=== PATIENT | male | born 1960 | race Caucasian/White ===

== ENCOUNTER → 2017-10-30 11:34 | Outpatient (CLI) | payer BC, SELFPAY ==
[2017-10-30 13:34] LABS: BUN 18 mg/dL (7-18); CREATININE 1.06 mg/dL (0.70-1.30)
== END ==
PROVIDERS: PCP Family Medicine; Visit Provider Otolaryngology Otolaryngology/Facial Plastic Surgery
DX: I10 Essential (primary) hypertension (principal); J38.00 Paralysis of vocal cords and larynx, unspecified; I49.9 Cardiac arrhythmia, unspecified; E66.01 Morbid (severe) obesity due to excess calories
CPT/HCPCS: 36415; 84520; 82565

== ENCOUNTER → 2017-11-10 14:20 | Outpatient (CLI) | payer BC, SELFPAY ==
[2017-11-10 15:00] LABS: Prothrombin Time 43.1 sec (9.3-10.8)
[2017-11-10 15:16] LABS: INR 4.7 (1.0-3.5)
[2017-11-10 16:05] LABS: FREE T4 0.98 ng/dL (0.76-1.46)
== END ==
PROVIDERS: PCP Family Medicine; Visit Provider Otolaryngology Otolaryngology/Facial Plastic Surgery
DX: R79.89 Other specified abnormal findings of blood chemistry (principal); Z79.01 Long term (current) use of anticoagulants
CPT/HCPCS: 36415; 84439; 84443; 85610

== ENCOUNTER 2017-11-12 18:11 | Emergency (ER) | payer BC, SELFPAY ==
[2017-11-12] VITALS (22 sets, daily range): BP systolic 104–173; BP diastolic 41–124; PULSE 64–130; RESP 18–40; TEMP 36.4–36.8; O2SAT 88–95
--- NOTE | 2017-11-12 18:35 | DI.REPORT_ITS ---
SYMPTOM/DIAGNOSIS: FATIGUE, MALAISE R/O PNEUMONIA PA AND LATERAL CHEST: 11/12 The heart is enlarged. There is a poor inspiration. No focal consolidation seen. Pulmonary markings are mildly increased probably due to body habitus. No gross pleural effusion seen. CONCLUSION: Cardiomegaly.
--- NOTE | 2017-11-12 19:31 | DI.REPORT_ITS ---
SYMPTOM/DIAGNOSIS: EPIGASTRIC ABDOMINAL PAIN R/O CHOLECYSTITIS ABDOMINAL ULTRASOUND: 11/12 The examination was extremely technically limited due to the patient's body habitus. Liver is poorly visualized and probably enlarged. Gallbladder is contracted and poorly visualized. No gross biliary dilatation. Pancreas not seen. Spleen grossly unremarkable. Kidneys grossly unremarkable with no significant hydronephrosis. Abdominal aorta and IVC poorly seen. CONCLUSION: Technically very limited exam due to patient body habitus. Please see above discussion for findings individual organs.
--- NOTE | 2017-11-12 19:32 | ED.GENADUL_ITS ---
Disposition <Yovanny Monteiro Lisa - Last Filed: 11/13/17 01:32> <Nisha Copeland Evy - Last Filed: 11/14/17 02:51> Clinical Impression: Atrial fibrillation with RVR, Epigastric pain, Hematuria Disposition: STILL A PATIENT Condition: Stable Medical Decision Making - Lab Data Laboratory Tests 11/12/17 11/12/17 11/12/17 19:20 20:00 20:00 WBC 6.87 RBC 6.01 H Hgb 16.7 Hct 52.6 H MCV 87.5 MCH 27.8 MCHC 31.7 L RDW 15.2 H Plt Count 196 MPV 9.4 Immature Gran % 0.1 Neutrophils % 67.9 Lymphocytes % 17.9 Monocytes % 11.8 Eosinophils % 1.9 Basophils % 0.4 Absolute Neutrophils 4.66 Absolute Lymphocytes 1.23 Absolute Monocytes 0.81 H Absolute Eosinophils 0.13 Absolute Basophils 0.03 PT INR Sodium 135 L Potassium 4.2 Chloride 100 Carbon Dioxide 29.4 Anion Gap 5.6 BUN 23 H Creatinine 1.18 Estimated GFR/1.73 m2 >= 60.00 Glucose 173 H Calcium 8.9 Magnesium 2.0 Total Bilirubin 0.4 AST 18 ALT 21 Alkaline Phosphatase 77 Troponin I < 0.02 Total Protein 7.6 Albumin 3.4 Lipase 160 Urine Color Brown Urine Clarity Turbid Urine pH 5.5 Ur Specific Burdick 1.020 Urine Protein 100 H Urine Ketones Negative Urine Blood Large H Urine Nitrite Negative Urine Bilirubin Negative Urine Urobilinogen 0.2 Ur Leukocyte Esterase Negative Urine RBC Urine WBC Not Applicable Ur Epithelial Cells Not Applicable Urine Crystals Not Applicable Urine Bacteria Not Applicable Urine Mucus Not Applicable Ur Culture Indicated? Yes Urine Glucose Negative 11/12/17 20:00 WBC RBC Hgb Hct MCV MCH MCHC RDW Plt Count MPV Immature Gran % Neutrophils % Lymphocytes % Monocytes % Eosinophils % Basophils % Absolute Neutrophils Absolute Lymphocytes Absolute Monocytes Absolute Eosinophils Absolute Basophils PT 23.4 H D INR 2.5 D Sodium Potassium Chloride Carbon Dioxide Anion Gap BUN Creatinine Estimated GFR/1.73 m2 Glucose Calcium Magnesium Total Bilirubin AST ALT Alkaline Phosphatase Troponin I Total Protein Albumin Lipase Urine Color Urine Clarity Urine pH Ur Specific Burdick Urine Protein Urine Ketones Urine Blood Urine Nitrite Urine Bilirubin Urine Urobilinogen Ur Leukocyte Esterase Urine RBC Urine WBC Ur Epithelial Cells Urine Crystals Urine Bacteria Urine Mucus Ur Culture Indicated? Urine Glucose - Medical Decision Making The patient was signed out to be by my colleague Dr. Copeland. This is a pleasant 57-year-old male who presented to the ED for concern of hematuria. His INR 2 days ago was 4.7, and notably elevated. He has been holding off on his Coumadin since then. He has had mild redness in his blood and was concerned with this. In addition to this he has had a complaint of mild epigastric pain for the last 2-3 days which she describes is worse only with the eating. Improved by nothing. It appears to be associated closely with food intake. Patient denies any recent overly spicy foods that he is eaten. He denies any chest pain arm pain neck pain exertional discomfort or shortness of breath or fatigue. Physical exam demonstrates mild reproducible epigastric tenderness. No chest pain. Unfortunately because of the patient's size we were unable to perform a CT scan. Ultrasound was performed and demonstrated no acute abdominal abnormalities on the abdominal ultrasound complete, per virtual radiology. Per virtual radiology the gallbladder wall was thought to be minimally thickened at 3.9 mm which can be within normal limits, it was contracted and they feel that this is the cause. Common bile duct was normal size and caliber. Pancreas demonstrate no abnormalities. No other abnormalities noted on exam. Patient's laboratory workup has returned relatively benign with a normal cardiac workup of a normal troponin and EKG. Additionally urinalysis does show some hemoglobin but no severe RBCs at this time. I feel that this is most likely secondary to his supratherapeutic INR that he previously had which now appears to be improving. He has no flank pain , no tenderness, no increased urinary frequency or dysuria, and so I doubt urolithiasis as a cause of his symptomatology. Especially with no pain. Patient's lipase is normal, laboratory workup is benign from a GI standpoint, and I feel that with his symptoms being directly related to food, this very well may be a component of gastric ulcer, or gastritis as to the cause of his epigastric pain. Patient will be started on Protonix for home use. In addition to this the patient did have mild tachycardia while here although on arrival he was normal in the 90s. EKG shows no evidence of ST elevations or depressions or any other significant abnormalities, but the rate was slightly increased. With his history of A. fib, I do feel that oral rate control for metoprolol is reasonable. Patient did respond well to metoprolol, and demonstrates a normal well-controlled rate at this time. He does have scheduled cardioversion within the next 14 days, as well as PCP follow-up in the next 48 hours. With a negative cardiac workup, a well-controlled heart rate , negative ultrasound, normal chest x-ray showing no signs of significant pneumonia, mediastinal widening, apical Of the aorta, large gastric bundles, or other abnormalities, and a physical exam and clinical presentation consistent with a gastric ulcer or gastric issue and inconsistent with a cardiac etiology, or urolithiasis, I feel that he is safe for discharge home with immediate follow -up in the next 48 hours. We discussed red flags which the patient should return he understands. I have extensively reviewed the treatment plan and discharge instructions with the patient. I have addressed all patient concerns at this time. The patient was made aware of what symptoms to monitor for that would warrant a return to the emergency department. Discussed the plan with the patient, they demonstrate verbal understanding and agreement with our assessment and plan at this time. <Yovanny Monteiro - Last Filed: 11/13/17 01:32> - EKG Data -: EKG Interpreted by Me 11/12/17 19:15: 119 bpm. Atrial fibrillation. No acute ST elevation or depression. - Medical Decision Making The above medical decision making addendum was entered by Dr. Monteiro into my note in error. 57-year-old male with history of morbid obesity, atrial fibrillation on Coumadin , diabetes who presents with hematuria since 5 PM tonight and upper epigastric abdominal pain for 2 days worse with eating and cough. Afebrile. Blood pressure 125/84. Patient appears nontoxic and in no acute distress. He has moderate epigastric tenderness to palpation. He denies fever , dysuria, frequency. Differential diagnosis of hematuria can include infection or possibly due to anticoagulation. Kidney stones less likely as he denies any flank pain or vomiting. Differential diagnosis of epigastric plan includes gastritis, pancreatitis, cholecystitis. Was planning to attempt a CAT scan of the abdomen and pelvis but weight limit is 190 kg. Call was placed to ultrasound and Denilson will come in around 8 PM for abdominal ultrasound. Will place an IV, Pepcid, bolus IV fluids, labs, PT/INR, abdominal ultrasound and reassess. Also do cardiac workup considering patient's comorbidities age and weight. EKG noted a rate of 119 and atrial fibrillation but no acute ST findings. He is not on any rate controlling medication such as beta blockers or calcium channel blockers. Will give a dose of 15 mg Cardizem IV. 2019 -- Nurse unable to obtain IV at bedside. Will hold on Cardizem IV and give metoprolol p.o. Will have another staff member reattempt IV placement. 2029 -- Case endorsed to Dr. Monteiro to follow-up on labs and imaging. 2044 --discussed with Denilson from ultrasound -states he noted the gallbladder to be small and contracted but no stones or pericholecystic fluid. Thinks the contraction may be due to recently eating. Would recommend a repeat ultrasound with fasting for 12 hours. <Nisha Copeland - Last Filed: 11/14/17 02:51> History of Present Illness <Yovanny Monteiro - Last Filed: 11/13/17 01:32> - General Source: patient Mode of arrival: ambulatory Limitations: no limitations - History of Present Illness Initial comments: Patient is a 57-year-old male with history of morbid obesity, atrial fibrillation on Coumadin, diabetes and obstructive sleep apnea who presents with constant upper aching epigastric abdominal pain for 2 days, worse with eating and cough currently 6/10 and better with nothing. Patient is also complaining of hematuria since 5 PM tonight. Patient states he mainly came to the ED due to the hematuria. States he has been on Coumadin for the past 5 weeks. Patient states his INR was checked on Friday and it was for so he was told to hold his Coumadin for the past 2 days. Patient denies fever, nausea, vomiting, diarrhea, chest pain, shortness of breath. He denies flank pain, dysuria, frequency, urgency or history of kidney stones. <Nisha Copeland - Last Filed: 11/14/17 02:51> - General Chief complaint: Abd Prob Stated complaint: ABDOMINAL PAIN/URINARY Time Seen by Provider: 11/12/17 18:31 - Related Data Blood Sugar Diagnostic [Onetouch Verio] 1 each MC BID #60 strip 12/01/15 Lancets [Lancets Thin] 1 each BID #60 each 12/01/15 Metformin HCl 500 mg PO BID@0800,1700 #180 tab 12/07/15 Amlodipine Besylate 10 mg PO DAILY #90 tab-cap 01/14/17 Losartan [Cozaar] 100 mg PO DAILY #90 tab-cap 04/16/17 Benzonatate 100 - 200 mg PO TID PRN #30 tab-cap 10/09/17 Nystatin Powder 60 GM [Mycostatin Powder] 0 gm TP TID #60 jar 10/09/17 Warfarin Sodium 5 mg PO DAILY #90 tab-cap 10/10/17 Allergies Allergy/AdvReac Type Severity Reaction Status Date / Time lisinopril AdvReac Intermediate COUGH Unverified 11/12/17 18:23 Review of Systems Constitutional: denies: chills, fever Eyes: denies: eye pain ENT: denies: ear pain, dental pain Respiratory: denies: cough, shortness of breath Cardiovascular: denies: chest pain, dyspnea on exertion Gastrointestinal: abdominal pain. denies: nausea, vomiting, diarrhea Genitourinary: hematuria. denies: urgency, dysuria, frequency Musculoskeletal: denies: back pain Skin: denies: rash, lesions Neurological: denies: headache, weakness, numbness <Nisha Copeland - Last Filed: 11/14/17 02:51> Past Medical History - Past Medical History Medical history: diabetes, hyperlipidemia, hypertension Peripheral vascular disease Surgical history: non-contributory - Social History Smoking status: never smoker Alcohol use: occasionally Drug use: none <Nisha Copeland - Last Filed: 11/14/17 02:51> General Exam - General Limitations: no limitations General appearance: alert, in no apparent distress - Eye Eye exam: Present: EOMI - Respiratory Respiratory exam: Present: normal lung sounds bilaterally. Absent: respiratory distress, wheezes, rales, rhonchi, stridor - Cardiovascular Cardiovascular Exam: Present: regular rate, normal rhythm. Absent: bradycardia , tachycardia - GI/Abdominal GI/Abdominal exam: Present: soft, distended, tenderness (Moderate and epigastric region, minimal in right upper quadrant and left upper quadrant), normal bowel sounds. Absent: guarding, rebound, rigid - Neurological Exam Neurological exam: Present: alert, oriented X3 - Psychiatric Psychiatric exam: Present: normal affect - Skin Skin exam: Present: warm, dry, intact <Nisha Copeland - Last Filed: 11/14/17 02:51> Course Vital Signs - 24 hr 11/12/17 11/12/17 11/12/17 18:18 19:31 19:40 Temperature 36.8 C Pulse 85 Respiratory 22 25 H 22 Rate Blood Pressure 143/100 Pulse Oximetry 95 11/12/17 11/12/17 11/12/17 20:30 20:31 20:40 Temperature Pulse 82 Respiratory 24 26 H 26 H Rate Blood Pressure 173/124 Pulse Oximetry 94 L 93 L 11/12/17 11/12/17 11/12/17 20:46 20:50 21:00 Temperature Pulse 75 Respiratory 25 H 30 H 21 Rate Blood Pressure 154/83 Pulse Oximetry 93 L 92 L 91 L 11/12/17 11/12/17 11/12/17 21:05 21:10 21:30 Temperature Pulse 86 Respiratory 32 H 20 37 H Rate Blood Pressure 104/41 Pulse Oximetry 91 L 11/12/17 11/12/17 11/12/17 21:40 21:41 21:46 Temperature Pulse 70 69 Respiratory 40 H 21 22 Rate Blood Pressure 142/94 123/78 Pulse Oximetry 90 L 89 L 90 L 11/12/17 11/12/17 11/12/17 21:50 22:00 22:01 Temperature Pulse 74 Respiratory 18 23 22 Rate Blood Pressure 125/82 Pulse Oximetry 90 L 88 L 11/12/17 11/12/17 22:10 22:20 Temperature Pulse Respiratory 25 H 30 H Rate Blood Pressure Pulse Oximetry 91 L <Yovanny Monteiro R - Last Filed: 11/13/17 01:32> Vital Signs - 24 hr 11/12/17 18:18 Temperature 98.2 F Pulse 85 Respiratory 22 Rate Blood Pressure 143/100 Pulse Oximetry 95 <Nisha Copeland - Last Filed: 11/14/17 02:51>
[2017-11-12 19:33] LABS: Bilirubin Negative (Negative); Blood Large (Negative); Clarity Turbid; Glucose Negative (Negative); Ketones Negative (Negative); Leukocyte Esterase Negative (Negative); Nitrite Negative (Negative); Urobilinogen 0.2 EU/dL (Up TO 0.2); pH 5.5 (5-8)
[2017-11-12 19:59] LABS: C & S Indicated? Yes
[2017-11-12 20:28] LABS: Abs Immature Grans 0.01 k/cumm (0.0-0.09); Absolute Basophil Count 0.03 k/cumm (0.0-0.2); Absolute Eosinophil Count 0.13 k/cumm (0.0-0.7); Absolute Lymphocyte Count 1.23 k/cumm (1.2-3.4); Absolute Monocyte Count 0.81 k/cumm (0.11-0.7); Absolute Neutrophil Count 4.66 k/cumm (1.2-6.7); Basophils % 0.4; Eosinophils % 1.9; HCT 52.6 % (40.0-50.0); HGB 16.7 g/dL (13.5-17.5); Immature Grans % 0.1; Lymphocytes % 17.9; Mean Corp. HGB Concentration 31.7 g/dL (32.0-36.0); Mean Corpuscular Hemoglobin 27.8 pg (27.0-33.0); Mean Corpuscular Volume 87.5 fL (80-95); Mean Platelet Volume 9.4 fL (8.0-11.0); Monocytes % 11.8; Neutrophils % 67.9; Platelet Count 196 x1000/uL (130-400); RBC 6.01 m/cumm (4.50-6.00); RBC Distribution Width 15.2 % (11.8-14.1); White Blood Cell Count 6.87 k/cumm (4.4-10.8)
[2017-11-12 20:32] LABS: INR 2.5 (1.0-3.5); Prothrombin Time 23.4 sec (9.3-10.8)
[2017-11-12 20:37] LABS: ALT 21 U/L (12-78); AST 18 U/L (15-37); Albumin 3.4 g/dL (3.4-5.0); Alkaline Phosphatase 77 U/L (46-116); Anion Gap 5.6 mmol/L (3-11); BUN 23 mg/dL (7-18); Bilirubin, Total 0.4 mg/dL (0.2-1.0); CO2 29.4 mmol/L (21.0-32.0); CREATININE 1.18 mg/dL (0.70-1.30); Calcium 8.9 mg/dL (8.5-10.1); Chloride 100 mmol/L (98-107); Glucose 173 mg/dL (70-100); Lipase 160 U/L (73-393); Potassium 4.2 mmol/L (3.5-5.1); Sodium 135 mmol/L (136-145); Total Protein 7.6 g/dL (6.4-8.2)
[2017-11-12 20:40] LABS: Troponin I < 0.02 ng/mL (0.00-0.06)
[2017-11-12] MEDS: Metoprolol 50 MG TAB PO (20:43)
--- NOTE | 2017-11-12 20:59 | DI.VRAD_ITS ---
EXAM: XR Chest, 2 Views EXAM DATE/TIME: 11/12/2017 8:30 PM CLINICAL HISTORY: 57 years old, male; Pain and signs and symptoms; Cough; Chest pain; Type not specified TECHNIQUE: XR of the chest, 2 views. COMPARISON: CR - CHEST 2 VIEWS PA,LAT 09/11/2017 1:54 PM FINDINGS: Lungs: No pneumonic consolidations are seen. Pleural space: No pleural effusions are detected. Heart/Mediastinum: There is marked cardiomegaly present. There is possible associated mild central vascular congestion. Some component of CHF may be present. Bones/joints: The osseous structures appear to be intact. Marginal osteophytic spurring is present throughout the thoracic vertebrae. IMPRESSION: 1. Questionable component of mild CHF as described above. 2. No acute pulmonary disease. Dictated and Authenticated by: Mauricio Mccall MD. Ordering:MEG LAZCANO MD
--- NOTE | 2017-11-12 21:07 | DI.VRAD_ITS ---
EXAM: US Abdomen Complete EXAM DATE/TIME: 11/12/2017 8:29 PM CLINICAL HISTORY: 57 years old, male; Pain; Abdominal pain; Acute TECHNIQUE: Real-time ultrasound of the abdomen with image documentation. COMPARISON: ABD WALL SOFT TISSUE MASS US 09/29/2012 8:54 AM FINDINGS: Limitations: The study was technically limited due to patient body habitus. Additionally, the technologist's work sheet states that the examination was performed during non-fasting conditions. Consideration could be given to repeat evaluation with the patient having fasted. Liver: There is some hepatomegaly present. The liver measured approximately 17.8 cm in the midclavicular line. The liver appeared diffusely increased in echo density suggestive of associated diffuse hepatic steatosis. Gallbladder: The gallbladder is poorly identified due to to partial contraction. Consequently, there is borderline gallbladder wall thickening noted which measured 3.9 mm. This is thought to likely be predominantly artifactual created by the partial contraction. Common bile duct: The common bile duct is normal in caliber and measures 8.8 mm transversely. Pancreas: The pancreas is very suboptimally visualized. The visualized portions of the head and body appeared to be within normal limits. The tail was obscured by bowel gas. Kidneys: Normal. No mass. No hydronephrosis. Spleen: Normal. No splenomegaly. Aorta: Normal where visualized. No aneurysm detected. Inferior vena cava: Normal as visualized. IMPRESSION: No acute findings are detected. Dictated and Authenticated by: Mauricio Mccall MD. Ordering:MEG LAZCANO MD
[2017-11-12] MEDS: Lidocaine 2% Viscous 15 ML CUP (21:16)
[2017-11-12] MEDS: Mylanta Suspension 30 ML CUP (21:16)
== END 2017-11-12 23:22 | disposition still patient (30) ==
PROVIDERS: Emergency Provider Physician Assistant; PCP Family Medicine
DX: I48.91 Unspecified atrial fibrillation (principal); I47.2 Ventricular tachycardia; R10.13 Epigastric pain; R31.9 Hematuria, unspecified; T45.515A Adverse effect of anticoagulants, initial encounter; Z79.01 Long term (current) use of anticoagulants; I10 Essential (primary) hypertension; E11.9 Type 2 diabetes mellitus without complications; Z79.84 Long term (current) use of oral hypoglycemic drugs
CPT/HCPCS: 36415; 80053; 83690; 93005; 99285; 71046; 76700; 81003; 81015; 83735; 84484; 85025; 85610; 87086; 93010

== ENCOUNTER → 2017-11-17 08:47 | Outpatient (CLI) | payer BC, SELFPAY ==
[2017-11-17 11:12] LABS: INR 2.9 (1.0-3.5); Prothrombin Time 27.6 sec (9.3-10.8)
== END ==
PROVIDERS: Otolaryngology Otolaryngology/Facial Plastic Surgery; PCP Family Medicine; Visit Provider Family Medicine
DX: R49.0 Dysphonia (principal); J38.00 Paralysis of vocal cords and larynx, unspecified; R79.89 Other specified abnormal findings of blood chemistry; I48.91 Unspecified atrial fibrillation; Z79.01 Long term (current) use of anticoagulants
CPT/HCPCS: 36415; 83519; 85610

== ENCOUNTER → 2017-11-20 02:48 | Outpatient (CLI) | payer BC, SELFPAY | PROVIDERS: PCP Family Medicine | DX: R49.0 Dysphonia (principal); F44.4 Conversion disorder with motor symptom or deficit | CPT/HCPCS: 92524 ==

== ENCOUNTER 2017-11-28 12:06 | Outpatient (CLI) | payer BC, SELFPAY | END 2017-11-28 12:26 | PROVIDERS: PCP Family Medicine | DX: F44.4 Conversion disorder with motor symptom or deficit (principal); R49.0 Dysphonia | CPT/HCPCS: 92507 ==

== ENCOUNTER 2017-12-01 14:50 | Outpatient (REF) | payer BC, SELFPAY ==
[2017-12-01 15:26] LABS: Epithelial Cells Few HPF (Negative); RBC 0-2 (0-2)
[2017-12-01 15:27] LABS: Bacteria Rare HPF (Negative); C & S Indicated? No; Casts Negative LPF (Negative); Crystals Negative HPF (Negative); Mucus Moderate (Negative); Other Cells Few Transitional (Negative)
== END 2017-12-01 15:10 ==
LOC: LBN 14:50
PROVIDERS: PCP Family Medicine; Visit Provider Nurse Practitioner Gerontology
DX: R31.9 Hematuria, unspecified (principal)
CPT/HCPCS: 81015

== ENCOUNTER 2017-12-02 02:13 | Outpatient (RCR) | payer BC, SELFPAY | END 2017-12-21 23:59 | disposition home or self-care (01) | LOC: SP 02:13 | PROVIDERS: PCP Family Medicine | DX: R49.0 Dysphonia (principal); F44.4 Conversion disorder with motor symptom or deficit | CPT/HCPCS: 92507 ==

== ENCOUNTER 2017-12-10 12:54 | Outpatient (CLI) | payer BC, SELFPAY ==
[2017-12-10 19:02] LABS: FREE T4 1.02 ng/dL (0.76-1.46)
== END 2017-12-10 13:14 ==
PROVIDERS: Nurse Practitioner Family; PCP Family Medicine; Visit Provider Family Medicine
DX: R53.83 Other fatigue (principal)
CPT/HCPCS: 36415; 84439; 84443

== ENCOUNTER 2017-12-10 15:34 | Outpatient (REF) | payer BC, SELFPAY ==
--- NOTE | 2017-12-10 13:35 | PAPNONF_PTH ---
PATIENT: Corey Hall LOC: [facility] U#:[id number] AGE/SX: 57/M ROOM: RE12/10/[address]: Codie Ayala DNP : 1960 BED: DIS: 12/10/2017 SPEC #: [id number] RECD: 12/10/17 16:15 STATUS: EMI RERio #: [id number] MISSY: 12/10/17 13:[address]: Codie Ayala DEPT: [facility] Cytology RECD BY: Horacio Elias ENTERED: 12/10/17 16:17 SP TYPE: JASMIN RAMIREZ DR: Corey Vaca MD Tissues: 1 - BODY FLUID CYTO(SPUTUM/URINE)[facility] Procedures: BODY FLUID CYTO(URINE/SPUTUM) Comments: [id number] (@UK=758 mls - 30mls ur/30mls cytolyte x 3 and 20mls ur/20mls @cytolyte sent)
== END 2017-12-10 15:54 ==
LOC: LBN 15:34
PROVIDERS: PCP Family Medicine; Visit Provider Nurse Practitioner Gerontology
DX: R31.0 Gross hematuria (principal)
CPT/HCPCS: 88104

== ENCOUNTER 2018-01-09 02:54 | Outpatient (CLI) | payer BC, SELFPAY ==
[2018-01-09 11:32] LABS: Prothrombin Time 50.7 sec (9.3-10.8)
[2018-01-09 11:51] LABS: INR 5.5 (1.0-3.5)
== END 2018-01-09 03:14 ==
PROVIDERS: PCP Family Medicine; Visit Provider Family Medicine
DX: Z79.01 Long term (current) use of anticoagulants (principal)
CPT/HCPCS: 36415; 85610

== ENCOUNTER 2018-01-13 01:20 | Outpatient (CLI) | payer BC, SELFPAY ==
[2018-01-13 11:08] LABS: INR 1.6 (1.0-3.5); Prothrombin Time 15.8 sec (9.3-10.8)
[2018-01-13 18:07] LABS: T3,Free 3.1 pg/ml (2.8-5.3)
== END 2018-01-13 01:40 ==
PROVIDERS: PCP Family Medicine; Visit Provider Family Medicine
DX: I48.91 Unspecified atrial fibrillation (principal); Z79.01 Long term (current) use of anticoagulants; I10 Essential (primary) hypertension
CPT/HCPCS: 36415; 84481; 85610

== ENCOUNTER 2018-01-19 11:03 | Outpatient (CLI) | payer BC, SELFPAY ==
[2018-01-19 12:33] LABS: INR 2.9 (1.0-3.5); Prothrombin Time 27.3 sec (9.3-10.8)
== END 2018-01-19 11:23 ==
PROVIDERS: PCP Family Medicine; Visit Provider Family Medicine
DX: Z79.01 Long term (current) use of anticoagulants (principal)
CPT/HCPCS: 36415; 85610

== ENCOUNTER 2018-01-19 12:06 | Outpatient (CLI) | payer BC, SELFPAY ==
--- NOTE | 2018-01-19 11:30 | SATEXT_ITS ---
Assessment: Mr. Hall presents for nutritional counseling for weight management nutritional counseling in preparation for bariatric surgery at [facility] [place]. In the past two weeks, Mr. Hall has changed over to a keto style of eating , although he does have some carbohydrates. He reports that his hunger is in control and he feels better. His physical activity at this point in time consists of his activities of daily life and he also does physical therapy twice per week. Mr. Hall reports a history of eating excessively as well as eating too many sugar sweetened beverages. He is 72 and [address] scale today. Nutritional Diagnosis: Class 3 obesity related to a history of excess energy intake and physical inactivity as evidenced by BMI of 56.0 kg/m2. Intervention: Encouraged Mr. Hall to continue with his keto style eating plan for the next month until he sees me again as it is working well for him at this time. Encouraged him to be as physically active as possible. Monitoring and Evaluation: 1. Mr. Hall will follow up with me next month. Will monitor his weight and PO intake. 2. Will evaluate his nutrition care plan on going and adjust as needed. Thank you for the consult.
== END 2018-01-19 12:26 ==
PROVIDERS: PCP Family Medicine; Visit Provider Dietitian, Registered
DX: E66.8 Other obesity (principal); Z68.43 Body mass index [BMI] 50.0-59.9, adult; Z71.3 Dietary counseling and surveillance
CPT/HCPCS: 97802

== ENCOUNTER 2018-01-28 08:11 | Outpatient (CLI) | payer BC, SELFPAY ==
[2018-01-28 09:23] LABS: INR 3.9 (1.0-3.5); Prothrombin Time 35.9 sec (9.3-10.8)
== END 2018-01-28 08:31 ==
PROVIDERS: PCP Family Medicine; Visit Provider Family Medicine
DX: I87.2 Venous insufficiency (chronic) (peripheral) (principal); Z79.01 Long term (current) use of anticoagulants
CPT/HCPCS: 36415; 85610

== ENCOUNTER 2018-02-10 02:05 | Outpatient (CLI) | payer BC, SELFPAY ==
--- NOTE | 2018-02-10 09:00 | NS.NUTBLAN_ITS ---
February 10, 2018 0900h Mr. Hall returns for follow up nutritional counseling for weight management in preparation for bariatric surgery at [facility] [place]. He reports that he continues to limit his carbohydrate intake to 20-40 grams per day on most days. His breakfast is 2-3 eggs,, 1 slice toast, and brito. Lunch is one piece of fruit and dinner is meat and cottage cheese or an omelette. He drinks water mostly, some diet coke, and some coffee. His physical activity continues to be his ADL' s only. Mr. Hall reports that he will keep up with his current eating habits over the next month as his action plan. Encouraged him also to be as physically active as possible even if only for 5 minutes at one time. He is 72 and his weight today is 413.2 lbs. His BMI is 56.1 kg/m2. Will monitor his PO intake, weight, and physical activity monthly. Will evaluate his nutrition care plan and adjust as needed. Total time spent with patient face to face was 17 minutes.
== END 2018-02-10 02:25 ==
PROVIDERS: PCP Family Medicine; Visit Provider Dietitian, Registered
DX: E66.8 Other obesity (principal); Z68.43 Body mass index [BMI] 50.0-59.9, adult; Z71.3 Dietary counseling and surveillance
CPT/HCPCS: 97803

== ENCOUNTER 2018-02-17 10:23 | Outpatient (CLI) | payer BC, SELFPAY ==
[2018-02-17 13:15] LABS: INR 3.8 (1.0-3.5); Prothrombin Time 35.5 sec (9.3-10.8)
[2018-02-17 13:20] LABS: Hemoglobin A1C 6.4 % (4.5-6.2)
== END 2018-02-17 10:43 ==
PROVIDERS: PCP Family Medicine; Visit Provider Family Medicine
DX: Z79.01 Long term (current) use of anticoagulants (principal); E11.9 Type 2 diabetes mellitus without complications; I49.9 Cardiac arrhythmia, unspecified
CPT/HCPCS: 36415; 83036; 85610

== ENCOUNTER 2018-05-19 10:39 | Outpatient (CLI) | payer SELFPAY ==
[2018-05-19 12:48] LABS: INR 1.7 (0.9-1.1); Prothrombin Time 17.2 sec (9.3-11.0)
== END 2018-05-19 10:59 ==
PROVIDERS: PCP Family Medicine; Visit Provider Family Medicine
DX: Z79.01 Long term (current) use of anticoagulants (principal)
CPT/HCPCS: 36415; 85610

== ENCOUNTER 2018-06-15 16:10 | Outpatient (CLI) | payer BC, SELFPAY ==
[2018-06-15 16:51] LABS: INR 3.6 (0.9-1.1); Prothrombin Time 36.5 sec (9.3-11.0)
== END 2018-06-15 16:30 ==
PROVIDERS: PCP Family Medicine; Visit Provider Family Medicine
DX: Z79.01 Long term (current) use of anticoagulants (principal); I48.2 Chronic atrial fibrillation
CPT/HCPCS: 36415; 85610

== ENCOUNTER 2018-07-03 13:26 | Outpatient (CLI) | payer BC, SELFPAY ==
[2018-07-03 14:00] LABS: INR 2.3 (0.9-1.1); Prothrombin Time 22.9 sec (9.3-11.0)
== END 2018-07-03 13:46 ==
PROVIDERS: PCP Family Medicine; Visit Provider Family Medicine
DX: Z79.01 Long term (current) use of anticoagulants (principal)
CPT/HCPCS: 36415; 85610

== ENCOUNTER 2018-08-13 08:44 | Outpatient (CLI) | payer BC, SELFPAY ==
[2018-08-13 09:18] LABS: INR 1.7 (0.9-1.1); Prothrombin Time 17.5 sec (9.3-11.0)
== END 2018-08-13 09:04 ==
PROVIDERS: PCP Family Medicine; Visit Provider Family Medicine
DX: Z79.01 Long term (current) use of anticoagulants (principal)
CPT/HCPCS: 36415; 85610

== ENCOUNTER 2018-10-11 18:00 | Emergency (ER) | payer BC, SELFPAY ==
[2018-10-11 18:09] VITALS: BP 152/117; PULSE 99; RESP 18; TEMP 38.1; O2SAT 95
[2018-10-11 18:28] LABS: Bilirubin Negative (Negative); Blood Trace-intact (Negative); Clarity Sl Cloudy (Clear); Glucose Negative (Negative); Ketones Negative (Negative); Leukocyte Esterase Moderate (Negative); Nitrite Negative (Negative); Specific Gravity 1.015 (1.005-1.025); Urobilinogen 0.2 EU/dL (Up TO 0.2); pH 5.5 (5-8)
[2018-10-11 18:39] LABS: Epithelial Cells Rare HPF (Negative); RBC 0-2 (0-2)
[2018-10-11 18:40] LABS: Bacteria Few HPF (Negative); C & S Indicated? Yes; Casts Negative LPF (Negative); Crystals Negative HPF (Negative); Mucus Negative (Negative); Other Cells Rare Renal (Negative)
--- NOTE | 2018-10-11 19:08 | ED.GENADUL_ITS ---
Discharge Plan Discharge Details Chief Complaint: Abd Prob Primary Care Provider: Corey Vaca ED Provider: Bear Green Home Meds and New Rx's Prescriptions: No Action amlodipine 10 mg tablet 10 mg PO DAILY Qty: 90 RF: 4 metoprolol tartrate [Lopressor] 50 mg tablet 25 mg PO BID Qty: 180 RF: 4 warfarin 5 mg tablet 5 mg PO DIRECTED Qty: 90 RF: 4 metformin 500 mg tablet 500 mg PO BID@0800,1700 RF: 0 nystatin 60 GM powder 0 gm Topical TID Qty: 60 RF: 0 pantoprazole 40 MG tablet,delayed release (DR/EC) 40 mg PO DAILY Qty: 30 RF: 2 losartan 100 mg tablet 100 mg PO DAILY Qty: 90 RF: 4 (DME) OneTouch Verio 1 EACH strip 1 ea Miscellaneous BID Qty: 60 RF: 0 (DME) Lancets,Thin 1 EACH misc 1 ea Miscellaneous BID Qty: 60 RF: 0 Medical Decision Making 58-year-old male with dysuria lower abdominal pain and low-grade fever concerning for complex UTI vs. pyelonephritis versus less likely intra- abdominal infection vs unlikley renal colic - no CVAT or flank pain, pain severity and pattern inconsistent with renall colic. . Plan for labs IV antibiotics lactate in ED observation likely admission. UA + of infection, lactate 2.3 + leukocytosis with left shift tx with abx, ceftriaxone, negligible post void residual dw IM for admission. HPI 58-year-old male past medical history of atrial fibrillation on Coumadin hypertension hyperlipidemia diabetes on metformin morbid obesity greater than 400 pounds presents with 3 days of dysuria urinary frequency foul-smelling urine and lower abdominal pain diffusely bilateral no chest pain no shortness of breath positive fever and chills. No history of renal calculi or other renal issues. No difficulty urinating. General Date/Time Provider Initiated Documentation: 10/11/18 18:18 . Related Data Home Medications Medication Instructions Recorded Confirmed Lancets,Thin #60 ea 12/01/15 10/11/18 OneTouch Verio #60 strip 12/01/15 10/11/18 nystatin 0 gm TOPICAL TID #60 jar 10/09/17 10/11/18 pantoprazole 40 mg PO DAILY #30 tab-cap 11/14/17 10/11/18 amlodipine 10 mg tablet 10 mg PO DAILY #90 tab-cap 02/17/18 10/11/18 metoprolol tartrate 50 mg tablet 25 mg PO BID #180 tab 02/17/18 10/11/18 warfarin 5 mg tablet 5 mg PO DIRECTED #90 tab 05/19/18 10/11/18 losartan 100 mg tablet 100 mg PO DAILY #90 tab-cap 08/18/18 10/11/18 metformin 500 mg tablet 500 mg PO BID@0800,1700 tab 08/25/18 10/11/18 Previous Rx's Medication Instructions Recorded Lancets,Thin #60 ea 12/01/15 OneTouch Verio #60 strip 12/01/15 nystatin 0 gm TOPICAL TID #60 jar 10/09/17 pantoprazole 40 mg PO DAILY #30 tab-cap 11/14/17 amlodipine 10 mg tablet 10 mg PO DAILY #90 tab-cap 02/17/18 metoprolol tartrate 50 mg tablet 25 mg PO BID #180 tab 02/17/18 warfarin 5 mg tablet 5 mg PO DIRECTED #90 tab 05/19/18 losartan 100 mg tablet 100 mg PO DAILY #90 tab-cap 08/18/18 Allergies Allergy/AdvReac Type Severity Reaction Status Date / Time lisinopril AdvReac Intermediate COUGH Verified 10/11/18 18:12 General Stated Complaint: Abd Prob ENOCH: 3 Review of Systems Review of Systems All systems reviewed & are unremarkable except as noted in HPI and below PFSH Medical History (Updated 10/11/18 @ 18:13 by Meagan Rayo) A-fib (Chronic) Ankle fracture Borderline diabetes Hyperlipidemia Hypertension Morbid obesity with BMI of 50.0-59.9, adult Venous insufficiency (chronic) (peripheral) Surgical History (Updated 09/03/18 @ 11:07 by Corey Vaca MD) Colonoscopy - MAC (01/13/15) Excision, Tumor History of excision of lesion (Resolved) Social History (Updated 02/18/18 @ 08:37 by Marva Sawyer) Smoking/Tobacco Use Status: Never Alcohol Intake: current Alcohol Intake frequency: holidays/special occasions only Alcohol type: beer Drug use: Never Substance use type: does not use 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 well appearing. oriented to person, place, and time. Eyes: conjunctivae are normal. Pupils are equal, round, and reactive to light. No scleral icterus. extraocular muscles are intact Ears/Nose/Mouth/Throat: muscousal membranes are moist. Musculoskeletal: neck is supple. normal range of motion in all extremities. Cardiovascular: Normal rate and rhythm. No lower extremity edema regular rate and rhythm Respiratory: effort is normal. no stridor or respiratory distress. Lungs clear to auscultation GastrointestinaI: abdomen soft, +BS, nontender, -rebound, -guarding. During exam patient indicates that lower left and lower right quadrants and suprapubic area where pain is localized though no tenderness to palpation no CVAT no skin or fungal infections noted to large panis Neurological: alert and oriented to person, place, and time. normal strength, no tremor. Skin: Skin is warm and dry. not diaphoretic. Distal perfusion intact, warm extremities, cap refill < 2 seconds. Hem/Lymph/Imm: No cervical LAD, no goiter, no conjunctival pallor Psych: normal mood and affect. behavior is normal Triage and nurse notes reviewed. Course Vital Signs Temperature 38.1 C H 10/11/18 18:09 Pulse 99 H 10/11/18 18:09 Respiratory Rate 18 10/11/18 18:09 Blood Pressure 152/117 H 10/11/18 18:09 Pulse Oximetry 95 10/11/18 18:09 Temperature 38.1 C H 10/11/18 18:09 Temperature Source Skin 10/11/18 18:09 Pulse 99 H 10/11/18 18:09 Respiratory Rate 18 10/11/18 18:09 Respiratory Effort 10/11/18 18:11 Blood Pressure 152/117 H 10/11/18 18:09 Pulse Oximetry 95 10/11/18 18:09 Pain Level 5 10/11/18 18:09 Lab/Test Results Lab/Test Results: 10/11/18 18:15 Urine - Reflex from Ua Urine Culture - Pending Laboratory Tests Range/Units 10/11/18 18:15 Urine Color (Yellow) Yellow Urine Clarity (Clear) Sl cloudy Urine pH (5-8) 5.5 Ur Specific [place] (1.005-1.025) 1.015 Urine Protein (Negative) mg/dL Negative Urine Ketones (Negative) mg/dL Negative Urine Blood (Negative) Trace-intact H Urine Nitrite (Negative) Negative Urine Bilirubin (Negative) Negative Urine Urobilinogen (Up TO 0.2) EU/dL 0.2 Ur Leukocyte Esterase (Negative) Moderate H Urine RBC (0-2) 0-2 Urine WBC (0-5) HPF 10-20 Ur Epithelial Cells (Negative) HPF Rare Urine Crystals (Negative) HPF Negative Urine Bacteria (Negative) HPF Few Urine Casts (Negative) LPF Negative Urine Mucus (Negative) Negative Urine Other (Negative) Rare renal Ur Culture Indicated? Yes Urine Glucose (Negative) mg/dL Negative
[2018-10-11 19:31] LABS: Abs Immature Grans 0.03 k/cumm (0.0-0.09); Absolute Eosinophil Count 0.07 k/cumm (0.0-0.7); Absolute Lymphocyte Count 0.91 k/cumm (1.2-3.4); Absolute Monocyte Count 1.42 k/cumm (0.11-0.7); Basophils % 0.1; Eosinophils % 0.5; HCT 50.5 % (40.0-50.0); HGB 16.8 g/dL (13.5-17.5); Immature Grans % 0.2; Lymphocytes % 6.8; Mean Corp. HGB Concentration 33.3 g/dL (32.0-36.0); Mean Corpuscular Hemoglobin 29.8 pg (27.0-33.0); Mean Corpuscular Volume 89.7 fL (80-95); Mean Platelet Volume 9.6 fL (8.0-11.0); Monocytes % 10.6; Neutrophils % 81.8; Platelet Count 208 x1000/uL (130-400); RBC 5.63 m/cumm (4.50-6.00); RBC Distribution Width 13.9 % (11.8-14.1); White Blood Cell Count 13.42 k/cumm (4.4-10.8)
[2018-10-11] MEDS: cefTRIAXone 2 GM/50 ML BAG IVPB (19:32)
[2018-10-11 19:33] LABS: Absolute Basophil Count 0.01 k/cumm (0.0-0.2); Absolute Neutrophil Count 10.98 k/cumm (1.2-6.7)
[2018-10-11] MEDS: Normal Saline 1,000 ML 1000 ML IV (19:33)
[2018-10-11 19:37] LABS: Lactate 2.3 mmol/L (0.6-1.4)
[2018-10-11 19:45] LABS: Prothrombin Time 41.6 sec (9.3-11.0)
[2018-10-11 19:50] LABS: ALT 23 U/L (12-78); AST 14 U/L (15-37); Albumin 3.9 g/dL (3.4-5.0); Alkaline Phosphatase 86 U/L (46-116); Anion Gap 11.5 mmol/L (3-11); BUN 19 mg/dL (7-18); Bilirubin, Total 0.4 mg/dL (0.2-1.0); CO2 27.5 mmol/L (21.0-32.0); CREATININE 0.98 mg/dL (0.70-1.30); Calcium 9.4 mg/dL (8.5-10.1); Chloride 100 mmol/L (98-107); Glucose 104 mg/dL (70-100); Lipase 136 U/L (73-393); Magnesium 1.9 mg/dL (1.8-2.4); Sodium 139 mmol/L (136-145); Total Protein 8.6 g/dL (6.4-8.2)
[2018-10-11 19:56] LABS: INR 4.1 (0.9-1.1)
[2018-10-11 21:15] VITALS: BP 156/100; PULSE 82; RESP 24; TEMP 37; O2SAT 95
== END 2018-10-11 22:29 | disposition home or self-care (01) ==
PROVIDERS: Emergency Provider Emergency Medicine; PCP Family Medicine
DX: R10.30 Lower abdominal pain, unspecified (principal); R50.9 Fever, unspecified; N39.0 Urinary tract infection, site not specified; E87.2 Acidosis; Z53.29 Procedure and treatment not carried out because of patient's decision for other reasons; E11.9 Type 2 diabetes mellitus without complications; Z79.84 Long term (current) use of oral hypoglycemic drugs; I10 Essential (primary) hypertension
CPT/HCPCS: 36415; 80053; 83690; 87077; 96361; 96365; 99284; 81003; 81015; 83605; 83735; 85025; 85610; 87086; 87186

== ENCOUNTER 2018-10-12 07:06 | Emergency (ER) | payer BC, SELFPAY ==
[2018-10-12 07:10] VITALS: BP 106/63; PULSE 83; RESP 18; TEMP 36.7; O2SAT 94
--- NOTE | 2018-10-12 07:31 | W.ED.GENAD ---
Discharge Plan Disposition Patient Disposition: HOME Condition: Stable Discharge Details Chief Complaint: Recheck Clinical Impression: Diverticulitis, Bladder wall thickening, Incidental pulmonary nodule Primary Care Provider: Corey Vaca ED Provider: Priscilla Staples Home Meds and New Rx's Prescriptions: New amoxicillin-pot clavulanate [Augmentin] 875-125 mg tablet 1 tab PO TID Qty: 30 RF: 0 Continued amlodipine 10 mg tablet 10 mg PO DAILY Qty: 90 RF: 4 metoprolol tartrate [Lopressor] 50 mg tablet 25 mg PO BID Qty: 180 RF: 4 warfarin 5 mg tablet 5 mg PO DIRECTED Qty: 90 RF: 4 metformin 500 mg tablet 500 mg PO BID@0800,1700 RF: 0 nystatin 60 GM powder 0 gm Topical TID Qty: 60 RF: 0 pantoprazole 40 MG tablet,delayed release (DR/EC) 40 mg PO DAILY Qty: 30 RF: 2 losartan 100 mg tablet 100 mg PO DAILY Qty: 90 RF: 4 (DME) OneTouch Verio 1 EACH strip 1 ea Miscellaneous BID Qty: 60 RF: 0 (DME) Lancets,Thin 1 EACH misc 1 ea Miscellaneous BID Qty: 60 RF: 0 Discharge Instructions Instructions: Diverticulitis (ED), Diverticulitis Diet (ED), Pulmonary Nodules (ED) Additional Instructions: Please return immediately to the emergency department if you develop any new or worsening symptoms or if you become otherwise concerned. It is extremely important that you call as soon as possible to make an appointment to be seen by your primary care doctor, for both follow-up of your condition and also incidental findings on imaging that was done today. Referrals: Corey Vaca MD [Primary Care Provider] - Discharge Data Discharge Date/Time-TO BE ENTERED AT DEPARTURE: 10/12/18 12:01 Medical Decision Making Corey Hall is a 58-year-old man with history of A. fib on Coumadin, hyperlipidemia, hypertension, diabetes, morbid obesity greater than 400 pounds who presented to the emergency department for recheck after being diagnosed with likely pyelonephritis and discharged home last night. On exam patient is well and nontoxic appearing. Mild lower abdominal tenderness without peritoneal signs. At this time, given significant improvement from last night per patient report, plan for screening labs, repeat dose of ceftriaxone, IV fluid hydration, UA. Will obtain post void residual. Awaiting lab results, reassessment for possible ED to ED transfer for CT scan for further differentiation of lower abdominal pain. Exam/history is not consistent with ACS, PE, aortic/vascular etiology. Labs show lactate 1.4, now within normal limits and improved from yesterday's encounter, white blood cell count now 15.47 increased from 13.4 yesterday. Discussed with radiology CT availability here, who states patient should be accommodated by our CT. Plan for CT abdomen pelvis. CT shows diverticulitis, thickened bladder wall, pulmonary nodule per radiology over the phone. I did discuss rising white count and potential admission with the patient for diverticulitis, however patient states that he feels very well and would prefer trial of outpatient therapy. Plan for Augmentin. I had a lengthy discussion with the patient regarding return to emergency department precautions, importance of outpatient follow-up, and home care. Patient verbalized understanding the plan was amenable. Patient was discharged home with clear plan for outpatient follow-up. All questions were answered. Medical Records Medical records reviewed: Yes I reviewed the patient's medical records. Imaging Data Radiologic Study: Attestation: I personally reviewed and interpreted this imaging study as follows: Radiologist's impression: CT ABDOMEN AND PELVIS: CT scan of the abdomen and pelvis was performed following the uneventful administration of intravenous contrast material. There are no priors for comparison. There is a small noncalcified pulmonary nodule in the periphery of the right lobe of the lung measuring 0.7 cm. The liver is normal in size. There does appear to be decreased attenuation of the liver suggesting fatty infiltration. No suspicious hepatic masses seen. The portal superior mesenteric and splenic veins appear patent. The gallbladder is negative. There is no biliary ductal dilatation. The pancreas, adrenal glands and spleen are unremarkable. Incidental note is made of an accessory spleen medially. The kidneys appear symmetric. No evidence of a solid renal mass or obstruction. The urinary bladder is intact. There is a question of mild diffuse thickening of the wall of the urinary bladder. This may be secondary to the adjacent sigmoid diverticulitis. Cystitis cannot be excluded. This may also be related to under-distension. The reproductive organs are unremarkable as visualized. The abdominal aorta is of normal caliber. No aneurysmal dilatation is seen. No significant abdominal or pelvic adenopathy or ascites is present. No pneumoperitoneum is seen. There is a moderately large fat containing umbilical hernia present. There is diverticulosis seen in the colon. There is bowel wall thickening and pericolonic inflammatory change seen in the proximal sigmoid colon consistent with acute diverticulitis. No abscess or free air is seen. The remainder of the bowel is unremarkable. A normal appendix is visualized in the right lower quadrant. Degenerative changes are seen in the spine. IMPRESSION: 1. Findings of acute sigmoid diverticulitis. No abscess or free air. 2. Mild diffuse thickening of the wall of the urinary bladder. This may be due to under-distension. Cystitis or an inflammatory process due to the adjacent diverticulitis cannot be excluded. 3. Small noncalcified pulmonary nodule in the right lower lobe. This is nonspecific. Follow up examination in 6-12 months is recommended for further evaluation depending on the patient's past medical history specifically history of smoking. These findings were discussed with the Emergency Department on the date of the examination. Lab Data Lab results reviewed: Yes I reviewed the patient's lab results. 10/12/18 08:50 Urine - Reflex from Ua Urine Culture - Final Gram Positive Yusra,Mixed Laboratory Tests Range/Units 10/12/18 10/12/18 10/12/18 07:45 07:45 07:45 WBC (4.4-10.8) k/cumm 15.47 H RBC (4.50-6.00) m/cumm 5.09 Hgb (13.5-17.5) g/dL 15.2 Hct (40.0-50.0) % 45.9 MCV (80-95) fL 90.2 MCH (27.0-33.0) pg 29.9 MCHC (32.0-36.0) g/dL 33.1 RDW (11.8-14.1) % 13.9 Plt Count (130-400) x1000/uL 192 MPV (8.0-11.0) fL 9.4 Immature Gran % 0.2 Neutrophils % 81.6 Lymphocytes % 7.4 Monocytes % 10.5 Eosinophils % 0.1 Basophils % 0.2 Absolute Neutrophils (1.2-6.7) k/cumm 12.62 H Absolute Lymphocytes (1.2-3.4) k/cumm 1.14 L Absolute Monocytes (0.11-0.7) k/cumm 1.62 H Absolute Eosinophils (0.0-0.7) k/cumm 0.02 Absolute Basophils (0.0-0.2) k/cumm 0.03 Differential Comment Agrees w/ instrument RBC Morphology Normal Sodium (136-145) mmol/L 137 Potassium (3.5-5.1) mmol/L 3.8 Chloride (98-107) mmol/L 102 Carbon Dioxide (21.0-32.0) mmol/L 24.4 Anion Gap (3-11) mmol/L 10.6 BUN (7-18) mg/dL 16 Creatinine (0.70-1.30) mg/dL 1.09 Estimated GFR/1.73 m2 (mL/min/1.73m2) >= 60.00 Glucose (70-100) mg/dL 152 H Lactate (0.6-1.4) mmol/l 1.4 Calcium (8.5-10.1) mg/dL 8.9 Total Bilirubin (0.2-1.0) mg/dL 0.7 AST (15-37) U/L 11 L ALT (12-78) U/L 16 Alkaline Phosphatase (46-116) U/L 71 Total Protein (6.4-8.2) g/dL 7.3 Albumin (3.4-5.0) g/dL 3.2 L Urine Color (Yellow) Urine Clarity (Clear) Urine pH (5-8) Ur Specific [place] (1.005-1.025) Urine Protein (Negative) mg/dL Urine Ketones (Negative) mg/dL Urine Blood (Negative) Urine Nitrite (Negative) Urine Bilirubin (Negative) Urine Urobilinogen (Up TO 0.2) EU/dL Ur Leukocyte Esterase (Negative) Urine RBC (0-2) Urine WBC (0-5) HPF Ur Epithelial Cells (Negative) HPF Urine Crystals (Negative) HPF Urine Bacteria (Negative) HPF Urine Casts (Negative) LPF Urine Mucus (Negative) Ur Culture Indicated? Urine Glucose (Negative) mg/dL Range/Units 10/12/18 08:50 WBC (4.4-10.8) k/cumm RBC (4.50-6.00) m/cumm Hgb (13.5-17.5) g/dL Hct (40.0-50.0) % MCV (80-95) fL MCH (27.0-33.0) pg MCHC (32.0-36.0) g/dL RDW (11.8-14.1) % Plt Count (130-400) x1000/uL MPV (8.0-11.0) fL Immature Gran % Neutrophils % Lymphocytes % Monocytes % Eosinophils % Basophils % Absolute Neutrophils (1.2-6.7) k/cumm Absolute Lymphocytes (1.2-3.4) k/cumm Absolute Monocytes (0.11-0.7) k/cumm Absolute Eosinophils (0.0-0.7) k/cumm Absolute Basophils (0.0-0.2) k/cumm Differential Comment RBC Morphology Sodium (136-145) mmol/L Potassium (3.5-5.1) mmol/L Chloride (98-107) mmol/L Carbon Dioxide (21.0-32.0) mmol/L Anion Gap (3-11) mmol/L BUN (7-18) mg/dL Creatinine (0.70-1.30) mg/dL Estimated GFR/1.73 m2 (mL/min/1.73m2) Glucose (70-100) mg/dL Lactate (0.6-1.4) mmol/l Calcium (8.5-10.1) mg/dL Total Bilirubin (0.2-1.0) mg/dL AST (15-37) U/L ALT (12-78) U/L Alkaline Phosphatase (46-116) U/L Total Protein (6.4-8.2) g/dL Albumin (3.4-5.0) g/dL Urine Color (Yellow) Yellow Urine Clarity (Clear) Clear Urine pH (5-8) 5.5 Ur Specific [place] (1.005-1.025) 1.015 Urine Protein (Negative) mg/dL 30 H Urine Ketones (Negative) mg/dL Negative Urine Blood (Negative) Negative Urine Nitrite (Negative) Negative Urine Bilirubin (Negative) Negative Urine Urobilinogen (Up TO 0.2) EU/dL 0.2 Ur Leukocyte Esterase (Negative) Small H Urine RBC (0-2) Negative Urine WBC (0-5) HPF 20-50 Ur Epithelial Cells (Negative) HPF Few Urine Crystals (Negative) HPF Negative Urine Bacteria (Negative) HPF Negative Urine Casts (Negative) LPF 0-2 fine granular Urine Mucus (Negative) Negative Ur Culture Indicated? Yes Urine Glucose (Negative) mg/dL Negative HPI General Mode of arrival: ambulatory. Date/Time Provider Initiated Documentation: 10/12/18 07:13. Limitations to Documentation: no limitations. Information obtained by: patient, family, RN notes reviewed and old records reviewed. HPI Narrative: Corey Hall is a 58-year-old man with a history of A. fib on Coumadin, hypertension, hyperlipidemia, diabetes, morbid obesity greater than 400 pounds presenting to the emergency department for recheck. Per patient report and record review, patient was seen here last night for 3 days of lower abdominal pain occurring primarily during urination, foul-smelling urine, frequent urination. He was given ceftriaxone at that visit, and there was plan for admission as patient had elevated lactate and CT scan could not be obtained secondary to patient size. No beds were available at [facility], patient declined transfer and went home with plan to return here in the morning. Patient reports that since leaving the emergency department he had several episodes last night of urinating large volumes with some urinary incontinence, which is new for him and unchanged from the past few days where he had been urinating and trickles. Patient reports that urinary frequency seems to have improved. He reports that he continues to have mild lower abdominal pain, but is significantly improved from yesterday. He denies any other pain, fevers, vomiting, diarrhea, numbness, weakness. Related Data Home Medications Medication Instructions Recorded Confirmed Lancets,Thin #60 ea 12/01/15 10/11/18 OneTouch Verio #60 strip 12/01/15 10/11/18 nystatin 0 gm TOPICAL TID #60 jar 10/09/17 10/12/18 pantoprazole 40 mg PO DAILY #30 tab-cap 11/14/17 10/12/18 amlodipine 10 mg tablet 10 mg PO DAILY #90 tab-cap 02/17/18 10/12/18 metoprolol tartrate 50 mg tablet 25 mg PO BID #180 tab 02/17/18 10/12/18 warfarin 5 mg tablet 5 mg PO DIRECTED #90 tab 05/19/18 10/12/18 losartan 100 mg tablet 100 mg PO DAILY #90 tab-cap 08/18/18 10/12/18 metformin 500 mg tablet 500 mg PO BID@0800,1700 tab 08/25/18 10/12/18 amoxicillin-pot clavulanate 1 tab PO TID #30 tab 10/12/18 [Augmentin] Previous Rx's Medication Instructions Recorded Lancets,Thin #60 ea 12/01/15 OneTouch Verio #60 strip 12/01/15 nystatin 0 gm TOPICAL TID #60 jar 10/09/17 pantoprazole 40 mg PO DAILY #30 tab-cap 11/14/17 amlodipine 10 mg tablet 10 mg PO DAILY #90 tab-cap 02/17/18 metoprolol tartrate 50 mg tablet 25 mg PO BID #180 tab 02/17/18 warfarin 5 mg tablet 5 mg PO DIRECTED #90 tab 05/19/18 losartan 100 mg tablet 100 mg PO DAILY #90 tab-cap 08/18/18 amoxicillin-pot clavulanate 1 tab PO TID #30 tab 10/12/18 [Augmentin] Allergies Allergy/AdvReac Type Severity Reaction Status Date / Time lisinopril AdvReac Intermediate COUGH Verified 10/11/18 18:12 General Stated Complaint: Recheck ENOCH: 3 Review of Systems Review of Systems Constitutional: denies fevers Eyes: denies eye pain ENT: denies facial pain, dental pain, sore throat Cardiovascular: denies chest pain, edema Respiratory: denies SOB, cough GI: denies vomiting, diarrhea, reports lower abdominal pain : denies flank pain, reports urinary frequency MSK: denies back pain, neck pain, arthralgias, myalgias Skin: denies rash Neuro: denies headaches, numbness, weakness PFSH Medical History A-fib (Chronic) Ankle fracture Borderline diabetes Hyperlipidemia Hypertension Morbid obesity with BMI of 50.0-59.9, adult Venous insufficiency (chronic) (peripheral) Surgical History (Updated 09/03/18 @ 11:07 by Corey Vaca MD) Colonoscopy - MAC (01/13/15) Excision, Tumor History of excision of lesion (Resolved) Social History Smoking/Tobacco Use Status: Never Alcohol Intake: current Alcohol Intake frequency: holidays/special occasions only Alcohol type: beer Drug use: Never Substance use type: does not use 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 Pets and animals: Yes Pets and animals: dog(s) Duration: 15-30 minutes/day Frequency: 1-2 times per week Taisha/Congregational: None Special taisha needs: No Do you feel safe at home: Yes Do you feel safe in your relationship?: Yes Exam Narrative Exam Narrative: Constitutional: well and [id number], pleasant, conversing normally HENT: head atraumatic/normocephalic/normal inspection, mucous membranes moist Eyes: conjunctiva normal, sclera normal, pupils 3mm b/l Neck: no stridor, normal ROM, trachea midline Resp: normal work of breathing, LCTAB Cardio: normal rate, normal rhythm, no murmur appreciated GI: abdomen soft, mild generalized tenderness to palpation with moderate tenderness suprapubic area bilateral lower abdominal/pelvic areas, no rebound or guarding, non-distended Skin: warm, dry, normal color, no rash Neuro: alert, not altered, grossly non-focal, normal tone Ext: No posterior calf tenderness Psych: normal mood, normal affect, normal behavior Course Vital Signs Temperature 36.7 C 10/12/18 07:10 Pulse 83 10/12/18 07:10 Respiratory Rate 18 10/12/18 07:10 Blood Pressure 106/63 10/12/18 07:10 Pulse Oximetry 94 L 10/12/18 07:10 Temperature 36.7 C 10/12/18 07:10 Temperature Source Oral 10/12/18 07:10 Pulse 83 10/12/18 07:10 Respiratory Rate 18 10/12/18 07:10 Respiratory Effort Non-Labored 10/12/18 07:14 Blood Pressure 106/63 10/12/18 07:10 Blood Pressure Position Sitting 10/12/18 07:10 Pulse Oximetry 94 L 10/12/18 07:10 Oxygen Delivery Method Room Air 10/12/18 07:10 Oxygen Flow Rate 0 10/12/18 07:10 Pain Level 2 10/12/18 07:10
[2018-10-12 07:47] LABS: Lactate-non-spesis 1.4 mmol/l (0.6-1.4)
[2018-10-12 07:52] LABS: Abs Immature Grans 0.03 k/cumm (0.0-0.09); Absolute Basophil Count 0.03 k/cumm (0.0-0.2); Absolute Eosinophil Count 0.02 k/cumm (0.0-0.7); Absolute Lymphocyte Count 1.14 k/cumm (1.2-3.4); Absolute Monocyte Count 1.62 k/cumm (0.11-0.7); Basophils % 0.2; Eosinophils % 0.1; HCT 45.9 % (40.0-50.0); HGB 15.2 g/dL (13.5-17.5); Immature Grans % 0.2; Lymphocytes % 7.4; Mean Corp. HGB Concentration 33.1 g/dL (32.0-36.0); Mean Corpuscular Hemoglobin 29.9 pg (27.0-33.0); Mean Corpuscular Volume 90.2 fL (80-95); Mean Platelet Volume 9.4 fL (8.0-11.0); Monocytes % 10.5; Neutrophils % 81.6; Platelet Count 192 x1000/uL (130-400); RBC 5.09 m/cumm (4.50-6.00); RBC Distribution Width 13.9 % (11.8-14.1); White Blood Cell Count 15.47 k/cumm (4.4-10.8)
[2018-10-12 08:10] LABS: ALT 16 U/L (12-78); AST 11 U/L (15-37); Albumin 3.2 g/dL (3.4-5.0); Alkaline Phosphatase 71 U/L (46-116); Anion Gap 10.6 mmol/L (3-11); BUN 16 mg/dL (7-18); Bilirubin, Total 0.7 mg/dL (0.2-1.0); CO2 24.4 mmol/L (21.0-32.0); CREATININE 1.09 mg/dL (0.70-1.30); Calcium 8.9 mg/dL (8.5-10.1); Chloride 102 mmol/L (98-107); Glucose 152 mg/dL (70-100); Potassium 3.8 mmol/L (3.5-5.1); Sodium 137 mmol/L (136-145); Total Protein 7.3 g/dL (6.4-8.2)
[2018-10-12 08:21] LABS: Absolute Neutrophil Count 12.62 k/cumm (1.2-6.7)
[2018-10-12 08:24] LABS: Diff Comment Agrees w/ Instrument; RBC Morphology Normal
[2018-10-12] MEDS: cefTRIAXone 2 GM/50 ML BAG IVPB (08:47)
[2018-10-12] MEDS: Normal Saline 1,000 ML 1000 ML IV (08:47)
[2018-10-12 09:02] LABS: Bilirubin Negative (Negative); Blood Negative (Negative); Clarity Clear (Clear); Glucose Negative (Negative); Ketones Negative (Negative); Leukocyte Esterase Small (Negative); Nitrite Negative (Negative); Specific Gravity 1.015 (1.005-1.025); Urobilinogen 0.2 EU/dL (Up TO 0.2); pH 5.5 (5-8)
[2018-10-12 09:14] VITALS: BP 99/56; PULSE 72; RESP 18; TEMP 37; O2SAT 94
[2018-10-12 09:15] LABS: Bacteria Negative HPF (Negative); C & S Indicated? Yes; Casts 0-2 Fine Granular LPF (Negative); Crystals Negative HPF (Negative); Epithelial Cells Few HPF (Negative); Mucus Negative (Negative); RBC Negative (0-2); WBC 20-50 HPF (0-5)
[2018-10-12 10:26] VITALS: BP 139/85; PULSE 68; RESP 16; TEMP 36.6; O2SAT 95
--- NOTE | 2018-10-12 10:27 | DI.CT_ITS ---
SYMPTOM/DIAGNOSIS: ABD PAIN CT ABDOMEN AND PELVIS: CT scan of the abdomen and pelvis was performed following the uneventful administration of intravenous contrast material. There are no priors for comparison. There is a small noncalcified pulmonary nodule in the periphery of the right lobe of the lung measuring 0.7 cm. The liver is normal in size. There does appear to be decreased attenuation of the liver suggesting fatty infiltration. No suspicious hepatic masses seen. The portal superior mesenteric and splenic veins appear patent. The gallbladder is negative. There is no biliary ductal dilatation. The pancreas, adrenal glands and spleen are unremarkable. Incidental note is made of an accessory spleen medially. The kidneys appear symmetric. No evidence of a solid renal mass or obstruction. The urinary bladder is intact. There is a question of mild diffuse thickening of the wall of the urinary bladder. This may be secondary to the adjacent sigmoid diverticulitis. Cystitis cannot be excluded. This may also be related to under-distension. The reproductive organs are unremarkable as visualized. The abdominal aorta is of normal caliber. No aneurysmal dilatation is seen. No significant abdominal or pelvic adenopathy or ascites is present. No pneumoperitoneum is seen. There is a moderately large fat containing umbilical hernia present. There is diverticulosis seen in the colon. There is bowel wall thickening and pericolonic inflammatory change seen in the proximal sigmoid colon consistent with acute diverticulitis. No abscess or free air is seen. The remainder of the bowel is unremarkable. A normal appendix is visualized in the right lower quadrant. Degenerative changes are seen in the spine. IMPRESSION: 1. Findings of acute sigmoid diverticulitis. No abscess or free air. 2. Mild diffuse thickening of the wall of the urinary bladder. This may be due to under-distension. Cystitis or an inflammatory process due to the adjacent diverticulitis cannot be excluded. 3. Small noncalcified pulmonary nodule in the right lower lobe. This is nonspecific. Follow up examination in 6-12 months is recommended for further evaluation depending on the patient's past medical history specifically history of smoking. These findings were discussed with the Emergency Department on the date of the examination.
[2018-10-12] MEDS: Omnipaque 350 MG/ML 100 ML BTL IJ (10:54)
[2018-10-12] MEDS: Amoxicillin 875/Clav. 125 TAB PO (11:49)
[2018-10-12 11:50] VITALS: BP 152/104; PULSE 62; RESP 15; TEMP 36.6; O2SAT 94
[2018-10-12 12:00] VITALS: BP 152/104; PULSE 62; RESP 15; TEMP 36.6; O2SAT 94
== END 2018-10-12 12:01 | disposition home or self-care (01) ==
PROVIDERS: Student in an Organized Health Care Education/Training Program; Emergency Provider Student in an Organized Health Care Education/Training Program; PCP Family Medicine
DX: K57.32 Diverticulitis of large intestine without perforation or abscess without bleeding (principal); R91.1 Solitary pulmonary nodule; N32.89 Other specified disorders of bladder; E66.01 Morbid (severe) obesity due to excess calories; Z68.43 Body mass index [BMI] 50.0-59.9, adult; E11.9 Type 2 diabetes mellitus without complications; Z79.84 Long term (current) use of oral hypoglycemic drugs; I10 Essential (primary) hypertension
CPT/HCPCS: 36415; 80053; 96361; 96365; 99285; 74177; 81003; 81015; 83605; 85025; 87086; J3490

== ENCOUNTER 2018-10-15 08:31 | Outpatient (CLI) | payer BC, SELFPAY ==
[2018-10-15 13:11] LABS: INR 2.7 (0.9-1.1); Prothrombin Time 26.8 sec (9.3-11.0)
== END 2018-10-15 08:51 ==
PROVIDERS: PCP Family Medicine; Visit Provider Family Medicine
DX: Z79.01 Long term (current) use of anticoagulants (principal)
CPT/HCPCS: 36415; 85610

== ENCOUNTER 2018-10-26 09:26 | Outpatient (CLI) | payer BC, SELFPAY ==
[2018-10-26 10:45] LABS: INR 2.1 (0.9-1.1); Prothrombin Time 20.7 sec (9.3-11.0)
== END 2018-10-26 09:46 ==
PROVIDERS: PCP Family Medicine; Visit Provider Family Medicine
DX: Z79.01 Long term (current) use of anticoagulants (principal); R69 Illness, unspecified
CPT/HCPCS: 36415; 85610

== ENCOUNTER 2018-12-02 14:06 | Outpatient (CLI) | payer BC, SELFPAY ==
[2018-12-02 15:07] LABS: INR 2.6 (0.9-1.1); Prothrombin Time 26.5 sec (9.3-11.0)
== END 2018-12-02 14:26 ==
PROVIDERS: PCP Family Medicine; Visit Provider Family Medicine
DX: I25.10 Atherosclerotic heart disease of native coronary artery without angina pectoris (principal); Z79.01 Long term (current) use of anticoagulants
CPT/HCPCS: 36415; 85610

== ENCOUNTER 2019-06-15 11:02 | Outpatient (CLI) | payer SELFPAY ==
[2019-06-15 12:56] LABS: Prothrombin Time 19.4 sec (9.3-11.0)
== END 2019-06-15 11:22 ==
PROVIDERS: PCP Family Medicine; Visit Provider Family Medicine
DX: Z79.01 Long term (current) use of anticoagulants (principal)
CPT/HCPCS: 36415; 85610

== ENCOUNTER 2019-10-04 06:46 | Inpatient (IN) | payer OTHER, SELFPAY ==
[2019-10-04] VITALS (30 sets, daily range): BP systolic 106–162; BP diastolic 58–87; PULSE 66–107; RESP 16–22; TEMP 36.7–38.9; O2SAT 86–96
[2019-10-04 07:38] LABS: Abs Immature Grans 0.02 k/cumm (0.0-0.09); Absolute Eosinophil Count 0.05 k/cumm (0.0-0.7); Absolute Monocyte Count 0.72 k/cumm (0.11-0.7); Basophils % 0.2; Eosinophils % 0.4; HCT 48.3 % (40.0-50.0); HGB 16.2 g/dL (13.5-17.5); Immature Grans % 0.2 %; Lymphocytes % 4.9; Mean Corp. HGB Concentration 33.5 g/dL (32.0-36.0); Mean Corpuscular Hemoglobin 30.6 pg (27.0-33.0); Mean Corpuscular Volume 91.3 fL (80-95); Mean Platelet Volume 9.4 fL (8.0-11.0); Monocytes % 5.7; Neutrophils % 88.6; Platelet Count 202 x1000/uL (130-400); RBC 5.29 m/cumm (4.50-6.00); RBC Distribution Width 13.5 % (11.8-14.1); White Blood Cell Count 12.57 k/cumm (4.4-10.8)
--- NOTE | 2019-10-04 07:38 | ED.GENADUL_ITS ---
Discharge Plan Disposition Patient Disposition: [facility] INPATIENT Condition: Stable Discharge Details Chief Complaint: GenMedical Clinical Impression: Cellulitis, Sepsis Primary Care Provider: Kaylen Ellis ED Provider: Juan Ramon Staples Home Meds and New Rx's Prescriptions: No Action metformin 500 mg tablet 500 mg PO DAILY Qty: 90 RF: 4 losartan 100 mg tablet 100 mg PO DAILY Qty: 90 RF: 4 (DME) blood sugar diagnostic [OneTouch Verio test strips] Strip 1 ea Miscellaneous BID Qty: 100 RF: 4 nystatin 60 GM powder 0 gm Topical TID Qty: 60 RF: 0 amlodipine 10 mg tablet 10 mg PO DAILY Qty: 90 RF: 4 warfarin 5 mg tablet 5 mg PO DIRECTED Qty: 90 RF: 4 (DME) Lancets,Thin 1 EACH misc 1 ea Miscellaneous BID Qty: 60 RF: 0 Medical Decision Making <Yovanny Monteiro DO - Last Filed: 10/04/19 08:09> 59-year-old male with a past medical history of atrial fibrillation, diabetes, hypertension, obesity, chronic venous insufficiency, diabetes, whose tetanus was last updated in 2002 presents today for evaluation of right calf pain, and chills. Patient states that 1 week ago he stepped on a very pat nail the bottom of his right foot. He pulled out the nail, and then over the last 24 to 48 hours he noticed mild pain and redness in his right calf, which is notably worsened over the last few hours, developing into a severe cramping-like pain which is notably tender to touch, he is unable to ambulate because of it. The pain spreads up his calf into his medial thigh. He does admit to chills but denies any fever. He denies any chest pain or shortness of breath. He has been taking his Coumadin as directed. He denies any other trauma. No other complaints at this time. Physical exam demonstrates chronic bilateral large legs, with evidence of chronic venous stasis. Unilaterally he does have more swelling on the right calf though, notable exquisite tenderness in the posterior calf with redness as well. Subjective tenderness on palpation traveling up the medial aspect of the thigh. Evaluation of the foot shows a small punctate lesion on the medial MTP joint, mild tenderness here. No associated redness though. Neurovascular exam otherwise intact. Differential at this time is unlikely for clot as the patient does take his Coumadin regularly. We will check his INR status though. His tetanus is not updated since 2002, and with his exquisite pain and cramp-like sensation that he is describing, tetanus is unlikely but certainly on the differential. Differential also includes cellulitis or bacteremia with traveling vascular irritation. With the patient's pain that appears to be out of proportion necrotizing fasciitis is also on the differential. Patient is tachycardic, lactate is elevated at 3. With these clinical findings I am concerned for the aforementioned etiologies. Will get laboratory work-up, blood cultures, and a CT scan of the patient's right lower extremity to evaluate for gas, or infectious source. We will wait on labs for INR status and renal function before this. Patient will be signed out to my colleague Dr. Juan Ramon Staples for further management. I will start ceftriaxone for potential infectious etiology as Rocephin will cover tetanus as well as general mixed infection. Additionally I do not think the patient would be a good ihsan date for metronidazole right now if he does transition to outpatient therapy with his Coumadin use. I do feel that the patient may likely benefit from admission. <Juan Ramon Staples MD - Last Filed: 10/04/19 10:10> 9:29 -- Care signed out by Dr. Monteiro with plan to follow-up on CT, labs, reassess the patient for disposition. Please see Dr. Monteiro's documentation regarding initial ED presentation and course. CT was interpreted by radiology: Positive edema, no abscess, no foreign body, no free air. Given patient's comorbidities and progressive, severe infection, I will admit for continued IV antibiotics. Labs reviewed: Leukocytosis noted. Elevated lactic acid. Patient has received 500 mL IV fluid. Tachycardia resolved. I will speak with hospitalist about admission. --Patient still now tachycardic around 100 bpm. Normotensive. I will give additional 500ml bolus of LR. 10:05 --I spoke with hospitalist, Dr. Guzman, discussed ED presentation and course. He recommends additional antibiotic coverage with Zosyn. He will accept the patient for admission. Care transition to Dr. Guzman. I did confirm that nursing administered tetanus immunization. HPI <Yovanny Monteiro DO - Last Filed: 10/04/19 08:09> General Date/Time Provider Initiated Documentation: 10/04/19 06:51 . HPI Narrative: 59-year-old male with a past medical history of atrial fibrillation, diabetes, hypertension, obesity, chronic venous insufficiency, diabetes, whose tetanus was last updated in 2002 presents today for evaluation of right calf pain, and chills. Patient states that 1 week ago he stepped on a very pat nail the bottom of his right foot. He pulled out the nail, and then over the last 24 to 48 hours he noticed mild pain and redness in his right calf, which is notably worsened over the last few hours, developing into a severe cramping-like pain which is notably tender to touch, he is unable to ambulate because of it. The pain spreads up his calf into his medial thigh. He does admit to chills but denies any fever. He denies any chest pain or shortness of breath. He has been taking his Coumadin as directed. He denies any other trauma. No other complaints at this time. Related Data Home Medications Medication Instructions Recorded Confirmed Lancets,Thin #60 ea 12/01/15 10/11/18 nystatin 0 gm TOPICAL TID #60 jar 10/09/17 10/04/19 amlodipine 10 mg tablet 10 mg PO DAILY #90 tab-cap 04/27/19 10/04/19 warfarin 5 mg tablet 5 mg PO DIRECTED #90 tab 06/14/19 10/04/19 blood sugar diagnostic #100 strip 08/19/19 08/19/19 losartan 100 mg tablet 100 mg PO DAILY #90 tab-cap 08/19/19 10/04/19 metformin 500 mg tablet 500 mg PO DAILY #90 tab 08/19/19 10/04/19 Previous Rx's Medication Instructions Recorded Lancets,Thin #60 ea 12/01/15 nystatin 0 gm TOPICAL TID #60 jar 10/09/17 amlodipine 10 mg tablet 10 mg PO DAILY #90 tab-cap 04/27/19 warfarin 5 mg tablet 5 mg PO DIRECTED #90 tab 06/14/19 blood sugar diagnostic #100 strip 08/19/19 losartan 100 mg tablet 100 mg PO DAILY #90 tab-cap 08/19/19 metformin 500 mg tablet 500 mg PO DAILY #90 tab 08/19/19 Allergies Allergy/AdvReac Type Severity Reaction Status Date / Time lisinopril AdvReac Intermediate COUGH Verified 10/04/19 07:00 General Stated Complaint: GenMedical ENOCH: 3 Review of Systems <Yovanny Monteiro DO - Last Filed: 10/04/19 08:09> All systems reviewed & are unremarkable except as noted in HPI and below PFSH <Yovanny Monteiro DO - Last Filed: 10/04/19 08:09> Medical History A-fib (Chronic) Ankle fracture Bladder wall thickening (Acute) Borderline diabetes Hyperlipidemia Hypertension Morbid obesity with BMI of 50.0-59.9, adult Venous insufficiency (chronic) (peripheral) Surgical History Colonoscopy - MAC (01/13/15) DR. OCTAVIA TAMEZ Excision, Tumor benign lymphatic mass right thigh History of excision of lesion (Resolved) Family History Mother , AGE 78 Diabetes Father , AGE 82 Essential hypertension Stroke Sister No problems noted. Brother Diabetes Essential hypertension Maternal Grandfather , AGE 86 Diabetes Essential hypertension Paternal Grandfather , AGE 62 Heart disease Stroke Essential hypertension Maternal Grandmother , AGE 99 Diabetes Essential hypertension Heart disease Sister Diabetes Essential hypertension Sister Asthma Depression Diabetes Essential hypertension Hyperlipidemia Brother Asthma Depression Essential hypertension Diabetes Heart disease Hyperlipidemia Brother Diabetes Essential hypertension Son No problems noted. Son No problems noted. 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 3.ENT: Atraumatic external nose and ears. Moist MM. Neck: Symmetric, trachea midline, No thyromegaly. 4.CVS: +S1/S2, No murmurs or gallops. Peripheral pulses 2+ and equal in all extremities. Brisk capillary refill in all extremities. 5.RESP: Unlabored respiratory effort. Clear to auscultation bilaterally. No wheezes rales or rhonchi 6.GI: Soft, Nontender/Nondistended, No hepatosplenomegaly. No guarding or rebound. 7.MSK: Normocephalic/Atraumatic, Extremities w/o deformity. No cyanosis or clubbing, patient's bilateral lower extremities are notably enlarged with evidence of chronic venous stasis, right calf however demonstrates redness in the posterior aspect, that extends anteriorly and circumferentially from the proximal aspect of the knee down to the ankle. Exquisite tenderness on palpation of the calf, reproducible tenderness traveling up the medial thigh with absence of redness though. Difficult to differentiate swelling secondary to obesity status and chronic venous stasis. Dorsalis pedis and posterior tibial pulse palpable +1 bilaterally, sensation intact, brisk capillary refill present. No crepitus. The medial aspect of the patient's foot at the right MTP joint demonstrates small area of irritation likely resembling the initial nail puncture wound. 8.Skin: Warm, Dry. Please see musculoskeletal 9.Neuro: assistive technology trainer II-XII grossly intact. Sensation grossly intact, no focal neurologic deficits. 10.Psych: (AAO) x3. Appropriate mood and affect Course <Yovanny Monteiro, - Last Filed: 10/04/19 08:09> Vital Signs Vital signs: Vital Signs Temperature 36.7 C 10/04/19 06:54 Pulse 107 H 10/04/19 06:54 Respiratory Rate 20 10/04/19 06:54 Blood Pressure 107/81 10/04/19 06:54 Pulse Oximetry 95 10/04/19 06:54 Temperature 36.7 C 10/04/19 06:54 Temperature Source Temporal Artery Scan 10/04/19 06:54 Pulse 107 H 10/04/19 06:54 Respiratory Rate 20 10/04/19 07:01 Respiratory Effort Non-Labored 10/04/19 07:01 Respiratory Depth Normal 10/04/19 07:01 Respiratory Pattern Normal 10/04/19 07:01 Blood Pressure 107/81 10/04/19 06:54 Blood Pressure Position Supine 10/04/19 06:54 Pulse Oximetry 95 10/04/19 06:54 Oxygen Delivery Method Room Air 10/04/19 06:54 Oxygen Flow Rate 0 10/04/19 06:54 Pain Level 8 10/04/19 06:54 Lab/Test Results Lab/Test Results: 10/04/19 07:00 Blood Blood Culture - Pending 10/04/19 07:00 Blood Blood Culture - Pending Laboratory Tests Range/Units 10/04/19 07:25 Lactate (0.6-1.4) mmol/L 3.0 H* Sign Out <Yovanny Monteiro DO - Last Filed: 10/04/19 08:09> Sign Out Data: Sign Out Comment: Stepped on nail, extreme calf pain, pending CT scan of the right lower extremity. Pending imaging and lab work-up Last updated by Yovanny Monteiro DO at 10/04/19 07:56
[2019-10-04 07:39] LABS: Absolute Basophil Count 0.03 k/cumm (0.0-0.2); Absolute Lymphocyte Count 0.62 k/cumm (1.2-3.4); Absolute Neutrophil Count 11.14 k/cumm (1.2-6.7)
[2019-10-04] MEDS: Normal Saline 500 ML IV (07:41)
--- NOTE | 2019-10-04 07:45 | DI.CT_ITS ---
EXAM: CT LOWER EXTREMITY RT W CLINICAL HISTORY: stepped on nail, tetanus not UTD, calf pain to thi. TECHNIQUE: Imaging Protocol: Axial computed tomography images with coronal and sagittal reformatted images were created and reviewed. CONTRAST MATERIAL: Intravenous: Omnipaque 350 Contrast volume:100 mL contrast route:IV - Oral: No COMPARISON: No exams were available for comparison FINDINGS: Bones: The osseous structures and articular surfaces are intact. There is no evidence of fracture or dislocation. Bony alignment is satisfactory. The mid-foot is well maintained. No evidence of osteomy elitis. There is no evidence of joint space narrowing or cystic degeneration seen. No lytic or scler otic lesions are identified. Severe tricompartment degenerative changes are seen in the knee. There is an enthesophyte at the Achilles insertion site and a small spur at the plantar surface of the calc aneus. Mild degenerative changes are seen in the foot. There is a small suprapatellar joint effusio n. Soft Tissues: There is marked edema seen in the soft tissues extending from the knee into the foot. No focal fluid collection is seen to suggest an abscess. No radiopaque foreign bodies are seen in t he soft tissues. There is marked fatty atrophy of the soleus muscle. No intramuscular fluid collect ion or mass is identified. IMPRESSION: 1. Marked edema in the lower extremity. This is consistent with cellulitis. No focal fluid collecti on is seen to suggest abscess. 2. No findings to suggest osteomyelitis. 3. No radiopaque foreign body in the soft tissue. 4. Severe osteoarthritis of the knee. 5. Small suprapatellar joint effusion. 6. Marked fatty atrophy of the soleus muscle. 7. The findings were discussed with the emergency department on the date of the examination. RADIATION DOSE DELIVERED: Total DLP DATA REPOSITORY: All CT scans at this facility are submitted to the National Radiology Data Registry (NRDR) Dose Index Registry (DIR) with the [employer] (ACR). RADIATION OPTIMIZATION: All CT scans at this facility use at least one of these dose optimization te chniques: automated exposure control; mA and/or kV adjustment per patient size (includes targeted exa ms where dose is matched to clinical indication); or iterative reconstruction.
[2019-10-04 07:51] LABS: C-Reactive Protein 0.83 mg/dL (0.0-0.3)
[2019-10-04 07:52] LABS: ALT 22 U/L (16-63); AST 23 U/L (15-37); Albumin 3.8 g/dL (3.4-5.0); Alkaline Phosphatase 70 U/L (46-116); Anion Gap 8.7 mmol/L (3-11); BUN 23 mg/dL (7-18); Bilirubin, Total 0.7 mg/dL (0.2-1.0); CO2 29.3 mmol/L (21.0-32.0); CREATININE 1.25 mg/dL (0.70-1.30); Calcium 9.1 mg/dL (8.5-10.1); Chloride 100 mmol/L (98-107); Estimated GFR 59.12 (mL/min/1.73m2); Glucose 155 mg/dL (74-106); Potassium 3.8 mmol/L (3.5-5.1); Sodium 138 mmol/L (136-145)
[2019-10-04] MEDS: cefTRIAXone 2 GM/50 ML BAG IVPB (07:56)
[2019-10-04 08:00] LABS: INR 2.3 (0.9-1.1); PTT Activated 36.5 sec (21.0-31.4); Prothrombin Time 22.2 sec (9.3-11.0)
[2019-10-04 08:21] LABS: ESR 18 mm/hr (1-20)
[2019-10-04] MEDS: Normal Saline Flush 10 ML SYR IVP ×2 (08:32→14:22)
[2019-10-04] MEDS: Omnipaque 350 MG/ML 100 ML BTL IJ (08:33)
[2019-10-04] MEDS: Normal Saline - Diluent 50 ML VIAL IV (08:34)
[2019-10-04] MEDS: HYDROmorphone 2 MG/ML VIAL 1 MG IVP (08:39)
[2019-10-04] MEDS: Normal Saline 1,000 ML 125 ML IV ×3 (09:16→21:55)
[2019-10-04] MEDS: PIPERACILLIN/TAZO 4.5 GM in Normal Saline 100 ML IVPB (10:24)
[2019-10-04] MEDS: Lactated Ringers 500 ML IV (11:05)
[2019-10-04] MEDS: Acetaminophen 325 MG TAB PO ×2 (12:50→21:40)
[2019-10-04] MEDS: HYDROmorphone 2 MG/ML VIAL IVP ×3 (14:21→23:18)
--- NOTE | 2019-10-04 14:39 | W.PM.HP.N ---
Date of service: 10/04/19 Time of Service: 14:39 Assessment and Plan Assessment and plan (1) Cellulitis of leg, right: Start date: 10/04/19 Start time: 15:08 Status: Resolved Assessment and plan: Likely from nail although the area around the nail trauma does not appear infected. Could also be from spider bite, history of cellulitis in the same leg. RLE is erythemic with edema from foot to below knee. Tetnaus in ED Sepsis syndrome with elevated WBC, lactate 3.0, , elevated pulse and fever. Receiving fluids, recheck lactate On vanco, ceftriaxone and zosyn, blood cultures pending Podiatry consult. Repeat CRP in day or 2 (2) Fever: Start date: 10/04/19 Start time: 15:14 Status: Acute Assessment and plan: From above. (3) Sepsis: Start date: 10/04/19 Start time: 15:14 Status: Acute Assessment and plan: From cellulitis as above. (4) Diabetes mellitus: Start date: 10/04/19 Start time: 15:14 Status: Chronic Assessment and plan: Last A1C 4 months ago, will check in am. not insulin dependent at this time will hold metformin and use sensitive SSI as patient is Insulin naive. Qualifiers: Diabetes mellitus type: type 2 Diabetes mellitus intermission coordinator insulin use: without intermission coordinator use Diabetes mellitus complication status: without complication Qualified Code(s): E11.9 - Type 2 diabetes mellitus without complications (5) Chronic venous insufficiency: Start date: 10/04/19 Start time: 15:17 Status: Chronic Assessment and plan: bilaterally (6) Essential hypertension: Start date: 10/04/19 Start time: 15:18 Status: Chronic Assessment and plan: Continue with losartan and amlodipine (7) Atrial fibrillation and flutter: Start date: 10/04/19 Start time: 15:19 Status: Chronic Assessment and plan: Daily PT/INR, continue warfarin (8) Hyperlipidemia: Start date: 10/04/19 Start time: 15:20 Status: Chronic Assessment and plan: Continue statin (9) Morbid obesity: Start date: 10/04/19 Start time: 15:20 Status: Chronic Assessment and plan: Nutrition consult. Heart healthy diet (10) Chronic anticoagulation: Start date: 10/04/19 Start time: 15:34 Status: Acute Assessment and plan: On coumadin for afib Above case discussed with Dr. Guzman who is in agreement. History of Present Illness History of Present Illness Chief Complaint: Cellulitis Narrative: 59 y.o male with PMH of DMNID, AFib on coumadin, Chronic venous insufficiency and morbid obesity presents to emergency department for swelling and redness to E. Mr. Hall states he awoke around 2 am with pain to his right lower extremity, at that time it was swollen and reddened prompting him to come to the ED. Approx 1 week ago he did step on a nail and he states yesterday he found a spider crawling on him. Tetnaus was administered in the ED. Lactate 3.0 wbc 12.57, he is febrile at 38.9. CRP at this time 0.83, likely there is a lag with CRP at this time and should be rechecked in a day or 2. Lower extermity CT consistent with cellulitis. no osteo or foreign body, for this he is being admitted to m/s for further management. Antibiotics initiated are vanco, ceftriaxone, and zosyn. Blood cultures pending. He denies CP, SOB, N/V/D. Podiatry consult ordered. Will hold metfromin and place on SSI while inpatient. Review of Systems All systems reviewed & are unremarkable except as noted in HPI and below PFSH Medical History A-fib (Chronic) Ankle fracture Bladder wall thickening (Acute) Borderline diabetes Hyperlipidemia Hypertension Morbid obesity with BMI of 50.0-59.9, adult Venous insufficiency (chronic) (peripheral) Surgical History Colonoscopy - MAC (01/13/15) DR. OCTAVIA TAMEZ Excision, Tumor benign lymphatic mass right thigh History of excision of lesion (Resolved) Family History Mother , AGE 78 Diabetes Father , AGE 82 Essential hypertension Stroke Sister No problems noted. Brother Diabetes Essential hypertension Maternal Grandfather , AGE 86 Diabetes Essential hypertension Paternal Grandfather , AGE 62 Heart disease Stroke Essential hypertension Maternal Grandmother , AGE 99 Diabetes Essential hypertension Heart disease Sister Diabetes Essential hypertension Sister Asthma Depression Diabetes Essential hypertension Hyperlipidemia Brother Asthma Depression Essential hypertension Diabetes Heart disease Hyperlipidemia Brother Diabetes Essential hypertension Son No problems noted. Son No problems noted. 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 Pets and animals: Yes Pets and animals: dog(s) Current gender identity: male Duration: 15-30 minutes/day Frequency: 1-2 times per week Taisha/Pentecostal: None Special taisha needs: No Do you feel safe at home: Yes Do you feel safe in your relationship?: Yes Meds Home Medications and Allergies Home Medications Medication Instructions Recorded Confirmed Type Lancets,Thin #60 ea 12/01/15 10/11/18 Rx nystatin 0 gm TOPICAL TID #60 jar 10/09/17 10/04/19 Rx amlodipine 10 mg tablet 10 mg PO DAILY #90 tab-cap 04/27/19 10/04/19 Rx warfarin 5 mg tablet 5 mg PO DIRECTED #90 tab 06/14/19 10/04/19 Rx blood sugar diagnostic #100 strip 08/19/19 08/19/19 Rx losartan 100 mg tablet 100 mg PO DAILY #90 tab-cap 08/19/19 10/04/19 Rx metformin 500 mg tablet 500 mg PO DAILY #90 tab 08/19/19 10/04/19 Rx Allergies Allergy/AdvReac Type Severity Reaction Status Date / Time lisinopril AdvReac Intermediate COUGH Verified 10/04/19 07:00 Exam Const General: cooperative, healthy appearing and no acute distress Nutritional Appearance: obese morbidly obese Orientation: alert, awake and oriented x3 HENMT Head: normal to inspection, normocephalic and atraumatic Ears: hearing grossly normal bilaterally Eyes General: appearance normal, both eyes and all related structures Sclera: sclerae normal Cornea: corneas normal Pupils: PERRL EOM: EOM intact bilaterally Neck Neck: normal visual inspection, full ROM and no JVD Chest Chest: normal inspection of the chest Resp Effort & Inspection: normal respiratory effort Auscultation: clear to auscultation bilaterally Cardio Jugular venous pressure: no JVD Rhythm: abnormal rhythm and abnormal rhythm irregularly irregular GI Inspection: large pannus and obesity Palpation: soft and no hepatosplenomegaly Auscultation: normal bowel sounds General: deferred Back/Spine/Pelvis Other: unable to assess due to body habitus and unable to sit up Skin General skin exam: erythema (to RLE) Other: swelling to RLE, venous stasis discoloration to LLE, with chronic insufficiency changes. Neuro General: patient alert, patient awake and patient oriented x3 Cognition: normal cognition Speech: speech normal Extrem General: full ROM, clubbing, cyanosis or edema noted and edema (non pitting + 4 edema to foot up to right below the knee with erythema) Laterality: right Psych Appearance: grossly normal Speech and Movement: speech and movement normal Results Labs Result diagrams: 10/04/19 07:10/04/19 07:25 Labs: Laboratory Results - last 24 hr 10/04/19 10/04/19 10/04/19 07:25 07:25 07:25 WBC 12.57 H RBC 5.29 Hgb 16.2 Hct 48.3 MCV 91.3 MCH 30.6 MCHC 33.5 RDW 13.5 Plt Count 202 MPV 9.4 Immature Gran % 0.2 Neutrophils % 88.6 Lymphocytes % 4.9 Monocytes % 5.7 Eosinophils % 0.4 Basophils % 0.2 Absolute Neutrophils 11.14 H Absolute Lymphocytes 0.62 L Absolute Monocytes 0.72 H Absolute Eosinophils 0.05 Absolute Basophils 0.03 ESR 18 PT INR APTT Sodium 138 Potassium 3.8 Chloride 100 Carbon Dioxide 29.3 Anion Gap 8.7 BUN 23 H Creatinine 1.25 Estimated GFR/1.73 m2 59.12 Glucose 155 H Lactate Calcium 9.1 Total Bilirubin 0.7 AST 23 ALT 22 Alkaline Phosphatase 70 C-Reactive Protein 0.83 H Total Protein 8.0 Albumin 3.8 10/04/19 10/04/19 07:25 07:25 WBC RBC Hgb Hct MCV MCH MCHC RDW Plt Count MPV Immature Gran % Neutrophils % Lymphocytes % Monocytes % Eosinophils % Basophils % Absolute Neutrophils Absolute Lymphocytes Absolute Monocytes Absolute Eosinophils Absolute Basophils ESR PT 22.2 H INR 2.3 H APTT 36.5 H Sodium Potassium Chloride Carbon Dioxide Anion Gap BUN Creatinine Estimated GFR/1.73 m2 Glucose Lactate 3.0 H* Calcium Total Bilirubin AST ALT Alkaline Phosphatase C-Reactive Protein Total Protein Albumin Last Vital Signs Temp 38.9 C H 07/13/20 12:50 Pulse 100 H 10/04/19 11:30 Resp 22 10/04/19 11:30 BP 108/65 10/04/19 11:30 Pulse Ox 95 10/04/19 11:30 COVID-19 Screening Have you,or household,traveled outside [place] in last 14 days?: No Had IN PERSON contact w/suspected or confirmed C-19 person: No
[2019-10-04 15:18] LABS: Lactate 1.9 mmol/L (0.6-1.4)
[2019-10-04] MEDS: Warfarin 5 MG TAB PO (19:54)
[2019-10-05] VITALS (10 sets, daily range): BP systolic 96–124; BP diastolic 58–80; PULSE 62–98; RESP 16–20; TEMP 37–38.2; O2SAT 91–95
[2019-10-05 00:20] LABS: COVID-19 RT-PCR UVMMC Result Negative (Negative)
[2019-10-05] MEDS: HYDROmorphone 2 MG/ML VIAL IVP ×3 (03:43→18:47)
[2019-10-05] MEDS: Normal Saline Flush 10 ML SYR IVP ×4 (03:44→22:24)
--- NOTE | 2019-10-05 07:00 | HOME_ITS ---
Home Ventilator Equipment Home care company [facility] Reason: Obstructive Sleep Apnea Make: ResMed Model: AirSense 10 Mask type: Face mask Mask size: Large Mode: CPAP Settings: Auto-set min 8/max 20 Oxygen bleed in (lpm): Condition: Good Date last checked: 10/04/19 Year of last sleep study: Compliance Daily Comments: machine is on RA, pt owns machine and gets supplies from [facility]
[2019-10-05 07:10] LABS: Abs Immature Grans 0.03 k/cumm (0.0-0.09); Absolute Basophil Count 0.02 k/cumm (0.0-0.2); Absolute Eosinophil Count 0.05 k/cumm (0.0-0.7); Absolute Lymphocyte Count 0.78 k/cumm (1.2-3.4); Absolute Monocyte Count 1.08 k/cumm (0.11-0.7); Absolute Neutrophil Count 7.88 k/cumm (1.2-6.7); Basophils % 0.2; Eosinophils % 0.5; HCT 42.9 % (40.0-50.0); HGB 13.9 g/dL (13.5-17.5); Immature Grans % 0.3 %; Lymphocytes % 7.9; Mean Corp. HGB Concentration 32.4 g/dL (32.0-36.0); Mean Corpuscular Hemoglobin 30.5 pg (27.0-33.0); Mean Corpuscular Volume 94.1 fL (80-95); Mean Platelet Volume 9.2 fL (8.0-11.0); Neutrophils % 80.1; Platelet Count 143 x1000/uL (130-400); RBC 4.56 m/cumm (4.50-6.00); RBC Distribution Width 14.1 % (11.8-14.1); White Blood Cell Count 9.84 k/cumm (4.4-10.8)
[2019-10-05 07:24] LABS: Anion Gap 4.3 mmol/L (3-11); BUN 21 mg/dL (7-18); CO2 29.7 mmol/L (21.0-32.0); CREATININE 1.11 mg/dL (0.70-1.30); Calcium 8.4 mg/dL (8.5-10.1); Chloride 103 mmol/L (98-107); Glucose 118 mg/dL (74-106); Potassium 4.1 mmol/L (3.5-5.1); Sodium 137 mmol/L (136-145)
[2019-10-05 07:25] LABS: INR 2.7 (0.9-1.1); Prothrombin Time 26.2 sec (9.3-11.0)
[2019-10-05 07:33] LABS: Hemoglobin A1C 6.2 % (3.8-5.6)
--- NOTE | 2019-10-05 07:53 | PDOC.CMIN ---
- If Service Date Differs Date of service: 10/05/19 Time of Service: 07:53 Care Management Initial Assess REASON FOR HOSPITALIZATION:: Cellulitis PAST MEDICAL HISTORY/PAST SURGICAL HISTORY:: Medical History . A-fib (Chronic). Ankle fracture. Bladder wall thickening (Acute). Borderline diabetes. Hyperlipidemia. Hypertension. Morbid obesity with BMI of 50.0-59.9, adult. Venous insufficiency (chronic) (peripheral). Surgical History . Colonoscopy - MAC (01/13/15). DR. OCTAVIA TAMEZ. Excision, Tumor. benign lymphatic mass right thigh. History of excision of lesion (Resolved) PREVIOUS FUNCTIONAL STATUS/SOCIAL/FAMILY SUPPORTS:: Corey lives in a single family home in [place], [place] with his Agatha. Corey has 8 children and 18 grandchildren, many of which live in [place]. 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 He does not receive any community supports nor does he require any assistive devices. CURRENT FUNCTIONAL STATUS:: Corey was sitting up in bed visiting with his when CM met with him. He was pleasant and was agreeable to conversation. Corey stated that he is having a fair amount of pain in his affected leg but is trying to hold off on taking too much pain medication. He admitted that he does not like to take medicine or go to the doctor or hospital. His described him as being very independent. ADVANCE DIRECTIVES:: None on file but was provided with 2 copies of the [place] AD forms at his request. Has patient been provided with info about the portal/API?: Yes Did the patient sign up for the portal?: Yes (previously) CODE STATUS:: Full Code INSURANCE COVERAGE / FINANCIAL ISSUES:: JACOB LEMUS CURRENT HOME/COMMUNITY SERVICES/EQUIPMENT:: none currently PRIMARY CARE PHYSICIAN:: Kaylen Ellis POTENTIAL DISCHARGE NEEDS:: Follow up with PCP and discharge plan of care PATIENT/FAMILY EDUCATION NEEDS:: Discharge plan, limitations, follow up plan, Ask Me Three. TRANSPORTATION:: via private vehicle with PLAN:: Corey will likely return home with no new services. He will follow up with his PCP and discharge plan of care. CM will continue to support Corey and his family and assess for ongoing discharge needs.
--- NOTE | 2019-10-05 07:55 | POCOE_ITS ---
Date of service: 10/05/19 Time of Service: 07:56 History of Present Illness History of Present Illness Chief Complaint: Puncture wound 9 days ago right foot with cellulitis right lower extremity Narrative: 59-year-old white male who walked outside onto his wooden deck, 9 days ago, barefooted stepped on a nail sustaining immediate pain and injury. He thinks the nail stood up about quarter inch as much as half an inch. He had immediate bleeding from the wound which was treated by his with soap and water and covered with bag balm. Unfortunately, he has developed cellulitis extending to his knee and is admitted with sepsis, cellulitis of the right leg following this puncture wound. He was admitted through the emergency room, tetanus prophylaxis was performed, CT study of the right foot and leg was performed and was negative for signs of osteomyelitis of the foot or fluid accumulations or abscess formations. No foreign bodies were identified. Diffuse soft tissue swelling consistent with cellulitis noted. Consults Consult date: 10/05/19 [facility] Medical History A-fib (Chronic) Acute pain of right knee (Inactive 09/08/17) Ankle fracture Bladder wall thickening (Acute) Borderline diabetes Dysphonia (Inactive 10/13/17) Fracture of ankle (Resolved) left Hematuria (Inactive) Hyperlipidemia Hypertension Irregular heartbeat (Inactive 10/13/17) Low back pain (Inactive) Morbid obesity with BMI of 50.0-59.9, adult Osteoarthritis of right knee (Inactive) Primary osteoarthritis of both knees (Inactive 02/03/15) Solitary pulmonary nodule (Inactive) Tubular adenoma (Resolved) 01/13/15; DR. TAMEZ Venous insufficiency (chronic) (peripheral) Vocal cord paresis (Inactive 10/13/17) Surgical History Colonoscopy - MAC (01/13/15) DR. OCTAVIA TAMEZ Excision, Tumor benign lymphatic mass right thigh History of excision of lesion (Resolved) Family History Mother , AGE 78 Diabetes Father , AGE 82 Essential hypertension Stroke Sister No problems noted. Brother Diabetes Essential hypertension Maternal Grandfather , AGE 86 Diabetes Essential hypertension Paternal Grandfather , AGE 62 Heart disease Stroke Essential hypertension Maternal Grandmother , AGE 99 Diabetes Essential hypertension Heart disease Sister Diabetes Essential hypertension Sister Asthma Depression Diabetes Essential hypertension Hyperlipidemia Brother Asthma Depression Essential hypertension Diabetes Heart disease Hyperlipidemia Brother Diabetes Essential hypertension Son No problems noted. Son No problems noted. 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 He was able to stand up and walk back to his bed although slowly and labored. He is morbidly obese and deconditioned. Both lower extremities are grossly enlarged secondary to chronic venous stasis disease. Skin shows changes consistent with venous stasis disease with generalized coarsening, scaling with hemosiderin deposition. The left lower extremity is currently asymptomatic, the calf is soft to palpation and nontender. Pulses are audible with Doppler not palpable secondary to edema. Capillary fill to all toes on the 5 seconds. Toenails are fungal but currently nontender. Right lower extremity shows a puncture wound at the plantar lateral aspect of the right foot at the level of the base of the fifth metatarsal. Superficial skin is peeling but no outward erythema is appreciated. The region is very tender to palpation. There is erythema with moderate edema from the dorsum of t he foot all the way to the tibial tuberosity with the majority of inflammation and some bruising noted laterally along the upper calf. His calf is firm secondary to edema and exquisitely tender with palpation. He grades the pain at rest as a +4/10. He is able to dorsiflex and plantarflex the foot with minimal discomfort from his baseline. A small vertical split is noted at the puncture wound site and with a #15 scalpel I sharply debrided the overlying skin. A small puncture wound is noted which appears shallow at this time without signs of sepsis. The wound is very tender to gentle palpation. A combination of dried blood and a small amount of organic debris was removed from the wound but no amparo purulence identified. There was no significant undermining and no tunneling noted. Upon debridement the wound measured 1 cm in length by 4 to 5 mm in width and 1 mm deep. Impressions: Puncture wound right foot without obvious abscess Cellulitis right lower extremity secondary to puncture wound complicated by venous stasis disease Plan: Unless an abscess formation develops there is no surgical intervention required at this time. I agree with aggressive antibiotic coverage, local wound care, elevation to reduce edema. Patient education was provided concerning the essentials of proper foot gear to prevent these types of injuries. I will be happy to follow-up as needed. Thank you for this consultation. Results Last Vital Signs Temp 37.2 C 10/05/19 03:43 Pulse 79 10/05/19 03:43 Resp 18 10/05/19 03:43 BP 115/66 10/05/19 03:43 Pulse Ox 93 L 10/05/19 03:43 Labs Result diagrams: 10/05/19 06:52 10/05/19 06:52 Labs: Laboratory Results - last 24 hr 10/04/19 10/04/19 10/04/19 07:25 07:25 11:00 WBC RBC Hgb Hct MCV MCH MCHC RDW Plt Count MPV Immature Gran % Neutrophils % Lymphocytes % Monocytes % Eosinophils % Basophils % Absolute Neutrophils Absolute Lymphocytes Absolute Monocytes Absolute Eosinophils Absolute Basophils ESR 18 PT 22.2 H INR 2.3 H APTT 36.5 H Sodium Potassium Chloride Carbon Dioxide Anion Gap BUN Creatinine Estimated GFR/1.73 m2 Glucose Hemoglobin A1c Lactate Calcium COVID-19 PCR Negative Nasopharyn COVID-19 PCR Not Applicable Ref Test Perform Site [place] [facility] lab 10/04/19 10/05/19 10/05/19 15:00 06:52 06:52 WBC RBC Hgb Hct MCV MCH MCHC RDW Plt Count MPV Immature Gran % Neutrophils % Lymphocytes % Monocytes % Eosinophils % Basophils % Absolute Neutrophils Absolute Lymphocytes Absolute Monocytes Absolute Eosinophils Absolute Basophils ESR PT 26.2 H INR 2.7 H APTT Sodium 137 Potassium 4.1 Chloride 103 Carbon Dioxide 29.7 Anion Gap 4.3 BUN 21 H Creatinine 1.11 Estimated GFR/1.73 m2 >= 60.00 Glucose 118 H Hemoglobin A1c Lactate 1.9 H Calcium 8.4 L COVID-19 PCR Nasopharyn COVID-19 PCR Ref Test Perform Site 10/05/19 10/05/19 06:52 06:52 WBC 9.84 RBC 4.56 Hgb 13.9 D Hct 42.9 MCV 94.1 MCH 30.5 MCHC 32.4 RDW 14.1 Plt Count 143 MPV 9.2 Immature Gran % 0.3 Neutrophils % 80.1 Lymphocytes % 7.9 Monocytes % 11.0 Eosinophils % 0.5 Basophils % 0.2 Absolute Neutrophils 7.88 H Absolute Lymphocytes 0.78 L Absolute Monocytes 1.08 H Absolute Eosinophils 0.05 Absolute Basophils 0.02 ESR PT INR APTT Sodium Potassium Chloride Carbon Dioxide Anion Gap BUN Creatinine Estimated GFR/1.73 m2 Glucose Hemoglobin A1c 6.2 H Lactate Calcium COVID-19 PCR Nasopharyn COVID-19 PCR Ref Test Perform Site
[2019-10-05] MEDS: Losartan 50 MG TAB 100 MG PO (08:02)
[2019-10-05] MEDS: Omeprazole 20 MG CAPCR PO (08:02)
[2019-10-05] MEDS: amLODIPine 10 MG TAB PO (08:02)
[2019-10-05] MEDS: Normal Saline 1,000 ML 125 ML IV (08:21)
[2019-10-05] MEDS: PIPERACILLIN/TAZO 4.5 GM in Normal Saline 100 ML IVPB ×3 (10:44→22:23)
[2019-10-05] MEDS: Acetaminophen 325 MG TAB PO (12:04)
--- NOTE | 2019-10-05 12:12 | PHA.REVIEW ---
Pharmacy Admission Review - Admission Clinical Review (Last Reviewed 10/05/19 @ 07:59 by Gerard Kelly DPM) Fever (Acute) Sepsis (Acute) Chronic anticoagulation (Acute) lisinopril Adverse Reaction (Intermediate, Verified 10/04/19 07:00) COUGH Height 6 ft Weight 188.4 kg - Renal Dosing Renal Dosing: BUN 21 mg/dL (7-18) H 10/05/19 06:52 Creatinine 1.11 mg/dL (0.70-1.30) 10/05/19 06:52 Medications needing adjustments: Reviewed (Crcl ~94 mL/min using lean body weight or 123.5 mL/min using adjusted body weight, current meds okay) - Anticoagulation Anticoagulation: Hgb 13.9 g/dL (13.5-17.5) D 10/05/19 06:52 Hct 42.9 % (40.0-50.0) 10/05/19 06:52 Plt Count 143 x1000/uL (130-400) 10/05/19 06:52 INR 2.7 (0.9-1.1) H 10/05/19 06:52 Creatinine 1.11 mg/dL (0.70-1.30) 10/05/19 06:52 DVT Prohphylaxis: N/A Therapeutic Anticoagulation: Reviewed Medications: Warfarin - Opiate Usage Evaluate Pain Scale/Pains Meds: Reviewed Scheduled Bowel Reg ordered if on Opiates?: No (has prn meds ordered) - Relevant Labs ESR 18 mm/hr (1-20) 10/04/19 07:25 Sodium 137 mmol/L (136-145) 10/05/19 06:52 Potassium 4.1 mmol/L (3.5-5.1) 10/05/19 06:52 Chloride 103 mmol/L (98-107) 10/05/19 06:52 C-Reactive Protein 0.83 mg/dL (0.0-0.3) H 10/04/19 07:25 Electrolytes, C-Reactive P, ESR: Reviewed - DM Control DM Control: Glucose 118 mg/dL (74-106) H 10/05/19 06:52 Hemoglobin A1c 6.2 % (3.8-5.6) H 10/05/19 06:52 Finger Stick Blood Glucose 112 Finger Stick Blood Glucose 112 Insulin Dosing: Reviewed (sliding scale aspart ordered) - Heart Failure/FL EF%, SWATI's, B-Blockers, Diuretics: N/A - BP Control BP Control: Blood Pressure 108/80 Blood Pressure 96/58 Blood Pressure 104/70 Blood Pressure 115/66 If elevated: N/A ( told nursing to hold morning BP meds and reassess due to low BP this morning) - Qtc Review If Elevated: N/A - IV to PO Switch IV Medications: N/A - Home Meds Home Med List reviewed: Reviewed (metformin (had iohexol yesterday/has sliding scale aspart ordered), nystatin) - Current meds Current Medication Order Review: Intervened (discontinued DI meds) - Comments Comments/Follow Ups: watch BP, BG, INR, for micro results, and for med changes Antibiotic Activity - Pharmacy Antibiotic Review Pharmacy Antibiotic Activity: Reviewed, no change (On vanco and zosyn, blood cultures pending. Vanco trough ordered for tomorrow, adjust dose if necessary.)
--- NOTE | 2019-10-05 14:25 | CHAPLAIN ---
Corey was visiting with this , and just started a conversation with relief captain Zulema Cherry, when I stopped in. I introduced myself, explained my role and offered support.
--- NOTE | 2019-10-05 14:53 | DM INPTCON_ITS ---
Date of service: 10/05/19 Time of Service: 14:53 Diabetes Inpatient Consult DESCRIPTION/ASSESSMENT: 59 year old male admitted with cellulitis or right leg, venous insufficiency, Afib, hyperlipidemia, Type 2 diabetes and morbid obesity with BMI of 56. Met with Corey and his . They report well balanced meals at home with focus on protein and non starchy vegetables. Recent A1C 6.2%, down from 6.4% earlier in year. 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 He is interested in restarting work up for weight loss surgery as he is unable to sustain > 50lbs weight loss due to inactivity. He reports surgeon wants him below 300 lbs for knee surgery. Estimated Needs for weight loss: [id number] kcal, 100-120 g protein with focus on complex carbs, lean protein and non starchy vegetables. Home meds include metformin 500 mg daily. INTERVENTION: Educated Corey and his on lower carb, high protein diet for optimal blood sugar control and weight loss. Recommend fu with [facility] for next weight loss surgery seminar and to start work up in order to lose the weight he needs for knee surgery. Recommended 1500 kcal meal plan, provided meal plan, menus and contact information for follow up once discharged home. PLAN: Corey will continue to follow low carb, high protein diet with 3 meals, 2 snacks daily with focus on lean protein, nonstarchy vegetables. Will continue to check BS as perscribed by MD and fu with MD as recommended. Corey will follow up with [facility] to start process for weight loss surgery to attain needed weight loss to have bilateral knee replacement Corey will follow up with commercial underwriter for presurgical diet counseling. Time Spent in Nutritional Counseling and Treatment: 30 min spent face to face
--- NOTE | 2019-10-05 15:54 | W.PM.PROGNOT ---
Date of Service Date of service: 10/05/19 Time of Service: 15:54 Assessment and Plan Assessment and plan (1) Cellulitis of leg, right: Status: Resolved Assessment and plan: day 2 vanco and zosyn added back. white count improving. elevate right lower extremity as much as possible during the day. wound on plantar aspect debrided by podiatry. no abscess or osteo evidence. (2) Diabetes mellitus: Status: Chronic Assessment and plan: continue diabetic diet, blood sugar check and sliding scale as needed. hemoglobin A1C 6.2. 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 (4) Atrial fibrillation and flutter: Status: Chronic Assessment and plan: rate controlled, anticoagulated on coumadin. watch INR daily while active infection/antibiotic use (5) DVT prophylaxis: Status: Acute Assessment and plan: anticoagulated on coumadin (6) Discharge planning issues: Status: Acute Assessment and plan: home with no services when medically stable. case discussed with Dr Guzman who is in agreement. Subjective Subjective Patient reports: feels better, still having pain, tolerating a regular diet, voiding w/o difficulty, no bowel movement and afebrile Exam Const General: cooperative, healthy appearing, comfortable and no acute distress Nutritional Appearance: obese Orientation: alert, awake and oriented x3 HENMT Head: normal to inspection, normocephalic and atraumatic Mouth: oral mucosae normal Resp Effort & Inspection: normal respiratory effort Auscultation: clear to auscultation bilaterally and diminished lung sounds Cardio Rate: regular rate Rhythm: regular rhythm GI Inspection: normal to inspection and obesity Skin General skin exam: dry skin (bilateral lower extremities ) Rashes: rashes noted (right lower extremity, erythema extends to knee, within markings) Other: bilateral purplish discoloration consistent with chronic venous status to lower extremities. edema and erythema to right. Neuro General: patient alert, patient awake, patient oriented x3 and moves all extremities Cranial Nerves: CN's II-XI intact bilaterally Cognition: normal cognition Speech: speech normal Extrem General: edema Laterality: right Objective Objective Clinical Data: Abnormal lab results 10/05/19 10/05/19 10/05/19 Range/Units 06:52 06:52 06:52 Absolute Neutrophils 7.88 H (1.2-6.7) k/cumm Absolute Lymphocytes 0.78 L (1.2-3.4) k/cumm Absolute Monocytes 1.08 H (0.11-0.7) k/cumm PT 26.2 H (9.3-11.0) sec INR 2.7 H (0.9-1.1) BUN 21 H (7-18) mg/dL Glucose 118 H (74-106) mg/dL Hemoglobin A1c (3.8-5.6) % Calcium 8.4 L (8.5-10.1) mg/dL 10/05/19 Range/Units 06:52 Absolute Neutrophils (1.2-6.7) k/cumm Absolute Lymphocytes (1.2-3.4) k/cumm Absolute Monocytes (0.11-0.7) k/cumm PT (9.3-11.0) sec INR (0.9-1.1) BUN (7-18) mg/dL Glucose (74-106) mg/dL Hemoglobin A1c 6.2 H (3.8-5.6) % Calcium (8.5-10.1) mg/dL Vital Signs Temperature 37.4 C 10/05/19 13:23 Temperature Source Tympanic 10/05/19 13:23 Pulse 72 10/05/19 12:00 Pulse Rhythm Irregular 10/05/19 08:23 Pulse Strength Normal 10/04/19 08:41 Respiratory Rate 16 10/05/19 12:00 Respiratory Effort 10/05/19 08:23 Respiratory Depth Normal 10/05/19 08:23 Respiratory Pattern Normal 10/05/19 08:23 Blood Pressure 110/70 10/05/19 12:00 Blood Pressure Mean 74 10/04/19 10:30 Blood Pressure Position Supine 10/04/19 08:41 Pulse Oximetry 94 L 10/05/19 12:00 Oxygen Delivery Method Room Air 10/05/19 12:00 Oxygen Flow Rate 0 10/05/19 12:00 Fraction of Inspired Oxygen (FIO2) 21 10/05/19 09:00 Pain Level 3 10/05/19 12:04 Comment BP manually: 110/70 10/05/19 12:00 Intake & Output 10/04/19 10/05/19 10/05/19 23:59 11:59 23:59 Intake Total 1490 / 2367.083 4677.917 / 4917.917 240 / 4917.917 Balance 1490 / 2367.083 4677.917 / 4917.917 240 / 4917.917 Weight 188.4 kg Intake: IV 1250 / 2127.083 3647.917 / 3647.917 Oral 240 / 240 1030 / 1270 240 / 1270 Other: Urine Color Yellow Yellow Urine Appearance Clear Clear Urine Odor None Comment Per pt. report, void x1 in the toilet. Voiding Methods Toilet Toilet Laboratory Results WBC 9.84 k/cumm (4.4-10.8) 10/05/19 06:52 RBC 4.56 m/cumm (4.50-6.00) 10/05/19 06:52 Hgb 13.9 g/dL (13.5-17.5) D 10/05/19 06:52 Hct 42.9 % (40.0-50.0) 10/05/19 06:52 MCV 94.1 fL (80-95) 10/05/19 06:52 MCH 30.5 pg (27.0-33.0) 10/05/19 06:52 MCHC 32.4 g/dL (32.0-36.0) 10/05/19 06:52 RDW 14.1 % (11.8-14.1) 10/05/19 06:52 Plt Count 143 x1000/uL (130-400) 10/05/19 06:52 MPV 9.2 fL (8.0-11.0) 10/05/19 06:52 Immature Gran % 0.3 % 10/05/19 06:52 Neutrophils % 80.1 10/05/19 06:52 Lymphocytes % 7.9 10/05/19 06:52 Monocytes % 11.0 10/05/19 06:52 Eosinophils % 0.5 10/05/19 06:52 Basophils % 0.2 10/05/19 06:52 Absolute Neutrophils 7.88 k/cumm (1.2-6.7) H 10/05/19 06:52 Absolute Lymphocytes 0.78 k/cumm (1.2-3.4) L 10/05/19 06:52 Absolute Monocytes 1.08 k/cumm (0.11-0.7) H 10/05/19 06:52 Absolute Eosinophils 0.05 k/cumm (0.0-0.7) 10/05/19 06:52 Absolute Basophils 0.02 k/cumm (0.0-0.2) 10/05/19 06:52 ESR 18 mm/hr (1-20) 10/04/19 07:25 PT 26.2 sec (9.3-11.0) H 10/05/19 06:52 INR 2.7 (0.9-1.1) H 10/05/19 06:52 APTT 36.5 sec (21.0-31.4) H 10/04/19 07:25 Sodium 137 mmol/L (136-145) 10/05/19 06:52 Potassium 4.1 mmol/L (3.5-5.1) 10/05/19 06:52 Chloride 103 mmol/L (98-107) 10/05/19 06:52 Carbon Dioxide 29.7 mmol/L (21.0-32.0) 10/05/19 06:52 Anion Gap 4.3 mmol/L (3-11) 10/05/19 06:52 BUN 21 mg/dL (7-18) H 10/05/19 06:52 Creatinine 1.11 mg/dL (0.70-1.30) 10/05/19 06:52 Estimated GFR/1.73 m2 >= 60.00 (mL/min/1.73m2) 10/05/19 06:52 Glucose 118 mg/dL (74-106) H 10/05/19 06:52 Hemoglobin A1c 6.2 % (3.8-5.6) H 10/05/19 06:52 Lactate 1.9 mmol/L (0.6-1.4) H 10/04/19 15:00 Calcium 8.4 mg/dL (8.5-10.1) L 10/05/19 06:52 Total Bilirubin 0.7 mg/dL (0.2-1.0) 10/04/19 07:25 AST 23 U/L (15-37) 10/04/19 07:25 ALT 22 U/L (16-63) 10/04/19 07:25 Alkaline Phosphatase 70 U/L (46-116) 10/04/19 07:25 C-Reactive Protein 0.83 mg/dL (0.0-0.3) H 10/04/19 07:25 Total Protein 8.0 g/dL (6.4-8.2) 10/04/19 07:25 Albumin 3.8 g/dL (3.4-5.0) 10/04/19 07:25 COVID-19 PCR Negative (Negative) 10/04/19 11:00 Nasopharyn COVID-19 PCR Not Applicable 10/04/19 11:00 Ref Test Perform Site [facility] lab 10/04/19 11:00
[2019-10-05] MEDS: Warfarin 5 MG TAB PO (19:31)
[2019-10-06] VITALS (7 sets, daily range): BP systolic 108–123; BP diastolic 67–81; PULSE 83–102; RESP 18–20; TEMP 36.3–38.2; O2SAT 91–93
[2019-10-06] MEDS: Normal Saline Flush 10 ML SYR IVP ×9 (00:16→21:19)
[2019-10-06] MEDS: HYDROmorphone 2 MG/ML VIAL IVP ×4 (00:16→21:19)
[2019-10-06] MEDS: PIPERACILLIN/TAZO 4.5 GM in Normal Saline 100 ML IVPB ×4 (04:43→22:46)
[2019-10-06] MEDS: Omeprazole 20 MG CAPCR PO (07:43)
[2019-10-06] MEDS: amLODIPine 10 MG TAB PO (07:43)
[2019-10-06] MEDS: Losartan 50 MG TAB 100 MG PO (07:43)
[2019-10-06 07:48] LABS: Abs Immature Grans 0.04 k/cumm (0.0-0.09); Absolute Basophil Count 0.02 k/cumm (0.0-0.2); Absolute Eosinophil Count 0.05 k/cumm (0.0-0.7); Absolute Lymphocyte Count 0.85 k/cumm (1.2-3.4); Absolute Monocyte Count 1.04 k/cumm (0.11-0.7); Absolute Neutrophil Count 7.48 k/cumm (1.2-6.7); Basophils % 0.2; Eosinophils % 0.5; HCT 42.8 % (40.0-50.0); Immature Grans % 0.4 %; Mean Corp. HGB Concentration 32.7 g/dL (32.0-36.0); Mean Corpuscular Hemoglobin 30.6 pg (27.0-33.0); Mean Corpuscular Volume 93.4 fL (80-95); Mean Platelet Volume 9.7 fL (8.0-11.0); Neutrophils % 78.9; Platelet Count 156 x1000/uL (130-400); RBC 4.58 m/cumm (4.50-6.00); RBC Distribution Width 13.9 % (11.8-14.1); White Blood Cell Count 9.48 k/cumm (4.4-10.8)
[2019-10-06 07:57] LABS: INR 2.7 (0.9-1.1); Prothrombin Time 26.8 sec (9.3-11.0)
[2019-10-06 08:02] LABS: Anion Gap 7.4 mmol/L (3-11); BUN 14 mg/dL (7-18); CO2 25.6 mmol/L (21.0-32.0); Calcium 8.2 mg/dL (8.5-10.1); Chloride 101 mmol/L (98-107); Glucose 112 mg/dL (74-106); Sodium 134 mmol/L (136-145)
--- NOTE | 2019-10-06 09:27 | W.PM.PROGNOT ---
Date of Service Date of service: 10/06/19 Time of Service: 09:27 Assessment and Plan Assessment and plan (1) Cellulitis of leg, right: Status: Resolved Assessment and plan: day 3 vanco and zosyn. erythema, swelling and white count improving. consider stopping vanco and home on augmentin if continues to improved. Continue elevate right lower extremity as much as possible during the day. wound on plantar aspect debrided by podiatry 10/03. no abscess or osteo evidence. (2) Diabetes mellitus: Status: Chronic Assessment and plan: continue diabetic diet, blood sugar check and sliding scale as needed. hemoglobin A1C 6.2. BS 112-117 metformin on hold for 48 hours d/t IV contrast Qualifiers: Diabetes mellitus complication status: without complication Diabetes mellitus buttermaker continuous churn insulin use: without intermediate use Diabetes mellitus type: type 2 Qualified Code(s): E11.9 - Type 2 diabetes mellitus without complications (3) Chronic venous insufficiency: Status: Chronic Assessment and plan: bilateral, chronic and stable. (4) Atrial fibrillation and flutter: Status: Chronic Assessment and plan: rate controlled, anticoagulated on coumadin. watch INR daily while active infection/antibiotic use (5) DVT prophylaxis: Status: Acute Assessment and plan: anticoagulated on coumadin (6) Discharge planning issues: Status: Acute Assessment and plan: home with no services when medically stable. case discussed with Dr Guzman who is in agreement. Subjective Subjective Patient reports: no new complaints, feels better, tolerating liquids well, tolerating a regular diet, no bowel movement (no bm today but denies n/v or constipation) and afebrile; denies nausea and vomiting Interval history since last seen: improved erythema and swelling of right lower extremity Exam Const General: cooperative, healthy appearing, comfortable and no acute distress Nutritional Appearance: obese Orientation: alert, awake and oriented x3 [facility] Head: normal to inspection, normocephalic and atraumatic Mouth: oral mucosae normal Resp Effort & Inspection: normal respiratory effort Auscultation: clear to auscultation bilaterally and diminished lung sounds Cardio Rate: regular rate Rhythm: regular rhythm GI Inspection: normal to inspection and obesity Skin General skin exam: dry skin (bilateral lower extremities ) Rashes: rashes noted (right lower extremity, erythema extends to knee, within markings) Neuro General: patient alert, patient awake, patient oriented x3 and moves all extremities Cranial Nerves: CN's II-XI intact bilaterally Cognition: normal cognition Speech: speech normal Extrem General: edema (improved since yesterday, redness improved and within markings) Laterality: right Objective Objective Clinical Data: Abnormal lab results 10/06/19 10/06/19 10/06/19 Range/Units 07:05 07:05 07:05 Absolute Neutrophils 7.48 H (1.2-6.7) k/cumm Absolute Lymphocytes 0.85 L (1.2-3.4) k/cumm Absolute Monocytes 1.04 H (0.11-0.7) k/cumm PT 26.8 H (9.3-11.0) sec INR 2.7 H (0.9-1.1) Sodium 134 L (136-145) mmol/L Glucose 112 H (74-106) mg/dL Calcium 8.2 L (8.5-10.1) mg/dL Vital Signs Temperature 37.5 C 10/06/19 08:25 Temperature Source Tympanic 10/06/19 08:25 Pulse 102 H 10/06/19 08:25 Pulse Rhythm Regular 10/06/19 07:30 Pulse Strength Normal 10/04/19 08:41 Respiratory Rate 18 10/06/19 08:25 Respiratory Effort Non-Labored 10/06/19 07:30 Respiratory Depth Normal 10/06/19 07:30 Respiratory Pattern Normal 10/06/19 07:30 Blood Pressure 123/81 10/06/19 08:25 Blood Pressure Mean 74 10/04/19 10:30 Blood Pressure Position Supine 10/04/19 08:41 Pulse Oximetry 93 L 10/06/19 08:25 Oxygen Delivery Method Room Air 10/06/19 08:25 Oxygen Flow Rate 0 10/06/19 08:25 Fraction of Inspired Oxygen (FIO2) 21 10/05/19 09:00 Pain Level 4 10/06/19 08:25 Comment 10/05/19 19:30 Intake & Output 10/05/19 10/05/19 10/06/19 11:59 23:59 11:59 Intake Total 4677.917 / 6590.000 191.083 / 6590.000 350 / 350 Balance 4677.917 / 6590.000 191.083 / 6590.000 350 / 350 Weight 188.4 kg 192.1 kg Intake: IV 3647.917 / 5080.000 1432.083 / 5080.000 350 / 350 Oral 1030 / 1510 480 / 1510 Other: Urine Color Yellow Yellow Urine Appearance Clear Clear Clear Comment Per pt. report, void x1 in the toilet. Patient voids independently in the toilet Voiding Methods Toilet Toilet Laboratory Results WBC 9.48 k/cumm (4.4-10.8) 10/06/19 07:05 RBC 4.58 m/cumm (4.50-6.00) 10/06/19 07:05 Hgb 14.0 g/dL (13.5-17.5) 10/06/19 07:05 Hct 42.8 % (40.0-50.0) 10/06/19 07:05 MCV 93.4 fL (80-95) 10/06/19 07:05 MCH 30.6 pg (27.0-33.0) 10/06/19 07:05 MCHC 32.7 g/dL (32.0-36.0) 10/06/19 07:05 RDW 13.9 % (11.8-14.1) 10/06/19 07:05 Plt Count 156 x1000/uL (130-400) 10/06/19 07:05 MPV 9.7 fL (8.0-11.0) 10/06/19 07:05 Immature Gran % 0.4 % 10/06/19 07:05 Neutrophils % 78.9 10/06/19 07:05 Lymphocytes % 9.0 10/06/19 07:05 Monocytes % 11.0 10/06/19 07:05 Eosinophils % 0.5 10/06/19 07:05 Basophils % 0.2 10/06/19 07:05 Absolute Neutrophils 7.48 k/cumm (1.2-6.7) H 10/06/19 07:05 Absolute Lymphocytes 0.85 k/cumm (1.2-3.4) L 10/06/19 07:05 Absolute Monocytes 1.04 k/cumm (0.11-0.7) H 10/06/19 07:05 Absolute Eosinophils 0.05 k/cumm (0.0-0.7) 10/06/19 07:05 Absolute Basophils 0.02 k/cumm (0.0-0.2) 10/06/19 07:05 ESR 18 mm/hr (1-20) 10/04/19 07:25 PT 26.8 sec (9.3-11.0) H 10/06/19 07:05 INR 2.7 (0.9-1.1) H 10/06/19 07:05 APTT 36.5 sec (21.0-31.4) H 10/04/19 07:25 Sodium 134 mmol/L (136-145) L 10/06/19 07:05 Potassium 4.0 mmol/L (3.5-5.1) 10/06/19 07:05 Chloride 101 mmol/L (98-107) 10/06/19 07:05 Carbon Dioxide 25.6 mmol/L (21.0-32.0) 10/06/19 07:05 Anion Gap 7.4 mmol/L (3-11) 10/06/19 07:05 BUN 14 mg/dL (7-18) D 10/06/19 07:05 Creatinine 1.10 mg/dL (0.70-1.30) 10/06/19 07:05 Estimated GFR/1.73 m2 >= 60.00 (mL/min/1.73m2) 10/06/19 07:05 Glucose 112 mg/dL (74-106) H 10/06/19 07:05 Hemoglobin A1c 6.2 % (3.8-5.6) H 10/05/19 06:52 Lactate 1.9 mmol/L (0.6-1.4) H 10/04/19 15:00 Calcium 8.2 mg/dL (8.5-10.1) L 10/06/19 07:05 Total Bilirubin 0.7 mg/dL (0.2-1.0) 10/04/19 07:25 AST 23 U/L (15-37) 10/04/19 07:25 ALT 22 U/L (16-63) 10/04/19 07:25 Alkaline Phosphatase 70 U/L (46-116) 10/04/19 07:25 C-Reactive Protein 0.83 mg/dL (0.0-0.3) H 10/04/19 07:25 Total Protein 8.0 g/dL (6.4-8.2) 10/04/19 07:25 Albumin 3.8 g/dL (3.4-5.0) 10/04/19 07:25 COVID-19 PCR Negative (Negative) 10/04/19 11:00 Nasopharyn COVID-19 PCR Not Applicable 10/04/19 11:00 Ref Test Perform Site [facility] lab 10/04/19 11:00
[2019-10-06] MEDS: Normal Saline 500 ML 200 ML IV (10:08)
[2019-10-06 11:37] LABS: Vancomycin, Trough 9.7 ug/mL (10.0-20.0)
--- NOTE | 2019-10-06 13:30 | CMPROGNOTE_ITS ---
Care Management Progress Note S/O: Corey continues to make gains toward discharge; per provider, anticipate IV medications will be stopped and Corey will transition to PO for further monitoring prior to discharging; as soon as tomorrow. CM continues to follow. A: 59 year old male admitted to [facility] 10/04/19 for Cellulitis P: Corey will likely return home with no new services. He will follow up with his PCP and discharge plan of care. CM will continue to support Corey and his family and assess for ongoing discharge needs.
[2019-10-06] MEDS: Acetaminophen 325 MG TAB PO (20:36)
[2019-10-06] MEDS: Warfarin 5 MG TAB PO (20:54)
[2019-10-07] VITALS (8 sets, daily range): BP systolic 113–145; BP diastolic 71–96; PULSE 74–110; RESP 19–22; TEMP 36.5–37.8; O2SAT 87–94
--- NOTE | 2019-10-07 | DI.US_ITS ---
EXAM: US LOWER EXTREMITY VENOUS RT CLINICAL HISTORY: r/o dvt, pain in calf, increase in circumfrence. TECHNIQUE: Ultrasound performed using standard protocol. COMPARISON: US ABDOMEN ULTRASOUND (P) from 11/12/2017 FINDINGS: Duplex venous ultrasound was performed according to the usual protocol. The deep veins are freely com pressible throughout and there is normal flow augmentation with manual calf compression. 2D and Doppl er evaluation are unremarkable. IMPRESSION: No evidence of deep venous thrombosis of the right lower extremity DATA REPOSITORY:
[2019-10-07] MEDS: PIPERACILLIN/TAZO 4.5 GM in Normal Saline 100 ML IVPB ×4 (03:46→22:42)
[2019-10-07] MEDS: Normal Saline Flush 10 ML SYR IVP ×10 (03:47→20:19)
[2019-10-07] MEDS: HYDROmorphone 2 MG/ML VIAL IVP ×3 (07:55→21:29)
[2019-10-07] MEDS: Losartan 50 MG TAB 100 MG PO (07:55)
[2019-10-07] MEDS: amLODIPine 10 MG TAB PO (07:55)
[2019-10-07] MEDS: Omeprazole 20 MG CAPCR PO (07:55)
[2019-10-07 08:22] LABS: Abs Immature Grans 0.04 k/cumm (0.0-0.09); HCT 40.6 % (40.0-50.0); Mean Corpuscular Volume 93.5 fL (80-95); Mean Platelet Volume 9.6 fL (8.0-11.0); Platelet Count 164 x1000/uL (130-400); RBC 4.34 m/cumm (4.50-6.00); RBC Distribution Width 13.7 % (11.8-14.1); White Blood Cell Count 7.78 k/cumm (4.4-10.8)
[2019-10-07 08:29] LABS: INR 2.3 (0.9-1.1); Prothrombin Time 22.6 sec (9.3-11.0)
[2019-10-07 08:31] LABS: Anion Gap 5.1 mmol/L (3-11); BUN 11 mg/dL (7-18); C-Reactive Protein 19.61 mg/dL (0.0-0.3); CO2 28.9 mmol/L (21.0-32.0); CREATININE 1.09 mg/dL (0.70-1.30); Calcium 8.5 mg/dL (8.5-10.1); Chloride 102 mmol/L (98-107); Glucose 126 mg/dL (74-106); Sodium 136 mmol/L (136-145)
[2019-10-07 08:48] LABS: Absolute Lymphocyte Count 0.54 k/cumm (1.2-3.4); Absolute Neutrophil Count 6.54 k/cumm (1.2-6.7); Atypical Lymphocytes % 1; Diff Comment Manual Differential; RBC Morphology Normal
--- NOTE | 2019-10-07 12:36 | PGE_ITS ---
Date of Service Date of service: 10/07/19 Time of Service: 12:41 Assessment and Plan Assessment and plan (1) Cellulitis of leg, right: Start date: 10/07/19 Start time: 12:49 Status: Resolved Assessment and plan: day 4 vanco and zosyn. erythema, swelling and white count improving. consider stopping vanco and home on augmentin if continues to improved. Continue elevate right lower extremity as much as possible during the day. wound on plantar aspect debrided by podiatry 10/03. no abscess or osteo evidence. (2) Diabetes mellitus: Start date: 10/07/19 Start time: 12:51 Status: Chronic Assessment and plan: continue diabetic diet, blood sugar check and sliding scale as needed. hemoglobin A1C 6.2. 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 (4) Atrial fibrillation and flutter: Start date: 10/07/19 Start time: 12:52 Status: Chronic Assessment and plan: rate controlled, anticoagulated on coumadin. watch INR daily while active infection/antibiotic use (5) DVT prophylaxis: Start date: 10/07/19 Start time: 12:52 Status: Acute Assessment and plan: anticoagulated on coumadin (6) Discharge planning issues: Start date: 10/07/19 Start time: 12:52 Status: Acute Assessment and plan: home with no services when medically stable. case discussed with Dr Guzman who is in agreement. Subjective Subjective Patient reports: still having pain Interval history since last seen: C/o pain to RLE thigh and behind knee. Erythema improving, u/s r/o dvt due to pain, he is therautic coumadin so this is low threshold. If no DVT and he continues to improve, transition to oral and d/c possibly by friday. Exam Const General: cooperative, healthy appearing, comfortable and no acute distress Nutritional Appearance: obese morbidly obese Orientation: alert, awake and oriented x3 [facility] Head: normal to inspection, normocephalic and atraumatic Ears: hearing grossly normal bilaterally Mouth: oral mucosae normal Eyes General: appearance normal, both eyes and all related structures Sclera: sclerae normal Cornea: corneas normal Pupils: PERRL EOM: EOM intact bilaterally Neck Neck: normal visual inspection, full ROM and no JVD Chest Chest: normal inspection of the chest Resp Effort & Inspection: normal respiratory effort Auscultation: clear to auscultation bilaterally and diminished lung sounds Cardio Jugular venous pressure: no JVD Rate: regular rate Rhythm: regular rhythm and abnormal rhythm irregularly irregular GI Inspection: normal to inspection, large pannus and obesity Palpation: soft and no hepatosplenomegaly Auscultation: normal bowel sounds General: deferred Skin General skin exam: dry skin (bilateral lower extremities ) and erythema (to RLE) Rashes: rashes noted (right lower extremity, erythema extends to knee, within markings) Neuro General: patient alert, patient awake, patient oriented x3 and moves all extremities Cranial Nerves: CN's II-XI intact bilaterally Cognition: normal cognition Speech: speech normal Extrem General: full ROM, clubbing, cyanosis or edema noted and edema (improved since yesterday, redness improved and within markings) Laterality: right Psych Appearance: grossly normal Speech and Movement: speech and movement normal Objective Objective Clinical Data: Abnormal lab results 10/07/19 10/07/19 10/07/19 Range/Units 08:00 08:00 08:00 RBC 4.34 L (4.50-6.00) m/cumm Hgb 13.0 L (13.5-17.5) g/dL Absolute Lymphocytes 0.54 L (1.2-3.4) k/cumm PT 22.6 H (9.3-11.0) sec INR 2.3 H (0.9-1.1) Glucose 126 H (74-106) mg/dL C-Reactive Protein 19.61 H (0.0-0.3) mg/dL Vital Signs Temperature 37.1 C 10/07/19 11:20 Temperature Source Temporal Artery Scan 10/07/19 11:20 Pulse 98 H 10/07/19 11:20 Pulse Rhythm Irregular 10/07/19 08:01 Pulse Strength Normal 10/04/19 08:41 Respiratory Rate 20 10/07/19 11:20 Respiratory Effort 10/07/19 08:01 Respiratory Depth Normal 10/07/19 08:01 Respiratory Pattern Normal 10/07/19 08:01 Blood Pressure 134/72 10/07/19 11:20 Blood Pressure Mean 74 10/04/19 10:30 Blood Pressure Position Supine 10/04/19 08:41 Pulse Oximetry 92 L 10/07/19 11:20 Oxygen Delivery Method Room Air 10/07/19 11:20 Oxygen Flow Rate 0 10/07/19 11:20 Fraction of Inspired Oxygen (FIO2) 21 10/05/19 09:00 Pain Level 5 10/07/19 11:20 Comment 10/07/19 07:00 Intake & Output 10/06/19 10/07/19 10/07/19 23:59 11:59 23:59 Intake Total 1603.334 / 2936.667 590 / 590 Balance 1603.334 / 2936.667 590 / 590 Weight 193 kg Intake: IV 923.334 / 1466.667 350 / 350 Oral 680 / 1470 240 / 240 Other: Comment Per pt. report, void x6 in the toilet throughout the day. LARGE VOID INDEPENDENTLY IN TOILET Voiding Methods Toilet Toilet Laboratory Results WBC 7.78 k/cumm (4.4-10.8) 10/07/19 08:00 RBC 4.34 m/cumm (4.50-6.00) L 10/07/19 08:00 Hgb 13.0 g/dL (13.5-17.5) L 10/07/19 08:00 Hct 40.6 % (40.0-50.0) 10/07/19 08:00 MCV 93.5 fL (80-95) 10/07/19 08:00 MCH 30.0 pg (27.0-33.0) 10/07/19 08:00 MCHC 32.0 g/dL (32.0-36.0) 10/07/19 08:00 RDW 13.7 % (11.8-14.1) 10/07/19 08:00 Plt Count 164 x1000/uL (130-400) 10/07/19 08:00 MPV 9.6 fL (8.0-11.0) 10/07/19 08:00 Immature Gran % 0.0 % 10/07/19 08:00 Neutrophils % 84.0 10/07/19 08:00 Lymphocytes % 6.0 10/07/19 08:00 Atypical Lymphs % 1 10/07/19 08:00 Monocytes % 9.0 10/07/19 08:00 Eosinophils % 0.0 10/07/19 08:00 Basophils % 0.0 10/07/19 08:00 Absolute Neutrophils 6.54 k/cumm (1.2-6.7) 10/07/19 08:00 Absolute Lymphocytes 0.54 k/cumm (1.2-3.4) L 10/07/19 08:00 Absolute Monocytes 0.70 k/cumm (0.11-0.7) 10/07/19 08:00 Absolute Eosinophils 0.00 k/cumm (0.0-0.7) 10/07/19 08:00 Absolute Basophils 0.00 k/cumm (0.0-0.2) 10/07/19 08:00 Differential Comment Manual differential 10/07/19 08:00 RBC Morphology Normal 10/07/19 08:00 ESR 18 mm/hr (1-20) 10/04/19 07:25 PT 22.6 sec (9.3-11.0) H 10/07/19 08:00 INR 2.3 (0.9-1.1) H 10/07/19 08:00 APTT 36.5 sec (21.0-31.4) H 10/04/19 07:25 Sodium 136 mmol/L (136-145) 10/07/19 08:00 Potassium 4.0 mmol/L (3.5-5.1) 10/07/19 08:00 Chloride 102 mmol/L (98-107) 10/07/19 08:00 Carbon Dioxide 28.9 mmol/L (21.0-32.0) 10/07/19 08:00 Anion Gap 5.1 mmol/L (3-11) 10/07/19 08:00 BUN 11 mg/dL (7-18) 10/07/19 08:00 Creatinine 1.09 mg/dL (0.70-1.30) 10/07/19 08:00 Estimated GFR/1.73 m2 >= 60.00 (mL/min/1.73m2) 10/07/19 08:00 Glucose 126 mg/dL (74-106) H 10/07/19 08:00 Hemoglobin A1c 6.2 % (3.8-5.6) H 10/05/19 06:52 Lactate 1.9 mmol/L (0.6-1.4) H 10/04/19 15:00 Calcium 8.5 mg/dL (8.5-10.1) 10/07/19 08:00 Total Bilirubin 0.7 mg/dL (0.2-1.0) 10/04/19 07:25 AST 23 U/L (15-37) 10/04/19 07:25 ALT 22 U/L (16-63) 10/04/19 07:25 Alkaline Phosphatase 70 U/L (46-116) 10/04/19 07:25 C-Reactive Protein 19.61 mg/dL (0.0-0.3) H 10/07/19 08:00 Total Protein 8.0 g/dL (6.4-8.2) 10/04/19 07:25 Albumin 3.8 g/dL (3.4-5.0) 10/04/19 07:25 Vancomycin Trough 9.7 ug/mL (10.0-20.0) L 10/06/19 11:10 COVID-19 PCR Negative (Negative) 10/04/19 11:00 Nasopharyn COVID-19 PCR Not Applicable 10/04/19 11:00 Ref Test Perform Site [facility] lab 10/04/19 11:00
[2019-10-07] MEDS: Acetaminophen 325 MG TAB PO ×2 (15:39→20:18)
--- NOTE | 2019-10-07 17:03 | PDOC.CMPRO ---
- If Service Date Differs Date of service: 10/07/19 Time of Service: 17:03 Care Management Progress Note S/O: Corey was sitting up in bed when CM met with him. He reported that he was feeling better today. Per report, he will likely be discharged on Friday, barring any unforeseen complications. Corey stated that he has been attempting to have gastric bypass surgery, but it has fallen through several times for different reasons. He asked if the material control associate would be able to speak with him about it. CM left a message for Zulema/Joaquín for them to follow up with him while he is inpatient. CM will continue to follow. A: Corey is a 59 year old male admitted on 10/04/19 for Cellulitis. P: Corey will likely return home with no new services. He will follow up with his PCP and discharge plan of care. CM will continue to support Corey and his family and assess for ongoing discharge needs.
[2019-10-08] VITALS (16 sets, daily range): BP systolic 126–158; BP diastolic 74–107; PULSE 74–113; RESP 16–22; TEMP 36.5–38.1; O2SAT 88–94
--- NOTE | 2019-10-08 | DI.RAD_ITS ---
EXAM: XR CHEST 2V PA LATERAL CLINICAL HISTORY: Fever, feeling of fullness. TECHNIQUE: COMPARISON: CR CHEST 2 VIEWS PA,LAT from 09/11/2017 CR CHEST 2 VIEWS PA,LAT from 11/12/2017 FINDINGS: Heart is enlarged. Lungs are predominantly clear with slight pulmonary interstitial prominence. No fo linda consolidation. No pleural effusion. There appears to be diffuse enlargement of this central pulmonary vessels, this may represent pulmona ry venous hypertension and is in fact somewhat more prominent for upper lobe vessels. Additionally th ere is a question of increasing right hilar enlargement in comparison with prior radiographs of August 2017, again this could reflect vascular engorgement, hilar mass not entirely excluded. Follow ups ankur ms suggested following treatment. IMPRESSION: Cardiomegaly with question pulmonary venous hypertension. No amparo pulmonary edema. Question right hilar enlargement, follow-up chest radiographs requested and the findings do not resol ve additional evaluation with chest CT may be considered to rule out mass.
[2019-10-08 03:07] LABS: Vancomycin, Trough 16.2 ug/mL (10.0-20.0)
[2019-10-08] MEDS: Normal Saline Flush 10 ML SYR IVP ×4 (03:55→17:17)
[2019-10-08] MEDS: Normal Saline 500 ML 30 ML IV ×2 (03:58→04:00)
[2019-10-08] MEDS: PIPERACILLIN/TAZO 4.5 GM in Normal Saline 100 ML IVPB (03:58)
[2019-10-08] MEDS: HYDROmorphone 2 MG/ML VIAL IVP (05:31)
[2019-10-08 07:27] LABS: HCT 40.4 % (40.0-50.0); HGB 13.1 g/dL (13.5-17.5); Mean Corp. HGB Concentration 32.4 g/dL (32.0-36.0); Mean Corpuscular Hemoglobin 30.4 pg (27.0-33.0); Mean Corpuscular Volume 93.7 fL (80-95); Mean Platelet Volume 9.5 fL (8.0-11.0); Platelet Count 165 x1000/uL (130-400); RBC 4.31 m/cumm (4.50-6.00); RBC Distribution Width 13.7 % (11.8-14.1); White Blood Cell Count 7.15 k/cumm (4.4-10.8)
[2019-10-08 07:37] LABS: INR 2.2 (0.9-1.1); Prothrombin Time 21.6 sec (9.3-11.0)
[2019-10-08] MEDS: Losartan 50 MG TAB 100 MG PO (08:33)
[2019-10-08] MEDS: Omeprazole 20 MG CAPCR PO (08:33)
[2019-10-08] MEDS: Amoxicillin 875/Clav. 125 TAB PO ×2 (08:33→19:29)
[2019-10-08] MEDS: amLODIPine 10 MG TAB PO (08:33)
--- NOTE | 2019-10-08 09:37 | PDOC.CMPRO ---
- If Service Date Differs Date of service: 10/08/19 Time of Service: 09:37 Care Management Progress Note S/O: Corey was sitting up in bed visiting with his when CM met with him. He stated that he does not feel he is doing as well as previously. He stated that he felt like he had a fever and that his right leg was more swollen and painful than yesterday. A temperature check was requested and it was found to be 38.6 degrees. The provider was notified and a chest xray was done and showed cardiomegaly with a question of pulmonary venous hypertension. A pro-B-BLOCK HACKER was also done which was found to be elevated at 2913. CM will continue to follow. A: Corey is a 59 year old male admitted on 10/04/19 for Cellulitis. P: Corey will likely return home with no new services. He will follow up with his PCP and discharge plan of care. CM will continue to support Corey and his family and assess for ongoing discharge needs.
--- NOTE | 2019-10-08 14:26 | PGE_ITS ---
Date of Service Date of service: 10/08/19 Time of Service: 14:26 Assessment and Plan Assessment and plan (1) Cellulitis of leg, right: Start date: 10/08/19 Start time: 14:29 Status: Resolved Assessment and plan: Tranisitioned to augmentin. Febrile this afternoon tachy with sensation of feeling full. CXR pending, u/a ordered. . erythema, swelling and white count improving. No white count today. Blood cultures negative. He does have a history of citrobacter positive urine culture. Trends appear to be febrile around this time daily. Continue elevate right lower extremity as much as possible during the day. wound on plantar aspect debrided by podiatry 10/03. no abscess or osteo evidence. (2) Diabetes mellitus: Start date: 10/08/19 Start time: 14:32 Status: Chronic Assessment and plan: continue diabetic diet, blood sugar check and sliding scale as needed. hemoglobin A1C 6.2. BS under 180 Qualifiers: Diabetes mellitus type: type 2 Diabetes mellitus bed bug exterminator insulin use: without bed bug exterminator use Diabetes mellitus complication status: without complication Qualified Code(s): E11.9 - Type 2 diabetes mellitus without complications (3) Chronic venous insufficiency: Start date: 10/08/19 Start time: 14:32 Status: Chronic Assessment and plan: bilateral, chronic and stable. (4) Atrial fibrillation and flutter: Start date: 10/08/19 Start time: 14:32 Status: Chronic Assessment and plan: rate controlled, anticoagulated on coumadin. watch INR daily while active infection/antibiotic use (5) DVT prophylaxis: Start date: 10/08/19 Start time: 14:33 Status: Acute Assessment and plan: anticoagulated on coumadin (6) Discharge planning issues: Start date: 10/08/19 Start time: 14:33 Status: Acute Assessment and plan: home with no services when medically stable. case discussed with Dr Guzman who is in agreement. Subjective Subjective Patient reports: fever Interval history since last seen: Ambulatory and sitting up in chair. On oxygen this morning. Weaned off oxygen, however this afternoon patient presents with fever of 38 and feeling of fullness. ICS at bedside, will order stat CXR and urine, check d-dimer. Exam Const General: cooperative, healthy appearing, comfortable and no acute distress Nutritional Appearance: obese morbidly obese Orientation: alert, awake and oriented x3 HENMT Head: normal to inspection, normocephalic and atraumatic Ears: hearing grossly normal bilaterally Mouth: oral mucosae normal Eyes General: appearance normal, both eyes and all related structures Sclera: sclerae normal Cornea: corneas normal Pupils: PERRL EOM: EOM intact bilaterally Neck Neck: normal visual inspection, full ROM and no JVD Chest Chest: normal inspection of the chest Resp Effort & Inspection: normal respiratory effort Auscultation: clear to auscultation bilaterally and diminished lung sounds Cardio Jugular venous pressure: no JVD Rate: regular rate Rhythm: regular rhythm and abnormal rhythm irregularly irregular GI Inspection: normal to inspection, large pannus and obesity Palpation: soft and no hepatosplenomegaly Auscultation: normal bowel sounds General: deferred Skin General skin exam: dry skin (bilateral lower extremities ) and erythema (to RLE) Rashes: rashes noted (right lower extremity, erythema extends to knee, within markings) Neuro General: patient alert, patient awake, patient oriented x3 and moves all extremities Cranial Nerves: CN's II-XI intact bilaterally Cognition: normal cognition Speech: speech normal Extrem General: full ROM, clubbing, cyanosis or edema noted and edema (improved since yesterday, redness improved and within markings) Laterality: right Psych Appearance: grossly normal Speech and Movement: speech and movement normal Objective Objective Clinical Data: Abnormal lab results 10/08/19 10/08/19 Range/Units 06:35 06:35 RBC 4.31 L (4.50-6.00) m/cumm Hgb 13.1 L (13.5-17.5) g/dL PT 21.6 H (9.3-11.0) sec INR 2.2 H (0.9-1.1) Vital Signs Temperature 38 C H 10/08/19 13:48 Temperature Source Tympanic 10/08/19 13:48 Pulse 113 H 10/08/19 13:48 Pulse Rhythm Irregular 10/08/19 08:45 Pulse Strength Normal 10/04/19 08:41 Respiratory Rate 18 10/08/19 13:48 Respiratory Effort 10/08/19 08:45 Respiratory Depth Normal 10/08/19 08:45 Respiratory Pattern Normal 10/08/19 08:45 Blood Pressure 145/84 H 10/08/19 13:48 Blood Pressure Mean 74 10/04/19 10:30 Blood Pressure Position Supine 10/04/19 08:41 Pulse Oximetry 91 L 10/08/19 13:48 Oxygen Delivery Method Room Air 10/08/19 13:48 Oxygen Flow Rate 0 10/08/19 13:48 Fraction of Inspired Oxygen (FIO2) 21 10/08/19 08:07 Pain Level 1 10/08/19 13:48 Comment 10/08/19 02:50 Intake & Output 10/07/19 10/08/19 10/08/19 23:59 11:59 23:59 Intake Total 940 / 1630 1205 / 1405 200 / 1405 Balance 940 / 1630 1205 / 1405 200 / 1405 Weight 193.3 kg Intake: IV 700 / 1150 755 / 755 Oral 240 / 480 450 / 650 200 / 650 Other: Comment Pt is voiding independently into the toilet. NOTED THAT PT VOIDED X 2 DURING THE NIGHT LARGE AMOUNTS Voiding Methods Toilet Toilet Laboratory Results WBC 7.15 k/cumm (4.4-10.8) 10/08/19 06:35 RBC 4.31 m/cumm (4.50-6.00) L 10/08/19 06:35 Hgb 13.1 g/dL (13.5-17.5) L 10/08/19 06:35 Hct 40.4 % (40.0-50.0) 10/08/19 06:35 MCV 93.7 fL (80-95) 10/08/19 06:35 MCH 30.4 pg (27.0-33.0) 10/08/19 06:35 MCHC 32.4 g/dL (32.0-36.0) 10/08/19 06:35 RDW 13.7 % (11.8-14.1) 10/08/19 06:35 Plt Count 165 x1000/uL (130-400) 10/08/19 06:35 MPV 9.5 fL (8.0-11.0) 10/08/19 06:35 Immature Gran % 0.0 % 10/07/19 08:00 Neutrophils % 84.0 10/07/19 08:00 Lymphocytes % 6.0 10/07/19 08:00 Atypical Lymphs % 1 10/07/19 08:00 Monocytes % 9.0 10/07/19 08:00 Eosinophils % 0.0 10/07/19 08:00 Basophils % 0.0 10/07/19 08:00 Absolute Neutrophils 6.54 k/cumm (1.2-6.7) 10/07/19 08:00 Absolute Lymphocytes 0.54 k/cumm (1.2-3.4) L 10/07/19 08:00 Absolute Monocytes 0.70 k/cumm (0.11-0.7) 10/07/19 08:00 Absolute Eosinophils 0.00 k/cumm (0.0-0.7) 10/07/19 08:00 Absolute Basophils 0.00 k/cumm (0.0-0.2) 10/07/19 08:00 Differential Comment Manual differential 10/07/19 08:00 RBC Morphology Normal 10/07/19 08:00 ESR 18 mm/hr (1-20) 10/04/19 07:25 PT 21.6 sec (9.3-11.0) H 10/08/19 06:35 INR 2.2 (0.9-1.1) H 10/08/19 06:35 APTT 36.5 sec (21.0-31.4) H 10/04/19 07:25 Sodium 136 mmol/L (136-145) 10/07/19 08:00 Potassium 4.0 mmol/L (3.5-5.1) 10/07/19 08:00 Chloride 102 mmol/L (98-107) 10/07/19 08:00 Carbon Dioxide 28.9 mmol/L (21.0-32.0) 10/07/19 08:00 Anion Gap 5.1 mmol/L (3-11) 10/07/19 08:00 BUN 11 mg/dL (7-18) 10/07/19 08:00 Creatinine 1.09 mg/dL (0.70-1.30) 10/07/19 08:00 Estimated GFR/1.73 m2 >= 60.00 (mL/min/1.73m2) 10/07/19 08:00 Glucose 126 mg/dL (74-106) H 10/07/19 08:00 Hemoglobin A1c 6.2 % (3.8-5.6) H 10/05/19 06:52 Lactate 1.9 mmol/L (0.6-1.4) H 10/04/19 15:00 Calcium 8.5 mg/dL (8.5-10.1) 10/07/19 08:00 Total Bilirubin 0.7 mg/dL (0.2-1.0) 10/04/19 07:25 AST 23 U/L (15-37) 10/04/19 07:25 ALT 22 U/L (16-63) 10/04/19 07:25 Alkaline Phosphatase 70 U/L (46-116) 10/04/19 07:25 C-Reactive Protein 19.61 mg/dL (0.0-0.3) H 10/07/19 08:00 Total Protein 8.0 g/dL (6.4-8.2) 10/04/19 07:25 Albumin 3.8 g/dL (3.4-5.0) 10/04/19 07:25 Vancomycin Trough 16.2 ug/mL (10.0-20.0) 10/08/19 02:50 COVID-19 PCR Negative (Negative) 10/04/19 11:00 Nasopharyn COVID-19 PCR Not Applicable 10/04/19 11:00 Ref Test Perform Site [facility] 10/04/19 11:00
[2019-10-08 15:44] LABS: NT-proBNP 2913 pg/mL (<300)
[2019-10-08] MEDS: Furosemide 40 MG/4 ML VIAL IVP (17:10)
[2019-10-08] MEDS: Insulin Aspart 300 UNITS/3 ML PEN SC (17:11)
[2019-10-08] MEDS: Warfarin 5 MG TAB PO (19:29)
[2019-10-08] MEDS: Acetaminophen 325 MG TAB PO (19:30)
[2019-10-09] VITALS (8 sets, daily range): BP systolic 134–155; BP diastolic 78–90; PULSE 75–102; RESP 16–20; TEMP 36.6–37.2; O2SAT 90–94
--- NOTE | 2019-10-09 | DI.CT_ITS ---
EXAM: CT CHEST PE CTA CLINICAL HISTORY: R/O PE. TECHNIQUE: Imaging Protocol: Axial CT angiography was performed with multi-slice acquisition and mu lti-planar and/or 3D reconstructions. CONTRAST MATERIAL: Intravenous: Omnipaque 350 Contrast volume:88 mL COMPARISON: CT CT ABDOMEN PELVIS W from 10/12/2018 FINDINGS: Pulmonary Arteries: No evidence of filling defect to suggest pulmonary emboli. Tracheobronchial tree: Patent where visualized. Mediastinum and Sonam: Mildly enlarged hilar lymph nodes. No dominant adenopathy is present. Pulmonary parenchyma: No consolidation or dominant measurable mass. No architectural distortion. Mild dependent atelectasis. Pleura: Small pleural effusions or pleural thickening. No pneumothorax. Heart: The heart is not dilated. No coronary artery calcifications are seen. Mild pericardial thicken ing. No significant pericardial effusion. Aorta: 4.1 cm ascending thoracic aorta. No evidence of dissection. Mild atherosclerosis. Upper abdomen: No acute abnormality. Bones: No acute abnormality. IMPRESSION: 1. No evidence of pulmonary embolism. 2. 4.1 cm unruptured thoracic ascending aorta aneurysm. 3. No evidence of thoracic aortic dissection. RADIATION DOSE DELIVERED: Total DLP DATA REPOSITORY: All CT scans at this facility are submitted to the National Radiology Data Registry (NRDR) Dose Index Registry (DIR) with the [employer] (ACR). RADIATION OPTIMIZATION: All CT scans at this facility use at least one of these dose optimization te chniques: automated exposure control; mA and/or kV adjustment per patient size (includes targeted exa ms where dose is matched to clinical indication); or iterative reconstruction.
[2019-10-09 07:44] LABS: Abs Immature Grans 0.06 k/cumm (0.0-0.09); Absolute Basophil Count 0.02 k/cumm (0.0-0.2); Absolute Lymphocyte Count 0.66 k/cumm (1.2-3.4); Absolute Monocyte Count 0.62 k/cumm (0.11-0.7); Absolute Neutrophil Count 4.66 k/cumm (1.2-6.7); Basophils % 0.3; Eosinophils % 1.6; HCT 40.6 % (40.0-50.0); HGB 13.4 g/dL (13.5-17.5); Lymphocytes % 10.8; Mean Corpuscular Hemoglobin 30.6 pg (27.0-33.0); Mean Corpuscular Volume 92.7 fL (80-95); Mean Platelet Volume 9.3 fL (8.0-11.0); Monocytes % 10.1; Neutrophils % 76.2; Platelet Count 203 x1000/uL (130-400); RBC 4.38 m/cumm (4.50-6.00); RBC Distribution Width 13.5 % (11.8-14.1); White Blood Cell Count 6.12 k/cumm (4.4-10.8)
[2019-10-09 07:55] LABS: Anion Gap 9.9 mmol/L (3-11); BUN 11 mg/dL (7-18); C-Reactive Protein 15.99 mg/dL (0.0-0.3); CO2 27.1 mmol/L (21.0-32.0); CREATININE 0.87 mg/dL (0.70-1.30); Calcium 8.9 mg/dL (8.5-10.1); Chloride 101 mmol/L (98-107); Glucose 107 mg/dL (74-106); Potassium 3.4 mmol/L (3.5-5.1); Sodium 138 mmol/L (136-145)
[2019-10-09 07:59] LABS: INR 1.8 (0.9-1.1)
[2019-10-09] MEDS: Omeprazole 20 MG CAPCR PO (08:18)
[2019-10-09] MEDS: amLODIPine 10 MG TAB PO (08:18)
[2019-10-09] MEDS: Amoxicillin 875/Clav. 125 TAB PO ×2 (08:18→20:05)
[2019-10-09] MEDS: Losartan 50 MG TAB 100 MG PO (08:19)
[2019-10-09] MEDS: Potassium Chloride 20 MEQ TABCR 40 MEQ PO (10:38)
[2019-10-09 10:48] LABS: Magnesium 2.1 mg/dL (1.8-2.4)
[2019-10-09] MEDS: Omnipaque 350 MG/ML 100 ML BTL IJ (10:50)
[2019-10-09] MEDS: Normal Saline Flush 10 ML SYR IVP (10:51)
[2019-10-09] MEDS: Normal Saline - Diluent 50 ML VIAL IV (10:52)
[2019-10-09 11:05] LABS: Bilirubin Negative (Negative); Blood Trace-intact (Negative); Clarity Clear (Clear); Glucose Negative (Negative); Ketones Negative (Negative); Leukocyte Esterase Negative (Negative); Nitrite Negative (Negative); Specific Gravity 1.015 (1.005-1.025); Urobilinogen 0.2 EU/dL (Up TO 0.2); pH 7.5 (5-8)
[2019-10-09 11:13] LABS: Bacteria Negative HPF (Negative); C & S Indicated? No; Casts Negative LPF (Negative); Crystals Negative HPF (Negative); Epithelial Cells Few HPF (Negative); Mucus Negative (Negative); RBC 0-2 HPF (0-2); WBC 0-2 HPF (0-5)
--- NOTE | 2019-10-09 11:31 | DI.VRAD_ITS ---
PROCEDURE INFORMATION: Exam: CT Angiography Chest With Contrast Exam date and time: 10/09/2019 9:14 AM Age: 59 years old Clinical indication: Shortness of breath TECHNIQUE: Imaging protocol: Computed tomographic angiography of the chest with intravenous contrast. 3D rendering: MIP and/or 3D reconstructed images were created by the technologist. Contrast material: OMNIPAQUE 350; Contrast volume: 88 ml; Contrast route: IV; COMPARISON: CR XR CHEST 2V PA LATERAL 10/08/2019 3:21 PM FINDINGS: Pulmonary arteries: No evidence of pulmonary embolus to the segmental level. Aorta: Unruptured aneurysm of the ascending aorta 4 cm. No dissection of the aorta. Lungs: Unremarkable. No consolidation. No masses. Pleural space: Small right pleural effusion. Heart: Unremarkable. No cardiomegaly. No pericardial effusion. Lymph nodes: Unremarkable. No enlarged lymph nodes. Bones/joints: Unremarkable. No acute fracture. Soft tissues: Unremarkable. IMPRESSION: 1. No evidence of pulmonary embolus to the segmental level. 2. Unruptured aneurysm of the ascending aorta 4 cm. 3. No dissection of the aorta. Dictated and Authenticated by: Miguel Griffiths MD. Ordering:CLEO Holt MD
--- NOTE | 2019-10-09 14:02 | W.PM.PROGNOT ---
Date of Service Date of service: 10/09/19 Time of Service: 14:02 Assessment and Plan Assessment and plan (1) Cellulitis of leg, right: Start date: 10/09/19 Start time: 14:07 Status: Resolved Assessment and plan: Improving. Continue elevate right lower extremity as much as possible during the day. wound on plantar aspect debrided by podiatry 10/03. no abscess or osteo evidence. Afebrile since 1999 last night. UA negative. (2) Ascending aortic aneurysm: Start date: 10/09/19 Start time: 14:09 Status: Acute Assessment and plan: Found to have 4 cm unruptured aneurysm of ascending aorta without dissection by CT. He will need follow with vascular as an outpatient with survallience. and tight blood pressure control. (3) Diabetes mellitus: Start date: 10/09/19 Start time: 14:11 Status: Chronic Assessment and plan: continue diabetic diet, blood sugar check and sliding scale as needed. hemoglobin A1C 6.2. BS under 180 Qualifiers: Diabetes mellitus type: type 2 Diabetes mellitus fci insulin use: without fci use Diabetes mellitus complication status: without complication Qualified Code(s): E11.9 - Type 2 diabetes mellitus without complications (4) Chronic venous insufficiency: Start date: 10/09/19 Start time: 14:11 Status: Chronic Assessment and plan: bilateral, chronic and stable. (5) Atrial fibrillation and flutter: Start date: 10/09/19 Start time: 14:11 Status: Chronic Assessment and plan: rate controlled, anticoagulated on coumadin. watch INR daily while active infection/antibiotic use He has not had an echo in the past from reviewing records, will obtain echo on Friday. CXR with pulmonary venous HTN and cardiomegaly. (6) DVT prophylaxis: Start date: 10/09/19 Start time: 14:12 Status: Acute Assessment and plan: anticoagulated on coumadin INR 1.8 will give extra dose and hold (7) Discharge planning issues: Start date: 10/09/19 Start time: 14:12 Status: Acute Assessment and plan: home with no services when medically stable. case discussed with Dr Byrd who is in agreement. Subjective Subjective Patient reports: other Interval history since last seen: Overnight oximetery on bipap revealing 66 events with average SP02 81.5. Patient requires oxygen through bipap to achieve at least 92% oxygen saturation while sleeping. PE r/o considering hypoxia. Feels better today after having dose of lasix. CXR revealing cardiomegaly with question pulmonary venous HTN, will plan for echo on Friday. Cellulitis is improving. Continue to [facility]. Exam Const General: cooperative, healthy appearing, comfortable and no acute distress Nutritional Appearance: obese morbidly obese Orientation: alert, awake and oriented x3 HENMT Head: normal to inspection, normocephalic and atraumatic Ears: hearing grossly normal bilaterally Mouth: oral mucosae normal Eyes General: appearance normal, both eyes and all related structures Sclera: sclerae normal Cornea: corneas normal Pupils: PERRL EOM: EOM intact bilaterally Neck Neck: normal visual inspection, full ROM and no JVD Chest Chest: normal inspection of the chest Resp Effort & Inspection: normal respiratory effort Auscultation: clear to auscultation bilaterally and diminished lung sounds Cardio Jugular venous pressure: no JVD Rate: regular rate Rhythm: regular rhythm and abnormal rhythm irregularly irregular GI Inspection: normal to inspection, large pannus and obesity Palpation: soft and no hepatosplenomegaly Auscultation: normal bowel sounds General: deferred Skin General skin exam: dry skin (bilateral lower extremities ) and erythema (to RLE) Rashes: rashes noted (right lower extremity, erythema extends to knee, within markings) Neuro General: patient alert, patient awake, patient oriented x3 and moves all extremities Cranial Nerves: CN's II-XI intact bilaterally Cognition: normal cognition Speech: speech normal Extrem General: full ROM, clubbing, cyanosis or edema noted and edema (improved since yesterday, redness improved and within markings edema improv) Laterality: right Psych Appearance: grossly normal Speech and Movement: speech and movement normal Objective Objective Clinical Data: Abnormal lab results 10/08/19 10/09/19 10/09/19 Range/Units 14:50 06:45 06:45 RBC (4.50-6.00) m/cumm Hgb (13.5-17.5) g/dL Absolute Lymphocytes (1.2-3.4) k/cumm PT 18.0 H (9.3-11.0) sec INR 1.8 H (0.9-1.1) Potassium 3.4 L (3.5-5.1) mmol/L Glucose 107 H (74-106) mg/dL C-Reactive Protein 15.99 H (0.0-0.3) mg/dL NT-Pro-B Natriuret Pep 2913 H (<300) pg/mL Urine Blood (Negative) 10/09/19 10/09/19 Range/Units 06:45 09:45 RBC 4.38 L (4.50-6.00) m/cumm Hgb 13.4 L (13.5-17.5) g/dL Absolute Lymphocytes 0.66 L (1.2-3.4) k/cumm PT (9.3-11.0) sec INR (0.9-1.1) Potassium (3.5-5.1) mmol/L Glucose (74-106) mg/dL C-Reactive Protein (0.0-0.3) mg/dL NT-Pro-B Natriuret Pep (<300) pg/mL Urine Blood Trace-intact H (Negative) Vital Signs Temperature 37 C 10/09/19 07:55 Temperature Source Temporal Artery Scan 10/09/19 07:55 Pulse 95 H 10/09/19 07:55 Pulse Rhythm Irregular 10/09/19 08:20 Pulse Strength Normal 10/04/19 08:41 Respiratory Rate 20 10/09/19 07:55 Respiratory Effort 10/09/19 08:20 Respiratory Depth Normal 10/09/19 08:20 Respiratory Pattern Normal 10/09/19 08:20 Blood Pressure 146/90 H 10/09/19 07:55 Blood Pressure Mean 74 10/04/19 10:30 Blood Pressure Position Supine 10/04/19 08:41 Pulse Oximetry 94 L 10/09/19 08:20 Oxygen Delivery Method Room Air 10/09/19 08:20 Oxygen Flow Rate 0 10/09/19 08:20 Fraction of Inspired Oxygen (FIO2) 21 10/09/19 09:25 Pain Level 4 10/09/19 07:55 Comment 10/08/19 20:00 Intake & Output 10/08/19 10/09/19 10/09/19 23:59 11:59 23:59 Intake Total 300 / 1505 Balance 300 / 1505 Intake: IV 100 / 855 Oral 200 / 650 Other: Urine Color Yellow Urine Appearance Clear Urine Odor Strong Comment Patient voided 2x independently throughout the night in large amounts Voiding Methods Toilet Laboratory Results WBC 6.12 k/cumm (4.4-10.8) 10/09/19 06:45 RBC 4.38 m/cumm (4.50-6.00) L 10/09/19 06:45 Hgb 13.4 g/dL (13.5-17.5) L 10/09/19 06:45 Hct 40.6 % (40.0-50.0) 10/09/19 06:45 MCV 92.7 fL (80-95) 10/09/19 06:45 MCH 30.6 pg (27.0-33.0) 10/09/19 06:45 MCHC 33.0 g/dL (32.0-36.0) 10/09/19 06:45 RDW 13.5 % (11.8-14.1) 10/09/19 06:45 Plt Count 203 x1000/uL (130-400) 10/09/19 06:45 MPV 9.3 fL (8.0-11.0) 10/09/19 06:45 Immature Gran % 1.0 % 10/09/19 06:45 Neutrophils % 76.2 10/09/19 06:45 Lymphocytes % 10.8 10/09/19 06:45 Atypical Lymphs % 1 10/07/19 08:00 Monocytes % 10.1 10/09/19 06:45 Eosinophils % 1.6 10/09/19 06:45 Basophils % 0.3 10/09/19 06:45 Absolute Neutrophils 4.66 k/cumm (1.2-6.7) 10/09/19 06:45 Absolute Lymphocytes 0.66 k/cumm (1.2-3.4) L 10/09/19 06:45 Absolute Monocytes 0.62 k/cumm (0.11-0.7) 10/09/19 06:45 Absolute Eosinophils 0.10 k/cumm (0.0-0.7) 10/09/19 06:45 Absolute Basophils 0.02 k/cumm (0.0-0.2) 10/09/19 06:45 Differential Comment Manual differential 10/07/19 08:00 RBC Morphology Normal 10/07/19 08:00 ESR 18 mm/hr (1-20) 10/04/19 07:25 PT 18.0 sec (9.3-11.0) H 10/09/19 06:45 INR 1.8 (0.9-1.1) H 10/09/19 06:45 APTT 36.5 sec (21.0-31.4) H 10/04/19 07:25 Sodium 138 mmol/L (136-145) 10/09/19 06:45 Potassium 3.4 mmol/L (3.5-5.1) L 10/09/19 06:45 Chloride 101 mmol/L (98-107) 10/09/19 06:45 Carbon Dioxide 27.1 mmol/L (21.0-32.0) 10/09/19 06:45 Anion Gap 9.9 mmol/L (3-11) 10/09/19 06:45 BUN 11 mg/dL (7-18) 10/09/19 06:45 Creatinine 0.87 mg/dL (0.70-1.30) 10/09/19 06:45 Estimated GFR/1.73 m2 >= 60.00 (mL/min/1.73m2) 10/09/19 06:45 Glucose 107 mg/dL (74-106) H 10/09/19 06:45 Hemoglobin A1c 6.2 % (3.8-5.6) H 10/05/19 06:52 Lactate 1.9 mmol/L (0.6-1.4) H 10/04/19 15:00 Calcium 8.9 mg/dL (8.5-10.1) 10/09/19 06:45 Magnesium 2.1 mg/dL (1.8-2.4) 10/09/19 06:45 Total Bilirubin 0.7 mg/dL (0.2-1.0) 10/04/19 07:25 AST 23 U/L (15-37) 10/04/19 07:25 ALT 22 U/L (16-63) 10/04/19 07:25 Alkaline Phosphatase 70 U/L (46-116) 10/04/19 07:25 C-Reactive Protein 15.99 mg/dL (0.0-0.3) H 10/09/19 06:45 NT-Pro-B Natriuret Pep 2913 pg/mL (<300) H 10/08/19 14:50 Total Protein 8.0 g/dL (6.4-8.2) 10/04/19 07:25 Albumin 3.8 g/dL (3.4-5.0) 10/04/19 07:25 Urine Color Yellow (Yellow) 10/09/19 09:45 Urine Clarity Clear (Clear) 10/09/19 09:45 Urine pH 7.5 (5-8) 10/09/19 09:45 Ur Specific [place] 1.015 (1.005-1.025) 10/09/19 09:45 Urine Protein Negative mg/dL (Negative) 10/09/19 09:45 Urine Ketones Negative mg/dL (Negative) 10/09/19 09:45 Urine Blood Trace-intact (Negative) H 10/09/19 09:45 Urine Nitrite Negative (Negative) 10/09/19 09:45 Urine Bilirubin Negative (Negative) 10/09/19 09:45 Urine Urobilinogen 0.2 EU/dL (Up TO 0.2) 10/09/19 09:45 Ur Leukocyte Esterase Negative (Negative) 10/09/19 09:45 Urine RBC 0-2 HPF (0-2) 10/09/19 09:45 Urine WBC 0-2 HPF (0-5) 10/09/19 09:45 Ur Epithelial Cells Few HPF (Negative) 10/09/19 09:45 Urine Crystals Negative HPF (Negative) 10/09/19 09:45 Urine Bacteria Negative HPF (Negative) 10/09/19 09:45 Urine Casts Negative LPF (Negative) 10/09/19 09:45 Urine Mucus Negative (Negative) 10/09/19 09:45 Ur Culture Indicated? No 10/09/19 09:45 Urine Glucose Negative mg/dL (Negative) 10/09/19 09:45 Vancomycin Trough 16.2 ug/mL (10.0-20.0) 10/08/19 02:50 COVID-19 PCR Negative (Negative) 10/04/19 11:00 Nasopharyn COVID-19 PCR Not Applicable 10/04/19 11:00 Ref Test Perform Site [place] [facility] 10/04/19 11:00
[2019-10-09] MEDS: Furosemide 20 MG/2 ML VIAL IVP (15:00)
[2019-10-09] MEDS: Warfarin 5 MG TAB PO (20:05)
--- NOTE | 2019-10-09 20:36 | PDOC.CMPRO ---
- If Service Date Differs Date of service: 10/09/19 Time of Service: 20:36 Care Management Progress Note S/O: Corey was sitting up in bed when CM met with him. He stated that he is feeling better today since he had the lasix yesterday and his leg is less swollen. Corey has increased ambulation in the halls. CM will continue to follow. A: Corey is a 59 year old male admitted on 10/04/19 for Cellulitis. P: Corey will likely return home with no new services. He will follow up with his PCP and discharge plan of care. CM will continue to support Corey and his family and assess for ongoing discharge needs.
[2019-10-10 02:12] LABS: COVID-19 RT-PCR UVMMC Result Negative (Negative)
[2019-10-10 04:19] VITALS: BP 110/67; PULSE 88; RESP 16; RESP 19; TEMP 36.5; O2SAT 93
[2019-10-10 06:55] LABS: HCT 41.5 % (40.0-50.0); HGB 13.8 g/dL (13.5-17.5); Mean Corp. HGB Concentration 33.3 g/dL (32.0-36.0); Mean Corpuscular Hemoglobin 30.7 pg (27.0-33.0); Mean Corpuscular Volume 92.4 fL (80-95); Platelet Count 205 x1000/uL (130-400); RBC 4.49 m/cumm (4.50-6.00); RBC Distribution Width 13.6 % (11.8-14.1); White Blood Cell Count 5.35 k/cumm (4.4-10.8)
[2019-10-10 07:04] LABS: INR 2.1 (0.9-1.1); Prothrombin Time 20.6 sec (9.3-11.0)
[2019-10-10 07:19] LABS: Anion Gap 6.9 mmol/L (3-11); BUN 13 mg/dL (7-18); CO2 30.1 mmol/L (21.0-32.0); CREATININE 1.02 mg/dL (0.70-1.30); Calcium 8.7 mg/dL (8.5-10.1); Chloride 101 mmol/L (98-107); Glucose 106 mg/dL (74-106); NT-proBNP 1849 pg/mL (<300); Potassium 3.9 mmol/L (3.5-5.1); Sodium 138 mmol/L (136-145)
[2019-10-10 07:25] VITALS: BP 142/89; PULSE 72; RESP 20; TEMP 36.8; O2SAT 95
[2019-10-10 07:45] VITALS: O2SAT 95
[2019-10-10] MEDS: Amoxicillin 875/Clav. 125 TAB PO (07:46)
[2019-10-10] MEDS: Losartan 50 MG TAB 100 MG PO (07:46)
[2019-10-10] MEDS: Omeprazole 20 MG CAPCR PO (07:46)
[2019-10-10] MEDS: amLODIPine 10 MG TAB PO (07:47)
[2019-10-10 08:30] VITALS: RESP 16
[2019-10-10] MEDS: Furosemide 20 MG/2 ML VIAL IVP (08:51)
[2019-10-10] MEDS: Normal Saline Flush 10 ML SYR IVP (08:51)
--- NOTE | 2019-10-10 10:07 | W.PM.DS.N ---
Date of service: 10/10/19 Time of Service: 10:08 DS: Diagnosis Discharge Diagnosis (1) Cellulitis of leg, right: Start date: 10/10/19 Start time: 10:08 Status: Resolved Asessment and Plan: Improving erythema and edema. Will continue augmentin x 2 weeks and defer to PCP for further treatment. Follow up with PCP in 1 week (2) Ascending aortic aneurysm: Start date: 10/10/19 Start time: 11:00 Status: Acute Asessment and Plan: Will need survelliance. 4 cm stable aneurysm. (3) Diabetes mellitus: Start date: 10/10/19 Start time: 11:01 Status: Chronic Asessment and Plan: Continue healthy diet and monitoring of bgl. (4) Chronic venous insufficiency: Start date: 10/10/19 Start time: 11:02 Status: Chronic Asessment and Plan: stable. (5) Atrial fibrillation and flutter: Start date: 10/10/19 Start time: 11:02 Status: Chronic Asessment and Plan: Rate controlled, continue coumadin. 2.1 today recommend taking dose tonight. Outpatient echo. CXR with cardiolmegaly and pulmonary venous HTN Started on Lasix 20 mg po daily (6) Fluid overload: Start date: 10/10/19 Start time: 11:03 Status: Acute Asessment and Plan: He did appear to be having volume overload. no known CHF Will place order for outpatient ECHO and give CHF pamphlet. Started on Lasix 20 mg PO daily. Will need to weigh daily. Discharge Plan Disposition Patient Disposition: HOME Condition: Stable Discharge Details Chief Complaint: GenMedical Clinical Impression: Cellulitis, Sepsis Reason For Visit: CELLULITIS Admit Date/Time: 10/04/19 10:16 Admit Provider: Todd Guzman Attending Provider: Todd Guzman Primary Care Provider: Kaylen Ellis ED Provider: Juan Ramon Staples [facility] Course Hospital Course: 59 y.o male with PMH of DMNID, AFib on coumadin, Chronic venous insufficiency and morbid obesity presents to emergency department for swelling and redness to E. Mr. Hall states he awoke around 2 am with pain to his right lower extremity, at that time it was swollen and reddened prompting him to come to the ED. Approx 1 week prior to admission he did step on a nail. Tetnaus was administered in the ED. Lactate 3.0 wbc 12.57, he is febrile at 38.9. CRP at this time 0.83. While in the hospital CRP was greater than 25 however yesterday it was 15. Lower extermity CT consistent with cellulitis. no osteo or foreign body, for this he was admitted to m/s for further management. Antibiotics initiated were vanco, ceftriaxone, and zosyn, blood cultures were no growth to date. Fevers deferevesced and he has been afebrile for 36 hours. Erythema is improving with improvement in edema. He did c/o pain, and fullness to abd a CTA was done to r/o PE which was negative for PE but positive for AA 4 cm stable. He should see vascular for this, will defer to PCP for further workup. Ddimer was also ordered at this time which was elevated, no known history of CHF, no signs over than increase swelling to legs. recommend outpatient echo and lasix daily. Daily wts and follow up with PCP in 1 week. Discharging home with 2 weeks augmentin for cellulitis with follow up to PCP in 1 week will defer to PCP for further treatment of cellulitis. He denies CP, SOB, N/V/D. Home Meds and New Rx's Prescriptions: New hydrocodone-acetaminophen 7.5-325 mg Tablet 1 tab PO Q4H PRN PRNQty: 10 RF: 0 furosemide 20 mg Tablet 20 mg PO DAILY Qty: 10 RF: 0 amoxicillin-pot clavulanate 875-125 mg Tablet 1 tab PO BID Qty: 28 RF: 0 Bio-K plus 50 billion cell Capsule,Delayed Release(Dr/Ec) 1 cap PO DAILY Qty: 30 RF: 0 Continued metformin 500 mg tablet 500 mg PO DAILY Qty: 90 RF: 4 losartan 100 mg tablet 100 mg PO DAILY Qty: 90 RF: 4 nystatin 60 GM powder 0 gm Topical TID Qty: 60 RF: 0 amlodipine 10 mg tablet 10 mg PO DAILY Qty: 90 RF: 4 warfarin 5 mg tablet 5 mg PO DIRECTED Qty: 90 RF: 4 No Action (DME) blood sugar diagnostic [OneTouch Verio test strips] Strip 1 ea Miscellaneous BID Qty: 100 RF: 4 (DME) Lancets,Thin 1 EACH misc 1 ea Miscellaneous BID Qty: 60 RF: 0 Discharge Instructions Instructions: Cellulitis (DC) Additional Instructions: Take a coumadin today, Weigh yourself daily Take all of the antibiotic Take lasix 20 mg daily Recommend outpatient echo. Repeat labs in 1 week Activity:: Activity as Tolerated Equipment/Supplies:: No Equipment Needed Diet:: Carb Counting Discharge Orders Discharge Orders: Discharge Order (Routine); Ordered 10/10/19 Ordered By: Yanet Allen Other Ambulatory Orders: US echocardiogram (Routine) Location: None Selected Ordered By: Yanet Allen DS: Summary Status at Discharge Functional status at discharge: independent ambulation Overall status at discharge: patient is progressing back to baseline Mental Status: mental status grossly normal Speech and Movement: speech and movement normal Mood: congruent mood Affect: normal affect Exam Const General: cooperative, healthy appearing, comfortable and no acute distress Nutritional Appearance: obese morbidly obese Orientation: alert, awake and oriented x3 HENMT Head: normal to inspection, normocephalic and atraumatic Ears: hearing grossly normal bilaterally Mouth: oral mucosae normal Eyes General: appearance normal, both eyes and all related structures Sclera: sclerae normal Cornea: corneas normal Pupils: PERRL EOM: EOM intact bilaterally Neck Neck: normal visual inspection, full ROM and no JVD Chest Chest: normal inspection of the chest Resp Effort & Inspection: normal respiratory effort Auscultation: clear to auscultation bilaterally and diminished lung sounds Cardio Jugular venous pressure: no JVD Rhythm: abnormal rhythm irregularly irregular GI Inspection: normal to inspection, large pannus and obesity Palpation: soft and no hepatosplenomegaly Auscultation: normal bowel sounds General: deferred Skin General skin exam: dry skin (bilateral lower extremities ) and erythema (to RLE) Rashes: rashes noted (right lower extremity, erythema extends to knee, within markings) Neuro General: patient alert, patient awake, patient oriented x3 and moves all extremities Cranial Nerves: CN's II-XI intact bilaterally Cognition: normal cognition Speech: speech normal Extrem General: full ROM, clubbing, cyanosis or edema noted and edema (improved since yesterday, redness improved and within markings edema improv) Laterality: right Psych Appearance: grossly normal Mental Status: mental status grossly normal Speech and Movement: speech and movement normal Mood: congruent mood Affect: normal affect DS: Data Vitals/I&O Vitals and I&O: Vital Signs Temperature 36.8 C 10/10/19 07:25 Temperature Source Tympanic 10/10/19 07:25 Pulse 72 10/10/19 07:25 Pulse Rhythm Irregular 10/10/19 07:45 Pulse Strength Normal 10/04/19 08:41 Respiratory Rate 20 10/10/19 07:25 Respiratory Effort 10/10/19 07:45 Respiratory Depth Normal 10/10/19 07:45 Respiratory Pattern Normal 10/10/19 07:45 Blood Pressure 142/89 H 10/10/19 07:25 Blood Pressure Mean 74 10/04/19 10:30 Blood Pressure Position Supine 10/04/19 08:41 Pulse Oximetry 95 10/10/19 07:45 Oxygen Delivery Method Room Air 10/10/19 07:45 Oxygen Flow Rate 0 10/10/19 07:45 Fraction of Inspired Oxygen (FIO2) 21 10/10/19 04:19 Pain Level 4 10/10/19 07:25 Comment 10/09/19 23:25 Intake & Output 10/09/19 10/09/19 10/10/19 11:59 23:59 11:59 Intake Total 480 / 480 Output Total 2825 / 2825 750 / 750 Balance -2345 / -2345 -750 / -750 Weight 186.2 kg Intake: Oral 480 / 480 Output: Urine 2825 / 2825 750 / 750 Other: Urine Color Yellow Yellow Yellow Urine Appearance Clear Clear Clear Urine Odor Strong Normal Strong Comment Patient voided 2x independently throughout the night in large amounts Voiding Methods Toilet Urinal Urinal Data Completed and Pending Completed studies during hospitalization [Text1]: FINDINGS: Bones: The osseous structures and articular surfaces are intact. There is no evidence of fracture or dislocation. Bony alignment is satisfactory. The mid-foot is well maintained. No evidence of osteomyelitis. There is no evidence of joint space narrowing or cystic degeneration seen. No lytic or sclerotic lesions are identified. Severe tricompartment degenerative changes are seen in the knee. There is an enthesophyte at the Achilles insertion site and a small spur at the plantar surface of the calcaneus. Mild degenerative changes are seen in the foot. There is a small suprapatellar joint effusion. Soft Tissues: There is marked edema seen in the soft tissues extending from the knee into the foot. No focal fluid collection is seen to suggest an abscess. No radiopaque foreign bodies are seen in the soft tissues. There is marked fatty atrophy of the soleus muscle. No intramuscular fluid collection or mass is identified. IMPRESSION: 1. Marked edema in the lower extremity. This is consistent with cellulitis. No focal fluid collection is seen to suggest abscess. 2. No findings to suggest osteomyelitis. 3. No radiopaque foreign body in the soft tissue. 4. Severe osteoarthritis of the knee. 5. Small suprapatellar joint effusion. 6. Marked fatty atrophy of the soleus muscle. 7. The findings were discussed with the emergency department on the date of the examination. FINDINGS: Duplex venous ultrasound was performed according to the usual protocol. The deep veins are freely compressible throughout and there is normal flow augmentation with manual calf compression. 2D and Doppler evaluation are unremarkable. IMPRESSION: No evidence of deep venous thrombosis of the right lower extremity FINDINGS: Heart is enlarged. Lungs are predominantly clear with slight pulmonary interstitial prominence. No focal consolidation. No pleural effusion. There appears to be diffuse enlargement of this central pulmonary vessels, this may represent pulmonary venous hypertension and is in fact somewhat more prominent for upper lobe vessels. Additionally there is a question of increasing right hilar enlargement in comparison with prior radiographs of August 2017, again this could reflect vascular engorgement, hilar mass not entirely excluded. Follow ups films suggested following treatment. IMPRESSION: Cardiomegaly with question pulmonary venous hypertension. No amparo pulmonary edema. FINDINGS: Pulmonary Arteries: No evidence of filling defect to suggest pulmonary emboli. Tracheobronchial tree: Patent where visualized. Mediastinum and Sonam: Mildly enlarged hilar lymph nodes. No dominant adenopathy is present. Pulmonary parenchyma: No consolidation or dominant measurable mass. No architectural distortion. Mild dependent atelectasis. Pleura: Small pleural effusions or pleural thickening. No pneumothorax. Heart: The heart is not dilated. No coronary artery calcifications are seen. Mild pericardial thickening. No significant pericardial effusion. Aorta: 4.1 cm ascending thoracic aorta. No evidence of dissection. Mild atherosclerosis. Upper abdomen: No acute abnormality. Bones: No acute abnormality. IMPRESSION: 1. No evidence of pulmonary embolism. 2. 4.1 cm unruptured thoracic ascending aorta aneurysm. 3. No evidence of thoracic aortic dissection. Labs on day of discharge: Labs from last 24 hours 10/10/19 10/10/19 10/10/19 06:40 06:40 06:40 WBC 5.35 RBC 4.49 L Hgb 13.8 Hct 41.5 MCV 92.4 MCH 30.7 MCHC 33.3 RDW 13.6 Plt Count 205 MPV 9.0 PT 20.6 H INR 2.1 H Sodium 138 Potassium 3.9 Chloride 101 Carbon Dioxide 30.1 Anion Gap 6.9 BUN 13 Creatinine 1.02 Estimated GFR/1.73 m2 >= 60.00 Glucose 106 Calcium 8.7 Magnesium C-Reactive Protein NT-Pro-B Natriuret Pep 1849 H Urine Color Urine Clarity Urine pH Ur Specific [place] Urine Protein Urine Ketones Urine Blood Urine Nitrite Urine Bilirubin Urine Urobilinogen Ur Leukocyte Esterase Urine RBC Urine WBC Ur Epithelial Cells Urine Crystals Urine Bacteria Urine Casts Urine Mucus Ur Culture Indicated? Urine Glucose COVID-19 PCR Nasopharyn COVID-19 PCR Ref Test Perform Site 10/09/19 10/09/19 10/09/19 11:10 09:45 06:45 WBC RBC Hgb Hct MCV MCH MCHC RDW Plt Count MPV PT INR Sodium 138 Potassium 3.4 L Chloride 101 Carbon Dioxide 27.1 Anion Gap 9.9 BUN 11 Creatinine 0.87 Estimated GFR/1.73 m2 >= 60.00 Glucose 107 H Calcium 8.9 Magnesium 2.1 C-Reactive Protein 15.99 H NT-Pro-B Natriuret Pep Urine Color Yellow Urine Clarity Clear Urine pH 7.5 Ur Specific [place] 1.015 Urine Protein Negative Urine Ketones Negative Urine Blood Trace-intact H Urine Nitrite Negative Urine Bilirubin Negative Urine Urobilinogen 0.2 Ur Leukocyte Esterase Negative Urine RBC 0-2 Urine WBC 0-2 Ur Epithelial Cells Few Urine Crystals Negative Urine Bacteria Negative Urine Casts Negative Urine Mucus Negative Ur Culture Indicated? No Urine Glucose Negative COVID-19 PCR Negative Nasopharyn COVID-19 PCR Not Applicable Ref Test Perform Site [facility] Medical History A-fib (Chronic) Acute pain of right knee (Inactive 09/08/17) Ankle fracture Bladder wall thickening (Acute) Borderline diabetes Dysphonia (Inactive 10/13/17) Fracture of ankle (Resolved) left Hematuria (Inactive) Hyperlipidemia Hypertension Irregular heartbeat (Inactive 10/13/17) Low back pain (Inactive) Morbid obesity with BMI of 50.0-59.9, adult Osteoarthritis of right knee (Inactive) Primary osteoarthritis of both knees (Inactive 02/03/15) Solitary pulmonary nodule (Inactive) Tubular adenoma (Resolved) 01/13/15; DR. TAMEZ Venous insufficiency (chronic) (peripheral) Vocal cord paresis (Inactive 10/13/17) Surgical History Colonoscopy - MAC (01/13/15) DR. OCTAVIA TAMEZ Excision, Tumor benign lymphatic mass right thigh History of excision of lesion (Resolved) Family History Mother , AGE 78 Diabetes Father , AGE 82 Essential hypertension Stroke Sister No problems noted. Brother Diabetes Essential hypertension Maternal Grandfather , AGE 86 Diabetes Essential hypertension Paternal Grandfather , AGE 62 Heart disease Stroke Essential hypertension Maternal Grandmother , AGE 99 Diabetes Essential hypertension Heart disease Sister Diabetes Essential hypertension Sister Asthma Depression Diabetes Essential hypertension Hyperlipidemia Brother Asthma Depression Essential hypertension Diabetes Heart disease Hyperlipidemia Brother Diabetes Essential hypertension Son No problems noted. Son No problems noted. 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
[2019-10-10] MEDS: Furosemide 20 MG TAB PO (10:31)
[2019-10-10 11:20] VITALS: BP 111/79; PULSE 71; RESP 20; TEMP 36.7; O2SAT 95
--- NOTE | 2019-10-10 12:01 | PDOC.CMDIS ---
- If Service Date Differs Date of service: 10/10/19 Time of Service: 12:01 LACE Index Scoring Tool - Questions: Length of Stay (in days): 4 - 6 Acuity (Admit via E.D.?): Yes Comorbidities: PVD, Diabetes w/o Complication E.D. Visits: 3 - Answers: Total Score: 12 Risk of Readmission: High Risk Care Management Discharge Reason for Hospitalization: Cellulitis Discharge Plan: Corey will return home with no new services. He will follow up with his PCP and discharge plan of care. Corey will transport home via private vehicle with his . Patient/Family Education Needs: Discharge plan, limitations, follow up plan, Ask Me Three.
--- NOTE | 2019-10-10 18:54 | PDOC.CMDIS ---
- If Service Date Differs Date of service: 10/10/19 Time of Service: 18:54 LACE Index Scoring Tool - Questions: Length of Stay (in days): 4 - 6 Acuity (Admit via E.D.?): Yes Comorbidities: PVD E.D. Visits: 3 - Answers: Total Score: 11 Risk of Readmission: High Risk Care Management Discharge Reason for Hospitalization: Cellulitis Discharge Plan: Corey will return home with no new services. He will follow up with his PCP and discharge plan of care. Corey will transport via private vehicle with his . Patient/Family Education Needs: Discharge plan, limitations, follow up plan, Ask Me Three.
== END 2019-10-10 12:38 | disposition home or self-care (01) | DRG 872 ==
LOC: ER 10:25 → MS 11:10
PROVIDERS: Nurse Practitioner Acute Care; Nurse Practitioner Family; Student in an Organized Health Care Education/Training Program; Admitting Provider Internal Medicine; Emergency Provider Student in an Organized Health Care Education/Training Program; PCP Nurse Practitioner; Visit Provider Internal Medicine
DX: A41.9 Sepsis, unspecified organism (principal); L03.115 Cellulitis of right lower limb; Z68.43 Body mass index [BMI] 50.0-59.9, adult; I48.92 Unspecified atrial flutter; I48.91 Unspecified atrial fibrillation; E11.9 Type 2 diabetes mellitus without complications; I10 Essential (primary) hypertension; E78.5 Hyperlipidemia, unspecified; E66.01 Morbid (severe) obesity due to excess calories; Z79.84 Long term (current) use of oral hypoglycemic drugs; Z79.01 Long term (current) use of anticoagulants; G47.33 Obstructive sleep apnea (adult) (pediatric)
CPT/HCPCS: 36415; 71275; 80048; 80053; 85027; 85652; 87040; 90471; 96361; 96365; 96367; 96375; 99223; 99233; 99239; 99285; U0003; 71046; 73701; 80202; 81003; 81015; 83036; 83605; 83735; 83880; 85025; 85610; 85730; 86140; 93971; 94660; 94762; J1940; J1941; J2543; J3370; J3490

== ENCOUNTER 2019-11-16 01:00 | Outpatient (CLI) | payer OTHER, SELFPAY ==
--- NOTE | 2019-11-16 07:27 | DI.US_ITS ---
APPROVED REPORT EXAM: Comprehensive 2D, Doppler, and color-flow Echocardiogram Patient Location: Out-Patient [employer] Instructor: Madina Kenney RDCS (AE) Indications: A Fib, Hypervolemia Other Information Technically limited study due to body habitus. Conclusion Left Ventricle : The left ventricle is normal size. The left ventricular systolic function is normal. The left ventricular ejection fraction is within the normal range. Moderate concentric left ventricu lar hypertrophy. There is normal LV segmental wall motion. The left ventricular diastolic function is normal. LVEF is 50-55%. Right Ventricle : The right ventricle is normal size. The right ventricular systolic function is norm al. The RVSP is 28.9 mmHg. Atria : The left atrium size is normal. The right atrium size is normal. Mitral Valve : The mitral valve is normal in structure. No evidence of mitral valve stenosis. Mild mi tral regurgitation. Great Vessels : The aortic root is normal in size. The ascending aorta is moderately dilated (4cm). I VC is normal in size and collapses >50% with inspiration. Wall motion Left Ventricle The left ventricle is normal size. The left ventricular systolic function is normal. The left ventric ular ejection fraction is within the normal range. Moderate concentric left ventricular hypertrophy. There is normal LV segmental wall motion. The left ventricular diastolic function is normal. There is no ventricular septal defect visualized. LVEF is 50-55%. Right Ventricle The right ventricle is normal size. The right ventricular systolic function is normal. The RVSP is 28 .9 mmHg. Atria The left atrium size is normal. The right atrium size is normal. The interatrial septum is intact wit h no evidence for an atrial septal defect. Aortic Valve The Aortic valve is sclerotic. Aortic valve is trileaflet. There is no aortic valvular stenosis. No a ortic regurgitation is present. Mitral Valve The mitral valve is normal in structure. No evidence of mitral valve stenosis. Mild mitral regurgitat ion. Tricuspid Valve The tricuspid valve is normal in structure. There is no tricuspid valve stenosis. Mild tricuspid regu rgitation. Pulmonic Valve The pulmonary valve is normal in structure. There is no pulmonic valvular stenosis. There is no pulmo alexandra valvular regurgitation. Great Vessels The aortic root is normal in size. The ascending aorta is moderately dilated (4cm). IVC is normal in size and collapses >50% with inspiration. Pericardium There is no pericardial effusion. 2D Dimensions IVSD d PLAX 1.31 cm M: 0.6-1.2 LV Vol A2C d MOD 149.6 mL LVPW d PLAX 1.39 cm M: 0.6 - 1.2 LV Vol A4C d MOD 180.4 mL LVID d PLAX 4.91 cm M: 4.2 - 5.8 LA vol/ BSA A2C s A-L 15.2 mL/m2 LVDs 3.60 cm M: 2.5 - 4.0 LA vol/ BSA A4C s A-L 29.5 mL/m2 Ao Root d 3.32 cm M: 3.1 - 3.7 LA Vol/ BSA Biplane s A-L 23.1 mL/m2 RA Area A4C 23.74 cm2 LA Area A4C s MOD 25.22 cm2 RA Vol/ BSA A4C s A-L 26.7 mL/m2 LA Area A2C s MOD 16.56 cm2 Ao Asc Diam d 4.03 cm M: 2.6 - 3.4 LV EF A4C MOD 50.1 % LV EF Teichholz 51.8 % LV EF A2C MOD 54.3 % LVEF (Bradley's) 51.47 % M: 52 - 72 LV EF Biplane MOD 51.5 % LV Volume 110.30 mL M: 62 - 150 SV 84.17 mL LV Volume Index 38.56 mL/m2 M: 34 - 74 SV Index 29.37 mL/m2 LV Vol Biplane MOD 163.5 mL FS 26.55 % M-Mode TAPSE 2.67 cm (M/F) >1.7 LV Diastology MV E' medial 0.148 (>0.07 m/s) MV E Vmax 1.24 (0.4-1.3 m/s) LV E/e MED 8.35 (<14) MV E' lateral 0.121 (>0.1 m/s) LV E/e LAT 10.20 (<14) MV E/E' medial 8.36 MV E/E' lateral 10.22 Aortic Valve LVOT Area 4.13 cm2 AoV Area Vmax 2.51 cm2 LVOT Vmax 0.97 m/s AoV Area/ BSA (Vmax) 0.88 cm2/m2 LVOT Mean Jose. 0.82 m/s KELBY Mean Jose. 2.95 cm2 LVOT Peak Grad 3.7 mmHg KELBY Mean Jose. Index 1.03 cm2/m2 LVOT Mean Grad 2.9 mmHg LVOT VTI 0.194 m LVOT Diam s 2.25 cm AoV Vmax 1.59 m/s Velocity Ratio 0.61 AoV Mean Jose. 1.15 m/s AoV Peak Grad 10.1 mmHg LVOT SV 80.13 mL AoV Mean Grad 5.8 mmHg AoV VTI 0.248 m AoV Area VTI 3.24 cm2 AoV Area/ BSA (VTI) 1.13 cm/m2 Mitral Valve MV DT 257 (160-240 msec) MV PHT 75 msec MV Area PHT 2.95 cm2 Pulmonary Valve PV Vmax 1.11 (0.5-1.5 m/s) RVOT Peak Gr. 2.87 mmHg PV Peak Grad 4.9 mmHg RVOT Mean Gr. 1.45 mmHg PV Mean Grad 2.7 mmHg RVOT VTI 0.130 m PV VTI 0.184 m RVOT Vmax 0.85 m/s Tricuspid Valve TR Peak Grad 25.8 mmHg TR Vmax 2.54 m/s RA Pressure 3.00 mmHg RVSP (TR) 28.9 mmHg
== END 2019-11-16 01:20 ==
PROVIDERS: PCP Nurse Practitioner; Visit Provider Family Medicine
DX: E87.70 Fluid overload, unspecified (principal); I48.91 Unspecified atrial fibrillation; I34.0 Nonrheumatic mitral (valve) insufficiency; I77.810 Thoracic aortic ectasia
CPT/HCPCS: 93306

== ENCOUNTER 2019-12-07 15:16 | Outpatient (REF) | payer OTHER, SELFPAY | END 2019-12-07 15:36 | LOC: LBN 15:16 | PROVIDERS: PCP Nurse Practitioner; Visit Provider Nurse Practitioner Family | DX: N39.0 Urinary tract infection, site not specified (principal) | CPT/HCPCS: 87086 ==

== ENCOUNTER 2020-03-13 10:05 | Outpatient (CLI) | payer OTHER, SELFPAY ==
[2020-03-13 12:52] LABS: INR 2.3 (0.9-1.1); Prothrombin Time 22.3 sec (9.3-11.0)
== END 2020-03-13 10:25 ==
PROVIDERS: PCP Nurse Practitioner; Visit Provider Nurse Practitioner Family
DX: I48.91 Unspecified atrial fibrillation (principal); Z79.01 Long term (current) use of anticoagulants
CPT/HCPCS: 36415; 85610

== ENCOUNTER → 2020-07-10 01:19 | Outpatient (CLI) | payer OTHER, SELFPAY ==
--- NOTE | 2020-07-10 06:45 | DI.RAD_ITS ---
EXAM: XR KNEE RT 3V AP,LAT,BLAZE CLINICAL HISTORY: right knee pain,M25.569. TECHNIQUE: 2D digital imaging was performed. COMPARISON: CR RIGHT KNEE 3 VIEWS from 01/20/2015 FINDINGS: There are advanced tricompartmental osteoarthritic degenerative changes, even more advanced than prev ious. This is severe in all 3 compartments. Joint space advanced narrowing [id number] as well as large osteophytes. Does appear to be a joint effusion IMPRESSION: Severe advanced tricompartmental osteoarthritic degenerative changes. DATA REPOSITORY: RADIATION DOSE DELIVERED:
== END ==
PROVIDERS: PCP Nurse Practitioner; Visit Provider Emergency Medicine
DX: M25.561 Pain in right knee (principal); M17.11 Unilateral primary osteoarthritis, right knee
CPT/HCPCS: 73562

== ENCOUNTER → 2020-09-14 02:36 | Outpatient (CLI) | payer OTHER, SELFPAY ==
[2020-09-14 13:13] LABS: Potassium 4.8 mmol/L (3.5-5.1)
[2020-09-14] MEDS: Omnipaque 350 MG/ML 100 ML BTL IJ (13:54)
[2020-09-14] MEDS: Normal Saline - Diluent 50 ML VIAL IV (13:54)
--- NOTE | 2020-09-14 13:57 | DI.CT_ITS ---
Exam(s) CT THORAX CTA EXAM: CT THORAX CTA CLINICAL HISTORY: ASCENDING AORTIC ANEURYSM,I71.2. TECHNIQUE: Imaging Protocol: CT angiography of the chest was performed using pulmonary embolus thi col. Multi planar reconstructions were performed. CONTRAST MATERIAL: Intravenous: Omnipaque 350 Contrast volume: 100 cc COMPARISON: CT CT ABDOMEN PELVIS W from 10/12/[address] CHEST PE CTA from 10/09/2019 FINDINGS: CHEST: PULMONARY ARTERIES: There are no obvious intraluminal filling defects to suggest acute pulmonary embo li. LUNGS: In the mid right lung field there is a noncalcified 8 x 5 millimeter nodule more evident than on the prior study. A small peripheral pleural based density in the lateral basal segment of the right lower lobe is unch anged from September 2018 and therefore benign. No other focal right lung findings nor pleural effusion. In the opposite-left lung there is subtle 6 x 5 millimeter subpleural density in the anterior basal s egment left lower lobe adjacent to the lateral aspect of the major fissure at this level. No other s ignificant focal left lung findings. No pleural effusion. There are no significant focal findings i n the trachea and mainstem bronchi. MEDIASTINUM: There is no hilar nor mediastinal adenopathy. Visualized thyroid unremarkable. CARDIAC: Heart size upper normal. Slight pericardial thickening is noted but less than previous impl hermila improved pericardial effusion.The diameter of the ascending thoracic aorta is enlarged, measurin g 4 cm., unchanged from previous. No dissection. PARTIALLY VISUALIZED UPPERMOST ABDOMEN: Hepatic steatosis. Spleen size upper normal. OSSEOUS: No significant osseous lesions.. IMPRESSION: 1. No evidence of acute pulmonary emboli. No evidence of pulmonary infarction.No pleural effusions. 2. There is a small noncalcified 8 x 5 millimeter nodule in the mid right lung field which is more ev ident than on prior study as well as subtle peripheral based density measuring 6 x 5 millimeters in t he anterior basal segment the opposite-left lung. Recommend repeat CT scan in 6 months. 3. Enlarged ascending thoracic aorta again noted with unchanged diameter 4 cm. No dissection. Hepatic steatosis noted. RADIATION DOSE DELIVERED: 962.69mGy.cm Total DLP DATA REPOSITORY: All CT scans at this facility are submitted to the National Radiology Data Registry (NRDR) Dose Index Registry (DIR) with the [employer] (A[employer]). RADIATION OPTIMIZATION: All CT scans at this facility use at least one of these dose optimization te chniques: automated exposure control; mA and/or kV adjustment per patient size (includes targeted exa ms where dose is matched to clinical indication); or iterative reconstruction.
== END ==
PROVIDERS: PCP Nurse Practitioner; Visit Provider Nurse Practitioner
DX: R91.1 Solitary pulmonary nodule (principal); J98.4 Other disorders of lung; I71.2 Thoracic aortic aneurysm, without rupture
CPT/HCPCS: 71275; 80162; 82565; 83036; 84132; J3490

== ENCOUNTER 2021-02-09 08:45 | Outpatient (CLI) | payer OTHER, SELFPAY ==
[2021-02-09 12:27] LABS: Abs Immature Grans 0.02 10^3/uL (0.0-0.06); Absolute Basophil Count 0.06 10^3/uL (0.0-0.2); Absolute Lymphocyte Count 1.24 10^3/uL (1.2-3.4); Absolute Monocyte Count 0.81 10^3/uL (0.1-0.8); Absolute Neutrophil Count 4.07 10^3/uL (1.2-6.7); Eosinophils % 1.6; HCT 51.2 % (40.0-50.0); HGB 16.6 g/dL (13.5-17.5); Immature Grans % 0.3; Lymphocytes % 19.7; MCH 29.7 pg (27.0-33.0); MCHC 32.4 % (32.0-36.0); MCV 91.6 fL (80-95); MPV 9.8 fL (8.0-11.0); Monocytes % 12.9; Neutrophils % 64.5; Nucleated RBC 0 %; Platelet Count 204 10^3/uL (130-400); RBC 5.59 10^6/uL (4.36-5.78); RDW 13.5 % (11.8-14.1); RDW-SD 45.8 fL
[2021-02-09 12:44] LABS: COMMENT (LAB VIEW ONLY) 114.59 mg/dL; Microalb ug/mg Crea 74.2 ug/mg Cr
[2021-02-09 12:48] LABS: ALT 30 U/L (16-63); AST 22 U/L (15-37); Albumin 3.9 g/dL (3.4-5.0); Alkaline Phosphatase 73 U/L (46-116); BUN 23 mg/dL (7-18); Bilirubin, Total 0.5 mg/dL (0.2-1.0); CREATININE 1.1 mg/dL (0.70-1.30); Calcium 9.1 mg/dL (8.5-10.1); Calculated LDL 110 mg/dL (<100); Chloride 105 mmol/L (98-107); Cholesterol 176 mg/dL (<200); Glucose 109 mg/dL (74-106); HDL Cholesterol 41 mg/dL (40-60); Potassium 4.3 mmol/L (3.5-5.1); Sodium 142 mmol/L (136-145); TSH (W/Ref FT4) 3.75 uIU/mL (0.36-3.74); Total Protein 7.6 g/dL (6.4-8.2); Triglyceride 129 mg/dL (<150)
[2021-02-09 12:49] LABS: INR 3.7 (0.9-1.1)
[2021-02-09 12:58] LABS: Hemoglobin A1C 6.4 % (<5.7)
[2021-02-09 13:06] LABS: FREE T4 1.08 ng/dL (0.76-1.46)
== END 2021-02-09 08:46 | disposition home or self-care (01) ==
LOC: LOS 08:46
PROVIDERS: PCP Nurse Practitioner; Visit Provider Family Medicine
DX: I10 Essential (primary) hypertension (principal); E11.9 Type 2 diabetes mellitus without complications; I48.91 Unspecified atrial fibrillation; Z79.01 Long term (current) use of anticoagulants; L03.115 Cellulitis of right lower limb; R60.0 Localized edema; E66.01 Morbid (severe) obesity due to excess calories
CPT/HCPCS: 36415; 80053; 80061; 82043; 82570; 83036; 84439; 84443; 85025; 85610

== ENCOUNTER 2021-02-21 09:58 | Outpatient (CLI) | payer OTHER, SELFPAY ==
--- OUTSIDE RECORDS SUMMARY | 2021-02-21 10:00 | XMS_ITS ---
:1960 Author Care Team Providers Name Role Phone STEVE BELL MD Primary Care Provider [phone] ALEX LUZ MD Bike Shop Manager [phone] MIRIAM BERMUDEZ DO Merchandise Carrier [phone] Allergies Code Code System Name Reaction Severity Status Onset 61688 RxNorm Lisinopril Cough ? Active ? Medications Name Status Start Date Stop Date ? ? amlodipine 10 mg tablet Active ? Not avai lable Take 1 tablet every day by oral route. amoxicillin 875 mg-potassium clavulanate 125 mg tablet Completed ? 10/26/2019 Take 1 tablet every 12 hours by oral route. benzonatate 100 mg capsule Completed ? 12/16 Take 1 capsule 3 times a day by oral route as needed. Bio-K plus Completed ? 10/26/2019 1 capsule , daily Glucosamine Completed ? 12/16/2017 & chondroitin 2 caps daily losartan 100 mg tablet Active ? Not avail able Take 1 tablet every day by oral route. magnesium gluconate 27 mg magnesium (500 mg) tablet Completed ? 10/26/2019 Take 1 tablet in evening. metformin 500 mg tablet Active ? Not avai lable Take 1 tablet every day by oral route. metoprolol tartrate 25 mg tablet Completed ? 10/26/2019 Take 1 tablet every day by oral route. nystatin Active ? Not available powder, as needed pantoprazole 40 mg tablet,delayed release Completed ? 10/26/2019 Take 1 tablet every day by oral route. warfarin 5 mg tablet Active ? Not availab le Take 1 tablet every day by oral route. Problems Name Status Onset Date Source ? Tubular Adenoma Active ? ? Type 2 Diabetes Mellitus Active ? ? Hyperlipidemia Active ? ? Morbid Obesity Active ? ? Hypertensive Disorder Active ? ? Atrial Fibrillation and Flutter Active ? ? Peripheral Venous Insufficiency Active ? ? Cellulitis Active ? ? Osteoarthritis of Knee Active ? ? Low Back Pain Active ? ? Fracture of Ankle Active ? ? Pain in Right Knee Active ? ? Procedures None recorded. Results Lab Results None recorded. Past Encounters 10/26/2019 Obstructive Sleep Apnea Syndrome; Cramp in Lower Limb Associated with Sleep; Hypersomnia; Atrial Fibrillation and Flutter; Morbid Obesity Ratna Paulino MD, Board Certified Sleep Ph ysician: [address] [place] [address], Ph. Social History Tobacco Smoking Status Never Smoker Vaccine List None recorded. Plan of Care Patient Instructions Your sleep study showed Severe Obst ructive Sleep Apnea (stop breathing 72 times per hour). You've done well on the cpap machine that your friend gave you. You couldnt get the bipap and supplemental oxygen in 2018 due to insurance issues. Recently you were discharged from hospital when you were found to have low oxygen even on bipap at night. You felt like the bipap worked better for you and your oxygen improved when you got supplementa l oxygen thru bipap. Your insurance is better now so we will get you the bipap machine with supplemental oxygen. I will star the oxygen at 1 LPM O2 which is what we found on the 2018 sleep study to work best. Once you get set up with this, I am also asking the [employer] company to test your oxygen levels at night and I can make further adjustments (increase or decrease) to the oxygen setting as needed. I have sent a script for new machine to the following Durable Medical Equipment Provider. Please contact them in 1 week if you do not hear from them by then. [x ] [facility] - [place] of state branch but therapist will travel to your home They will make an appointment for you an d get the equipment set up in your home. Making the effort to use your machine ev tosha time you sleep is very important, especially as you get used to therapy. Please call them if you have any questions on how to use machine or use your mask. Ca ll them if your mask is not fitting righ t and need to be fitted with a new one. This is important to do as early as possible. Please call Sleep Clinic if you have any other concerns or problems before your next appointment. 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 This allows me to provide you with the best patient care and address any of your questions/concerns on therapy. Reminders Provider Appointments None recorded. ? ? Lab None recorded. ? ? Referral None recorded. ? ? Procedures None recorded. ? ? Surgeries None recorded. ? ? Imaging None recorded. ? ? Vitals 10/26/2019 11:15AM New Patient 45 Height Weight BMI Blood Pressure 181.61 cm 182.89 kg 55.5 kg/m2 124/74 mm[Hg] 02/17/2018 09:00AM Office 30 Height Weight BMI Blood Pressure 181.61 cm 186.88 kg 56.7 kg/m2 143/91 mm[Hg] 12/16/2017 12:30PM New Patient 45 Height Weight BMI Blood Pressure 181.61 cm 190.51 kg 57.8 kg/m2 149/108 mm[Hg]
[2021-02-22 02:41] LABS: COVID-19 RT-PCR UVMMC Result Negative (Negative)
== END 2021-02-21 09:59 | disposition home or self-care (01) ==
LOC: LBO 09:59
PROVIDERS: PCP Nurse Practitioner; Visit Provider Nurse Practitioner Family
DX: Z20.822 Contact with and (suspected) exposure to COVID-19 (principal)
CPT/HCPCS: U0003

== ENCOUNTER 2021-03-11 10:23 | Emergency (ER) | payer OTHER, SELFPAY ==
[2021-03-11 10:27] VITALS: BP 143/90; PULSE 102; RESP 22; TEMP 36.7; O2SAT 96
--- NOTE | 2021-03-11 10:32 | ED.GENADUL_ITS ---
Discharge Plan Disposition Patient Disposition: HOME Condition: Stable Discharge Details Clinical Impression: Cellulitis of right lower leg Primary Care Provider: Kaylen Ellis ED Provider: Todd Padilla Home Meds and New Rx's Prescriptions: New clindamycin HCl 300 mg capsule 300 mg PO Q6H 10 Days Qty: 40 RF: 0 Continued (DME) OneTouch Verio test strips Strip 1 ea Miscellaneous BID Qty: 100 RF: 4 furosemide 20 mg tablet 20 mg PO DAILY Qty: 90 RF: 3 amlodipine 10 mg tablet 10 mg PO DAILY Qty: 90 RF: 4 losartan 100 mg tablet 100 mg PO DAILY Qty: 90 RF: 4 metformin 500 mg tablet 500 mg PO DAILY Qty: 90 RF: 4 warfarin 5 mg tablet 5 mg PO DIRECTED Qty: 90 RF: 4 (DME) Lancets,Thin 1 EACH misc 1 ea Miscellaneous BID Qty: 60 RF: 0 Discharge Instructions Instructions: Cellulitis (ED) Additional Instructions: Clindamycin as directed. Rest, elevate, warm compresses every 2 hours for 20 minutes. I recommend that you double your Lasix over the next 5 days. Please watch for new or worsening symptoms and return to the ER for any concerns. I have placed you on the care management list to help expedite outpatient primary care follow-up. Please contact your primary care provider first thing tomorrow morning and I would like you reevaluated in the next 48 hours. Stand Alone Forms: Work Release Medical Decision Making <JESSIE Vaughan - Last Filed: 03/11/21 14:14> 60-year-old gentleman who is morbidly obese, history of diabetes, chronic venous insufficiency, hypertension, A. fib, chronic anticoagulation presents for concern of right lower extremity infection. While clinically this very well may be be cellulitis, I would like to obtain an INR to be sure his levels are therapeutic as cannot rule out DVT. Given his history of diabetes and overall body habitus and edema, I would like to obtain routine screening laboratory values including an EKG, troponin, BNP. Given chills last night and his mild tachycardia, 102 now, will obtain blood cultures and lactate. Clinically does not appear septic or toxic CBC reveals leukocytosis of 14.28. No evidence of anemia. Platelet count normal at 181. INR is therapeutic at 2.2. Lactate of 2.2. Electrolytes unrem arkable, creatinine 1.3 with a GFR of 56.31, glucose 146. Troponin is less than 50, BNP is 4656. Patient denies any chest pain or shortness of breath. Lungs are clear to auscultation. He does not require any supplemental oxygen. Given his leukocytosis, elevated lactate, and therapeutic INR, I do not believe that ultrasound needs to be pursued. Patient does already take 20 mg of p.o. Lasix. Patient and I had a very candid conversation. Given his laboratory values, overall health status, and presentation today, I do believe that admission to our facility for IV antibiotics, diuresis, observation would be beneficial. Patient understands this but would prefer to be discharged. Patient is of sound mind and can make his own decisions. Patient will receive 100 mg IV doxycycline, 1 L IV fluid, and will recheck a lactate. If lactate is trending downward and patient is still requesting to be discharged home will recommend that he doubles up on his Lasix for the next 5 days, elevation, warm compresses, and I will provide a prescription for clindamycin. Initially was planning doxycycline but given the interaction with Coumadin, I believe clindamycin to be a better choice. Will place him on the care management list help expedite 24-48-hour follow-up with his primary care provider and extremely strict discharge and return precautions provided. Lactate down to 1.6. Patient continues to request discharge. Will provide prescription for clindamycin, he will increase his Lasix to double dose over the next 5 days, we discussed the importance of elevation and warm compresses. I will provide a work note for the next [address] him on the care management list to expedite outpatient follow-up in the next 48 hours. Strict discharge and return precautions were once again provided This documentation was generated using zlienation system, please disregard any oddities of phrase or misspellings. Medical Records Medical records reviewed: Yes I reviewed the patient's medical records. Lab Data Lab results reviewed: Yes I reviewed the patient's lab results. Labs: 03/11/21 11:50 Blood Blood Culture - Pending 03/11/21 10:40 Blood Blood Culture - Pending 03/11/21 10:50 Leg - Back Wound Culture - Pending 03/11/21 10:50 Leg - Back Gram Stain - Final Laboratory Tests Range/Units 03/11/21 03/11/21 03/11/21 10:40 10:40 10:40 WBC (4.4-10.8) 10^3/uL 14.28 H RBC (4.36-5.78) 10^6/uL 5.35 Hgb (13.5-17.5) g/dL 16.0 Hct (40.0-50.0) % 49.9 MCV (80-95) fL 93.3 MCH (27.0-33.0) pg 29.9 MCHC (32.0-36.0) % 32.1 RDW (11.8-14.1) % 13.7 Plt Count (130-400) 10^3/uL 181 MPV (8.0-11.0) fL 9.5 Immature Gran % 0.4 Neutrophils % 84.2 Lymphocytes % 4.2 Monocytes % 5.2 Eosinophils % 5.7 Basophils % 0.3 Nucleated RBC % % 0 Absolute Neutrophils (1.2-6.7) 10^3/uL 12.02 H Absolute Lymphocytes (1.2-3.4) 10^3/uL 0.60 L Absolute Monocytes (0.1-0.8) 10^3/uL 0.74 Absolute Eosinophils (0.0-0.7) 10^3/uL 0.81 H Absolute Basophils (0.0-0.2) 10^3/uL 0.04 RBC Morphology Normal PT (9.3-11.0) sec INR (0.9-1.1) VBG Lactate (0.6-1.4) mmol/L 2.2 H* Sodium (136-145) mmol/L 136 Potassium (3.5-5.1) mmol/L 3.6 Chloride (98-107) mmol/L 100 Carbon Dioxide (21.0-32.0) mmol/L 26.5 Anion Gap (3-11) mmol/L 9.5 BUN (7-18) mg/dL 20 H Creatinine (0.70-1.30) mg/dL 1.3 Estimated GFR/1.73 m2 (mL/min/1.73m2) 56.31 Glucose (74-106) mg/dL 146 H Calcium (8.5-10.1) mg/dL 8.5 Total Bilirubin (0.2-1.0) mg/dL 1.8 H AST (15-37) U/L 20 ALT (16-63) U/L 17 Alkaline Phosphatase (46-116) U/L 63 Troponin I (<or=60) ng/L NT-Pro-B Natriuret Pep (<300) pg/mL Total Protein (6.4-8.2) g/dL 7.7 Albumin (3.4-5.0) g/dL 3.4 Range/Units 03/11/21 03/11/21 03/11/21 10:40 10:40 13:51 WBC (4.4-10.8) 10^3/uL RBC (4.36-5.78) 10^6/uL Hgb (13.5-17.5) g/dL Hct (40.0-50.0) % MCV (80-95) fL MCH (27.0-33.0) pg MCHC (32.0-36.0) % RDW (11.8-14.1) % Plt Count (130-400) 10^3/uL MPV (8.0-11.0) fL Immature Gran % Neutrophils % Lymphocytes % Monocytes % Eosinophils % Basophils % Nucleated RBC % % Absolute Neutrophils (1.2-6.7) 10^3/uL Absolute Lymphocytes (1.2-3.4) 10^3/uL Absolute Monocytes (0.1-0.8) 10^3/uL Absolute Eosinophils (0.0-0.7) 10^3/uL Absolute Basophils (0.0-0.2) 10^3/uL RBC Morphology PT (9.3-11.0) sec 22.0 H INR (0.9-1.1) 2.2 H VBG Lactate (0.6-1.4) mmol/L 1.6 H Sodium (136-145) mmol/L Potassium (3.5-5.1) mmol/L Chloride (98-107) mmol/L Carbon Dioxide (21.0-32.0) mmol/L Anion Gap (3-11) mmol/L BUN (7-18) mg/dL Creatinine (0.70-1.30) mg/dL Estimated GFR/1.73 m2 (mL/min/1.73m2) Glucose (74-106) mg/dL Calcium (8.5-10.1) mg/dL Total Bilirubin (0.2-1.0) mg/dL AST (15-37) U/L ALT (16-63) U/L Alkaline Phosphatase (46-116) U/L Troponin I (<or=60) ng/L < 50 NT-Pro-B Natriuret Pep (<300) pg/mL 4656 H Total Protein (6.4-8.2) g/dL Albumin (3.4-5.0) g/dL ECG Data Attestation: I personally reviewed and interpreted this ECG (s) as follows: Interpretation: Please see official report by Dr. Fenton. Atrial fibrillation, ventricular of 102. <Parish Fenton MD - Last Filed: 03/11/21 13:22> Patient examined at the bedside, discussed with Randy. I agree with his assessment and plan of care. HPI <JESSIE Vaughan - Last Filed: 03/11/21 14:14> General Mode of arrival: ambulatory . Date/Time Provider Initiated Documentation: 03/11/21 10:23 . Limitations to Documentation: no limitations . Information obtained by: patient . HPI Narrative: This is a 60-year-old gentleman with past medical history that includes hypertension, diabetes, A. fib and on chronic warfarin anticoagulation, presenting to the ER today for concern of a right leg infection. He states that his right leg began with redness and pain on Friday, no obvious injury or trauma. He reports chills last night but denies any fever. He states along the posterior aspect he has had a yellow draining wound for the past 24-48 hours. He states the pain is constant and throbbing but at times is severe and feels like an electric shock. He denies any symptoms in his left leg. Denies any chest pain, shortness of breath, history of DVT or PE, numbness, tingling, weakness. He has not taken any medication for his symptoms. Related Data Home Medications Medication Instructions Recorded Confirmed Lancets,Thin #60 ea 12/01/15 02/27/21 blood sugar diagnostic #100 strip 08/19/19 02/27/21 amlodipine 10 mg tablet 10 mg PO DAILY #90 tab-cap 05/23/20 03/11/21 losartan 100 mg tablet 100 mg PO DAILY #90 tab-cap 11/16/20 03/11/21 metformin 500 mg tablet 500 mg PO DAILY #90 tab 11/16/20 03/11/21 warfarin 5 mg tablet 5 mg PO DIRECTED #90 tab 11/16/20 03/11/21 furosemide 20 mg tablet 20 mg PO DAILY #90 tab 02/09/21 03/11/21 clindamycin HCl 300 mg PO Q6H 10 Days #40 cap 03/11/21 Previous Rx's Medication Instructions Recorded Lancets,Thin #60 ea 12/01/15 blood sugar diagnostic #100 strip 08/19/19 amlodipine 10 mg tablet 10 mg PO DAILY #90 tab-cap 05/23/20 losartan 100 mg tablet 100 mg PO DAILY #90 tab-cap 11/16/20 metformin 500 mg tablet 500 mg PO DAILY #90 tab 11/16/20 warfarin 5 mg tablet 5 mg PO DIRECTED #90 tab 11/16/20 furosemide 20 mg tablet 20 mg PO DAILY #90 tab 02/09/21 clindamycin HCl 300 mg PO Q6H 10 Days #40 cap 03/11/21 Allergies Allergy/AdvReac Type Severity Reaction Status Date / Time lisinopril AdvReac Intermediate COUGH Verified 03/11/21 10:33 General Stated Complaint: Cellulitis ENOCH: 3 Review of Systems <JESSIE Vaughan - Last Filed: 03/11/21 14:14> Constitutional Constitutional: Reports chills, Denies fever(s) and Denies weakness Cardiovascular Cardiovascular: Denies chest pain and Denies dyspnea Respiratory Respiratory: Denies cough and Denies dyspnea Gastrointestinal Gastrointestinal: Denies abdominal pain, Denies nausea and Denies vomiting Musculoskeletal Musculoskeletal: Denies back pain, Denies numbness and Denies tingling Integumentary/Breasts Skin/Breast: Reports erythema Neurologic Neurologic: Denies numbness, Denies tingling and Denies weakness Hematologic/Lymphatic Hematologic/Lymphatic: Reports easy bleeding and Reports easy bruising [facility] <JESSIE Vaughan - Last Filed: 03/11/21 14:14> All Active Problems (Updated 03/11/21 @ 14:12 by JESSIE Vaughan) Cellulitis of right lower leg (Acute) 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 Diabetes mellitus (Chronic) Chronic venous insufficiency (Chronic) Essential hypertension (Chronic) Atrial fibrillation and flutter (Chronic 10/10/17) Morbid obesity (Chronic 10/13/17) Chronic anticoagulation (Acute) Medical History A-fib Dysphonia (10/13/17) Fracture of ankle left Hematuria Hyperlipidemia Hypertension Low back pain Morbid obesity with BMI of 50.0-59.9, adult Primary osteoarthritis of both knees (02/03/15) Solitary pulmonary nodule CT 2019- no nodule noted Tubular adenoma 01/13/15; DR. TAMEZ Venous insufficiency (chronic) (peripheral) Vocal cord paresis (10/13/17) Surgical History Colonoscopy - MAC (01/13/15) DR. OCTAVIA TAMEZ Excision, Tumor benign lymphatic mass right thigh History of excision of lesion Family History Mother , AGE 78 Diabetes Father , AGE 82 Essential hypertension Stroke Sister No problems noted. Brother Diabetes Essential hypertension Maternal Grandfather , AGE 86 Diabetes Essential hypertension Paternal Grandfather , AGE 62 Heart disease Stroke Essential hypertension Maternal Grandmother , AGE 99 Diabetes Essential hypertension Heart disease Sister Diabetes Essential hypertension Sister Asthma Depression Diabetes Essential hypertension Hyperlipidemia Brother Asthma Depression Essential hypertension Diabetes Heart disease Hyperlipidemia Brother Diabetes Essential hypertension Son No problems noted. Son No problems noted. 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 Pets and animals: Yes Pets and animals: dog(s) Sexually active: Yes Do you think of yourself as: straight/heterosexual Current gender identity: male What is your relationship status?: How often do you talk on the phone with friends or family?: three or more times per week How often do you get together with friends or relatives?: once per week Do you belong to any clubs or organized social groups?: no Panel score (0-1 are the most socially isolated patients): 2 What type of physical activity do you participate in: none Taisha/Zoroastrianism: None Special taisha needs: No Seatbelt use: never Helmet use: Yes Helmet use: always Drive intox or ride w/intox boom truck 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 Exam <JESSIE Vaughan - Last Filed: 03/11/21 14:14> Const General: cooperative, healthy appearing, comfortable and no acute distress Nutritional Appearance: obese morbidly obese Orientation: alert and awake HENNC Head: normal to inspection, normocephalic and atraumatic Eyes General: appearance normal, both eyes and all related structures Conjunctivae: conjunctivae normal Neck Neck: normal visual inspection, trachea midline and supple Resp Effort & Inspection: normal respiratory effort and able to speak in complete sentences Auscultation: clear to auscultation bilaterally Cardio Rate: tachycardic (102) Rhythm: abnormal rhythm irregularly irregular GI Inspection: obesity Palpation: soft and nontender Skin General skin exam: erythema Neuro General: patient alert, patient awake, moves all extremities and no focal motor deficits Cognition: normal cognition Speech: speech normal Gait: antalgic (Slightly) Motor: muscle tone normal throughout Sensory Exam: no sensory deficits noted Extrem General: full ROM and capillary refill normal Other: Body habitus makes the examination challenging. Both his lower extremities are impressive in their overall size but they do appear to be the same size. Both are 3+ nonpitting edema. The right lower extremity distal to the knee extending to the dorsum of the foot with diffuse erythema, warmth, nearly circumferential. Along the posterior aspect of the calf there is a single weeping wound with what appears to be serous fluid. Full range of motion. Neuro, vascular, tendon intact. Normal pedal pulse and capillary refill. Negative Homans' sign. Psych Appearance: grossly normal Mental Status: mental status grossly normal Course <JESSIE Vaughan - Last Filed: 03/11/21 14:14> Vital Signs Vital signs: Vital Signs Temperature 36.7 C 03/11/21 10:27 Pulse 102 H 03/11/21 10:27 Respiratory Rate 22 03/11/21 10:27 Blood Pressure 143/90 H 03/11/21 10:27 Pulse Oximetry 96 03/11/21 10:27 Temperature 36.7 C 03/11/21 10:27 Temperature Source Temporal Artery Scan 03/11/21 10:27 Pulse 102 H 03/11/21 10:27 Respiratory Rate 22 03/11/21 10:27 Blood Pressure 143/90 H 03/11/21 10:27 Blood Pressure Position Sitting 03/11/21 10:27 Pulse Oximetry 96 03/11/21 10:27 Oxygen Delivery Method Room Air 03/11/21 10:27 Oxygen Flow Rate 0 03/11/21 10:27 Pain Level 5 03/11/21 10:27
--- NOTE | 2021-03-11 10:45 | RT.EKG_ITS ---
APPROVED REPORT Exam: Resting ECG Reason for Exam: tachy Patient Location: E HR:102 bpm ECG Measurements Heart Rate 102 AXIS NV [id number] P [id number] QRSd 105 QRS 36 QT 364 T 58 QTc 475 Conclusion Atrial fibrillation...V-rate 70-139, irreg A-activity
[2021-03-11 10:56] LABS: Lactate 2.2 mmol/L (0.6-1.4)
[2021-03-11 10:57] LABS: Abs Immature Grans 0.06 10^3/uL (0.0-0.06); Absolute Basophil Count 0.04 10^3/uL (0.0-0.2); Absolute Eosinophil Count 0.81 10^3/uL (0.0-0.7); Absolute Monocyte Count 0.74 10^3/uL (0.1-0.8); Basophils % 0.3; Eosinophils % 5.7; HCT 49.9 % (40.0-50.0); Immature Grans % 0.4; Lymphocytes % 4.2; MCH 29.9 pg (27.0-33.0); MCHC 32.1 % (32.0-36.0); MCV 93.3 fL (80-95); MPV 9.5 fL (8.0-11.0); Monocytes % 5.2; Nucleated RBC 0 %; RBC 5.35 10^6/uL (4.36-5.78); RDW 13.7 % (11.8-14.1); RDW-SD 46.5 fL; WBC 14.28 10^3/uL (4.4-10.8)
[2021-03-11 11:07] LABS: ALT 17 U/L (16-63); AST 20 U/L (15-37); Albumin 3.4 g/dL (3.4-5.0); Alkaline Phosphatase 63 U/L (46-116); Anion Gap 9.5 mmol/L (3-11); BUN 20 mg/dL (7-18); Bilirubin, Total 1.8 mg/dL (0.2-1.0); CO2 26.5 mmol/L (21.0-32.0); CREATININE 1.3 mg/dL (0.70-1.30); Calcium 8.5 mg/dL (8.5-10.1); Chloride 100 mmol/L (98-107); Estimated GFR 56.31 (mL/min/1.73m2); Glucose 146 mg/dL (74-106); INR 2.2 (0.9-1.1); Potassium 3.6 mmol/L (3.5-5.1); Sodium 136 mmol/L (136-145); Total Protein 7.7 g/dL (6.4-8.2)
[2021-03-11 11:08] LABS: Absolute Neutrophil Count 12.02 10^3/uL (1.2-6.7)
[2021-03-11 11:17] LABS: Diff Comment Agrees w/ Instrument; Neutrophils % 84.2; Platelet Count 181 10^3/uL (130-400); RBC Morphology Normal
[2021-03-11 11:50] LABS: NT-proBNP 4656 pg/mL (<300); Troponin I < 50 ng/L (<or=60)
[2021-03-11] MEDS: Normal Saline 1,000 ML 1000 ML IV (12:08)
[2021-03-11] MEDS: DOXYCYCLINE 100 MG in Normal Saline 100 ML IVPB (12:08)
[2021-03-11 14:03] LABS: Lactate 1.6 mmol/L (0.6-1.4)
--- NOTE | 2021-03-11 14:19 | NUR.NOTE ---
Faxed referral to [facility] per Todd Bowling for f/u in 2 days for right lower extremity cellulitis. Put referral in Nurse Practitioner Per Diem's box.
== END 2021-03-11 14:34 | disposition home or self-care (01) ==
PROVIDERS: Emergency Provider Physician Assistant; PCP Nurse Practitioner
DX: L03.115 Cellulitis of right lower limb (principal); R68.83 Chills (without fever); D72.829 Elevated white blood cell count, unspecified; E11.21 Type 2 diabetes mellitus with diabetic nephropathy; E66.01 Morbid (severe) obesity due to excess calories; Z68.43 Body mass index [BMI] 50.0-59.9, adult; R00.0 Tachycardia, unspecified
CPT/HCPCS: 36415; 80053; 87040; 93005; 96361; 96365; 99284; 83605; 83880; 84484; 85025; 85610; 87070; 87205; 93010

== ENCOUNTER 2021-03-12 21:08 | Inpatient (IN) | payer OTHER, SELFPAY ==
[2021-03-12 21:14] VITALS: BP 161/108; PULSE 105; TEMP 36.3; O2SAT 98
--- NOTE | 2021-03-12 21:37 | ED.GENADUL_ITS ---
Discharge Plan Disposition Patient Disposition: [facility] INPATIENT Condition: Stable Discharge Details Clinical Impression: Cellulitis of right leg Admit Date/Time: 03/13/21 01:34 Admit Provider: Macario Lake Attending Provider: Macario Lake Primary Care Provider: Kaylen Ellis ED Provider: Yovanny Monteiro Discharge Data Discharge Date/Time-TO BE ENTERED AT DEPARTURE: 03/13/21 02:36 Medical Decision Making <Isaiah Velez NP - Last Filed: 03/14/21 19:33> Patient presenting to the emergency department for chief complaint of right lower leg infection. Patient was seen yesterday and it was strongly encouraged that he be admitted but he refused at that point. Patient has been taking clindamycin as prescribed but has noted only worsening pain, spreading erythema, and more purulent odorous drainage from the right posterior calf. Plan to put patient on vancomycin, reviewed blood cultures and wound culture which showed no growth on preliminary study but given purulence I am concerned for infection of diabetic ulcers. Did perform repeat CBC, CMP, and lactate given abnormal findings yesterday. Reviewed laboratory findings today and patient has no further leukocytosis and lactate is appropriate but I still am concerned given that patient has significant worsening of discomfort, drainage, and increased odor. Given his medical comorbidities I do feel that admission is still warranted and patient is agreeable. Hospitalist was consulted. Prior to admission hospitalist is requesting CT imaging of lower extremity which was ordered. Patient signed out to Dr. Monteiro pending CT imaging and admission. Medical Records Medical records reviewed: Yes I reviewed the patient's medical records. Medical records narrative: Reviewed medical records from emergency visit dated 03/11/2021. <Yovanny Monteiro DO - Last Filed: 03/13/21 01:46> The case was signed out to me by my colleague billie Velez, please refer to his HPI, physical exam, and assessment and plan. At time of signout the patient was planned to be admitted to the hospitalist service, however hospitalist service did request CT imaging. I did go and personally assess the patient, patient right lower extremity demonstrates chronic venous stasis color changes, notably obese and edematous leg in general, but there is also notable redness in the knee, extending all the way down to the foot. Notable tenderness in the calf, as well as the dorsum of the foot. No subcutaneous crepitus appreciated though. Although there is some edema the compartment appears palpably soft. No tenderness on the anterior and lateral aspects. CT scan results demonstrate extensive subcutaneous fluid which may reflect edema or cellulitis, but there is no gas present per radiology to suggest necrotizing infection. No discrete abscess. Process appears to be limited by the superficial investing fascia layer of the lower leg compartments without evidence of for fasciitis or myositis. At this time the patient's symptoms are clinically inconsistent with necrotizing fasciitis, or compartment syndrome, and are clinically consistent currently with notable cellulitis. I do feel that the patient requires inpatient IV antibiotics and continued management and evaluation to prevent progression of his current disease process. Patient will be admitted to the floor. I have extensively reviewed the treatment plan with the patient. I have addressed all patient concerns at this time. I have also discussed the plan with the admitting physician and they agree with the current assessment and plan and have agreed to assume responsibility for the patient. All parties demonstrate verbal understanding and agreement with our assessment and plan at this time. The documentation in this chart was dictated using [employer] dictation software. Please excuse any dictation errors. HPI <Isaiah Velez NP - Last Filed: 03/14/21 19:33> General Mode of arrival: ambulatory . Date/Time Provider Initiated Documentation: 03/12/21 21:08 . Limitations to Documentation: no limitations . Information obtained by: patient . History of Present Illness 60 year old M presents to the emergency department with the chief complaint of Worsening leg i nfection, described as severe, with intensity rated at 8. Quality is described as aching and constant, and is localized to the right and lower extremity. Patient reports no radiation. Patient started experiencing this day(s) (3) and it has been constant. No relieving factors improve symptom(s), No exacerbating factors reported . Patient notes no other symptoms.. Patient did receive the following treatments prior to arrival, other (Antibiotics as prescribed) Related Data Home Medications Medication Instructions Recorded Confirmed Lancets,Thin #60 ea 12/01/15 03/12/21 blood sugar diagnostic #100 strip 08/19/19 03/12/21 amlodipine 10 mg tablet 10 mg PO DAILY #90 tab-cap 05/23/20 03/12/21 losartan 100 mg tablet 100 mg PO DAILY #90 tab-cap 11/16/20 03/12/21 metformin 500 mg tablet 500 mg PO DAILY #90 tab 11/16/20 03/12/21 warfarin 5 mg tablet 5 mg PO DIRECTED #90 tab 11/16/20 03/12/21 furosemide 20 mg tablet 20 mg PO DAILY #90 tab 02/09/21 03/12/21 clindamycin HCl 300 mg PO Q6H 10 Days #40 cap 03/11/21 03/12/21 clindamycin HCl 300 mg PO Q6H 03/12/21 03/12/21 Previous Rx's Medication Instructions Recorded Lancets,Thin #60 ea 12/01/15 blood sugar diagnostic #100 strip 08/19/19 amlodipine 10 mg tablet 10 mg PO DAILY #90 tab-cap 05/23/20 losartan 100 mg tablet 100 mg PO DAILY #90 tab-cap 11/16/20 metformin 500 mg tablet 500 mg PO DAILY #90 tab 11/16/20 warfarin 5 mg tablet 5 mg PO DIRECTED #90 tab 11/16/20 furosemide 20 mg tablet 20 mg PO DAILY #90 tab 02/09/21 clindamycin HCl 300 mg PO Q6H 10 Days #40 cap 03/11/21 Allergies Allergy/AdvReac Type Severity Reaction Status Date / Time lisinopril AdvReac Intermediate COUGH Verified 03/11/21 10:33 General Stated Complaint: Cellulitis ENOCH: 3 Review of Systems <Isaiah Velez NP - Last Filed: 03/14/21 19:33> Constitutional Constitutional: Denies body ache(s), Denies chills and Denies fever(s) Cardiovascular Cardiovascular: Denies chest pain and Denies dyspnea Respiratory Respiratory: Denies dyspnea Gastrointestinal Gastrointestinal: Denies abdominal pain, Denies nausea and Denies vomiting Musculoskeletal Musculoskeletal: Reports as per HPI Integumentary/Breasts Skin/Breast: Reports as per HPI, Reports erythema, Reports skin pain and Reports sores Neurologic Neurologic: Denies confusion and Denies sensory deficit Psychiatric Psychiatric: Denies confusion [facility] <Isaiah Velez NP - Last Filed: 03/14/21 19:33> All Active Problems (Updated 03/13/21 @ 01:46 by Yovanny Monteiro DO) Cellulitis of right leg (Acute) Cellulitis of right lower leg (Acute) 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 Diabetes mellitus (Chronic) Chronic venous insufficiency (Chronic) Essential hypertension (Chronic) Atrial fibrillation and flutter (Chronic 10/10/17) Morbid obesity (Chronic 10/13/17) Chronic anticoagulation (Acute) Medical History A-fib Dysphonia (10/13/17) Fracture of ankle left Hematuria Hyperlipidemia Hypertension Low back pain Morbid obesity with BMI of 50.0-59.9, adult Primary osteoarthritis of both knees (02/03/15) Solitary pulmonary nodule CT 2019- no nodule noted Tubular adenoma 01/13/15; DR. TAMEZ Venous insufficiency (chronic) (peripheral) Vocal cord paresis (10/13/17) Surgical History Colonoscopy - MAC (01/13/15) DR. OCTAVIA TAMEZ Excision, Tumor benign lymphatic mass right thigh History of excision of lesion Family History Mother , AGE 78 Diabetes Father , AGE 82 Essential hypertension Stroke Sister No problems noted. Brother Diabetes Essential hypertension Maternal Grandfather , AGE 86 Diabetes Essential hypertension Paternal Grandfather , AGE 62 Heart disease Stroke Essential hypertension Maternal Grandmother , AGE 99 Diabetes Essential hypertension Heart disease Sister Diabetes Essential hypertension Sister Asthma Depression Diabetes Essential hypertension Hyperlipidemia Brother Asthma Depression Essential hypertension Diabetes Heart disease Hyperlipidemia Brother Diabetes Essential hypertension Son No problems noted. Son No problems noted. 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 Pets and animals: Yes Pets and animals: dog(s) Sexually active: Yes Do you think of yourself as: straight/heterosexual Current gender identity: male What is your relationship status?: How often do you talk on the phone with friends or family?: three or more times per week How often do you get together with friends or relatives?: once per week Do you belong to any clubs or organized social groups?: no Panel score (0-1 are the most socially isolated patients): 2 What type of physical activity do you participate in: none Taisha/Samaritan: None Special taisha needs: No Seatbelt use: never Helmet use: Yes Helmet use: always Drive intox or ride w/intox pick up and delivery 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 Exam <Isaiah Velez NP - Last Filed: 03/14/21 19:33> Const General: cooperative, no acute distress and not ill appearing Orientation: alert, awake and oriented x3 HENMT Mouth: moist mucous membranes Resp Effort & Inspection: normal respiratory effort, able to speak in complete sentences and no respiratory distress Cardio Rate: regular rate Rhythm: regular rhythm Heart Sounds: S1 normal and S2 normal Skin General skin exam: dry skin, erythema (Right lower extremity from the knee all the way to midfoot-circumferential ) and other (Chronic venous stasis to bilateral lower extremities) Neuro General: patient alert, patient awake, patient oriented x3 and moves all extremities Extrem Right lower extremity: edema and lower leg Details: erythema (purulent drainage), tenderness and localized swelling Left lower extremity: edema Course <Isaiah Velez NP - Last Filed: 03/14/21 19:33> Vital Signs Vital signs: Vital Signs Temperature 36.3 C L 03/12/21 21:14 Pulse 105 H 03/12/21 21:14 Blood Pressure 161/108 H 03/12/21 21:14 Pulse Oximetry 98 03/12/21 21:14 Temperature 36.3 C L 03/12/21 21:14 Temperature Source Temporal Artery Scan 03/12/21 21:14 Pulse 105 H 03/12/21 21:14 Respiratory Effort Non-Labored 03/12/21 21:18 Blood Pressure 161/108 H 03/12/21 21:14 Blood Pressure Position Sitting 03/12/21 21:14 Pulse Oximetry 98 03/12/21 21:14 Oxygen Delivery Method Room Air 03/12/21 21:14 Oxygen Flow Rate 0 03/12/21 21:14 Pain Level 8 03/12/21 21:14 Sign Out <Isaiah Velez NP - Last Filed: 03/14/21 19:33> Sign Out Data: Sign Out Comment: Patient pending CT imaging of right lower extremity and admission. Last updated by Isaiah Velez NP at 03/13/21 00:04
[2021-03-12 21:41] LABS: Abs Immature Grans 0.05 10^3/uL (0.0-0.06); Absolute Basophil Count 0.04 10^3/uL (0.0-0.2); Absolute Eosinophil Count 0.04 10^3/uL (0.0-0.7); Absolute Lymphocyte Count 1.01 10^3/uL (1.2-3.4); Absolute Monocyte Count 1.07 10^3/uL (0.1-0.8); Absolute Neutrophil Count 7.15 10^3/uL (1.2-6.7); Basophils % 0.4; Eosinophils % 0.4; HCT 45.1 % (40.0-50.0); HGB 14.8 g/dL (13.5-17.5); Immature Grans % 0.5; Lactate 1.3 mmol/L (0.6-1.4); Lymphocytes % 10.8; MCH 30.7 pg (27.0-33.0); MCHC 32.8 % (32.0-36.0); MCV 93.6 fL (80-95); MPV 9.6 fL (8.0-11.0); Monocytes % 11.4; Neutrophils % 76.5; Nucleated RBC 0 %; Platelet Count 173 10^3/uL (130-400); RBC 4.82 10^6/uL (4.36-5.78); RDW 13.6 % (11.8-14.1); RDW-SD 46.8 fL; WBC 9.36 10^3/uL (4.4-10.8)
[2021-03-12 21:46] LABS: ESR 42 mm/hr (0-20)
[2021-03-12 21:48] LABS: Source Nasal/Nares
[2021-03-12 21:54] LABS: ALT 15 U/L (16-63); AST 24 U/L (15-37); Albumin 2.9 g/dL (3.4-5.0); Alkaline Phosphatase 60 U/L (46-116); Anion Gap 5.9 mmol/L (3-11); BUN 24 mg/dL (7-18); Bilirubin, Total 0.7 mg/dL (0.2-1.0); CO2 29.1 mmol/L (21.0-32.0); CREATININE 1.4 mg/dL (0.70-1.30); Calcium 8.5 mg/dL (8.5-10.1); Chloride 101 mmol/L (98-107); Estimated GFR 51.69 (mL/min/1.73m2); Glucose 177 mg/dL (74-106); Potassium 3.6 mmol/L (3.5-5.1); Sodium 136 mmol/L (136-145); Total Protein 7.2 g/dL (6.4-8.2)
[2021-03-12] MEDS: VANCOMYCIN 2,000 MG in Normal Saline 500 ML 250 MG IVPB (21:58)
[2021-03-12 22:06] LABS: C-Reactive Protein 23.68 mg/dL (0.0-0.3)
[2021-03-12] MEDS: MORPHine 4 MG/ML SYR IVP (22:37)
[2021-03-12 22:47] VITALS: BP 126/88; PULSE 108; RESP 20; O2SAT 97
--- NOTE | 2021-03-12 23:01 | DI.CT_ITS ---
Exam(s) CT LOWER EXTREMITY RT W CT CT LOWER EXTREMITY RT W from 10/04/2019 EXAM: CT LOWER EXTREMITY RT W CLINICAL HISTORY: pain and swelling. TECHNIQUE: Imaging Protocol: Axial computed tomography images with coronal and sagittal reformatted images were created and reviewed. CONTRAST MATERIAL: Intravenous: Omnipaque 350. Contrast Volume: 100 mL ML COMPARISON: CT CT LOWER EXTREMITY RT W from 10/04/2019 CR XR KNEE RT 3V AP,LAT,BLAZE from 07/10/2020 FINDINGS: Bones: The osseous structures and articular surfaces are intact. Marked tricompartment osteoarthrit is of the right knee is identified. Bony alignment is satisfactory. No findings to suggest osteomye litis. No lytic or sclerotic lesions are identified. Soft Tissues: There is extensive subcutaneous fluid extending from the knee down into the foot. No f ocal fluid collection is seen to suggest an abscess. No gas is seen in the soft tissues. It does no t appear to involve the musculature or the fascia of the lower extremity. Enhancement: No abnormal enhancement is identified. IMPRESSION: 1. Extensive subcutaneous edema in the lower extremity. No focal fluid collection is seen to suggest an abscess. No gas is seen in the soft tissues to suggest necrotizing disease. 2. There is no involvement of the underlying musculature or bone to suggest myositis/fasciitis/osteom yelitis. RADIATION DOSE DELIVERED: 586.21mGy.cm Total DLP 586.21mGy.cm Total DLP DATA REPOSITORY: All CT scans at this facility are submitted to the National Radiology Data Registry (NRDR) Dose Index Registry (DIR) with the [employer] (ACR). RADIATION OPTIMIZATION: All CT scans at this facility use at least one of these dose optimization te chniques: automated exposure control; mA and/or kV adjustment per patient size (includes targeted exa ms where dose is matched to clinical indication); or iterative reconstruction.
[2021-03-12 23:30] LABS: Creatine Kinase 480 U/L (39-308)
--- NOTE | 2021-03-12 23:31 | HPE_ITS ---
Date of service: 03/12/21 Time of Service: 23:31 Assessment and Plan Assessment and plan (1) Cellulitis of right lower leg: Status: Acute Assessment and plan: A cellulitis at a minimum but I am concerned about the possibility of deeper involvement. I have requested a CPK add on to labs and CT of leg. Will update treatment plan when results are in. History of Present Illness History of Present Illness Chief Complaint: leg pain Narrative: 60 male diabetic. Here with 4 days of right calf pain and swelling. 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 Admission advised. patient declined and sent home on Clindamycin. Returns tonight with persistent and worsening pain, redness and swelling right lower leg. Initial findings of note for absence of fever, massive swelling right lower leg with purulent oozing posteriorly, white count 9 and CRP 23. Patient given dose of Vanco and I was asked to evaluate for admission. 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 Diabetes mellitus (Chronic) Chronic venous insufficiency (Chronic) Essential hypertension (Chronic) Atrial fibrillation and flutter (Chronic 10/10/17) Morbid obesity (Chronic 10/13/17) Chronic anticoagulation (Acute) Medical History A-fib Dysphonia (10/13/17) Fracture of ankle left Hematuria Hyperlipidemia Hypertension Low back pain Morbid obesity with BMI of 50.0-59.9, adult Primary osteoarthritis of both knees (02/03/15) Solitary pulmonary nodule CT 2019- no nodule noted Tubular adenoma 01/13/15; DR. TAMEZ Venous insufficiency (chronic) (peripheral) Vocal cord paresis (10/13/17) Surgical History Colonoscopy - MAC (01/13/15) DR. OCTAVIA TAMEZ Excision, Tumor benign lymphatic mass right thigh History of excision of lesion Family History Mother , AGE 78 Diabetes Father , AGE 82 Essential hypertension Stroke Sister No problems noted. Brother Diabetes Essential hypertension Maternal Grandfather , AGE 86 Diabetes Essential hypertension Paternal Grandfather , AGE 62 Heart disease Stroke Essential hypertension Maternal Grandmother , AGE 99 Diabetes Essential hypertension Heart disease Sister Diabetes Essential hypertension Sister Asthma Depression Diabetes Essential hypertension Hyperlipidemia Brother Asthma Depression Essential hypertension Diabetes Heart disease Hyperlipidemia Brother Diabetes Essential hypertension Son No problems noted. Son No problems noted. 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 Pets and animals: Yes Pets and animals: dog(s) Sexually active: Yes Do you think of yourself as: straight/heterosexual Current gender identity: male What is your relationship status?: How often do you talk on the phone with friends or family?: three or more times per week How often do you get together with friends or relatives?: once per week Do you belong to any clubs or organized social groups?: no Panel score (0-1 are the most socially isolated patients): 2 What type of physical activity do you participate in: none Taisha/Restorationist: None Special taisha needs: No Seatbelt use: never Helmet use: Yes Helmet use: always Drive intox or ride w/intox team cdl 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 Meds Allergies and Home Medications Allergies Allergy/AdvReac Type Severity Reaction Status Date / Time lisinopril AdvReac Intermediate COUGH Verified 03/11/21 10:33 Home Medications Medication Instructions Recorded Confirmed Type Lancets,Thin #60 ea 12/01/15 03/12/21 Rx blood sugar diagnostic #100 strip 08/19/19 03/12/21 Rx amlodipine 10 mg tablet 10 mg PO DAILY #90 tab-cap 05/23/20 03/12/21 Rx losartan 100 mg tablet 100 mg PO DAILY #90 tab-cap 11/16/20 03/12/21 Rx metformin 500 mg tablet 500 mg PO DAILY #90 tab 11/16/20 03/12/21 Rx warfarin 5 mg tablet 5 mg PO DIRECTED #90 tab 11/16/20 03/12/21 Rx furosemide 20 mg tablet 20 mg PO DAILY #90 tab 02/09/21 03/12/21 Rx clindamycin HCl 300 mg PO Q6H 10 Days #40 cap 03/11/21 03/12/21 Rx clindamycin HCl 300 mg PO Q6H 03/12/21 03/12/21 History Exam Narrative Exam Narrative: 126/68, 108, 36.6, 20, 97% RA. HEENT atraumatic; neck supple; lungs dimished but clear; heart RRR; abdomen soft and NT; extremities LLE with chronic lympedema and stasis changes, RLE shows massive swelling leg with diffuse erythema (masked somewhat by stasis changes) and exquisite tenderness especially posteriorly; some oozing noted by ER staff with yellow staining on chucks, no cord appreciated, pedal pulkses difficult to assess due to edema but DP and PT present on Doppler Results Labs Result diagrams: 03/12/21 21:30 03/12/21 21:30 Labs: Laboratory Results - last 24 hr 03/12/21 03/12/21 03/12/21 21:30 21:30 21:30 WBC RBC Hgb Hct MCV MCH MCHC RDW Plt Count MPV Immature Gran % Neutrophils % Lymphocytes % Monocytes % Eosinophils % Basophils % Nucleated RBC % Absolute Neutrophils Absolute Lymphocytes Absolute Monocytes Absolute Eosinophils Absolute Basophils ESR 42 H VBG Lactate 1.3 Sodium 136 Potassium 3.6 Chloride 101 Carbon Dioxide 29.1 Anion Gap 5.9 BUN 24 H Creatinine 1.4 H Estimated GFR/1.73 m2 51.69 Glucose 177 H Calcium 8.5 Total Bilirubin 0.7 AST 24 ALT 15 L Alkaline Phosphatase 60 C-Reactive Protein 23.68 H Total Protein 7.2 Albumin 2.9 L COVID-19 Source 03/12/21 03/12/21 21:30 21:45 WBC 9.36 RBC 4.82 Hgb 14.8 Hct 45.1 MCV 93.6 MCH 30.7 MCHC 32.8 RDW 13.6 Plt Count 173 MPV 9.6 Immature Gran % 0.5 Neutrophils % 76.5 Lymphocytes % 10.8 Monocytes % 11.4 Eosinophils % 0.4 Basophils % 0.4 Nucleated RBC % 0 Absolute Neutrophils 7.15 H Absolute Lymphocytes 1.01 L Absolute Monocytes 1.07 H Absolute Eosinophils 0.04 Absolute Basophils 0.04 ESR VBG Lactate Sodium Potassium Chloride Carbon Dioxide Anion Gap BUN Creatinine Estimated GFR/1.73 m2 Glucose Calcium Total Bilirubin AST ALT Alkaline Phosphatase C-Reactive Protein Total Protein Albumin COVID-19 Source Nasal/Nares Last Vital Signs Temp 36.3 C L 03/12/21 21:14 Pulse 108 H 03/12/21 22:47 Resp 20 03/12/21 22:47 BP 126/88 03/12/21 22:47 Pulse Ox 97 03/12/21 22:47
[2021-03-12 23:55] VITALS: BP 114/62; PULSE 106; RESP 20; TEMP 36.6; O2SAT 97
[2021-03-13 01:27] LABS: COVID-19 PCR Negative (Negative)
--- NOTE | 2021-03-13 01:41 | DI.VRAD_ITS ---
PROCEDURE INFORMATION: Exam: CT Right Lower Extremity With Contrast; Lower Leg Exam date and time: 03/12/2021 12:33 AM Age: 60 years old Clinical indication: Cellulitis and swelling, leg or foot; Calf; Right; Lower leg; Patient HX: Pain and swelling TECHNIQUE: Imaging protocol: CT of the Right lower extremity with intravenous contrast was performed. Exam focused on the lower leg. Radiation optimization: All CT scans at this facility use at least one of these dose optimization techniques: automated exposure control; mA and/or kV adjustment per patient size (includes targeted exams where dose is matched to clinical indication); or iterative reconstruction. Contrast material: OMNIPAQUE 350; Contrast volume: 100 ml; Contrast route: INTRAVENOUS (IV); COMPARISON: CT LOWER EXTREMITY RT W 10/04/2019 8:22 AM FINDINGS: Bones/joints: Severe tricompartmental osteoarthritis of the right knee Soft tissues: Extensive subcutaneous fluid may reflect edema and or cellulitis extending from the level of the knee to the foot crossing the ankle. If cellulitis, no gas is present to suggest necrotizing infection. No discrete abscess is evident . The process appears to be limited by the superficial investing fascial layer of the lower leg compartments without evidence for fasciitis or myositis. IMPRESSION: Extensive subcutaneous fluid may reflect edema and or cellulitis extending from the level of the knee to the foot crossing the ankle. If cellulitis, no gas is present to suggest necrotizing infection. No discrete abscess is evident . The process appears to be limited by the superficial investing fascial layer of the lower leg compartments without evidence for fasciitis or myositis. Dictated and Authenticated by: Keith Butterfield MD. Ordering:TEN Colon MD
[2021-03-13 02:49] VITALS: BP 146/88; PULSE 66; RESP 19; TEMP 38.2; O2SAT 95
[2021-03-13 02:58] VITALS: BP 146/88; PULSE 66; RESP 66; TEMP 38.2; O2SAT 95
[2021-03-13] MEDS: PIPERACILLIN/TAZO 3.375 GM in Normal Saline 50 ML IVPB ×4 (04:12→22:22)
[2021-03-13] MEDS: CLINDAMYCIN 600 MG/50 ML BAG 100 MG (04:59)
[2021-03-13 06:45] VITALS: BP 102/57; PULSE 87; RESP 20; TEMP 37.2; O2SAT 96
[2021-03-13 07:33] LABS: INR 2.1 (0.9-1.1); Prothrombin Time 20.7 sec (9.3-11.0)
[2021-03-13] MEDS: MORPHine 4 MG/ML SYR IVP ×3 (08:36→23:26)
[2021-03-13] MEDS: Furosemide 40 MG/4 ML VIAL IVP ×2 (08:38→17:12)
[2021-03-13] MEDS: Losartan 50 MG TAB 100 MG PO (08:42)
[2021-03-13] MEDS: amLODIPine 10 MG TAB PO (08:48)
--- NOTE | 2021-03-13 10:16 | PDOC.CMIN ---
- If Service Date Differs Date of service: 03/13/21 Time of Service: 10:16 Care Management Initial Assess REASON FOR HOSPITALIZATION:: Cellulitis PAST MEDICAL HISTORY/PAST SURGICAL HISTORY:: A-fib. Dysphonia (10/13/17). Fracture of ankle. left. Hematuria. Hyperlipidemia. Hypertension. Low back pain. Morbid obesity with BMI of 50.0-59.9, adult. Primary osteoarthritis of both knees (02/03/15). Solitary pulmonary nodule. CT 2019- no nodule noted. Tubular adenoma. 01/13/15; DR. TMAEZ. Venous insufficiency (chronic) (peripheral). Vocal cord paresis (10/13/17). Surgical History . Colonoscopy - MAC (01/13/15). DR. OCTAVIA TAMEZ. Excision, Tumor. benign lymphatic mass right thigh. History of excision of lesion PREVIOUS FUNCTIONAL STATUS/SOCIAL/FAMILY SUPPORTS:: Corey lives in a single family home in [place], [place] with his Agatha. Corey has 8 children and 18 grandchildren, many of which live in [place]. 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 He does not receive any community supports nor does he require any assistive devices. CURRENT FUNCTIONAL STATUS:: Corey was sitting up in bed visiting with his when CM met with him. He was pleasant and was agreeable to conversation. He admitted that he does not like to take medicine or go to the doctor or hospital. His described him as being very independent. ADVANCE DIRECTIVES:: None on file at [facility]. Has patient been provided with info about the portal/API?: Yes Did the patient sign up for the portal?: Yes (Previously) CODE STATUS:: Full Code INSURANCE COVERAGE / FINANCIAL ISSUES:: CBA CURRENT HOME/COMMUNITY SERVICES/EQUIPMENT:: None, currently. PRIMARY CARE PHYSICIAN:: Kaylen Ellis POTENTIAL DISCHARGE NEEDS:: Determination on extended IV ABX course, evaluation for discharge needs. PATIENT/FAMILY EDUCATION NEEDS:: Review discharge instructions, discuss Ask Me Three. ANTICIPATED BARRIERS TO DISCHARGE:: None identified at this time. TRANSPORTATION:: Via private vehicle with family. PLAN:: Corey continues to be closely monitored and treated, CM continues to follow. Anticipate he will follow up with his PCP and plan of care as prescribed. Undetermined if he will require L/T IV ABX at this time, CM continues to follow.
[2021-03-13] MEDS: CLINDAMYCIN 600 MG/50 ML BAG 100 MG IVPB ×2 (11:45→18:27)
[2021-03-13] MEDS: VANCOMYCIN/WATER (PEG) 1.5 GM/300 ML BAG IV (12:54)
[2021-03-13] MEDS: Insulin Aspart 300 UNITS/3 ML PEN SC ×2 (13:08→18:26)
[2021-03-13] MEDS: Lactobacillus Acidophilus CAP 1 CAP PO ×2 (15:05→20:49)
[2021-03-13] MEDS: Normal Saline Flush 10 ML SYR IVP (17:10)
--- NOTE | 2021-03-13 17:19 | W.PM.PROGNOT ---
Date of Service Date of service: 03/13/21 Time of Service: 17:19 Assessment and Plan Assessment and plan (1) Cellulitis of right leg: Status: Acute Assessment and plan: Continue vancomycin and clindamycin and Zosyn. Check nasal swab for MRSA. Continue elevation of the right leg. Recommend use of an Deangelo wrap. Obtain wound care consultation. Continue IV Lasix. I talked with the patient and his about him being evaluated as an outpatient for treatment of lymphedema using lymphedema pumps. However at the present time with an acute infection the best we can do is use Deangelo wraps and elevation. (2) Type 2 diabetes mellitus with diabetic nephropathy: Status: Acute Assessment and plan: Use basal insulin and NovoLog bolus insulin with carb coverage and corrective sliding scale. (3) SHELLY on CPAP: Status: Chronic Assessment and plan: is to provide his CPAP machine to be used at night. (4) Chronic venous insufficiency: Status: Chronic Assessment and plan: Once his lymphedema is improved and his cellulitis has resolved he should be evaluated for Jobst stockings and/or lymphedema pumps. (5) Essential hypertension: Status: Chronic Assessment and plan: Continue home antihypertensive therapy with losartan and amlodipine. Subjective Subjective Interval history since last seen: Patient was admitted last night for worsening cellulitis of his right leg. He had failed outpatient oral clindamycin therapy. He was started on Zosyn, vancomycin, parenteral clindamycin. He was also put on IV Lasix. He has had significant improvement in the redness in his right leg. Right leg remains swollen however patient has not been keeping the leg propped up. Nursing staff marked the right leg and he had erythema extending above the right knee and now the furthest extent of the redness is just distal to the right patella Exam Narrative Exam Narrative: Morbidly obese white male sitting up in his chair with his legs hanging down. He appears to be in no respiratory distress. He is alert and oriented x3. Lungs are clear to auscultation Heart is irregular rhythm but controlled rate Abdomen is obese soft and nontender Legs with 3+ pitting edema in the right calf and pretibial surface all the way up to the right patella and 2+ edema in his left lower leg. He has chronic venous stasis skin changes with bronze discoloration and some purplish discoloration of both legs. He has palpable pedal pulses. Skin of both legs have a grainy pebbly appearance from chronic venous stasis lichenification. Objective Last Vital Signs Temp 37.2 C 03/13/21 06:45 Pulse 87 03/13/21 06:45 Resp 20 03/13/21 06:45 BP 102/57 L 03/13/21 06:45 Pulse Ox 96 03/13/21 06:45 Laboratory Results - last 24 hr 03/12/21 03/12/21 03/12/21 21:30 21:30 21:30 WBC RBC Hgb Hct MCV MCH MCHC RDW Plt Count MPV Immature Gran % Neutrophils % Lymphocytes % Monocytes % Eosinophils % Basophils % Nucleated RBC % Absolute Neutrophils Absolute Lymphocytes Absolute Monocytes Absolute Eosinophils Absolute Basophils ESR 42 H PT INR VBG Lactate 1.3 Sodium 136 Potassium 3.6 Chloride 101 Carbon Dioxide 29.1 Anion Gap 5.9 BUN 24 H Creatinine 1.4 H Estimated GFR/1.73 m2 51.69 Glucose 177 H Calcium 8.5 Total Bilirubin 0.7 AST 24 ALT 15 L Alkaline Phosphatase 60 Creatine Kinase C-Reactive Protein 23.68 H Total Protein 7.2 Albumin 2.9 L COVID-19 Source SARS-CoV-2 (PCR) 03/12/21 03/12/21 03/12/21 21:30 21:30 21:45 WBC 9.36 RBC 4.82 Hgb 14.8 Hct 45.1 MCV 93.6 MCH 30.7 MCHC 32.8 RDW 13.6 Plt Count 173 MPV 9.6 Immature Gran % 0.5 Neutrophils % 76.5 Lymphocytes % 10.8 Monocytes % 11.4 Eosinophils % 0.4 Basophils % 0.4 Nucleated RBC % 0 Absolute Neutrophils 7.15 H Absolute Lymphocytes 1.01 L Absolute Monocytes 1.07 H Absolute Eosinophils 0.04 Absolute Basophils 0.04 ESR PT INR VBG Lactate Sodium Potassium Chloride Carbon Dioxide Anion Gap BUN Creatinine Estimated GFR/1.73 m2 Glucose Calcium Total Bilirubin AST ALT Alkaline Phosphatase Creatine Kinase 480 H C-Reactive Protein Total Protein Albumin COVID-19 Source Nasal/Nares SARS-CoV-2 (PCR) Negative 03/13/21 06:23 WBC RBC Hgb Hct MCV MCH MCHC RDW Plt Count MPV Immature Gran % Neutrophils % Lymphocytes % Monocytes % Eosinophils % Basophils % Nucleated RBC % Absolute Neutrophils Absolute Lymphocytes Absolute Monocytes Absolute Eosinophils Absolute Basophils ESR PT 20.7 H INR 2.1 H VBG Lactate Sodium Potassium Chloride Carbon Dioxide Anion Gap BUN Creatinine Estimated GFR/1.73 m2 Glucose Calcium Total Bilirubin AST ALT Alkaline Phosphatase Creatine Kinase C-Reactive Protein Total Protein Albumin COVID-19 Source SARS-CoV-2 (PCR)
--- NOTE | 2021-03-13 17:32 | CHAPLAIN ---
Corey was up in the chair watching tv when I visited. He told me that his , Danyelle works at [employer]. She's the gis manager of the [employer]. Corey was pleasant, but did not seem interested in further conversation.
[2021-03-13 19:11] VITALS: BP 128/75; PULSE 65; RESP 18; TEMP 37.4; O2SAT 95
[2021-03-13] MEDS: Warfarin 5 MG TAB PO (20:49)
[2021-03-13] MEDS: CLINDAMYCIN 600 MG/50 ML BAG 50 MG IVPB (20:49)
[2021-03-13] MEDS: Insulin Glargine 300 UNITS/3 ML PEN 10 UNITS SC (23:04)
[2021-03-13 23:45] VITALS: BP 126/72; PULSE 91; RESP 19; TEMP 37.6; O2SAT 92
[2021-03-14] MEDS: VANCOMYCIN/WATER (PEG) 1.5 GM/300 ML BAG IV ×2 (02:15→18:38)
[2021-03-14] MEDS: MORPHine 4 MG/ML SYR IVP ×3 (02:19→22:22)
[2021-03-14 02:24] VITALS: BP 126/72; PULSE 91; RESP 19; TEMP 37.6; O2SAT 92
[2021-03-14] MEDS: CLINDAMYCIN 600 MG/50 ML BAG 50 MG IVPB ×4 (03:53→22:23)
[2021-03-14] MEDS: PIPERACILLIN/TAZO 3.375 GM in Normal Saline 50 ML IVPB ×4 (04:31→22:49)
[2021-03-14 07:14] LABS: Abs Immature Grans 0.04 10^3/uL (0.0-0.06); Absolute Basophil Count 0.06 10^3/uL (0.0-0.2); Absolute Eosinophil Count 0.11 10^3/uL (0.0-0.7); Absolute Lymphocyte Count 0.91 10^3/uL (1.2-3.4); Absolute Monocyte Count 0.91 10^3/uL (0.1-0.8); Absolute Neutrophil Count 4.75 10^3/uL (1.2-6.7); Basophils % 0.9; Eosinophils % 1.6; HCT 41.6 % (40.0-50.0); HGB 13.1 g/dL (13.5-17.5); Immature Grans % 0.6; Lymphocytes % 13.4; MCH 29.7 pg (27.0-33.0); MCHC 31.5 % (32.0-36.0); MCV 94.3 fL (80-95); MPV 9.5 fL (8.0-11.0); Monocytes % 13.4; Neutrophils % 70.1; Nucleated RBC 0 %; Platelet Count 186 10^3/uL (130-400); RBC 4.41 10^6/uL (4.36-5.78); RDW 13.5 % (11.8-14.1); RDW-SD 47.6 fL; WBC 6.78 10^3/uL (4.4-10.8)
[2021-03-14 07:26] LABS: INR 2.2 (0.9-1.1); Prothrombin Time 22.1 sec (9.3-11.0)
[2021-03-14 07:39] LABS: Anion Gap 3.7 mmol/L (3-11); BUN 25 mg/dL (7-18); C-Reactive Protein 21.03 mg/dL (0.0-0.3); CO2 30.3 mmol/L (21.0-32.0); CREATININE 1.2 mg/dL (0.70-1.30); Calcium 8.2 mg/dL (8.5-10.1); Chloride 102 mmol/L (98-107); Creatine Kinase 185 U/L (39-308); Glucose 104 mg/dL (74-106); Potassium 3.5 mmol/L (3.5-5.1); Sodium 136 mmol/L (136-145)
[2021-03-14 08:08] VITALS: BP 132/91; PULSE 93; RESP 14; TEMP 36.8; O2SAT 95
[2021-03-14] MEDS: amLODIPine 10 MG TAB PO (09:10)
[2021-03-14] MEDS: Losartan 50 MG TAB 100 MG PO (09:10)
[2021-03-14] MEDS: Lactobacillus Acidophilus CAP 1 CAP PO ×3 (09:10→19:48)
[2021-03-14] MEDS: Normal Saline Flush 10 ML SYR IVP ×6 (09:11→22:23)
[2021-03-14] MEDS: Insulin Aspart 300 UNITS/3 ML PEN SC ×3 (09:12→17:46)
[2021-03-14] MEDS: Furosemide 40 MG/4 ML VIAL IVP ×2 (10:23→16:53)
[2021-03-14 10:55] VITALS: RESP 20
--- NOTE | 2021-03-14 12:37 | PGE_ITS ---
Date of Service Date of service: 03/14/21 Time of Service: 12:38 Assessment and Plan Assessment and plan (1) Cellulitis of right leg: Status: Acute Assessment and plan: Continue hisCheck results of his MRSA screen. If it is negative vancomycin. Continue clindamycin and Zosyn for now. Consider switch to Augmentin and Bactrim combination upon discharge. (2) Type 2 diabetes mellitus with diabetic nephropathy: Status: Acute Assessment and plan: Use basal insulin and NovoLog bolus insulin with carb coverage and corrective sliding scale. Blood sugars well controlled on her current regimen. Fasting glucose 101. Blood sugar at lunchtime 107. Bedtime glucose 131 last night. (3) SHELLY on CPAP: Status: Chronic Assessment and plan: is to provide his CPAP machine to be used at night. (4) Chronic venous insufficiency: Status: Chronic Assessment and plan: Once his lymphedema is improved and his cellulitis has resolved he should be evaluated for Jobst stockings and/or lymphedema pumps. Continue furosemide 40 mg IV every 12 hours. Continue to monitor daily BMP. Replace potassium. (5) Essential hypertension: Status: Chronic Assessment and plan: Continue home antihypertensive therapy with losartan and amlodipine. Subjective Subjective Interval history since last seen: Patient is doing markedly better. He is afebrile. 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 He has been elevating the leg higher than his chest as much as possible although late last night he had have the Deangelo wraps taken off and had to take the pillow out from underneath his legs because he could not sleep. When I saw him in his room he was lying on his back with his legs elevated on a pillow higher than his chest and he was watching TV. I reviewed his cultures his blood culture showed no growth so far. Initial wound culture from 03/11/2021 just showed normal skin angella. Repeat wound culture from 03/13/2021 shows rare gram-positive cocci but no white blood cells. His wound is no longer weeping. MRSA screen is pending at this time. Patient remains on triple antibiotic therapy with vancomycin, Zosyn, clindamycin. If his MRSA screen is negative I will try to consolidate his antibiotic treatment and hopefully get him on a good outpatient regimen. I suspect he is going need a combination of Bactrim DS along with Augmentin. For now we will continue diuretic therapy while we monitor his renal function electrolytes. Once he is recovered from his cellulitis him to recommend that he get fitted for Jobst stockings and/or see if he qualifies for lymphedema pumps Exam Narrative Exam Narrative: Morbidly obese gentleman lying on his back watching TV in no distress. Chest is barrel chested. Lungs are clear. Heart is regular rate and rhythm. Abdomen is obese soft nontender. Lower extremities with 2+ pitting edema. He has brown discoloration of both tibial surfaces secondary to stasis dermatitis changes. I unwrapped his right leg and found that there was no weeping of fluid from his calf. In addition to the brown discoloration of skin is purplish coloration along with a grainy, pebbly surface to his skin. Pedal pulses are intact. Objective Last Vital Signs Temp 36.8 C 03/14/21 08:08 Pulse 93 H 03/14/21 08:08 Resp 14 03/14/21 08:08 BP 132/91 H 03/14/21 08:08 Pulse Ox 95 03/14/21 08:08 Laboratory Results - last 24 hr 03/14/21 03/14/21 03/14/21 06:30 06:30 06:30 WBC 6.78 RBC 4.41 Hgb 13.1 L Hct 41.6 MCV 94.3 MCH 29.7 MCHC 31.5 L RDW 13.5 Plt Count 186 MPV 9.5 Immature Gran % 0.6 Neutrophils % 70.1 Lymphocytes % 13.4 Monocytes % 13.4 Eosinophils % 1.6 Basophils % 0.9 Nucleated RBC % 0 Absolute Neutrophils 4.75 Absolute Lymphocytes 0.91 L Absolute Monocytes 0.91 H Absolute Eosinophils 0.11 Absolute Basophils 0.06 PT 22.1 H INR 2.2 H Sodium 136 Potassium 3.5 Chloride 102 Carbon Dioxide 30.3 Anion Gap 3.7 BUN 25 H Creatinine 1.2 Estimated GFR/1.73 m2 >= 60.00 Glucose 104 D Calcium 8.2 L Creatine Kinase 185 C-Reactive Protein 21.03 H
[2021-03-14] MEDS: Potassium Chloride 10 MEQ CAPCR 20 MEQ PO ×2 (13:15→19:48)
[2021-03-14 15:54] VITALS: BP 113/63; PULSE 92; TEMP 37.6; O2SAT 92
[2021-03-14] MEDS: Bisacodyl 10 MG SUPP PR (17:08)
--- NOTE | 2021-03-14 18:01 | CMPROGNOTE_ITS ---
Care Management Progress Note S/O: Corey continues to be monitored and diuresed at this time. Per MD, Corey is doing much better today, laying in bed with legs elevated. His is bringing in his CPAP for use at night, per MD. CM continues to follow. A: 60 year old male admitted to [facility] 03/13/21 for Cellulitis P: Per MD note, Corey may be able to follow outpatient regimen of antibiotics and outpatient management of lymphedema, plan remains undetermined at this time. CM continues to follow.
[2021-03-14] MEDS: Sennosides/Docusate Sodium TAB 1 TAB PO (19:48)
[2021-03-14] MEDS: Warfarin 5 MG TAB PO (19:48)
[2021-03-14] MEDS: Normal Saline 500 ML 30 ML IV (22:20)
[2021-03-14] MEDS: Acetaminophen 325 MG TAB 650 MG PO (22:22)
[2021-03-14] MEDS: Insulin Glargine 300 UNITS/3 ML PEN 8 UNITS SC (22:27)
[2021-03-14 22:52] VITALS: BP 105/70; PULSE 84; RESP 18; TEMP 37.5; O2SAT 95
[2021-03-15] MEDS: CLINDAMYCIN 600 MG/50 ML BAG 50 MG IVPB ×2 (03:15→11:23)
[2021-03-15] MEDS: Normal Saline Flush 10 ML SYR IVP ×4 (03:15→18:45)
[2021-03-15] MEDS: PIPERACILLIN/TAZO 3.375 GM in Normal Saline 50 ML IVPB ×2 (03:57→10:31)
[2021-03-15 05:52] LABS: Abs Immature Grans 0.06 10^3/uL (0.0-0.06); Absolute Basophil Count 0.07 10^3/uL (0.0-0.2); Absolute Eosinophil Count 0.11 10^3/uL (0.0-0.7); Absolute Lymphocyte Count 0.62 10^3/uL (1.2-3.4); Absolute Monocyte Count 0.71 10^3/uL (0.1-0.8); Absolute Neutrophil Count 4.19 10^3/uL (1.2-6.7); Basophils % 1.2; Eosinophils % 1.9; HCT 43.3 % (40.0-50.0); HGB 13.3 g/dL (13.5-17.5); Lymphocytes % 10.8; MCH 29.5 pg (27.0-33.0); MCHC 30.7 % (32.0-36.0); MPV 9.5 fL (8.0-11.0); Monocytes % 12.3; Neutrophils % 72.8; Nucleated RBC 0 %; Platelet Count 188 10^3/uL (130-400); RBC 4.51 10^6/uL (4.36-5.78); RDW 13.6 % (11.8-14.1); RDW-SD 48.4 fL; WBC 5.76 10^3/uL (4.4-10.8)
[2021-03-15 06:09] LABS: Anion Gap 8.1 mmol/L (3-11); BUN 22 mg/dL (7-18); CO2 30.9 mmol/L (21.0-32.0); CREATININE 1.1 mg/dL (0.70-1.30); Calcium 8.2 mg/dL (8.5-10.1); Chloride 101 mmol/L (98-107); Glucose 110 mg/dL (74-106); INR 3.1 (0.9-1.1); Potassium 3.9 mmol/L (3.5-5.1); Prothrombin Time 30.1 sec (9.3-11.0); Sodium 140 mmol/L (136-145); Vancomycin, Trough 12.4 ug/mL (10.0-20.0)
[2021-03-15] MEDS: VANCOMYCIN/WATER (PEG) 1.5 GM/300 ML BAG IV (06:23)
[2021-03-15 06:55] LABS: Procalcitonin 0.4 ng/mL
[2021-03-15] MEDS: Potassium Chloride 10 MEQ CAPCR 20 MEQ PO ×2 (08:10→19:49)
[2021-03-15] MEDS: Sennosides/Docusate Sodium TAB 1 TAB PO ×2 (08:10→19:50)
[2021-03-15] MEDS: Lactobacillus Acidophilus CAP 1 CAP PO ×3 (08:10→20:08)
[2021-03-15] MEDS: Losartan 50 MG TAB 100 MG PO (08:10)
[2021-03-15] MEDS: amLODIPine 10 MG TAB PO (08:10)
[2021-03-15] MEDS: Insulin Aspart 300 UNITS/3 ML PEN SC ×3 (08:40→17:36)
[2021-03-15 08:49] VITALS: BP 159/87; PULSE 89; RESP 18; TEMP 36.4; O2SAT 94
[2021-03-15] MEDS: Furosemide 40 MG/4 ML VIAL IVP (09:01)
[2021-03-15] MEDS: MORPHine 4 MG/ML SYR IVP ×2 (13:05→17:34)
--- NOTE | 2021-03-15 13:51 | WOUNDCONS_ITS ---
- If Service Date Differs Date of service: 03/15/21 Time of Service: 13:30 Wound Initial Evaluation Narrative: Patient is a 60 yom, seen here for Cellulitis. He has a hx of recurrent cellulitis, HTN, A-Fib, and DM. Latest A1C was 6.1. Patient agrees to have wound consult and signs consent. Patient's H&P, labs and other pertinent information were reviewed prior to the consult. - Wound Right Tib/Fib(lower leg) Wound Type: Other (cellulitis) Wound General Appearance: Reddened, Healing Well Wound Bed Greatest Portion: Red (Granulation) Wound Surrounding Tissue Appearance: Dark Red Percent of Wound Bed Granulated/Red: 100 Wound Length: 43 cm Wound Width: 57 cm Wound Depth: 0.1 cm (less than) Wound Drainage Amount: None Wound Drainage Odor: None/Absent Wound Drainage Description: No drainage Wound Topical Solution/Irrigant: Antibiotic Irrigant Wound Debridement Method: Mechanical Wound Debridement Result: Healthy Tissue Revealed Wound Debridement Amount of Tissue Removed: Minimal - Circulation, Sensation, Motion Edema Degree: 3+ Peripheral Pulse Strength: Weak (pulses verified with doppler) Capillary Refill: Less than 3 seconds Sensation Description: Numbness, Tingling, Pain Skin Temperature: Warm - Pain Pain Level: 8 (with debridement) Pain Description: Burning, Pulsing Pain Duration/Frequency: With Palpation Patient was advised to wear good durable footwear and to seek a podiatry consult related to cracked dry skin on the heels and thick micotic nails. Discussed with patient goals of starting by wearing compression 3 hours on 1 hour off, and expanding the time he allows compression on as the wounds heal. - Treatment/Dressing Change Topicals/Ointments: None Cleanse With: Anasept Dressing Types: Haider Dressing, Tegaderm Absorbent, Other (pili wrap) - Recomendation Recomendation:: Both lower legs. [place] with Anasept spray, allow to dwell for 2 minutes. Debride leg with Debrisoft sponge. Wrap legs with pili wraps for compression 3 hours on and one hour off, expanding the time with compression on as patient can tolerate. Keep legs elevated as tolerated Perform daily. Physcian/Nurse Practioner Notified: Yes (Dr. Guzman) Referrals: Podiatry Treatment Time - Time Total Time Spent with Patient: 45 minutes - Patient Will be Seen Weekly Treatment: daily - For: For:: 1 week
[2021-03-15 15:40] VITALS: BP 121/76; PULSE 83; RESP 17; TEMP 37.4; O2SAT 95
--- NOTE | 2021-03-15 16:03 | W.PM.PROGNOT ---
Date of Service Date of service: 03/15/21 Time of Service: 16:03 Assessment and Plan Assessment and plan (1) Cellulitis of right leg: Status: Acute Assessment and plan: dc Vancomycin in favor of Daptomycin (vanco trough was only 12.4 this morning. Change Zosyn to 4.5 gm slow iv infusion q8hr (better coverage of anaerobes and Pseudomonas at this dose). dc clindamycin (already failed outpatient oral treatment w/ this). (2) Type 2 diabetes mellitus with diabetic nephropathy: Status: Acute Assessment and plan: Use basal insulin and NovoLog bolus insulin with carb coverage and corrective sliding scale. Blood sugars well controlled on her current regimen. Glucose running 99 to 108. (3) SHELLY on CPAP: Status: Chronic Assessment and plan: is to provide his CPAP machine to be used at night. (4) Chronic venous insufficiency: Status: Chronic Assessment and plan: Once his lymphedema is improved and his cellulitis has resolved he should be evaluated for Jobst stockings and/or lymphedema pumps. Continue furosemide 40 mg IV every 12 hours. Continue to monitor daily BMP. Replace potassium. (5) Essential hypertension: Status: Chronic Assessment and plan: Continue home antihypertensive therapy with losartan and amlodipine. Subjective Subjective Interval history since last seen: Corey overall is improving although not in leaps and bounds. Still has tightness in his right leg and pain in the right leg although he says that it is better from when he presented. He has had no fevers and his inflammatory markers are improving (WBC down to 5700, CRP down to 13.9 from high of 23.6). He is currently on Vancomycin, Zosyn (3.375 gm iv q6h), and clindamycin (which he had been on oral clinda at home). His MRS screen was negative. Exam Narrative Exam Narrative: Corey is lying in bed watching TV w/his legs elevated on a wedge cushion w/ his legs higher than his chest Right leg edema has decreased although the calf is still quite tense and tender. The area of erythema has definitely declined from it worst point which was above the knee. he has residual stasis brown/purplish discoloration to his tibia w/ a pebbly feel to the skin. Skin is not using any edema. He has 2+ pitting edema of his leg and foot. Pedal pulses are intact. Objective Last Vital Signs Temp 37.4 C 03/15/21 15:40 Pulse 83 03/15/21 15:40 Resp 17 03/15/21 15:40 BP 121/76 03/15/21 15:40 Pulse Ox 95 03/15/21 15:40 Laboratory Results - last 24 hr 03/15/21 03/15/21 03/15/21 05:19 05:19 05:19 WBC RBC Hgb Hct MCV MCH MCHC RDW Plt Count MPV Immature Gran % Neutrophils % Lymphocytes % Monocytes % Eosinophils % Basophils % Nucleated RBC % Absolute Neutrophils Absolute Lymphocytes Absolute Monocytes Absolute Eosinophils Absolute Basophils PT 30.1 H D INR 3.1 H D Sodium 140 Potassium 3.9 Chloride 101 Carbon Dioxide 30.9 Anion Gap 8.1 BUN 22 H Creatinine 1.1 Estimated GFR/1.73 m2 >= 60.00 Glucose 110 H Calcium 8.2 L C-Reactive Protein 13.90 H Procalcitonin Vancomycin Trough 12.4 03/15/21 03/15/21 05:19 05:19 WBC 5.76 RBC 4.51 Hgb 13.3 L Hct 43.3 MCV 96.0 H MCH 29.5 MCHC 30.7 L RDW 13.6 Plt Count 188 MPV 9.5 Immature Gran % 1.0 Neutrophils % 72.8 Lymphocytes % 10.8 Monocytes % 12.3 Eosinophils % 1.9 Basophils % 1.2 Nucleated RBC % 0 Absolute Neutrophils 4.19 Absolute Lymphocytes 0.62 L Absolute Monocytes 0.71 Absolute Eosinophils 0.11 Absolute Basophils 0.07 PT INR Sodium Potassium Chloride Carbon Dioxide Anion Gap BUN Creatinine Estimated GFR/1.73 m2 Glucose Calcium C-Reactive Protein Procalcitonin 0.4 Vancomycin Trough
--- NOTE | 2021-03-15 16:46 | CMPROGNOTE_ITS ---
Care Management Progress Note S/O: Corey continues to be monitored and diuresed at this time. Per MD, awaiting MRSA cultures to determine course of treatment. CM continues to follow. A: 60 year old male admitted to [facility] 03/13/21 for Cellulitis P: Per MD, Corey may be able to follow outpatient regimen of antibiotics and outpatient management of lymphedema, plan remains undetermined at this time; awaiting MRSA cultures. CM continues to follow.
[2021-03-15] MEDS: Torsemide 20 MG TAB PO (19:49)
[2021-03-15] MEDS: PIPERACILLIN/TAZO 4.5 GM in Normal Saline 100 ML IVPB (19:50)
[2021-03-15] MEDS: Insulin Glargine 300 UNITS/3 ML PEN 8 UNITS SC (22:20)
[2021-03-15] MEDS: Acetaminophen 325 MG TAB 650 MG PO (23:18)
[2021-03-15 23:26] VITALS: BP 117/70; PULSE 71; RESP 17; TEMP 36.6; O2SAT 96
[2021-03-16] MEDS: PIPERACILLIN/TAZO 4.5 GM in Normal Saline 100 ML IVPB ×3 (04:01→20:09)
[2021-03-16] MEDS: Normal Saline Flush 10 ML SYR IVP ×2 (04:02→20:09)
[2021-03-16 07:00] VITALS: PULSE 97
[2021-03-16 07:10] LABS: Abs Immature Grans 0.06 10^3/uL (0.0-0.06); Absolute Basophil Count 0.04 10^3/uL (0.0-0.2); Absolute Eosinophil Count 0.11 10^3/uL (0.0-0.7); Absolute Lymphocyte Count 0.54 10^3/uL (1.2-3.4); Absolute Monocyte Count 0.58 10^3/uL (0.1-0.8); Absolute Neutrophil Count 4.03 10^3/uL (1.2-6.7); Basophils % 0.7; Eosinophils % 2.1; HCT 44.3 % (40.0-50.0); Immature Grans % 1.1; Lymphocytes % 10.1; MCH 29.3 pg (27.0-33.0); MCHC 31.6 % (32.0-36.0); MCV 92.7 fL (80-95); MPV 9.5 fL (8.0-11.0); Monocytes % 10.8; Neutrophils % 75.2; Nucleated RBC 0 %; Platelet Count 188 10^3/uL (130-400); RBC 4.78 10^6/uL (4.36-5.78); RDW 13.5 % (11.8-14.1); RDW-SD 46.3 fL; WBC 5.36 10^3/uL (4.4-10.8)
[2021-03-16 07:21] LABS: INR 2.8 (0.9-1.1); Prothrombin Time 27.1 sec (9.3-11.0)
[2021-03-16 07:34] LABS: Anion Gap 7.8 mmol/L (3-11); BUN 20 mg/dL (7-18); C-Reactive Protein 10.01 mg/dL (0.0-0.3); CO2 28.2 mmol/L (21.0-32.0); Calcium 8.8 mg/dL (8.5-10.1); Chloride 102 mmol/L (98-107); Creatine Kinase 204 U/L (39-308); Glucose 104 mg/dL (74-106); Potassium 3.9 mmol/L (3.5-5.1); Sodium 138 mmol/L (136-145)
[2021-03-16] MEDS: Lactobacillus Acidophilus CAP 1 CAP PO ×3 (08:40→20:11)
[2021-03-16] MEDS: Potassium Chloride 10 MEQ CAPCR 20 MEQ PO ×2 (08:40→20:10)
[2021-03-16] MEDS: amLODIPine 10 MG TAB PO (08:41)
[2021-03-16] MEDS: Losartan 50 MG TAB 100 MG PO (08:42)
[2021-03-16] MEDS: Torsemide 20 MG TAB PO (08:42)
[2021-03-16] MEDS: Insulin Aspart 300 UNITS/3 ML PEN SC ×3 (08:44→17:30)
[2021-03-16 08:50] VITALS: BP 118/73; PULSE 69; RESP 18; TEMP 37.9; O2SAT 93
[2021-03-16] MEDS: Acetaminophen 325 MG TAB 650 MG PO ×3 (13:47→20:10)
--- NOTE | 2021-03-16 14:25 | CHAPLAIN ---
Corey was up in his chair when I visited. He told me he is hopeful that he'll be discharged today.
--- NOTE | 2021-03-16 16:19 | W.PM.PROGNOT ---
Date of Service Date of service: 03/16/21 Time of Service: 16:19 Assessment and Plan Assessment and plan (1) Cellulitis of right leg: Status: Acute Assessment and plan: Improving. Continue daptomycin/zosyn. Elevate leg. R foot may require imaging if erythema worsens/induration forms. (2) Type 2 diabetes mellitus with diabetic nephropathy: Status: Acute Assessment and plan: Continue basal bolus insulin. (3) SHELLY on CPAP: Status: Chronic Assessment and plan: Continue CPAP (4) Chronic venous insufficiency: Status: Chronic Assessment and plan: Continue home torsemide. (5) Essential hypertension: Status: Chronic Assessment and plan: Continue losartan and amlodipine. (6) DVT prophylaxis: Status: Acute Assessment and plan: On therapeutic coumadin for Afib/flutter. (7) Discharge planning issues: Status: Acute Assessment and plan: Full code Continues to require hospitalization Subjective Subjective Interval history since last seen: Feels overall better. Denies dizziness, chest pain, shortness of breath, nausea. The redness in RLE is improving, but the patient noted that there is an area on his right foot that is getting a little red. He states his skin is hypersensitive in his RLE. He has spent the majority of his time in bed elevating the leg. WE discussed how it would be a good idea for him to spend a good portion of the day sitting up and that I am prescribing an IS. Exam Narrative Exam Narrative: General: very pleasant obese male who is resting in bed, elevating RLE, A&Ox3 HEENT: EOMI, MMM Heart: mostly regularly regular rhythm, no m/r/g Lungs: CTAB Abdomen: soft, obese, nontender Extremities: trace edema RLE with erythema significantly below the demarkated line. Area of erythema about 3 cm in diameter on the dorsum of R foot. Not indurated. Objective Last Vital Signs Temp 37.9 C H 03/16/21 08:50 Pulse 69 03/16/21 08:50 Resp 18 03/16/21 08:50 BP 118/73 03/16/21 08:50 Pulse Ox 93 03/16/21 08:50 Laboratory Results - last 24 hr 03/16/21 03/16/21 03/16/21 06:20 06:20 06:20 WBC 5.36 RBC 4.78 Hgb 14.0 Hct 44.3 MCV 92.7 MCH 29.3 MCHC 31.6 L RDW 13.5 Plt Count 188 MPV 9.5 Immature Gran % 1.1 Neutrophils % 75.2 Lymphocytes % 10.1 Monocytes % 10.8 Eosinophils % 2.1 Basophils % 0.7 Nucleated RBC % 0 Absolute Neutrophils 4.03 Absolute Lymphocytes 0.54 L Absolute Monocytes 0.58 Absolute Eosinophils 0.11 Absolute Basophils 0.04 PT 27.1 H INR 2.8 H Sodium 138 Potassium 3.9 Chloride 102 Carbon Dioxide 28.2 Anion Gap 7.8 BUN 20 H Creatinine 1.0 Estimated GFR/1.73 m2 >= 60.00 Glucose 104 Calcium 8.8 Creatine Kinase 204 C-Reactive Protein 10.01 H
[2021-03-16 17:34] VITALS: BP 110/65; PULSE 69; RESP 18; TEMP 37.9; O2SAT 95
[2021-03-16] MEDS: MORPHine 4 MG/ML SYR IVP (20:10)
[2021-03-16] MEDS: Warfarin 5 MG TAB PO (20:11)
[2021-03-16] MEDS: Insulin Glargine 300 UNITS/3 ML PEN 8 UNITS SC (22:37)
[2021-03-17] MEDS: PIPERACILLIN/TAZO 4.5 GM in Normal Saline 100 ML IVPB ×3 (03:31→20:19)
[2021-03-17 04:02] VITALS: BP 112/64; PULSE 70; RESP 18; TEMP 36.6; O2SAT 95
[2021-03-17 06:07] LABS: Abs Immature Grans 0.05 10^3/uL (0.0-0.06); Absolute Basophil Count 0.04 10^3/uL (0.0-0.2); Absolute Monocyte Count 0.56 10^3/uL (0.1-0.8); Absolute Neutrophil Count 4.22 10^3/uL (1.2-6.7); Basophils % 0.7; Eosinophils % 1.8; HCT 43.3 % (40.0-50.0); HGB 13.8 g/dL (13.5-17.5); Immature Grans % 0.9; Lymphocytes % 12.3; MCH 29.4 pg (27.0-33.0); MCHC 31.9 % (32.0-36.0); MCV 92.1 fL (80-95); Monocytes % 9.9; Neutrophils % 74.4; Nucleated RBC 0 %; Platelet Count 216 10^3/uL (130-400); RDW 13.2 % (11.8-14.1); RDW-SD 45.4 fL; WBC 5.67 10^3/uL (4.4-10.8)
[2021-03-17 06:30] LABS: Anion Gap 4.8 mmol/L (3-11); BUN 16 mg/dL (7-18); C-Reactive Protein 6.85 mg/dL (0.0-0.3); CO2 31.2 mmol/L (21.0-32.0); Calcium 8.9 mg/dL (8.5-10.1); Chloride 102 mmol/L (98-107); Glucose 102 mg/dL (74-106); Magnesium 2.5 mg/dL (1.8-2.4); Potassium 4.6 mmol/L (3.5-5.1); Sodium 138 mmol/L (136-145)
[2021-03-17 06:37] LABS: Prothrombin Time 20.2 sec (9.3-11.0)
[2021-03-17 06:55] LABS: Procalcitonin 0.2 ng/mL
[2021-03-17 08:32] VITALS: BP 138/73; PULSE 72; RESP 18; TEMP 37.1; O2SAT 94
[2021-03-17] MEDS: Potassium Chloride 10 MEQ CAPCR 20 MEQ PO ×2 (08:47→20:19)
[2021-03-17] MEDS: amLODIPine 10 MG TAB PO (08:47)
[2021-03-17] MEDS: Lactobacillus Acidophilus CAP 1 CAP PO ×3 (08:47→20:19)
[2021-03-17] MEDS: Torsemide 20 MG TAB PO ×2 (08:48→15:40)
[2021-03-17] MEDS: Losartan 50 MG TAB 100 MG PO (08:48)
[2021-03-17] MEDS: Insulin Aspart 300 UNITS/3 ML PEN SC ×3 (08:49→17:25)
[2021-03-17] MEDS: Acetaminophen 325 MG TAB 650 MG PO ×2 (15:06→22:09)
--- NOTE | 2021-03-17 15:37 | W.PM.PROGNOT ---
Date of Service Date of service: 03/17/21 Time of Service: 15:38 Assessment and Plan Assessment and plan (1) Cellulitis of right leg: Status: Acute Assessment and plan: Improving. Continue daptomycin/zosyn. Elevate leg. R foot does not look like there is a forming abscess at this time, but will continue to monitor closely. Continue to trend CRP/procalcitonin. (2) Type 2 diabetes mellitus with diabetic nephropathy: Status: Acute Assessment and plan: Continue basal bolus insulin. (3) SHELLY on CPAP: Status: Chronic Assessment and plan: Continue CPAP (4) Chronic venous insufficiency: Status: Chronic Assessment and plan: Continue home torsemide. (5) Essential hypertension: Status: Chronic Assessment and plan: Continue losartan and amlodipine. (6) DVT prophylaxis: Status: Acute Assessment and plan: On therapeutic coumadin for Afib/flutter. (7) Discharge planning issues: Status: Acute Assessment and plan: Full code Continues to require hospitalization Subjective Subjective Interval history since last seen: Mr Hall says he feels better, but the skin on the right leg/foot is still hypersensitive. He has been elevating his leg. He denies dizziness, chest pain, shortness of breath, nausea. He has been sitting in a chair with his leg elevated today. Exam Narrative Exam Narrative: General: very pleasant obese male who is resting in bed, elevating RLE, A&Ox3 HEENT: EOMI, MMM Heart: mostly regularly regular rhythm, no m/r/g Lungs: CTAB Abdomen: soft, obese, nontender Extremities: trace edema RLE now with wrinkling with erythema below the second demarkated line. Area of erythema about 3 cm in diameter on the dorsum of R foot looks less circumscribed and less hyperpigmented, not indurated. Objective Last Vital Signs Temp 37.1 C 03/17/21 08:32 Pulse 72 03/17/21 08:32 Resp 18 03/17/21 08:32 BP 138/73 03/17/21 08:32 Pulse Ox 94 03/17/21 08:32 Laboratory Results - last 24 hr 03/17/21 03/17/21 03/17/21 05:55 05:55 05:55 WBC 5.67 RBC 4.70 Hgb 13.8 Hct 43.3 MCV 92.1 MCH 29.4 MCHC 31.9 L RDW 13.2 Plt Count 216 MPV 9.0 Immature Gran % 0.9 Neutrophils % 74.4 Lymphocytes % 12.3 Monocytes % 9.9 Eosinophils % 1.8 Basophils % 0.7 Nucleated RBC % 0 Absolute Neutrophils 4.22 Absolute Lymphocytes 0.70 L Absolute Monocytes 0.56 Absolute Eosinophils 0.10 Absolute Basophils 0.04 PT INR Sodium 138 Potassium 4.6 Chloride 102 Carbon Dioxide 31.2 Anion Gap 4.8 BUN 16 Creatinine 1.0 Estimated GFR/1.73 m2 >= 60.00 Glucose 102 Calcium 8.9 Magnesium 2.5 H C-Reactive Protein 6.85 H Procalcitonin 0.2 03/17/21 05:55 WBC RBC Hgb Hct MCV MCH MCHC RDW Plt Count MPV Immature Gran % Neutrophils % Lymphocytes % Monocytes % Eosinophils % Basophils % Nucleated RBC % Absolute Neutrophils Absolute Lymphocytes Absolute Monocytes Absolute Eosinophils Absolute Basophils PT 20.2 H D INR 2.0 H D Sodium Potassium Chloride Carbon Dioxide Anion Gap BUN Creatinine Estimated GFR/1.73 m2 Glucose Calcium Magnesium C-Reactive Protein Procalcitonin
[2021-03-17 16:24] VITALS: BP 120/70; PULSE 90; RESP 17; TEMP 36.5; O2SAT 95
[2021-03-17] MEDS: Normal Saline Flush 10 ML SYR IVP (20:20)
[2021-03-17] MEDS: Warfarin 5 MG TAB PO (20:25)
[2021-03-17] MEDS: Insulin Glargine 300 UNITS/3 ML PEN 8 UNITS SC (22:09)
[2021-03-17 23:00] VITALS: BP 116/65; PULSE 83; RESP 18; TEMP 36.7; O2SAT 94
[2021-03-18] MEDS: Normal Saline Flush 10 ML SYR IVP ×2 (04:35→21:17)
[2021-03-18] MEDS: PIPERACILLIN/TAZO 4.5 GM in Normal Saline 100 ML IVPB ×3 (04:35→21:13)
[2021-03-18 06:11] LABS: Abs Immature Grans 0.05 10^3/uL (0.0-0.06); Absolute Basophil Count 0.04 10^3/uL (0.0-0.2); Absolute Lymphocyte Count 0.73 10^3/uL (1.2-3.4); Basophils % 0.8; Eosinophils % 1.9; HCT 45.1 % (40.0-50.0); HGB 14.7 g/dL (13.5-17.5); MCH 29.6 pg (27.0-33.0); MCHC 32.6 % (32.0-36.0); MCV 90.9 fL (80-95); MPV 8.8 fL (8.0-11.0); Monocytes % 9.6; Neutrophils % 72.7; Nucleated RBC 0 %; Platelet Count 241 10^3/uL (130-400); RBC 4.96 10^6/uL (4.36-5.78); RDW 13.2 % (11.8-14.1); RDW-SD 44.7 fL; WBC 5.22 10^3/uL (4.4-10.8)
[2021-03-18 06:19] LABS: Prothrombin Time 19.7 sec (9.3-11.0)
[2021-03-18 06:22] LABS: Anion Gap 4.9 mmol/L (3-11); BUN 17 mg/dL (7-18); CO2 31.1 mmol/L (21.0-32.0); CREATININE 1.1 mg/dL (0.70-1.30); Calcium 8.8 mg/dL (8.5-10.1); Chloride 101 mmol/L (98-107); Glucose 104 mg/dL (74-106); Magnesium 2.4 mg/dL (1.8-2.4); Potassium 4.2 mmol/L (3.5-5.1); Sodium 137 mmol/L (136-145)
[2021-03-18 07:36] VITALS: BP 146/95; PULSE 92; RESP 20; TEMP 35.7; O2SAT 95
[2021-03-18] MEDS: Losartan 50 MG TAB 100 MG PO (07:46)
[2021-03-18] MEDS: amLODIPine 10 MG TAB PO (07:47)
[2021-03-18] MEDS: Potassium Chloride 10 MEQ CAPCR 20 MEQ PO ×2 (07:47→21:14)
[2021-03-18] MEDS: Acetaminophen 325 MG TAB 650 MG PO ×3 (07:48→21:15)
[2021-03-18] MEDS: Torsemide 20 MG TAB PO ×2 (07:48→18:17)
[2021-03-18] MEDS: Insulin Aspart 300 UNITS/3 ML PEN SC ×3 (10:30→18:17)
[2021-03-18] MEDS: Lactobacillus Acidophilus CAP 1 CAP PO ×3 (12:14→21:15)
[2021-03-18 12:45] VITALS: BP 142/82; PULSE 92; RESP 20; TEMP 36.7; O2SAT 95
[2021-03-18 15:15] VITALS: BP 115/78; PULSE 77; RESP 20; TEMP 36.2; O2SAT 96
--- NOTE | 2021-03-18 17:40 | W.PM.PROGNOT ---
Date of Service Date of service: 03/18/21 Time of Service: 16:50 Assessment and Plan Assessment and plan (1) Cellulitis of right leg: Status: Acute Assessment and plan: Improving. Continue daptomycin/zosyn for the remainder of the day, then switch to linezolid. Elevate leg. R foot does not look like there is a forming abscess at this time, but will continue to monitor closely. Continue to trend CRP/procalcitonin. (2) Type 2 diabetes mellitus with diabetic nephropathy: Status: Acute Assessment and plan: Continue basal bolus insulin. (3) SHELLY on CPAP: Status: Chronic Assessment and plan: Continue CPAP (4) Chronic venous insufficiency: Status: Chronic Assessment and plan: Continue home torsemide. (5) Essential hypertension: Status: Chronic Assessment and plan: Continue losartan and amlodipine. (6) DVT prophylaxis: Status: Acute Assessment and plan: On therapeutic coumadin for Afib/flutter. (7) Discharge planning issues: Status: Acute Assessment and plan: Full code Continues to require hospitalization. If not worse on linezolid, then anticipate discharge home on Friday with linezolid. Subjective Subjective Interval history since last seen: Feels better. He is not sure if his leg is better today. Denies dizziness, chest pain, shortness of breath, nausea. We agreed that we will transition him to PO linezolid and observe for 24 hrs. If he continues to improve, he can go home on Friday. Exam Narrative Exam Narrative: General: very pleasant obese male who is resting in bed, elevating RLE, A&Ox3 HEENT: EOMI, MMM Heart: mostly regularly regular rhythm, no m/r/g Lungs: CTAB Abdomen: soft, obese, nontender Extremities: trace edema RLE now with wrinkling with erythema below the third demarkated line. Objective Last Vital Signs Temp 36.2 C L 03/18/21 15:15 Pulse 77 03/18/21 15:15 Resp 20 03/18/21 15:15 BP 115/78 03/18/21 15:15 Pulse Ox 96 03/18/21 15:15 Laboratory Results - last 24 hr 03/18/21 03/18/21 03/18/21 05:56 05:56 05:56 WBC 5.22 RBC 4.96 Hgb 14.7 Hct 45.1 MCV 90.9 MCH 29.6 MCHC 32.6 RDW 13.2 Plt Count 241 MPV 8.8 Immature Gran % 1.0 Neutrophils % 72.7 Lymphocytes % 14.0 Monocytes % 9.6 Eosinophils % 1.9 Basophils % 0.8 Nucleated RBC % 0 Absolute Neutrophils 3.80 Absolute Lymphocytes 0.73 L Absolute Monocytes 0.50 Absolute Eosinophils 0.10 Absolute Basophils 0.04 PT 19.7 H INR 2.0 H Sodium 137 Potassium 4.2 Chloride 101 Carbon Dioxide 31.1 Anion Gap 4.9 BUN 17 Creatinine 1.1 Estimated GFR/1.73 m2 >= 60.00 Glucose 104 Calcium 8.8 Magnesium 2.4 C-Reactive Protein 4.50 H
[2021-03-18] MEDS: Normal Saline 500 ML 30 ML IV (21:13)
[2021-03-18] MEDS: Linezolid 600 MG TAB PO (21:14)
[2021-03-18] MEDS: Insulin Glargine 300 UNITS/3 ML PEN 8 UNITS SC (21:14)
[2021-03-18 23:41] VITALS: BP 115/78; PULSE 76; RESP 20; TEMP 36.8; O2SAT 98
[2021-03-19] MEDS: PIPERACILLIN/TAZO 4.5 GM in Normal Saline 100 ML IVPB (03:48)
[2021-03-19 07:12] LABS: Abs Immature Grans 0.03 10^3/uL (0.0-0.06); Absolute Basophil Count 0.05 10^3/uL (0.0-0.2); Absolute Lymphocyte Count 0.81 10^3/uL (1.2-3.4); Absolute Monocyte Count 0.38 10^3/uL (0.1-0.8); Absolute Neutrophil Count 3.47 10^3/uL (1.2-6.7); Eosinophils % 2.1; HCT 47.7 % (40.0-50.0); HGB 15.4 g/dL (13.5-17.5); Immature Grans % 0.6; Lymphocytes % 16.7; MCH 29.6 pg (27.0-33.0); MCHC 32.3 % (32.0-36.0); MCV 91.7 fL (80-95); MPV 8.9 fL (8.0-11.0); Monocytes % 7.9; Neutrophils % 71.7; Nucleated RBC 0 %; Platelet Count 282 10^3/uL (130-400); RDW-SD 44.1 fL; WBC 4.84 10^3/uL (4.4-10.8)
[2021-03-19 07:19] LABS: Anion Gap 6.5 mmol/L (3-11); BUN 18 mg/dL (7-18); C-Reactive Protein 3.01 mg/dL (0.0-0.3); CO2 27.5 mmol/L (21.0-32.0); Chloride 101 mmol/L (98-107); Glucose 103 mg/dL (74-106); Magnesium 2.5 mg/dL (1.8-2.4); Potassium 4.1 mmol/L (3.5-5.1); Sodium 135 mmol/L (136-145)
[2021-03-19 07:21] VITALS: BP 138/84; PULSE 82; RESP 19; TEMP 36; O2SAT 96
[2021-03-19 07:23] LABS: Prothrombin Time 19.4 sec (9.3-11.0)
[2021-03-19 07:40] LABS: Procalcitonin 0.1 ng/mL
[2021-03-19] MEDS: amLODIPine 10 MG TAB PO (08:05)
[2021-03-19] MEDS: Potassium Chloride 10 MEQ CAPCR 20 MEQ PO ×2 (08:05→20:58)
[2021-03-19] MEDS: Lactobacillus Acidophilus CAP 1 CAP PO ×3 (08:05→20:59)
[2021-03-19] MEDS: Sennosides/Docusate Sodium TAB 1 TAB PO (08:05)
[2021-03-19] MEDS: Torsemide 20 MG TAB PO ×2 (08:05→15:10)
[2021-03-19] MEDS: Losartan 50 MG TAB 100 MG PO (08:05)
[2021-03-19] MEDS: Linezolid 600 MG TAB PO ×2 (08:05→20:58)
--- NOTE | 2021-03-19 09:37 | CMPROGNOTE_ITS ---
- If Service Date Differs Date of service: 03/19/21 Time of Service: 09:37 Care Management Progress Note S/O: Corey continues to be monitored and diuresed at this time. Per MD, awaiting MRSA cultures to determine course of treatment. CM continues to follow. A: 60 year old male admitted to [facility] 03/13/21 for Cellulitis P: Per MD, Corey may be able to follow outpatient regimen of antibiotics and outpatient management of lymphedema, plan remains undetermined at this time; awaiting MRSA cultures. CM continues to follow.
--- NOTE | 2021-03-19 12:14 | W.PM.PROGNOT ---
Date of Service Date of service: 03/19/21 Time of Service: 12:15 Assessment and Plan Assessment and plan (1) Cellulitis of right leg: Status: Acute Assessment and plan: Improving. Changed to linezolid this am. If CRP continues to trend in the right direction and the patient continues to improve clinically, anticipate discharge home tomorrow. Elevate leg. (2) Type 2 diabetes mellitus with diabetic nephropathy: Status: Acute Assessment and plan: Continue basal bolus insulin. (3) SHELLY on CPAP: Status: Chronic Assessment and plan: Continue CPAP (4) Chronic venous insufficiency: Status: Chronic Assessment and plan: Continue home torsemide. (5) Essential hypertension: Status: Chronic Assessment and plan: Continue losartan and amlodipine. (6) DVT prophylaxis: Status: Acute Assessment and plan: On therapeutic coumadin for Afib/flutter. (7) Discharge planning issues: Status: Acute Assessment and plan: Full code If linezolid effective, then I anticipate discharge home tomorrow with PO linezolid. Subjective Subjective Interval history since last seen: Mr Hall feels better. He denies dizziness, chest pain, shortness of breath, nausea. R leg is better. Switched from IV abx to PO linezolid today. Exam Narrative Exam Narrative: General: very pleasant obese male who is sitting up in a chair, elevating RLE, A&Ox3 HEENT: EOMI, MMM Heart: mostly regularly regular rhythm, no m/r/g Lungs: CTAB Abdomen: soft, obese, nontender Extremities: BLE's wrapped; erythema RLE has decreased. Objective Last Vital Signs Temp 36.0 C L 03/19/21 07:21 Pulse 82 03/19/21 07:21 Resp 19 03/19/21 07:21 BP 138/84 03/19/21 07:21 Pulse Ox 96 03/19/21 07:21 Laboratory Results - last 24 hr 03/19/21 03/19/21 03/19/21 06:55 06:55 06:55 WBC 4.84 RBC 5.20 Hgb 15.4 Hct 47.7 MCV 91.7 MCH 29.6 MCHC 32.3 RDW 13.0 Plt Count 282 MPV 8.9 Immature Gran % 0.6 Neutrophils % 71.7 Lymphocytes % 16.7 Monocytes % 7.9 Eosinophils % 2.1 Basophils % 1.0 Nucleated RBC % 0 Absolute Neutrophils 3.47 Absolute Lymphocytes 0.81 L Absolute Monocytes 0.38 Absolute Eosinophils 0.10 Absolute Basophils 0.05 PT 19.4 H INR 2.0 H Sodium 135 L Potassium 4.1 Chloride 101 Carbon Dioxide 27.5 Anion Gap 6.5 BUN 18 Creatinine 1.0 Estimated GFR/1.73 m2 >= 60.00 Glucose 103 Calcium 9.0 Magnesium 2.5 H C-Reactive Protein 3.01 H Procalcitonin 03/19/21 06:55 WBC RBC Hgb Hct MCV MCH MCHC RDW Plt Count MPV Immature Gran % Neutrophils % Lymphocytes % Monocytes % Eosinophils % Basophils % Nucleated RBC % Absolute Neutrophils Absolute Lymphocytes Absolute Monocytes Absolute Eosinophils Absolute Basophils PT INR Sodium Potassium Chloride Carbon Dioxide Anion Gap BUN Creatinine Estimated GFR/1.73 m2 Glucose Calcium Magnesium C-Reactive Protein Procalcitonin 0.1
--- NOTE | 2021-03-19 12:21 | PHA.REVIEW ---
Pharmacy Admission Review - Admission Clinical Review (Last Reviewed 03/12/21 @ 23:36 by Macario Lake MD) Discharge planning issues (Acute) DVT prophylaxis (Acute) Cellulitis of right leg (Acute) Cellulitis of right lower leg (Acute) Type 2 diabetes mellitus with diabetic nephropathy (Acute) lisinopril Adverse Reaction (Intermediate, Verified 03/11/21 10:33) COUGH Resuscitation Status Full Code Height 6 ft Weight 174.3 kg - Renal Dosing Renal Dosing: BUN 18 mg/dL (7-18) 03/19/21 06:55 Creatinine 1.0 mg/dL (0.70-1.30) 03/19/21 06:55 Medications needing adjustments: Reviewed (Crcl ~129 mL/min using adjusted body weight, current meds okay) - Anticoagulation Anticoagulation: Hgb 15.4 g/dL (13.5-17.5) 03/19/21 06:55 Hct 47.7 % (40.0-50.0) 03/19/21 06:55 Plt Count 282 10^3/uL (130-400) 03/19/21 06:55 INR 2.0 (0.9-1.1) H 03/19/21 06:55 Creatinine 1.0 mg/dL (0.70-1.30) 03/19/21 06:55 DVT Prophylaxis: N/A Therapeutic Anticoagulation: Reviewed Medications: Warfarin - Opiate Usage Evaluate Pain Scale/Pains Meds: Reviewed Scheduled Bowel Reg ordered if on Opiates?: Yes - Relevant Labs ESR 42 mm/hr (0-20) H 03/12/21 21:30 Sodium 135 mmol/L (136-145) L 03/19/21 06:55 Potassium 4.1 mmol/L (3.5-5.1) 03/19/21 06:55 Chloride 101 mmol/L (98-107) 03/19/21 06:55 Magnesium 2.5 mg/dL (1.8-2.4) H 03/19/21 06:55 C-Reactive Protein 3.01 mg/dL (0.0-0.3) H 03/19/21 06:55 Electrolytes, C-Reactive P, ESR: Reviewed - DM Control DM Control: Glucose 103 mg/dL (74-106) 03/19/21 06:55 Finger Stick Blood Glucose 95 Finger Stick Blood Glucose 95 Finger Stick Blood Glucose 95 Finger Stick Blood Glucose 94 Finger Stick Blood Glucose 94 Finger Stick Blood Glucose 94 Finger Stick Blood Glucose 94 Insulin Dosing: Reviewed (Scheduled insulin glargine, carb coverage and sliding scale aspart) - Heart Failure/NH EF%, SWATI's, B-Blockers, Diuretics: N/A - BP Control BP Control: Blood Pressure 138/84 If elevated: N/A - Qtc Review If Elevated: N/A - IV to PO Switch IV Medications: Reviewed - Home Meds Home Med List reviewed: Reviewed Relevent Home Meds Not ordered & why?: clindamycin (has other abx ordered), furosemide (has torsemide ordered), metformin (has insulin coverage) - Current meds Current Medication Order Review: Reviewed - Comments Comments/Follow Ups: Watch VS, BG, mag, labs and for med changes. Antibiotic Activity - Pharmacy Antibiotic Review Pharmacy Antibiotic Activity: Reviewed, no change (IV abx changed to PO linezolid yesterday for cellulitis.)
[2021-03-19] MEDS: Insulin Aspart 300 UNITS/3 ML PEN SC ×2 (12:32→17:19)
[2021-03-19] MEDS: Normal Saline Flush 10 ML SYR IVP (13:18)
--- NOTE | 2021-03-19 14:29 | W.DIABETESNO ---
Date of service: 03/19/21 Time of Service: 14:29 Diabetes Note NOTE: Mr. Hall has excellent PO intake cho consistent/heart healthy diet. His BMI is 52.1 kg/m2 which is c/w class 3 severe obesity. His weight over the past 6 months is down 8% and down 6.9% in the past month. This weight loss is intentional and r/t diuresis. His blood sugars are at target and in fact quite tightly managed. His A1C most recently is 6.4% and has been in the 6-7 range for many years. He is on 8 units of Glargine, correction aspart, and aspart for CHO while he is in the hospital. Will continue to monitor his blood sugars and his nutritional status. Will evaluate nutrition care plan ongoing and adjust as needed. Time Spent in Nutritional Counseling and Treatment: 0
[2021-03-19] MEDS: Acetaminophen 325 MG TAB 650 MG PO ×2 (15:10→20:58)
[2021-03-19 15:24] VITALS: BP 127/86; PULSE 83; RESP 16; TEMP 36.3; O2SAT 96
[2021-03-19] MEDS: Warfarin 5 MG TAB PO (20:58)
[2021-03-19] MEDS: Insulin Glargine 300 UNITS/3 ML PEN 8 UNITS SC (20:58)
[2021-03-19 23:16] VITALS: BP 111/64; PULSE 72; RESP 18; TEMP 36.7; O2SAT 97
[2021-03-20 07:01] LABS: Abs Immature Grans 0.02 10^3/uL (0.0-0.06); Absolute Basophil Count 0.04 10^3/uL (0.0-0.2); Absolute Eosinophil Count 0.14 10^3/uL (0.0-0.7); Absolute Lymphocyte Count 0.55 10^3/uL (1.2-3.4); Absolute Monocyte Count 0.44 10^3/uL (0.1-0.8); Absolute Neutrophil Count 4.29 10^3/uL (1.2-6.7); Basophils % 0.7; Eosinophils % 2.6; HCT 47.3 % (40.0-50.0); HGB 15.4 g/dL (13.5-17.5); Immature Grans % 0.4; MCH 29.6 pg (27.0-33.0); MCHC 32.6 % (32.0-36.0); Neutrophils % 78.3; Nucleated RBC 0 %; Platelet Count 258 10^3/uL (130-400); RDW 13.2 % (11.8-14.1); RDW-SD 43.9 fL; WBC 5.48 10^3/uL (4.4-10.8)
[2021-03-20 07:02] VITALS: BP 124/74; PULSE 74; RESP 20; TEMP 36.4; O2SAT 92
[2021-03-20 07:11] LABS: Anion Gap 7.5 mmol/L (3-11); BUN 22 mg/dL (7-18); C-Reactive Protein 2.33 mg/dL (0.0-0.3); CO2 27.5 mmol/L (21.0-32.0); Calcium 8.8 mg/dL (8.5-10.1); Chloride 101 mmol/L (98-107); Glucose 99 mg/dL (74-106); Potassium 4.1 mmol/L (3.5-5.1); Sodium 136 mmol/L (136-145)
[2021-03-20 07:12] LABS: INR 1.8 (0.9-1.1); Prothrombin Time 17.9 sec (9.3-11.0)
[2021-03-20] MEDS: Sennosides/Docusate Sodium TAB 1 TAB PO (08:04)
[2021-03-20] MEDS: Potassium Chloride 10 MEQ CAPCR 20 MEQ PO (08:05)
[2021-03-20] MEDS: Losartan 50 MG TAB 100 MG PO (08:05)
[2021-03-20] MEDS: Torsemide 20 MG TAB PO (08:05)
[2021-03-20] MEDS: Lactobacillus Acidophilus CAP 1 CAP PO (08:05)
[2021-03-20] MEDS: Linezolid 600 MG TAB PO (08:05)
[2021-03-20] MEDS: Insulin Aspart 300 UNITS/3 ML PEN SC (09:02)
[2021-03-20] MEDS: amLODIPine 10 MG TAB PO (09:02)
--- NOTE | 2021-03-20 10:21 | DSE_ITS ---
Date of service: 03/20/21 Time of Service: 10:21 DS: Diagnosis Discharge Diagnosis (1) Cellulitis of right leg: Status: Acute (2) Type 2 diabetes mellitus with diabetic nephropathy: Status: Acute (3) SHELLY on CPAP: Status: Chronic (4) Chronic venous insufficiency: Status: Chronic (5) Essential hypertension: Status: Chronic Discharge Plan Disposition Patient Disposition: HOME Condition: Stable Discharge Details Reason For Visit: Cellulitis Admit Date/Time: 03/13/21 01:34 Admit Provider: Macario Lake Attending Provider: Macario Lake Primary Care Provider: [facility] Course Hospital Course: Mr Hall is a 60 year old male with PMHx of Chronic venous insufficiency, non- insulin dependent diabetes mellitus, Afib on coumadin, morbid obesity and lym phedema of BLEs, who was admitted to [facility] hospitalist service on 03/12/21 with cellulitis of right lower extremity in setting of lymphedema/edema of BLEs, having failed outpatient clindamycin. The patient was treated with systemic antibiotics (initially with vancomy, zosyn, clindamycin, then modified to daptomycin + high dose zosyn) with significant improvement in his symptoms. Additionally,the patient was getting diuretics while having his BLEs wrapped in pili wraps per wound care recommendations. Then, the patient was switched to PO linezolid as his condition improved to the point where discharge home was possible. He continued to improve on this therapy and is getting discharged home today with a 10 day course of linezolid, a referral to PT for lymphedema therapy, and a follow up with PCP in 1-2 weeks. He should continue to elevate his RLE extremity and to wrap his BLEs as instructed by wound care. Care for patient as well as completion of his discharge summary on day of discharge took 45 minutes. Home Meds and New Rx's Prescriptions: New acidophilus-pectin, citrus 25 million cell -100 mg Tablet 1 tab PO TID Qty: 90 RF: 0 sennosides-docusate sodium [Colace 2-In-1] 8.6-50 mg Tablet 1 tab PO BID PRN PRNQty: 0 RF: 0 linezolid 600 mg Tablet 600 mg PO BID Qty: 20 RF: 0 potassium chloride 20 mEq tablet extended release 20 meq PO DAILY Qty: 10 RF: 0 Anasept 0.057 % solution 1 applic topical DAILY Qty: 473 RF: 0 (DME) debrisoft sponge See Rx Instructions .Route .MEDSUPPLY Qty: 60 RF: 0 Continued (DME) OneTouch Verio test strips Strip 1 ea Miscellaneous BID Qty: 100 RF: 4 amlodipine 10 mg tablet 10 mg PO DAILY Qty: 90 RF: 4 losartan 100 mg tablet 100 mg PO DAILY Qty: 90 RF: 4 metformin 500 mg tablet 500 mg PO DAILY Qty: 90 RF: 4 warfarin 5 mg tablet 5 mg PO DIRECTED Qty: 90 RF: 4 (DME) Lancets,Thin 1 EACH misc 1 ea Miscellaneous BID Qty: 60 RF: 0 Changed furosemide 20 mg tablet 20 mg PO BID Qty: 20 RF: 3 Discontinued clindamycin HCl 300 mg capsule 300 mg PO Q6H RF: 0 Discharge Instructions Instructions: Linezolid (By mouth), Cellulitis (DC) Additional Instructions: [place] Both lower extremities with Anasept spray, allow to dwell for 2 minutes. Debride leg with Debrisoft sponge. Wrap legs with pili wraps for compression 3 hours on and one hour off, expanding the time with compression as tolerated. Keep legs elevated as tolerated Perform daily. Finish your antibiotics as prescribed. Return to the hospital with any fever, bleeding, chest pain, shortness of breath, or worsening redness of your leg. Follow up with PCP in 1-2 weeks. Follow up with Physical therapy for lymphedema therapy. Referrals: Eleanor Escobedo [PHYSICAL THERAPIST] - (lymphedema therapy ) Kaylen Ellis NP [Primary Care Provider] - Activity:: Elevated RLE while seated Equipment/Supplies:: No Equipment Needed Diet:: Diabetic heart healthy Discharge Orders Discharge Orders: Discharge Order (Routine); Ordered 03/20/21 Ordered By: Linnette Byrd DS: Summary Time Spent with Patient providing and/or coordinating discharge services: Greater than 30 minutes Status at Discharge Functional status at discharge: independent ambulation Overall status at discharge: patient is progressing back to baseline Mental Status: mental status grossly normal Speech and Movement: speech and movement normal Mood: congruent mood Affect: normal affect Exam Narrative Exam Narrative: General: very pleasant obese male who is sitting up in a chair, elevating RLE, A&Ox3 HEENT: EOMI, MMM Heart: mostly regularly regular rhythm, no m/r/g Lungs: CTAB Abdomen: soft, obese, nontender Extremities: BLE's wrapped; erythema RLE has decreased. Psych Mental Status: mental status grossly normal Speech and Movement: speech and movement normal Mood: congruent mood Affect: normal affect DS: Data Vitals/I&O Vitals and I&O: Vital Signs Temperature 36.4 C L 03/20/21 07:02 Temperature Source Tympanic 03/20/21 07:02 Pulse 74 03/20/21 07:02 Pulse Rhythm Irregular 03/20/21 08:48 Respiratory Rate 20 03/20/21 07:02 Respiratory Effort Non-Labored 03/20/21 08:48 Respiratory Depth Normal 03/20/21 08:48 Respiratory Pattern Normal 03/20/21 08:48 Blood Pressure 124/74 03/20/21 07:02 Blood Pressure Position Sitting 03/12/21 21:14 Pulse Oximetry 92 03/20/21 07:02 Oxygen Delivery Method Room Air 03/20/21 07:02 Oxygen Flow Rate 0 03/20/21 07:02 Fraction of Inspired Oxygen (FIO2) 03/20/21 09:39 Pain Level 2 03/20/21 07:02 Comment 03/14/21 15:54 Intake & Output 03/19/21 03/19/21 03/20/21 11:59 23:59 11:59 Intake Total 601 / 1431 830 / 1431 Balance 601 / 1431 830 / 1431 Weight 174.3 kg 175.8 kg Intake: IV 351 / 451 100 / 451 Oral 250 / 980 730 / 980 Other: Urine Appearance Clear Clear Clear Comment Patient reports normal voiding. He is up independent to the bathroom. pt is up voiding independently in toilet. Voiding Methods Toilet Toilet Data Completed and Pending Completed studies during hospitalization [Text1]: CT RLE: 1. Extensive subcutaneous edema in the lower extremity. No focal fluid collection is seen to suggest an abscess. No gas is seen in the soft tissues to suggest necrotizing disease. 2. There is no involvement of the underlying musculature or bone to suggest myositis/fasciitis/osteomyelitis. Labs on day of discharge: Labs from last 24 hours 03/20/21 03/20/21 03/20/21 06:30 06:30 06:30 WBC 5.48 RBC 5.20 Hgb 15.4 Hct 47.3 MCV 91.0 MCH 29.6 MCHC 32.6 RDW 13.2 Plt Count 258 MPV 9.0 Immature Gran % 0.4 Neutrophils % 78.3 Lymphocytes % 10.0 Monocytes % 8.0 Eosinophils % 2.6 Basophils % 0.7 Nucleated RBC % 0 Absolute Neutrophils 4.29 Absolute Lymphocytes 0.55 L Absolute Monocytes 0.44 Absolute Eosinophils 0.14 Absolute Basophils 0.04 PT 17.9 H INR 1.8 H Sodium 136 Potassium 4.1 Chloride 101 Carbon Dioxide 27.5 Anion Gap 7.5 BUN 22 H Creatinine 1.0 Estimated GFR/1.73 m2 >= 60.00 Glucose 99 Calcium 8.8 C-Reactive Protein 2.33 H PFSH All Active Problems (Updated 03/16/21 @ 16:22 by Linnette Byrd MD) Discharge planning issues (Acute) DVT prophylaxis (Acute) Cellulitis of right leg (Acute) Cellulitis of right lower leg (Acute) 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 Diabetes mellitus (Chronic) Chronic venous insufficiency (Chronic) Essential hypertension (Chronic) Atrial fibrillation and flutter (Chronic 10/10/17) Morbid obesity (Chronic 10/13/17) Chronic anticoagulation (Acute) Medical History A-fib Dysphonia (10/13/17) Fracture of ankle left Hematuria Hyperlipidemia Hypertension Low back pain Morbid obesity with BMI of 50.0-59.9, adult Primary osteoarthritis of both knees (02/03/15) Solitary pulmonary nodule CT 2019- no nodule noted Tubular adenoma 01/13/15; DR. TAMEZ Venous insufficiency (chronic) (peripheral) Vocal cord paresis (10/13/17) Surgical History Colonoscopy - MAC (01/13/15) DR. OCTAVIA TAMEZ Excision, Tumor benign lymphatic mass right thigh History of excision of lesion Family History Mother , AGE 78 Diabetes Father , AGE 82 Essential hypertension Stroke Sister No problems noted. Brother Diabetes Essential hypertension Maternal Grandfather , AGE 86 Diabetes Essential hypertension Paternal Grandfather , AGE 62 Heart disease Stroke Essential hypertension Maternal Grandmother , AGE 99 Diabetes Essential hypertension Heart disease Sister Diabetes Essential hypertension Sister Asthma Depression Diabetes Essential hypertension Hyperlipidemia Brother Asthma Depression Essential hypertension Diabetes Heart disease Hyperlipidemia Brother Diabetes Essential hypertension Son No problems noted. Son No problems noted. 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 Pets and animals: Yes Pets and animals: dog(s) Sexually active: Yes Do you think of yourself as: straight/heterosexual Current gender identity: male What is your relationship status?: How often do you talk on the phone with friends or family?: three or more times per week How often do you get together with friends or relatives?: once per week Do you belong to any clubs or organized social groups?: no Panel score (0-1 are the most socially isolated patients): 2 What type of physical activity do you participate in: none Taisha/Yazidism: None Special taisha needs: No Seatbelt use: never Helmet use: Yes Helmet use: always Drive intox or ride w/intox trailer truck 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
[2021-03-20 12:43] VITALS: PULSE 73
--- NOTE | 2021-03-20 15:27 | PDOC.CMDIS ---
- If Service Date Differs Date of service: 03/20/21 Time of Service: 15:27 LACE Index Scoring Tool - Questions: Length of Stay (in days): 7 - 13 Acuity (Admit via E.D.?): Yes E.D. Visits: 2 - Answers: Total Score: 10 Risk of Readmission: High Risk Care Management Discharge Reason for Hospitalization: Cellulitis Discharge Plan: Corey will discharge home with a new prescription for oral medications and referral for outpatient management of lymphedema with PT and [facility] wound care. He will follow up with his PCP and plan of care as prescribed and transport via private vehicle with his . Patient/Family Education Needs: Review discharge instructions, discuss Ask Me Three.
== END 2021-03-20 14:22 | disposition home or self-care (01) | DRG 603 ==
LOC: ER 03-13 01:53 → MS 03-13 02:40
PROVIDERS: Internal Medicine; Nurse Practitioner Family; Admitting Provider General Practice; Emergency Provider Student in an Organized Health Care Education/Training Program; PCP Nurse Practitioner; Visit Provider General Practice
DX: L03.115 Cellulitis of right lower limb (principal); I48.20 Chronic atrial fibrillation, unspecified; I48.92 Unspecified atrial flutter; Z68.43 Body mass index [BMI] 50.0-59.9, adult; E11.21 Type 2 diabetes mellitus with diabetic nephropathy; G47.33 Obstructive sleep apnea (adult) (pediatric); R91.1 Solitary pulmonary nodule; I87.2 Venous insufficiency (chronic) (peripheral); E66.01 Morbid (severe) obesity due to excess calories; Z79.01 Long term (current) use of anticoagulants; I10 Essential (primary) hypertension; M17.0 Bilateral primary osteoarthritis of knee; E78.5 Hyperlipidemia, unspecified; M54.50 Low back pain, unspecified; Z87.891 Personal history of nicotine dependence; J38.00 Paralysis of vocal cords and larynx, unspecified; Z79.84 Long term (current) use of oral hypoglycemic drugs; I89.0 Lymphedema, not elsewhere classified
CPT/HCPCS: 36415; 80048; 80053; 82550; 84145; 85652; 87081; 87635; 73701; 80202; 83605; 83735; 85025; 85610; 86140; 87070; 87205; 99222; 99232; 99239; J0878; J1940; J2270; J2543

== ENCOUNTER 2021-04-09 16:17 | Outpatient (REF) | payer OTHER, SELFPAY ==
[2021-04-09 19:27] LABS: Bilirubin Negative (Negative); Blood Large (Negative); Clarity Cloudy (Clear); Glucose Negative (Negative); Ketones Negative (Negative); Leukocyte Esterase Trace (Negative); Nitrite Negative (Negative); Specific Gravity 1.025 (1.005-1.025); Urobilinogen 0.2 EU/dL (Up TO 0.2)
[2021-04-09 19:28] LABS: C & S Indicated? Yes; RBC >50 HPF (0-2)
[2021-04-11 16:38] LABS: COVID-19 RT-PCR UVMMC Result Indeterminate (Negative)
== END 2021-04-09 16:18 | disposition home or self-care (01) ==
LOC: NCHCN 16:17
PROVIDERS: PCP Nurse Practitioner; Visit Provider Physician Assistant
DX: R39.9 Unspecified symptoms and signs involving the genitourinary system (principal); Z20.822 Contact with and (suspected) exposure to COVID-19
CPT/HCPCS: 87077; U0003; 81003; 81015; 87086; 87186

== ENCOUNTER 2022-02-04 04:23 | Outpatient (CLI) | payer OTHER, SELFPAY ==
[2022-02-04 16:00] LABS: Abs Immature Grans 0.02 10^3/uL (0.0-0.06); Absolute Basophil Count 0.06 10^3/uL (0.0-0.2); Absolute Lymphocyte Count 1.46 10^3/uL (1.2-3.4); Absolute Monocyte Count 0.71 10^3/uL (0.1-0.8); Eosinophils % 1.6; HCT 52.1 % (40.0-50.0); HGB 17.5 g/dL (13.5-17.5); Immature Grans % 0.3; Lymphocytes % 23.4; MCHC 33.6 % (32.0-36.0); MCV 89 fL (80-95); MPV 9.2 fL (8.0-11.0); Monocytes % 11.4; Neutrophils % 62.3; Platelet Count 202 10^3/uL (130-400); RBC 5.83 10^6/uL (4.36-5.78); RDW 13.2 % (11.8-14.1); RDW-SD 43.3 fL; WBC 6.25 10^3/uL (4.4-10.8)
[2022-02-04 16:18] LABS: ALT 20 U/L (16-63); AST 21 U/L (15-37); Albumin 4.2 g/dL (3.4-5.0); Alkaline Phosphatase 80 U/L (46-116); Anion Gap 6.5 mmol/L (3-11); BUN 18 mg/dL (7-18); Bilirubin, Total 0.6 mg/dL (0.2-1.0); CO2 31.5 mmol/L (21.0-32.0); Calcium 9.5 mg/dL (8.5-10.1); Chloride 100 mmol/L (98-107); Estimated GFR 85.63 (mL/min/1.73m2); Glucose 98 mg/dL (74-106); Potassium 3.7 mmol/L (3.5-5.1); Sodium 138 mmol/L (136-145); Total Protein 8.6 g/dL (6.4-8.2)
[2022-02-04 16:22] LABS: Calculated LDL 104 mg/dL (<100); Cholesterol 178 mg/dL (<200); HDL Cholesterol 48 mg/dL (40-60); Triglyceride 134 mg/dL (<150)
[2022-02-04 16:23] LABS: INR 3.3 (0.9-1.1); Prothrombin Time 30.6 sec (9.3-11.0)
[2022-02-04 16:46] LABS: Bilirubin Negative (Negative); Blood Trace-lysed (Negative); Clarity Sl Cloudy (Clear); Glucose Negative (Negative); Ketones Negative (Negative); Leukocyte Esterase Negative (Negative); Nitrite Negative (Negative); Specific Gravity 1.025 (1.005-1.025); Urobilinogen 0.2 EU/dL (Up TO 0.2); pH 6.5 (5-8)
[2022-02-04 17:07] LABS: Hemoglobin A1C 6.2 % (<5.7)
[2022-02-04 19:04] LABS: Bacteria Few HPF (Negative); C & S Indicated? No/Sq. Contamination; Casts Negative LPF (Negative); Crystals Negative HPF (Negative); Epithelial Cells Moderate HPF (Negative); Mucus Negative (Negative)
[2022-02-05 18:16] LABS: PSA, Screening 1.4 ng/mL (<=4.5)
[2022-02-06 09:57] LABS: Hepatitis C Ab w Rflx HCV PCR Negative (Negative)
[2022-02-06 10:10] LABS: HIV-1/2 Ag & Ab Screen Negative (Negative)
[2022-02-07 17:20] LABS: Lab Add On Test DONE
[2022-02-07 17:40] LABS: NT-proBNP 872 pg/mL (<300)
== END 2022-02-04 04:24 | disposition home or self-care (01) ==
LOC: LBO 04:23
PROVIDERS: Nurse Practitioner Family; PCP Family Medicine; Visit Provider Family Medicine
DX: E11.9 Type 2 diabetes mellitus without complications (principal); R19.7 Diarrhea, unspecified; Z11.59 Encounter for screening for other viral diseases; Z12.5 Encounter for screening for malignant neoplasm of prostate; Z00.00 Encounter for general adult medical examination without abnormal findings; Z79.01 Long term (current) use of anticoagulants; E11.21 Type 2 diabetes mellitus with diabetic nephropathy; E66.01 Morbid (severe) obesity due to excess calories; E78.5 Hyperlipidemia, unspecified
CPT/HCPCS: 36415; 80053; 80061; 84153; 86803; 87389; 81003; 81015; 83036; 83880; 85025; 85610

== ENCOUNTER 2022-03-12 02:16 | Outpatient (CLI) | payer OTHER, SELFPAY ==
[2022-03-12 07:47] LABS: Total Protein 7.8 g/dL (6.4-8.2)
[2022-03-12 08:12] LABS: Prothrombin Time 32.1 sec (9.3-11.0)
[2022-03-12 08:31] LABS: INR 3.4 (0.9-1.1)
== END 2022-03-12 02:17 | disposition home or self-care (01) ==
LOC: LBO 02:17
PROVIDERS: PCP Family Medicine; Visit Provider Family Medicine
DX: R77.9 Abnormality of plasma protein, unspecified (principal); I48.91 Unspecified atrial fibrillation; Z79.01 Long term (current) use of anticoagulants
CPT/HCPCS: 36415; 84155; 85610

== ENCOUNTER 2022-04-12 15:21 | Emergency (ER) | payer OTHER, SELFPAY ==
[2022-04-12 15:29] VITALS: BP 170/105; PULSE 59; RESP 18; TEMP 36.9; O2SAT 96
--- NOTE | 2022-04-12 15:30 | RT.EKG_ITS ---
APPROVED REPORT Exam: Resting ECG Reason for Exam: Cardiac history Patient Location: E HR:90 bpm ECG Measurements Heart Rate 90 AXIS MD [id number] P [id number] QRSd 110 QRS 16 QT 385 T 43 QTc 472 Conclusion Atrial fibrillation...V-rate 62-121, irreg A-activity Nonspecific ST-T changes There are no significant changes compared to prior EKG performed on 03/11/2021 at 11:02.
--- NOTE | 2022-04-12 16:13 | ED.GENADUL_ITS ---
Discharge Plan Disposition Patient Disposition: Home Condition: Stable Discharge Details Clinical Impression: Blurred vision, bilateral, Cephalgia, Abnormal INR Primary Care Provider: Balbir Crawford ED Provider: Todd Padilla Home Meds and New Rx's Prescriptions: Continued (DME) OneTouch Verio test strips Strip 1 ea Miscellaneous BID Qty: 100 4RF Rx Instructions: Test once daily ammonium lactate 12 % lotion 1 applic topical BID Qty: 400 6RF Rx Instructions: apply to BLEs losartan 50 mg tablet 50 mg PO DAILY Qty: 90 0RF metformin 500 mg tablet 500 mg PO DAILY Qty: 90 4RF hydrochlorothiazide 12.5 mg tablet 12.5 mg PO DAILY Qty: 90 3RF amlodipine 10 mg tablet 5 mg PO DAILY Qty: 90 4RF Rx Instructions: dose reduction 02/07/22 (DME) Lancets,Thin 1 EACH misc 1 ea Miscellaneous BID Qty: 60 0RF warfarin 5 mg tablet 2.5 mg PO DIRECTED Protocol: Dose Management Condition: Friday Dose/Route: 5 mg Instruction: 1 x 5 mg tablet Condition: Friday Dose/Route: 2.5 mg Instruction: 0.5 x 5 mg tablets Condition: Friday Dose/Route: 2.5 mg Instruction: 0.5 x 5 mg tablets Condition: Friday Dose/Route: 2.5 mg Instruction: 0.5 x 5 mg tablets Condition: Dose/Route: 2.5 mg Instruction: 0.5 x 5 mg tablets Condition: Friday Dose/Route: 2.5 mg Instruction: 0.5 x 5 mg tablets Condition: Friday Dose/Route: 2.5 mg Instruction: 0.5 x 5 mg tablets Protocol Text: Adjustment Start Date: Friday03/12/22 INR Value: 3.4 INR Date: 03/12/22 Recheck Date: 03/19/22 Rx Instructions: Dose as directed by [facility], per patient, full dose of 5mg on Friday Discharge Instructions Instructions: Blurred Vision (ED), General Headache (ED) Additional Instructions: Work-up in the ER does not reveal any obvious emergent process. As we discussed your INR level is slightly low at 1.8, I would like you to take an extra dose of Coumadin tonight, 2.5 mg. Please watch for new or worsening symptoms and return immediately to the ER. Otherwise please contact your primary care provider first thing Friday to discuss your ER visit, ongoing symptoms, and need for outpatient reevaluation. Medical Decision Making 61-year-old gentleman with a past medical history of A. fib, anticoagulated, hypertension, morbid obesity, presented to the ER for evaluation of 10-day history, once daily ranging between 5-30 minutes, pain between his eyes and what he describes as behind his eyes, denies global headache, when this occurs he has blurry vision. Last episode yesterday, currently asymptomatic. Clinically he appears well, nontoxic, neurologically intact. Plan to initiate cardiac work-up including a single troponin and EKG as well as a CT of his brain, CTA of his brain and neck. Laboratory values are grossly unremarkable, INR slightly subtherapeutic at 1.8, patient typically takes 2.5 mg Coumadin Friday through Friday and 5 mg on Friday. Recommend that he take an extra dose tonight of his 2.5 mg and he will need this rechecked on Friday. CT brain, CTA brain and neck unremarkable for any acute process. Blood pressure reveals his blood pressure is trending down nicely without any intervention. Patient remains asymptomatic. Discussed that there is no clear etiology of his symptoms, outpatient MRI, referral to neurology, ophthalmology, etc. are all reasonable for further evaluation. Patient feels well and is comfortable discharge home. Strict discharge and return precautions were provided. Patient understands, is agreeable to this plan, and has no additional questions or concerns upon discharge. This documentation was generated using [employer] dictation system, please disregard any oddities of phrase or misspellings. Medical Records Medical records reviewed: Yes I reviewed the patient's medical records. Imaging Data Radiologic Study: Attestation: I personally reviewed and interpreted this imaging study as follows: Imaging: CT Scan Radiologist's impression: PROCEDURE INFORMATION: Exam: CTA Head With Contrast, Arteriography Exam date and time: 04/12/2022 5:36 PM Age: 61 years old Clinical indication: Other: GONZALEZ, blurry vision TECHNIQUE: Imaging protocol: Computed tomographic angiography of the head with contrast. Exam focused on the arteries. 3D rendering (Not supervised by radiologist): MIP and/or 3D reconstructed images were created by the technologist. Contrast material: OMNIPAQUE 350; Contrast volume: 85 ml; Contrast route: INTRAVENOUS (IV); COMPARISON: No relevant prior studies available. FINDINGS: ANTERIOR CIRCULATION: Right internal carotid artery: Intracranial segment is patent with no significant stenosis. No aneurysm. Right middle cerebral artery: No occlusion or significant stenosis. No aneurysm. Right anterior cerebral artery: No occlusion or significant stenosis. No aneurysm. Left internal carotid artery: Intracranial segment is patent with no significant stenosis. No aneurysm. Left middle cerebral artery: No occlusion or significant stenosis. No aneurysm. Left anterior cerebral artery: No occlusion or significant stenosis. No aneurysm. POSTERIOR CIRCULATION: Right vertebral artery: No occlusion or significant stenosis. No aneurysm.Left vertebral artery: No occlusion or significant stenosis. No aneurysm. Basilar artery: No occlusion or significant stenosis. No aneurysm. Right posterior cerebral artery: No occlusion or significant stenosis. No aneurysm. Left posterior cerebral artery: No occlusion or significant stenosis. No aneurysm. Brain: Suspected microvascular ischemic changes of mild degree with no acute transcortical infarction, recent hemorrhage or mass lesion detected. Cerebral ventricles: No midline shift or hydrocephalus. Mastoid air cells: Grossly clear bilaterally. Probable cerumen seen in the external auditory canals bilaterally. Paranasal sinuses: Mild mucosal disease at the bases of both maxillary sinuses. Bone s/joints: No acute fracture. Soft tissues: Unremarkable. IMPRESSION: No large vessel stenosis or occlusion detected involving the major branches of the anterior or posterior intracranial circulation. PROCEDURE INFORMATION: Exam: CTA Neck With Contrast Exam date and time: 04/12/2022 5:36 PM Age: 61 years old Clinical indication: Other: GONZALEZ, blurry vision TECHNIQUE: Imaging protocol: Computed tomographic angiography of the neck with contrast. 3D rendering (Not supervised by radiologist): MIP and/or 3D reconstructed images were created by the technologist. Contrast material: OMNIPAQUE 350; Contrast volume: 85 ml; Contrast route: INTRAVENOUS (IV); COMPARISON: CT THORAX CTA 09/14/2020 1:56 PM FINDINGS: Right common carotid artery: No stenosis. No dissection or occlusion. Right internal carotid artery: No stenosis of the extracranial segment. No dissection or occlusion. Right external carotid artery: No occlusion or stenosis of the origin. Left common carotid artery: No stenosis. No dissection or occlusion. Left internal carotid artery: No stenosis of the extracranial segment. No dissection or occlusion. Left external carotid artery: No occlusion or stenosis of the origin. Right vertebral artery: No stenosis. No dissection or occlusion. Left vertebral artery: No stenosis. No dissection or occlusion.Soft tissues: Normal. No significant soft tissue swelling. Bones/joints: No acute fracture. IMPRESSION: No evidence of 50% or greater stenosis involving the cervical segments of the right or left internal carotid arteries by NASCET criteria. REFERENCES: NASCET CRITERIA. The degree of stenosis in the cervical segment of the internal carotid artery is based on NASCET criteria. Normal is no stenosis. Mild is less than 50% stenosis. Moderate is 50- 69% stenosis. Severe is 70% to 99% stenosis. Total occlusion is no detectable patent lumen. Thank you for allowing us to participate in the care of your patient. Lab Data Lab results reviewed: Yes I reviewed the patient's lab results. Labs: Laboratory Tests Range/Units 04/12/22 04/12/22 04/12/22 14:10 14:10 14:10 WBC (4.4-10.8) 10^3/uL 6.13 RBC (4.36-5.78) 10^6/uL 5.91 H Hgb (13.5-17.5) g/dL 17.5 Hct (40.0-50.0) % 52.8 H MCV (80-95) fL 89 MCH (27.0-33.0) pg 29.6 MCHC (32.0-36.0) % 33.1 RDW (11.8-14.1) % 13.2 Plt Count (130-400) 10^3/uL 181 MPV (8.0-11.0) fL 9.2 Immature Gran % 0.3 Neutrophils % 63.5 Lymphocytes % 22.0 Monocytes % 11.9 Eosinophils % 1.5 Basophils % 0.8 Nucleated RBC % (0.0-0.3) % 0.0 Absolute Neutrophils (1.2-6.7) 10^3/uL 3.89 Absolute Lymphocytes (1.2-3.4) 10^3/uL 1.35 Absolute Monocytes (0.1-0.8) 10^3/uL 0.73 Absolute Eosinophils (0.0-0.7) 10^3/uL 0.09 Absolute Basophils (0.0-0.2) 10^3/uL 0.05 PT (9.3-11.0) sec 17.7 H INR (0.9-1.1) 1.8 H Sodium Cancelled Potassium Cancelled Chloride Cancelled Carbon Dioxide Cancelled Anion Gap Cancelled BUN Cancelled Creatinine Cancelled Est GFR (CKD-EPI 2020) Cancelled Glucose Cancelled Calcium Cancelled Total Bilirubin Cancelled AST Cancelled ALT Cancelled Alkaline Phosphatase Cancelled Troponin I Cancelled Total Protein Cancelled Albumin Cancelled Range/Units 04/12/22 16:45 WBC (4.4-10.8) 10^3/uL RBC (4.36-5.78) 10^6/uL Hgb (13.5-17.5) g/dL Hct (40.0-50.0) % MCV (80-95) fL MCH (27.0-33.0) pg MCHC (32.0-36.0) % RDW (11.8-14.1) % Plt Count (130-400) 10^3/uL MPV (8.0-11.0) fL Immature Gran % Neutrophils % Lymphocytes % Monocytes % Eosinophils % Basophils % Nucleated RBC % (0.0-0.3) % Absolute Neutrophils (1.2-6.7) 10^3/uL Absolute Lymphocytes (1.2-3.4) 10^3/uL Absolute Monocytes (0.1-0.8) 10^3/uL Absolute Eosinophils (0.0-0.7) 10^3/uL Absolute Basophils (0.0-0.2) 10^3/uL PT (9.3-11.0) sec INR (0.9-1.1) Sodium 139 Potassium 3.8 Chloride 102 Carbon Dioxide 33.9 H Anion Gap 3.1 BUN 20 H Creatinine 1.1 Est GFR (CKD-EPI 2020) 76.37 Glucose 93 Calcium 9.5 Total Bilirubin 0.6 AST 21 ALT 19 Alkaline Phosphatase 75 Troponin I < 50 Total Protein 7.7 Albumin 3.8 ECG Data Attestation: I personally reviewed and interpreted this ECG (s) as follows: Interpretation: A. fib, ventricular rate of 90, no STEMI. HPI General Mode of arrival: ambulatory . Date/Time Provider Initiated Documentation: 04/12/22 15:39 . Limitations to Documentation: no limitations . Information obtained by: patient . HPI Narrative: This is a 61-year-old gentleman with a past medical history of A. fib, anticoagulated, chronic venous insufficiency, hypertension, morbid obesity, presenting to the ER reporting that over the past 10 days, once daily for anywhere between 5-30 minutes, he has had what he describes as pain in his head between and behind his eyes associated with bilateral blurry vision. Nothing makes it worse or better. He reports when it is present is a 3 or 4 out of 10 and aching in nature. He states that the last episode was actually yesterday, he has had no episodes today and is currently asymptomatic. He denies recent illness, trauma, global headache, neck pain, chest pain, shortness of breath, abdominal pain, nausea, vomiting, focal numbness, tingling, weakness, or w orsening swelling in his legs. Related Data Home Medications Medication Instructions Recorded Confirmed lancets 23 gauge (Lancets,Thin) #60 ea 12/01/15 02/07/22 blood sugar diagnostic (OneTouch #100 strips 08/19/19 02/07/22 Verio test strips) ammonium lactate 12 % lotion 1 applic topical BID #400 grams 01/07/22 04/12/22 losartan 50 mg tablet 50 mg PO DAILY #90 tabs 01/07/22 04/12/22 metformin 500 mg tablet 500 mg PO DAILY #90 tabs 01/07/22 04/12/22 amlodipine 10 mg tablet 5 mg PO DAILY #90 tab-caps 02/07/22 04/12/22 hydrochlorothiazide 12.5 mg tablet 12.5 mg PO DAILY #90 tabs 02/07/22 04/12/22 warfarin 5 mg tablet 2.5 mg PO DIRECTED 04/12/22 Previous Rx's Medication Instructions Recorded lancets 23 gauge (Lancets,Thin) #60 ea 12/01/15 blood sugar diagnostic (OneTouch #100 strips 08/19/19 Verio test strips) ammonium lactate 12 % lotion 1 applic topical BID #400 grams 01/07/22 losartan 50 mg tablet 50 mg PO DAILY #90 tabs 01/07/22 metformin 500 mg tablet 500 mg PO DAILY #90 tabs 01/07/22 amlodipine 10 mg tablet 5 mg PO DAILY #90 tab-caps 02/07/22 hydrochlorothiazide 12.5 mg tablet 12.5 mg PO DAILY #90 tabs 02/07/22 Allergies Allergy/AdvReac Type Severity Reaction Status Date / Time lisinopril AdvReac Intermediate COUGH Verified 04/12/22 15:52 General Stated Complaint: Headache ENOCH: 3 Review of Systems Constitutional Constitutional: Denies fatigue, Denies fever(s), Denies headache(s) and Denies weakness Eyes Eyes: Reports blurry vision (None currently) ENT Ears, Nose, Mouth, and Throat: Denies headache(s) and Denies neck pain Cardiovascular Cardiovascular: Denies chest pain and Denies dyspnea Respiratory Respiratory: Denies cough and Denies dyspnea Gastrointestinal Gastrointestinal: Denies abdominal pain, Denies nausea and Denies vomiting Genitourinary Genitourinary: Denies dysuria Musculoskeletal Musculoskeletal: Denies neck pain, Denies numbness, Denies stiffness and Denies tingling Integumentary/Breasts Skin/Breast: Denies rash Neurologic Neurologic: Denies headache(s), Denies numbness, Denies tingling and Denies weakness Endocrine Endocrine: Denies fatigue Hematologic/Lymphatic Hematologic/Lymphatic: Reports easy bleeding and Reports easy bruising PFSH All Active Problems Blurred vision, bilateral (Acute) Cephalgia (Acute) Abnormal INR (Acute) Atrial fibrillation (Chronic) Elevated blood protein (Acute) Chronic venous insufficiency (Chronic) Essential hypertension (Chronic) Atrial fibrillation and flutter (Chronic 10/10/17) Morbid obesity (Chronic 10/13/17) Chronic anticoagulation (Acute) Ascending aortic aneurysm (Acute) CT 09/2019- 4.1 cm ascending thoracic aorta. 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 TAMEZ Venous insufficiency (chronic) (peripheral) Vocal cord paresis (10/13/17) Surgical History Colonoscopy - MAC (01/13/15) DR. OCTAVIA TAMEZ Excision, Tumor benign lymphatic mass right thigh History of excision of lesion Family History Mother , AGE 78 Diabetes Father , AGE 82 Essential hypertension Stroke Sister No problems noted. Brother Diabetes Essential hypertension Maternal Grandfather , AGE 86 Diabetes Essential hypertension Paternal Grandfather , AGE 62 Heart disease Stroke Essential hypertension Maternal Grandmother , AGE 99 Diabetes Essential hypertension Heart disease Sister Diabetes Essential hypertension Sister Asthma Depression Diabetes Essential hypertension Hyperlipidemia Brother Asthma Depression Essential hypertension Diabetes Heart disease Hyperlipidemia Brother Diabetes Essential hypertension Son No problems noted. Son No problems noted. 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 Pets and animals: Yes Pets and animals: dog(s) Sexually active: Yes Do you think of yourself as: straight/heterosexual Current gender identity: male What is your relationship status?: How often do you talk on the phone with friends or family?: decline to answer How often do you get together with friends or relatives?: decline to answer Do you belong to any clubs or organized social groups?: decline to answer Panel score (0-1 are the most socially isolated patients): 1 What type of physical activity do you participate in: none Taisha/Episcopalian: None Special taisha needs: No Seatbelt use: never Helmet use: Yes Helmet use: always Drive intox or ride w/intox mechanic 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 Exam Const General: cooperative, healthy appearing, comfortable and no acute distress Orientation: alert, awake and oriented x3 HENMT Head: normal to inspection, normocephalic and atraumatic Ears: external ears normal, TM's normal bilaterally and EAC's normal General nose exam: external nose normal Face and sinus: normal facial exam Mouth: moist mucous membranes Throat: posterior oropharynx normal Eyes General: appearance normal, both eyes and all related structures Alignment and Position: alignment normal Periorbital: periorbital findings normal Eyelids: eyelids normal Conjunctivae: conjunctivae normal Sclera: sclerae normal Cornea: corneas normal Pupils: PERRL EOM: EOM intact bilaterally Direct ophthalmoscopy: normal light reflex Neck Neck: normal visual inspection, full ROM, no lymphadenopathy, no meningeal signs, trachea midline, supple and nontender Resp Effort & Inspection: normal respiratory effort and able to speak in complete sentences Auscultation: clear to auscultation bilaterally Cardio Rate: regular rate Rhythm: abnormal rhythm irregularly irregular GI Inspection: obesity Palpation: soft, not firm, no guarding, no pulsatile masses and nontender Back/Spine/Pelvis Back: no CVA tenderness and No back tenderness Skin General skin exam: no rashes or lesions noted Neuro General: patient alert, patient awake, patient oriented x3, moves all extremities and no focal motor deficits Cranial Nerves: CN's II-XI intact bilaterally Cognition: normal cognition Speech: speech normal Gait: normal gait Motor: muscle tone normal throughout, strength 5/5 throughout, no pronator drift, no movement abnormalities noted and no fasciculations Sensory Exam: no sensory deficits noted Coordination: Does not sway with eyes open Extrem General: full ROM, capillary refill normal, no calf tenderness and pedal edema bilaterally pitting and 1+ Psych Appearance: grossly normal Mental Status: mental status grossly normal Course Vital Signs Vital signs: Vital Signs Temperature 36.9 C 04/12/22 15:29 Pulse 59 L 04/12/22 15:29 Respiratory Rate 18 04/12/22 15:29 Blood Pressure 170/105 H 04/12/22 15:29 Pulse Oximetry 96 04/12/22 15:29 Temperature 36.9 C 04/12/22 15:29 Temperature Source Temporal Artery Scan 04/12/22 15:29 Pulse 59 L 04/12/22 15:29 Respiratory Rate 18 04/12/22 15:29 Respiratory Effort 04/12/22 15:51 Blood Pressure 170/105 H 04/12/22 15:29 Blood Pressure Position Sitting 04/12/22 15:29 Pulse Oximetry 96 04/12/22 15:29 Oxygen Delivery Method Room Air 04/12/22 15:29 Oxygen Flow Rate 0 04/12/22 15:29 Pain Level 0 04/12/22 15:49
--- NOTE | 2022-04-12 16:20 | DI.CT_ITS ---
Exam(s) CT BRAIN NECK CTA EXAM: CT BRAIN NECK CTA CLINICAL HISTORY: GONZALEZ, blurry vision. TECHNIQUE: Imaging Protocol: Axial CT angiography was performed with multi-slice acquisition and mu lti-planar and/or 3D reconstructions. CONTRAST MATERIAL: Intravenous: Omnipaque 350 Contrast volume:structured data in ml COMPARISON: CT CT THORAX CTA from 09/14/2020 FINDINGS: CTA Neck W: Aortic arch anatomy: The aortic arch anatomy is conventional and there is no significant stenosis at the origin of the great vessels off of the aortic arch. No intimal flap evident. Anterior circulation: Both common carotid arteries ascend with normal luminal diameters. At the level the carotid bulbs and proximal internal carotid arteries there is minimal plaque without hemodynamically significant stenosis evident. Posterior circulation: Vertebral arteries originated conventional fashion off of the subclavian arteries and there is no obv ious stenosis at the origin of the vertebral arteries. Both vertebral arteries exhibit normal equal luminal diameters within the foramen transversarium. Both vertebral arteries contribute to the formation of the basilar artery at the skull base. CTA Brain W: Anterior circulation: Both internal carotid arteries are patent in the skull base-carotid canals as well as within the cave rnous sinuses. The supraclinoid aspects of the ICAs are patent. Both A1 segments are patent as are the anterior cer ebral arteries and there is no evidence of aneurysm at the level of the anterior communicating artery . Both middle cerebral arteries are patent with no evidence of significant stenosis nor intraluminal th rombus. There also no aneurysms of these vessels. Posterior circulation: The basilar artery ascends in the midline. Distally it gives off patent bilateral superior cerebella r arteries. Above this level the basilar artery terminates as patent bilateral posterior cerebral arteries. There is no evidence of aneurysm at the tip of the basilar artery nor elsewhere in the [id number] is. CT BRAIN: There is no evidence of intracranial hemorrhage, mass effect, or shift of midline structures. There are no extra-axial fluid collections. Ventricles are not enlarged or shifted. There are no ring enh ancing lesions in the brain and no abnormal meningeal enhancement. Some mild bilateral periventricular hypodensity consistent with chronic small vessel disease. IMPRESSION: 1. Patent carotid arteries in the neck. No hemodynamically significant stenosis. 2. Patent vertebral arteries. 3. Patent intracranial arteries. No significant stenosis nor intraluminal thrombus. No obvious aneu rysms. No ring enhancing lesions in the brain. Chronic small vessel white matter ischemic changes but no ob vious acute infarct. If clinically indicated follow-up MRI with diffusion imaging can be performed. RADIATION DOSE DELIVERED: 2,563.03mGy.cm Total DLP DATA REPOSITORY: All CT scans at this facility are submitted to the National Radiology Data Registry (NRDR) Dose Index Registry (DIR) with the [employer] ([employer]). RADIATION OPTIMIZATION: All CT scans at this facility use at least one of these dose optimization te chniques: automated exposure control; mA and/or kV adjustment per patient size (includes targeted exa ms where dose is matched to clinical indication); or iterative reconstruction.
[2022-04-12 16:41] LABS: Abs Immature Grans 0.02 10^3/uL (0.0-0.06); Absolute Basophil Count 0.05 10^3/uL (0.0-0.2); Absolute Eosinophil Count 0.09 10^3/uL (0.0-0.7); Absolute Lymphocyte Count 1.35 10^3/uL (1.2-3.4); Absolute Monocyte Count 0.73 10^3/uL (0.1-0.8); Absolute Neutrophil Count 3.89 10^3/uL (1.2-6.7); Basophils % 0.8; Eosinophils % 1.5; HCT 52.8 % (40.0-50.0); HGB 17.5 g/dL (13.5-17.5); Immature Grans % 0.3; MCH 29.6 pg (27.0-33.0); MCHC 33.1 % (32.0-36.0); MCV 89 fL (80-95); MPV 9.2 fL (8.0-11.0); Monocytes % 11.9; Neutrophils % 63.5; Platelet Count 181 10^3/uL (130-400); RBC 5.91 10^6/uL (4.36-5.78); RDW 13.2 % (11.8-14.1); RDW-SD 43.5 fL; WBC 6.13 10^3/uL (4.4-10.8)
[2022-04-12 16:51] LABS: INR 1.8 (0.9-1.1); Prothrombin Time 17.7 sec (9.3-11.0)
[2022-04-12 17:08] LABS: ALT 19 U/L (16-63); AST 21 U/L (15-37); Albumin 3.8 g/dL (3.4-5.0); Alkaline Phosphatase 75 U/L (46-116); Anion Gap 3.1 mmol/L (3-11); BUN 20 mg/dL (7-18); Bilirubin, Total 0.6 mg/dL (0.2-1.0); CO2 33.9 mmol/L (21.0-32.0); CREATININE 1.1 mg/dL (0.70-1.30); Calcium 9.5 mg/dL (8.5-10.1); Chloride 102 mmol/L (98-107); Estimated GFR 76.37 (mL/min/1.73m2); Glucose 93 mg/dL (74-106); Potassium 3.8 mmol/L (3.5-5.1); Sodium 139 mmol/L (136-145); Total Protein 7.7 g/dL (6.4-8.2); Troponin I < 50 ng/L (<or=60)
[2022-04-12] MEDS: Omnipaque 350 MG/ML 100 ML BTL 85 ML IJ (17:45)
[2022-04-12] MEDS: Normal Saline - Diluent 50 ML VIAL IJ (17:45)
[2022-04-12] MEDS: Normal Saline Flush 10 ML SYR IVP (17:46)
--- NOTE | 2022-04-12 18:18 | DI.VRAD_ITS ---
PROCEDURE INFORMATION: Exam: CTA Head With Contrast, Arteriography Exam date and time: 04/12/2022 5:36 PM Age: 61 years old Clinical indication: Other: GONZALEZ, blurry vision TECHNIQUE: Imaging protocol: Computed tomographic angiography of the head with contrast. Exam focused on the arteries. 3D rendering (Not supervised by radiologist): MIP and/or 3D reconstructed images were created by the technologist. Contrast material: OMNIPAQUE 350; Contrast volume: 85 ml; Contrast route: INTRAVENOUS (IV); COMPARISON: No relevant prior studies available. FINDINGS: ANTERIOR CIRCULATION: Right internal carotid artery: Intracranial segment is patent with no significant stenosis. No aneurysm. Right middle cerebral artery: No occlusion or significant stenosis. No aneurysm. Right anterior cerebral artery: No occlusion or significant stenosis. No aneurysm. Left internal carotid artery: Intracranial segment is patent with no significant stenosis. No aneurysm. Left middle cerebral artery: No occlusion or significant stenosis. No aneurysm. Left anterior cerebral artery: No occlusion or significant stenosis. No aneurysm. POSTERIOR CIRCULATION: Right vertebral artery: No occlusion or significant stenosis. No aneurysm. Left vertebral artery: No occlusion or significant stenosis. No aneurysm. Basilar artery: No occlusion or significant stenosis. No aneurysm. Right posterior cerebral artery: No occlusion or significant stenosis. No aneurysm. Left posterior cerebral artery: No occlusion or significant stenosis. No aneurysm. Brain: Suspected microvascular ischemic changes of mild degree with no acute transcortical infarction, recent hemorrhage or mass lesion detected. Cerebral ventricles: No midline shift or hydrocephalus. Mastoid air cells: Grossly clear bilaterally. Probable cerumen seen in the external auditory canals bilaterally. Paranasal sinuses: Mild mucosal disease at the bases of both maxillary sinuses. Bones/joints: No acute fracture. Soft tissues: Unremarkable. IMPRESSION: No large vessel stenosis or occlusion detected involving the major branches of the anterior or posterior intracranial circulation. PROCEDURE INFORMATION: Exam: CTA Neck With Contrast Exam date and time: 04/12/2022 5:36 PM Age: 61 years old Clinical indication: Other: GONZALEZ, blurry vision TECHNIQUE: Imaging protocol: Computed tomographic angiography of the neck with contrast. 3D rendering (Not supervised by radiologist): MIP and/or 3D reconstructed images were created by the technologist. Contrast material: OMNIPAQUE 350; Contrast volume: 85 ml; Contrast route: INTRAVENOUS (IV); COMPARISON: CT THORAX CTA 09/14/2020 1:56 PM FINDINGS: Right common carotid artery: No stenosis. No dissection or occlusion. Right internal carotid artery: No stenosis of the extracranial segment. No dissection or occlusion. Right external carotid artery: No occlusion or stenosis of the origin. Left common carotid artery: No stenosis. No dissection or occlusion. Left internal carotid artery: No stenosis of the extracranial segment. No dissection or occlusion. Left external carotid artery: No occlusion or stenosis of the origin. Right vertebral artery: No stenosis. No dissection or occlusion. Left vertebral artery: No stenosis. No dissection or occlusion. Soft tissues: Normal. No significant soft tissue swelling. Bones/joints: No acute fracture. IMPRESSION: No evidence of 50% or greater stenosis involving the cervical segments of the right or left internal carotid arteries by NASCET criteria. REFERENCES: NASCET CRITERIA. The degree of stenosis in the cervical segment of the internal carotid artery is based on NASCET criteria. Normal is no stenosis. Mild is less than 50% stenosis. Moderate is 50-69% stenosis. Severe is 70% to 99% stenosis. Total occlusion is no detectable patent lumen. Dictated and Authenticated by: Carlos Manuel Abreu MD. Ordering:REINALDO Brooks MD
[2022-04-12 18:30] VITALS: BP 127/78; PULSE 91; RESP 19; TEMP 36.6; O2SAT 96
[2022-04-12 19:16] VITALS: BP 146/97; PULSE 85; RESP 22; TEMP 36.5; O2SAT 96
== END 2022-04-12 19:18 | disposition home or self-care (01) ==
PROVIDERS: Emergency Provider Physician Assistant; PCP Family Medicine
DX: H53.8 Other visual disturbances (principal); R51.9 Headache, unspecified; R79.1 Abnormal coagulation profile; I10 Essential (primary) hypertension; I48.91 Unspecified atrial fibrillation; Z79.01 Long term (current) use of anticoagulants; Z86.16 Personal history of COVID-19
CPT/HCPCS: 36415; 70496; 70498; 80053; 93005; 99285; 84484; 85025; 85610; 93010; J3490

== ENCOUNTER 2022-04-25 17:41 | Outpatient (CLI) | payer OTHER, SELFPAY ==
[2022-04-29 15:05] LABS: Erythropoietin 21.1 mIU/mL (2.6 - 18.5)
[2022-05-01 11:51] LABS: JAK2 Result see interpretation
== END 2022-04-25 17:42 | disposition home or self-care (01) ==
LOC: LBO 17:41
PROVIDERS: PCP Family Medicine; Visit Provider Family Medicine
DX: D75.1 Secondary polycythemia (principal)
CPT/HCPCS: 36415; 82668; 81270

== ENCOUNTER 2023-01-24 21:30 | Outpatient (REF) | payer OTHER, SELFPAY | END 2023-01-24 21:31 | disposition home or self-care (01) | LOC: LBN 21:30 | PROVIDERS: PCP Family Medicine; Visit Provider Physician Assistant | DX: N39.0 Urinary tract infection, site not specified (principal) | CPT/HCPCS: 87077; 87086; 87186 ==

== ENCOUNTER 2023-02-10 22:23 | Outpatient (REF) | payer OTHER, SELFPAY | END 2023-02-10 22:24 | disposition home or self-care (01) | LOC: NCHCN 22:23 | PROVIDERS: PCP Family Medicine; Visit Provider Physician Assistant | DX: N39.0 Urinary tract infection, site not specified (principal) | CPT/HCPCS: 87086 ==

== ENCOUNTER 2023-05-11 23:08 | Emergency (ER) | payer OTHER, SELFPAY ==
[2023-05-11 23:15] VITALS: BP 137/96; PULSE 81; RESP 16; TEMP 36.2; O2SAT 98
--- NOTE | 2023-05-11 23:30 | RT.EKG_ITS ---
APPROVED REPORT Exam: Resting ECG Reason for Exam: gi bleed Patient Location: E HR:78 bpm ECG Measurements Heart Rate 78 AXIS VA [id number] P [id number] QRSd 99 QRS 17 QT 372 T 1 QTc 425 Conclusion Atrial fibrillation...V-rate 57- 94, irreg A-activity No ST segment or T wave abnormalities to suggest occlusive GA
[2023-05-11] MEDS: Ondansetron 4 MG/2 ML VIAL IVP (23:46)
[2023-05-11] MEDS: cefTRIAXone 1 GM/50 ML BAG IVPB (23:46)
--- NOTE | 2023-05-11 23:46 | ED.GENADUL_ITS ---
HPI General Mode of arrival: ambulatory . Date/Time Provider Initiated Documentation: 05/11/23 23:17 . Limitations to Documentation: no limitations . Information obtained by: patient . HPI Narrative: 62yo M with hx HTN, DM, afib on eliquis, s/p gastric bypass presenting for vomiting blood. Friday evening one episode of dark brown/bloody emesis, as well as several melanotic stools. This evening began to have large volume bright right emesis, no clots. 3-4 episodes. Nausated and mild upper abdominal pain. No chest pain, shortness of breath, or presycnope. No history of liver disease or varices. No sick contacts. Otherwise in his usual state of health with no fevers, chills, rash, numbness, weakness, or other concerns. Related Data Home Medications Medication Instructions Recorded Confirmed lancets 23 gauge (Lancets,Thin) #60 ea 12/01/15 02/17/23 blood sugar diagnostic (OneTouch #100 strips 08/19/19 02/17/23 Verio test strips) ammonium lactate 12 % lotion 1 applic topical BID #400 grams 01/07/22 05/11/23 amlodipine 10 mg tablet 5 mg (1/2 x 10 mg) PO DAILY #90 02/07/22 05/11/23 tab-caps albuterol sulfate 90 mcg/actuation 2 inh inhalation Q6H PRN shortness 06/13/22 05/11/23 aerosol inhaler of breath or wheezing #18 grams inhalational spacing device #1 ea 06/13/22 02/17/23 (BreatheRite MDI Spacer) metoprolol succinate 25 mg 25 mg PO DAILY #90 tabs 08/23/22 05/11/23 tablet,extended release 24 hr spironolactone 25 mg tablet 25 mg PO DAILY #90 tabs 09/05/22 05/11/23 (Aldactone) losartan 100 mg tablet 100 mg PO DAILY #90 tabs 11/27/22 05/11/23 acetaminophen 325 mg capsule 650 mg PO Q6H PRN 01/13/23 05/11/23 apixaban 5 mg tablet (Eliquis) 5 mg PO BID #180 tabs 02/05/23 05/11/23 metformin 500 mg tablet 500 mg PO DAILY #90 tabs 02/05/23 05/11/23 bariatric fusion complete 1 tab PO BID #180 tabs 03/31/23 05/11/23 multivitamin protein drink 237 ml PO DAILY #90 multiple units 03/31/23 05/11/23 Previous Rx's Medication Instructions Recorded lancets 23 gauge (Lancets,Thin) #60 ea 12/01/15 blood sugar diagnostic (OneTouch #100 strips 08/19/19 Verio test strips) ammonium lactate 12 % lotion 1 applic topical BID #400 grams 01/07/22 amlodipine 10 mg tablet 5 mg (1/2 x 10 mg) PO DAILY #90 02/07/22 tab-caps albuterol sulfate 90 mcg/actuation 2 inh inhalation Q6H PRN shortness 06/13/22 aerosol inhaler of breath or wheezing #18 grams inhalational spacing device #1 ea 06/13/22 (BreatheRite MDI Spacer) metoprolol succinate 25 mg 25 mg PO DAILY #90 tabs 08/23/22 tablet,extended release 24 hr spironolactone 25 mg tablet 25 mg PO DAILY #90 tabs 09/05/22 (Aldactone) losartan 100 mg tablet 100 mg PO DAILY #90 tabs 11/27/22 apixaban 5 mg tablet (Eliquis) 5 mg PO BID #180 tabs 02/05/23 metformin 500 mg tablet 500 mg PO DAILY #90 tabs 02/05/23 bariatric fusion complete 1 tab PO BID #180 tabs 03/31/23 multivitamin protein drink 237 ml PO DAILY #90 multiple units 03/31/23 Allergies Allergy/AdvReac Type Severity Reaction Status Date / Time lisinopril AdvReac Intermediate COUGH Verified 02/10/23 16:30 General Stated Complaint: GI Bleed ENOCH: 3 Review of Systems Narrative: see HPI Exam Narrative Exam Narrative: General: Alert, well nourished, in no acute distress. Head: Normocephalic, atraumatic Neck: Trachea midline, ?Neck supple. ENT: ?MMM.? No oropharygeal lesions or exudate. Cardiac: ?RRR, no murmurs appreciated Resp: No respiratory distress. CTAB. Abd: ?Soft, non-distended, mildly tender to epigastrium : ?No suprapubic tenderness. Extremities: ?No deformities.? No peripheral edema. Neurologic: GCS 15. ? Moves all extremities freely against gravity Course Vital Signs Vital signs: Vital Signs Temperature 36.2 C L 05/11/23 23:15 Pulse 81 05/11/23 23:15 Respiratory Rate 16 05/11/23 23:15 Blood Pressure 137/96 H 05/11/23 23:15 Pulse Oximetry 98 05/11/23 23:15 Temperature 36.2 C L 05/11/23 23:15 Temperature Source Skin 05/11/23 23:15 Pulse 81 05/11/23 23:15 Respiratory Rate 16 05/11/23 23:15 Respiratory Effort Normal, Non-Labored 05/11/23 23:18 Blood Pressure 137/96 H 05/11/23 23:15 Blood Pressure Position Sitting 05/11/23 23:15 Pulse Oximetry 98 05/11/23 23:15 Oxygen Delivery Method Room Air 05/11/23 23:15 Oxygen Flow Rate 0 05/11/23 23:15 Pain Level 0 05/11/23 23:15 Medical Decision Making 62yo M with hx HTN, DM, afib on eliquis, s/p gastric bypass presenting for vomiting blood. Friday evening one episode of dark brown/bloody emesis, as well as several melanotic stools; this evening began to have large volume bright right emesis. -Vital signs reassuring on arrival. Mild epigastric tenderness, no peritoneal signs. Not actively vomiting. Will treat for UGI bleed; given 80mg IV protonix, ceftriaxone. No indication for emergent transfusion or intubation at this time. Low suspicion for varices, will not do octreotide. -Labs reviewed as below, CBC reassuring with no anemia, CMP with no actionable abnormalities, INR slightly elevated at 1.2, troponin negative, lipase normal and not suggestive of pancreatitis. -CT abd/pelvis independently reviewed, no obstruction or free fluid on my view, agree with radiology read below. -Discussed with Dr. Mazariegos [facility], agree pt would benefit for upper endoscopy. Plan for ED to ED transfer in the morning, accepted under Dr. Reilly. Remains stable overnight, no further vomiting. Transport anticipated at 0700. Imaging Data Radiologic Study: Imaging: CT Scan Radiologist's impression: IMPRESSION: No acute finding. Lab Data Lab results reviewed: Yes I reviewed the patient's lab results. Labs: Laboratory Tests Range/Units 05/11/23 23:40 WBC (4.4-10.8) 10^3/uL 8.26 RBC (4.36-5.78) 10^6/uL 4.57 Hgb (13.5-17.5) g/dL 13.8 Hct (40.0-50.0) % 41.6 MCV (80-95) fL 91 MCH (27.0-33.0) pg 30.2 MCHC (32.0-36.0) % 33.2 RDW (11.8-14.1) % 14.5 H Plt Count (130-400) 10^3/uL 159 MPV (8.0-11.0) fL 9.7 Immature Gran % 0.2 Neutrophils % 71.4 Lymphocytes % 18.3 Monocytes % 8.5 Eosinophils % 1.0 Basophils % 0.6 Nucleated RBC % (0.0-0.3) % 0.0 Absolute Neutrophils (1.2-6.7) 10^3/uL 5.90 Absolute Lymphocytes (1.2-3.4) 10^3/uL 1.51 Absolute Monocytes (0.1-0.8) 10^3/uL 0.70 Absolute Eosinophils (0.0-0.7) 10^3/uL 0.08 Absolute Basophils (0.0-0.2) 10^3/uL 0.05 PT (9.1-11.1) sec 11.6 H INR (0.9-1.1) 1.2 H APTT (23.6-32.8) sec 26.5 Sodium (136-145) mmol/L 144 Potassium (3.5-5.1) mmol/L 4.0 Chloride (98-107) mmol/L 108 H Carbon Dioxide (21.0-32.0) mmol/L 27.5 Anion Gap (3-11) mmol/L 8.5 BUN (7-18) mg/dL 55 H Creatinine (0.70-1.30) mg/dL 0.9 Est GFR (CKD-EPI 2020) (mL/min/1.73m2) 96.57 Glucose (74-106) mg/dL 124 H Calcium (8.5-10.1) mg/dL 8.8 Magnesium (1.8-2.4) mg/dL 2.0 Total Bilirubin (0.2-1.0) mg/dL 0.4 AST (15-37) U/L 15 ALT (16-63) U/L 16 Alkaline Phosphatase (46-116) U/L 71 Troponin I (< or =60) ng/L < 50 Total Protein (6.4-8.2) g/dL 6.5 Albumin (3.4-5.0) g/dL 3.4 Lipase (16-77) U/L 30 Patient ABO/Rh A Positive Antibody Screen NEGATIVE Quality:SDOH Health Related Social Needs: No Data to Display PFSH All Active Problems (Updated 05/12/23 @ 04:28 by May Garcia MD) Acute upper gastrointestinal bleeding (Acute) Anticoagulated (Acute) Chronic venous insufficiency (Chronic) Essential hypertension (Chronic) Atrial fibrillation and flutter (Chronic 10/10/17) Morbid obesity (Chronic 10/13/17) Chronic anticoagulation (Acute) Ascending aortic aneurysm (Acute) CT 09/2019- 4.1 cm ascending thoracic aorta. 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 TAMEZ Primary osteoarthritis of both knees (02/03/15) Low back pain Hyperlipidemia Fracture of ankle left Dysphonia (10/13/17) Hematuria Hypertension Venous insufficiency (chronic) (peripheral) Morbid obesity with BMI of 50.0-59.9, adult Surgical History History of excision of lesion Excision, Tumor benign lymphatic mass right thigh Colonoscopy - MAC (01/13/15) DR. OCTAVIA TAMEZ Family History Mother , AGE 78 Diabetes Father , AGE 82 Essential hypertension Stroke Sister No problems noted. Brother Diabetes Essential hypertension Maternal Grandfather , AGE 86 Diabetes Essential hypertension Paternal Grandfather , AGE 62 Heart disease Stroke Essential hypertension Maternal Grandmother , AGE 99 Diabetes Essential hypertension Heart disease Sister Diabetes Essential hypertension Sister Asthma Depression Diabetes Essential hypertension Hyperlipidemia Brother Asthma Depression Essential hypertension Diabetes Heart disease Hyperlipidemia Brother Diabetes Essential hypertension Son No problems noted. Son No problems noted. 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 Pets and animals: Yes Pets and animals: dog(s) Sexually active: Yes Do you think of yourself as: straight/heterosexual Current gender identity: male What is your relationship status?: How often do you talk on the phone with friends or family?: decline to answer How often do you get together with friends or relatives?: decline to answer Do you belong to any clubs or organized social groups?: decline to answer Panel score (0-1 are the most socially isolated patients): 1 What type of physical activity do you participate in: none Taisha/Jehovah'S Witness: None Special taisha needs: No Seatbelt use: never Helmet use: Yes Helmet use: always Drive intox or ride w/intox industrial tractor 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 Discharge Plan Disposition Patient Disposition: Transfer-Acute Inpatient Care Specific Acute Inpt Facility: [facility] Condition: Serious Discharge Details Clinical Impression: Anticoagulated, Acute upper gastrointestinal bleeding Primary Care Provider: Balbir Crawford ED Provider: May Garcia Home Meds and New Rx's Prescriptions: No Action (DME) OneTouch Verio test strips Strip 1 ea Miscellaneous BID Qty: 100 4RF Rx Instructions: Test once daily ammonium lactate 12 % lotion 1 applic topical BID Qty: 400 6RF Rx Instructions: apply to BLEs amlodipine 10 mg tablet 5 mg PO DAILY Qty: 90 4RF Rx Instructions: dose reduction 02/07/22 albuterol sulfate 90 mcg/actuation HFA aerosol inhaler 2 inh inhalation Q6H PRN (Reason: shortness of breath or wheezing) Qty: 18 4RF (DME) BreatheRite MDI Spacer Spacer See Rx Instructions .Route Qty: 1 0RF Rx Instructions: As directed metformin 500 mg tablet 500 mg PO DAILY Qty: 90 4RF Eliquis 5 mg tablet 5 mg PO BID Qty: 180 3RF losartan 100 mg tablet 100 mg PO DAILY Qty: 90 3RF metoprolol succinate 25 mg tablet extended release 24 hr 25 mg PO DAILY Qty: 90 3RF spironolactone [Aldactone] 25 mg tablet 25 mg PO DAILY Qty: 90 3RF acetaminophen 325 mg capsule 650 mg PO Q6H PRN Rx Instructions: per [facility] discharge 01/07/23 bariatric fusion complete multivitamin 1 tab PO BID Qty: 180 3RF protein drink 237 ml PO DAILY Qty: 90 3RF (DME) Lancets,Thin 1 EACH misc 1 ea Miscellaneous BID Qty: 60 0RF
[2023-05-11] MEDS: Pantoprazole 40 MG VIAL 80 MG IVP (23:49)
[2023-05-12] VITALS (41 sets, daily range): BP systolic 110–184; BP diastolic 69–134; PULSE 69–91; O2SAT 92–98
[2023-05-12] LABS: Abs Immature Grans 0.02 10^3/uL (0.0-0.06); Absolute Basophil Count 0.05 10^3/uL (0.0-0.2); Absolute Eosinophil Count 0.08 10^3/uL (0.0-0.7); Absolute Lymphocyte Count 1.51 10^3/uL (1.2-3.4); Basophils % 0.6; HCT 41.6 % (40.0-50.0); HGB 13.8 g/dL (13.5-17.5); Immature Grans % 0.2; Lymphocytes % 18.3; MCH 30.2 pg (27.0-33.0); MCHC 33.2 % (32.0-36.0); MCV 91 fL (80-95); MPV 9.7 fL (8.0-11.0); Monocytes % 8.5; Neutrophils % 71.4; Platelet Count 159 10^3/uL (130-400); RBC 4.57 10^6/uL (4.36-5.78); RDW 14.5 % (11.8-14.1); RDW-SD 48.3 fL; WBC 8.26 10^3/uL (4.4-10.8)
--- NOTE | 2023-05-12 | DI.CT_ITS ---
Exam(s) CT ABDOMEN PELVIS W EXAM: CT ABDOMEN PELVIS W CLINICAL HISTORY: upper gi bleed TECHNIQUE: Imaging Protocol: Axial computed tomography images with coronal and sagittal reformatted images were created and reviewed. CONTRAST MATERIAL: Intravenous: Omnipaque 350 Contrast volume:100 mL Oral: No COMPARISON: CT CT ABDOMEN PELVIS W from 10/12/[address] THORAX CTA from 09/14/2020 FINDINGS: The examination is limited due to patient motion artifact.. ABDOMEN: Lung Bases: Stable 3 mm peripheral right lower lobe pulmonary nodule. Liver: Normal density. There is a tiny density in the liver. It is too small for further characteriz ation. No suspicious hepatic masses are seen. Portal, Superior Mesenteric, and Splenic Veins: Unremarkable. Gallbladder and Biliary Tract: No radiodense calculus or dilation. Pancreas: Normal density, no abnormal calcifications or inflammatory process. Spleen: Normal. Calcified granuloma are seen in the spleen. Adrenals: No masses seen. Kidneys: Normal size, contour and axis. No radiodense stones or obstructive uropathy. No masses seen. Abdominal Aorta: Abdominal portion non-dilated. Atherosclerosis. Bowel: There are few diverticula seen in the colon but no evidence of acute diverticulitis. There fi ndings suggestive of gastric bypass surgery. There is no evidence of bowel obstruction. No evidence of appendicitis. Peritoneal Cavity: No ascites, collection or mesenteric inflammatory response. No free air. Lymph Nodes: Within normal limits. Bones: Within normal limits for the patient's age. Soft Tissues: There is a large fat containing midline paraumbilical hernia. There are small fat cont aining bilateral inguinal hernias. PELVIS: Bladder: Symmetric distention, no gross wall thickening. Reproductive Organs: Prostatic calcifications are seen. Lymph Nodes: Within normal limits. Bones: Within normal limits for the patient's age. IMPRESSION: 1. Colonic diverticulosis without evidence of diverticulitis. No bowel obstruction. Findings of gas tric bypass surgery. 2. Large fat containing midline paraumbilical hernia. 3. No acute abdominal or pelvic process. RADIATION DOSE DELIVERED: 1,991.01mGy.cm Total DLP DATA REPOSITORY: All CT scans at this facility are submitted to the National Radiology Data Registry (NRDR) Dose Index Registry (DIR) with the [employer] ([employer]). RADIATION OPTIMIZATION: All CT scans at this facility use at least one of these dose optimization te chniques: automated exposure control; mA and/or kV adjustment per patient size (includes targeted exa ms where dose is matched to clinical indication); or iterative reconstruction.
[2023-05-12 00:12] LABS: ALT 16 U/L (16-63); AST 15 U/L (15-37); Albumin 3.4 g/dL (3.4-5.0); Alkaline Phosphatase 71 U/L (46-116); Anion Gap 8.5 mmol/L (3-11); BUN 55 mg/dL (7-18); Bilirubin, Total 0.4 mg/dL (0.2-1.0); CO2 27.5 mmol/L (21.0-32.0); CREATININE 0.9 mg/dL (0.70-1.30); Calcium 8.8 mg/dL (8.5-10.1); Chloride 108 mmol/L (98-107); Estimated GFR 96.57 (mL/min/1.73m2); Glucose 124 mg/dL (74-106); Lipase 30 U/L (16-77); Sodium 144 mmol/L (136-145); Total Protein 6.5 g/dL (6.4-8.2); Troponin I < 50 ng/L (< or =60)
[2023-05-12 00:14] LABS: INR 1.2 (0.9-1.1); Prothrombin Time 11.6 sec (9.1-11.1)
[2023-05-12 00:18] LABS: PTT Activated 26.5 sec (23.6-32.8)
[2023-05-12] MEDS: Omnipaque 350 MG/ML 100 ML BTL IJ (01:30)
[2023-05-12] MEDS: Normal Saline - Diluent 50 ML VIAL IJ (01:31)
[2023-05-12] MEDS: Normal Saline Flush 10 ML SYR IVP (01:31)
--- NOTE | 2023-05-12 01:45 | DI.VRAD_ITS ---
PROCEDURE INFORMATION: Exam: CT Abdomen And Pelvis With Contrast Exam date and time: 05/12/2023 1:10 AM Age: 62 years old Clinical indication: Abdominal pain; Localized; Left upper quadrant (luq); Prior surgery; Surgery date: 1-6 months; Surgery type: Gastric bypass; Patient HX: Upper gi bleed TECHNIQUE: Imaging protocol: Computed tomography of the abdomen and pelvis with contrast. Radiation optimization: All CT scans at this facility use at least one of these dose optimization techniques: automated exposure control; mA and/or kV adjustment per patient size (includes targeted exams where dose is matched to clinical indication); or iterative reconstruction. Contrast material: OMNIPAQUE 350; Contrast volume: 100 ml; Contrast route: INTRAVENOUS (IV); COMPARISON: CT ABDOMEN PELVIS W 10/12/2018 10:35 AM FINDINGS: Liver: Normal. No mass. Gallbladder and bile ducts: Normal. No calcified stones. No ductal dilation. Pancreas: Normal. No ductal dilation. Spleen: Normal. No splenomegaly. Adrenal glands: Normal. No mass. Kidneys and ureters: Normal. No hydronephrosis. Stomach and bowel: Status post gastrojejunostomy. No bowel obstruction. Colonic diverticula. Appendix: No evidence of appendicitis. Intraperitoneal space: Unremarkable. No free air. No significant fluid collection. Vasculature: Unremarkable. No abdominal aortic aneurysm. Lymph nodes: Unremarkable. No enlarged lymph nodes. Urinary bladder: Unremarkable as visualized. Reproductive: Unremarkable as visualized. Bones/joints: Unremarkable. No acute fracture. Soft tissues: Fat containing umbilical hernia. IMPRESSION: No acute finding. Dictated and Authenticated by: Alfonso Epperson MD. Ordering:JACOB Olvera MD
[2023-05-12] MEDS: Normal Saline 1,000 ML 125 ML IV (03:18)
--- NOTE | 2023-05-12 06:55 | NUR.NOTE ---
report called to [facility] for ER to ER transfer:
== END 2023-05-12 07:51 | disposition short-term general hospital (02) ==
PROVIDERS: Emergency Provider Student in an Organized Health Care Education/Training Program; PCP Family Medicine
DX: K92.2 Gastrointestinal hemorrhage, unspecified (principal); I48.91 Unspecified atrial fibrillation; E78.5 Hyperlipidemia, unspecified; I10 Essential (primary) hypertension; E11.40 Type 2 diabetes mellitus with diabetic neuropathy, unspecified; Z79.01 Long term (current) use of anticoagulants; Z79.84 Long term (current) use of oral hypoglycemic drugs; Z98.84 Bariatric surgery status
CPT/HCPCS: 36415; 80053; 83690; 86850; 86900; 86901; 93005; 96365; 96375; 99285; 74177; 83735; 84484; 85025; 85610; 85730; 93010; J0696; J2405; J2470; J3490

== ENCOUNTER 2023-09-30 19:09 | Outpatient (REF) | payer OTHER, SELFPAY ==
[2023-09-30 21:50] LABS: COMMENT (LAB VIEW ONLY) 107.98 mg/dL; Microalb ug/mg Crea 24.7 ug/mg Cr
== END 2023-09-30 19:10 | disposition home or self-care (01) ==
LOC: LBN 19:09
PROVIDERS: PCP Family Medicine; Visit Provider Family Medicine
DX: E11.9 Type 2 diabetes mellitus without complications (principal)
CPT/HCPCS: 82043; 82570

== ENCOUNTER 2024-04-21 23:26 | Emergency (ER) | payer OTHER, SELFPAY ==
--- NOTE | 2024-04-21 23:15 | RT.EKG_ITS ---
APPROVED REPORT Exam: Resting ECG Reason for Exam: weakness Patient Location: E HR:70 bpm ECG Measurements Heart Rate 70 AXIS [place] [id number] P [id number] QRSd 110 QRS 56 QT 414 T 65 QTc 447 Conclusion Atrial fibrillation...V-rate 50- 90, irreg A-activity Anteroseptal infarct, age indeterminate...Q >35mS, T neg, V1-V2
[2024-04-21 23:28] VITALS: BP 120/71; PULSE 72; RESP 18; TEMP 36; O2SAT 96
[2024-04-21 23:39] VITALS: PULSE 69; PULSE 73; RESP 17; O2SAT 100
[2024-04-21 23:40] VITALS: PULSE 81; PULSE 82; RESP 19; O2SAT 97
[2024-04-21 23:46] VITALS: BP 96/63; PULSE 59; PULSE 62; O2SAT 95
[2024-04-21 23:49] LABS: Abs Immature Grans 0.03 10^3/uL (0.0-0.06); Absolute Basophil Count 0.06 10^3/uL (0.0-0.2); Absolute Eosinophil Count 0.12 10^3/uL (0.0-0.7); Absolute Lymphocyte Count 1.62 10^3/uL (1.2-3.4); Absolute Neutrophil Count 4.94 10^3/uL (1.2-6.7); Basophils % 0.8 %; Eosinophils % 1.5 %; HCT 49.7 % (40.0-50.0); HGB 16.7 g/dL (13.5-17.5); Immature Grans % 0.4 %; Lymphocytes % 20.6 %; MCH 31.1 pg (27.0-33.0); MCHC 33.6 % (32.0-36.0); MCV 93 fL (80-95); MPV 9.1 fL (8.0-11.0); Neutrophils % 62.7 %; Platelet Count 148 10^3/uL (130-400); RBC 5.37 10^6/uL (4.36-5.78); RDW 12.8 % (11.8-14.1); RDW-SD 43.9 fL; WBC 7.87 10^3/uL (4.4-10.8)
[2024-04-21 23:50] VITALS: PULSE 62; RESP 18; O2SAT 95
[2024-04-21] MEDS: Lactated Ringers 1,000 ML 1000 ML IV (23:57)
[2024-04-21] MEDS: Dextrose 50%-Water 25 GM/50 ML SYR IVP (23:57)
[2024-04-22] VITALS (57 sets, daily range): BP systolic 106–158; BP diastolic 63–92; PULSE 51–84; RESP 12–24; O2SAT 92–99
[2024-04-22 00:03] LABS: INR 1.1 (0.9-1.1); PTT Activated 24.1 sec (20.6-30.2); Prothrombin Time 10.6 sec (9.1-11.1)
[2024-04-22 00:05] LABS: Anion Gap 3.8 mmol/L (3-11); BUN 16 mg/dL (7-18); CO2 33.2 mmol/L (21.0-32.0); Calcium 9.4 mg/dL (8.5-10.1); Chloride 107 mmol/L (98-107); Estimated GFR 84.57 (mL/min/1.73m2); Magnesium 1.9 mg/dL (1.8-2.4); Potassium 3.1 mmol/L (3.5-5.1); Sodium 144 mmol/L (136-145)
[2024-04-22 00:09] LABS: Troponin I 13 ng/L (<or=76)
[2024-04-22 00:12] LABS: Glucose 42 mg/dL (74-106)
--- NOTE | 2024-04-22 00:37 | ED.GENADUL_ITS ---
Discharge Plan Disposition Patient Disposition: Home Condition: Good Discharge Details Chief Complaint: Fall/Non TraumaCriteria Clinical Impression: Contusion of occipital region of scalp, Concussion, Hypoglycemia due to type 2 diabetes mellitus, Adverse drug reaction, Contusion of left buttock, Strain of intrinsic muscle of right thumb Primary Care Provider: Balbir Crawford ED Provider: Rahat Fox Home Meds and New Rx's Prescriptions: No Action (DME) OneTouch Verio test strips Strip 1 ea Miscellaneous BID Qty: 100 4RF Rx Instructions: Test once daily ammonium lactate 12 % lotion 1 applic topical BID Qty: 400 6RF Rx Instructions: apply to BLEs albuterol sulfate 90 mcg/actuation HFA aerosol inhaler 2 inh inhalation Q6H PRN (Reason: shortness of breath or wheezing) Qty: 18 4RF (DME) BreatheRite MDI Spacer Spacer See Rx Instructions .Route Qty: 1 0RF Rx Instructions: As directed apixaban 2.5 mg tablet 2.5 mg PO BID Qty: 180 3RF metformin 500 mg tablet 500 mg PO DAILY Qty: 90 4RF losartan-hydrochlorothiazide 100-12.5 mg tablet 1 tab PO DAILY Qty: 90 3RF hydrochlorothiazide 12.5 mg tablet 12.5 mg PO DAILY Qty: 25 0RF Rx Instructions: take w/ losartan until 100 mg tabs finished bariatric fusion complete multivitamin 1 tab PO BID Qty: 180 3RF protein drink 237 ml PO DAILY Qty: 90 3RF pantoprazole [address] for susp in packet 40 mg PO BID metoprolol succinate 25 mg tablet extended release 24 hr 25 mg PO DAILY Qty: 90 3RF (DME) Lancets,Thin 1 EACH misc 1 ea Miscellaneous BID Qty: 60 0RF Discharge Instructions Instructions: Adverse Drug Reactions, Adult (DC), Concussion, Adult ED, Low Blood Sugar, Adult ED Additional Instructions: You should discontinue the use of metformin. Be sure to eat at regular int ervals throughout the day to keep her blood glucose level up. Be on the look out for any increase in runny nose or any fluid leaking from your ears, as this can be signs of a basilar skull fracture that has been missed. You can take 2-3 3 to 25 mg acetaminophen tablets every 4-6 hours as needed for symptoms of residual headache. Follow-up with your regular primary care doctor for reevaluation and further management, especially if you have any ongoing symptoms. You can always return to the ER for any concerns or sudden changes in your health which you feel requires emergency medical attention. Stand Alone Forms: Work Release Discharge Data Discharge Physician: Rahat FLOYD General Date/Time Provider Initiated Documentation: 04/21/24 23:28 . HPI Narrative: The patient is a 63-year-old male, with a past medical history significant for atrial fibrillation on apixaban, hypertension, gastroesophageal reflux disease, status post gastric bypass surgery with a significant amount of weight loss, still taking oral metformin at 500 mg daily, who presents the emergency department this evening complaining of feeling weak and dizzy and having 2 falls this evening in his bedroom. The patient reports that he felt dizzy and had tunnel vision which caused him to fall into a dresser striking the back of his head. The patient then stumbled and continue to feel very dizzy and collapsed into a door frame and fell to the ground. The patient reports that he has a lump on the back of his skull. He currently has a headache. The patient also reports pain in his right thumb, left hip, and left ankle. On arrival to the emergency room, the patient's initial fingerstick blood glucose was in the 50s. The patient tells me that he ate dinner tonight which she describes as a few potatoes and a few meatballs. Dinner was at approximately 7 to 7:30 PM. The patient symptoms began shortly before arrival which was several hours later. Related Data Home Medications ?Medication ?Instructions ?Recorded ?Confirmed lancets 23 gauge (Lancets,Thin) #60 ea 12/01/15 04/21/24 blood sugar diagnostic (OneTouch #100 strips 08/19/19 04/21/24 Verio test strips) ammonium lactate 12 % lotion 1 applic topical BID #400 grams 01/07/22 04/21/24 albuterol sulfate 90 mcg/actuation 2 inh inhalation Q6H PRN shortness 06/13/22 04/21/24 aerosol inhaler of breath or wheezing #18 grams inhalational spacing device #1 ea 06/13/22 04/21/24 (BreatheRite MDI Spacer) bariatric fusion complete 1 tab PO BID #180 tabs 03/31/23 04/21/24 multivitamin protein drink 237 ml PO DAILY #90 multiple units 03/31/23 04/21/24 pantoprazole 40 mg granules 40 mg PO BID 05/15/23 04/21/24 delayed-release for susp in packet metoprolol succinate 25 mg 25 mg PO DAILY #90 tabs 09/04/23 04/21/24 tablet,extended release 24 hr apixaban 2.5 mg tablet 2.5 mg PO BID #180 tabs 09/30/23 04/21/24 hydrochlorothiazide 12.5 mg tablet 12.5 mg PO DAILY #25 tabs 09/30/23 04/21/24 losartan 100 1 tab PO DAILY #90 tabs 09/30/23 04/21/24 mg-hydrochlorothiazide 12.5 mg tablet metformin 500 mg tablet 500 mg PO DAILY #90 tabs 09/30/23 04/21/24 Previous Rx's ?Medication ?Instructions ?Recorded lancets 23 gauge (Lancets,Thin) #60 ea 12/01/15 blood sugar diagnostic (OneTouch #100 strips 08/19/19 Verio test strips) ammonium lactate 12 % lotion 1 applic topical BID #400 grams 01/07/22 albuterol sulfate 90 mcg/actuation 2 inh inhalation Q6H PRN shortness 06/13/22 aerosol inhaler of breath or wheezing #18 grams inhalational spacing device #1 ea 06/13/22 (BreatheRite MDI Spacer) bariatric fusion complete 1 tab PO BID #180 tabs 03/31/23 multivitamin protein drink 237 ml PO DAILY #90 multiple units 03/31/23 metoprolol succinate 25 mg 25 mg PO DAILY #90 tabs 09/04/23 tablet,extended release 24 hr apixaban 2.5 mg tablet 2.5 mg PO BID #180 tabs 09/30/23 hydrochlorothiazide 12.5 mg tablet 12.5 mg PO DAILY #25 tabs 09/30/23 losartan 100 1 tab PO DAILY #90 tabs 09/30/23 mg-hydrochlorothiazide 12.5 mg tablet metformin 500 mg tablet 500 mg PO DAILY #90 tabs 09/30/23 Allergies Allergy/AdvReac Type Severity Reaction Status Date / Time lisinopril AdvReac Intermediate COUGH Verified 04/21/24 23:32 General Stated Complaint: Fall/Non TraumaCriteria ENOCH: 3 Exam Const General: cooperative and no acute distress HENMT Head: scalp tenderness (4 x 4 x 1 cm hematoma on the occiput, centrally located over ridge) Ears: external ears normal Face and sinus: normal facial exam Eyes General: appearance normal, both eyes and all related structures Pupils: PERRL EOM: EOM intact bilaterally Neck Neck: normal visual inspection, full ROM and nontender Chest Chest: normal inspection of the chest and no tenderness Resp Effort & Inspection: normal respiratory effort Auscultation: clear to auscultation bilaterally Cardio Rate: regular rate Rhythm: abnormal rhythm irregularly irregular GI Inspection: normal to inspection Palpation: soft Auscultation: normal bowel sounds Back/Spine/Pelvis Back: No back tenderness Cervical Spine: cervical ROM normal and No pain with cervical ROM Thoracic/Lumbar Spine: thoracic and lumbar spine normal to inspection and thoraco-lumbar ROM normal Pelvis: buttock tenderness and sciatic notch tenderness Skin General skin exam: no rashes or lesions noted Trauma: no lacerations or abrasions Neuro General: patient alert, patient oriented x3, moves all extremities, no focal motor deficits and CN's II-XI intact bilaterally Cognition: normal cognition Speech: speech normal Extrem Right upper extremity: hand (Pain to flexion of the right thumb without any obvious deformity) Psych Appearance: grossly normal Mental Status: mental status grossly normal Speech and Movement: speech and movement normal Mood: congruent mood Affect: normal affect Course Vital Signs Vital signs: Vital Signs Temperature 36.0 C L 04/21/24 23:28 Pulse 72 04/21/24 23:28 Respiratory Rate 18 04/21/24 23:28 Blood Pressure 120/71 04/21/24 23:28 Pulse Oximetry 96 04/21/24 23:28 Temperature 36.0 C L 04/21/24 23:28 Temperature Source Temporal Artery Scan 04/21/24 23:28 Pulse 72 04/21/24 23:28 Respiratory Rate 18 04/21/24 23:28 Blood Pressure 120/71 04/21/24 23:28 Blood Pressure Position Supine 04/21/24 23:28 Pulse Oximetry 96 04/21/24 23:28 Oxygen Delivery Method Room Air 04/21/24 23:28 Oxygen Flow Rate 0 04/21/24 23:28 Pain Level 5 04/21/24 23:28 Lab/Test Results Lab/Test Results: Laboratory Tests Range/Units 04/21/24 23:39 WBC (4.4-10.8) 10^3/uL 7.87 RBC (4.36-5.78) 10^6/uL 5.37 Hgb (13.5-17.5) g/dL 16.7 Hct (40.0-50.0) % 49.7 MCV (80-95) fL 93 MCH (27.0-33.0) pg 31.1 MCHC (32.0-36.0) % 33.6 RDW (11.8-14.1) % 12.8 Plt Count (130-400) 10^3/uL 148 MPV (8.0-11.0) fL 9.1 Immature Gran % % 0.4 Neutrophils % % 62.7 Lymphocytes % % 20.6 Monocytes % % 14.0 Eosinophils % % 1.5 Basophils % % 0.8 Nucleated RBC % (0.0-0.3) % 0.0 Absolute Neutrophils (1.2-6.7) 10^3/uL 4.94 Absolute Lymphocytes (1.2-3.4) 10^3/uL 1.62 Absolute Monocytes (0.1-0.8) 10^3/uL 1.10 H Absolute Eosinophils (0.0-0.7) 10^3/uL 0.12 Absolute Basophils (0.0-0.2) 10^3/uL 0.06 PT (9.1-11.1) sec 10.6 INR (0.9-1.1) 1.1 APTT (20.6-30.2) sec 24.1 Sodium (136-145) mmol/L 144 Potassium (3.5-5.1) mmol/L 3.1 L Chloride (98-107) mmol/L 107 Carbon Dioxide (21.0-32.0) mmol/L 33.2 H Anion Gap (3-11) mmol/L 3.8 BUN (7-18) mg/dL 16 Creatinine (0.70-1.30) mg/dL 1.0 Est GFR (CKD-EPI 2020) (mL/min/1.73m2) 84.57 Glucose (74-106) mg/dL 42 L* Calcium (8.5-10.1) mg/dL 9.4 Magnesium (1.8-2.4) mg/dL 1.9 Troponin I (<or=76) ng/L 13 Medical Decision Making The patient was seen and examined. He is in no distress but was found to have a initial blood glucose of 52 mg/dL on his fingerstick. His basic metabolic panel returned with a blood glucose in the 40s. The patient was given half amp of dextrose and a liter of lactated Ringer's. His blood glucose level was rechecked in the 90s. The patient will have serial blood glucose levels here in the emergency room to observe him for any decreases again that might require additional exogenous dextrose at this time. The patient will have CT scanning of the head to exclude intracranial injury, given the fact that he is on oral apixaban. The patient will have x-rays of his extremities for the areas of pain. 0450 -I discussed this case multiple times with the neurosurgery team that is on-call at [facility] over the arc of this shift. The physician expressed concern at the global amount of air seen within the brain, and specifically asked me to recontact Vrad, to determine if there was air in the posterior fossa. There is no air in the posterior fossa. When I discussed the case with the virtual radiology team, the expressed concern that this represented an occult basilar skull fracture. I did transmit this information via fax to the transferring care coordination center at [facility]. As per my discussion with the neurosurgery team, I have ordered a dedicated maxillofacial CT scan and a cervical spine CT scan for the patient. The team was equivocal about whether or not antibiotics are prudent, but I elected to give the patient 2 g of ceftriaxone in the interval. We had originally discussed regrouping at around 6 AM for further discussion about how to progress with this patient's care. 0468 - Mulitple additional CT scans were obtained at the request of the neurosurgical service [facility]. The patient's gas bubbles in his brain had significantly improved in the interval between the studies. There was no additional facial fracture or basilar skull fracture identified in the CT scans. The team feels that the air lobules in the cavernous sinus were likely due to IV air injection through the IV which is settled in the brain prior to diffusing. The patient is ambulatory without difficulty and has maintained a normal blood glucose level over several serial hour-long studies. I have encouraged the patient not to take metformin in the future. We discussed precautions for CSF leak such as increased rhinorrhea or otorrhea. Will provide the patient with a work note at his request. Quality:SDOH Health Related Social Needs: No Data to Display PFSH All Active Problems (Updated 04/22/24 @ 06:37 by Rahat Fox MD) Strain of intrinsic muscle of right thumb (Acute) Contusion of left buttock (Acute) Adverse drug reaction (Acute) Hypoglycemia due to type 2 diabetes mellitus (Acute) Concussion (Acute) Contusion of occipital region of scalp (Acute) Chronic venous insufficiency (Chronic) Essential hypertension (Chronic) Atrial fibrillation and flutter (Chronic 10/10/17) Morbid obesity (Chronic 10/13/17) Chronic anticoagulation (Acute) Ascending aortic aneurysm (Acute) CT 09/2019- 4.1 cm ascending thoracic aorta. 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 TAMEZ Primary osteoarthritis of both knees (02/03/15) Low back pain Hyperlipidemia Fracture of ankle left Dysphonia (10/13/17) Hematuria Hypertension Venous insufficiency (chronic) (peripheral) Morbid obesity with BMI of 50.0-59.9, adult Surgical History History of excision of lesion Excision, Tumor benign lymphatic mass right thigh Colonoscopy - [facility] (01/13/15) DR. OCTAVIA TAMEZ Family History Mother , AGE 78 Diabetes Father , AGE 82 Essential hypertension Stroke Sister No problems noted. Brother Diabetes Essential hypertension Maternal Grandfather , AGE 86 Diabetes Essential hypertension Paternal Grandfather , AGE 62 Heart disease Stroke Essential hypertension Maternal Grandmother , AGE 99 Diabetes Essential hypertension Heart disease Sister Diabetes Essential hypertension Sister Asthma Depression Diabetes Essential hypertension Hyperlipidemia Brother Asthma Depression Essential hypertension Diabetes Heart disease Hyperlipidemia Brother Diabetes Essential hypertension Son No problems noted. Son No problems noted. 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 Pets and animals: Yes Pets and animals: dog(s) Sexually active: Yes Do you think of yourself as: straight/heterosexual Current gender identity: male What is your relationship status?: How often do you talk on the phone with friends or family?: decline to answer How often do you get together with friends or relatives?: decline to answer Do you belong to any clubs or organized social groups?: decline to answer Panel score (0-1 are the most socially isolated patients): 1 What type of physical activity do you participate in: none Taisha/Rastafarian: None Special taisha needs: No Seatbelt use: never Helmet use: Yes Helmet use: always Drive intox or ride w/intox solid waste truck 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
[2024-04-22] MEDS: ACETAMINOPHEN 1,000 MG/100 ML BAG 400 MG IVPB (00:48)
[2024-04-22 01:44] LABS: Troponin I 27 ng/L (<or=76)
--- NOTE | 2024-04-22 02:41 | DI.RAD_ITS ---
Exam(s) XR ANKLE LT 2V EXAM: XR ANKLE LT 2V CLINICAL HISTORY: fall, ankle pain. TECHNIQUE: 2D digital imaging was performed. COMPARISON: No exams were available for comparison FINDINGS: Two views-AP and lateral (no oblique view) There is soft tissue swelling over the medial aspect of the ankle. No obvious fracture realized limi tations of a two view study (AP and lateral; there is no oblique view). Vascular calcification is no krista in the posterior tibial and plantar arteries. There is also small inferior calcaneal spur and th ere is an enthesophyte on the posterior calcaneus Achilles insertion site. At the level lateral mall eolus there is a chronic osseous fragment which does not have the. Of an acute fracture. Talar dome appears unremarkable on this limited two view study. No osseous lesions. IMPRESSION: As above. No acute fracture seen realizing limitations of a two view study. There is no oblique vie w. DATA REPOSITORY: RADIATION DOSE DELIVERED:
--- NOTE | 2024-04-22 02:41 | DI.CT_ITS ---
Exam(s) CT HEAD WO EXAM: CT HEAD WO CLINICAL HISTORY: fall, head strike, blood thinners. TECHNIQUE: Imaging Protocol: Axial computed tomography images with coronal and sagittal reformatted images were created and reviewed COMPARISON: CT CT BRAIN NECK CTA from 04/12/2022 FINDINGS: Ventricles and Extra axial spaces: Normal in size and morphology for the patient's age. Hemorrhage: None. Cerebral parenchyma: There are areas of decreased attenuation in the white matter suggesting chronic microvascular ischemic disease. There is no evidence of an acute territorial infarct or mass effect. Midline shift: None. Brainstem/Cerebellum: Normal. Calvarium: Normal. Visualized Paranasal sinuses/Mastoids: Clear. Soft Tissues: There is subcutaneous gas seen in the soft tissues. There is air seen in the region of the cavernous sinuses. IMPRESSION: 1. No acute intracranial process. 2. No skull fractures identified. 3. Subcutaneous gas in the face and neck. Please correlate for evidence of penetrating trauma. 4. Gas is seen in the cavernous sinuses. RADIATION DOSE DELIVERED: 891.61mGy.cm Total DLP DATA REPOSITORY: All CT scans at this facility are submitted to the National Radiology Data Registry (NRDR) Dose Index Registry (DIR) with the [employer] (ACR). RADIATION OPTIMIZATION: All CT scans at this facility use at least one of these dose optimization te chniques: automated exposure control; mA and/or kV adjustment per patient size (includes targeted exa ms where dose is matched to clinical indication); or iterative reconstruction.
--- NOTE | 2024-04-22 02:42 | DI.RAD_ITS ---
Exam(s) XR THUMB RT EXAM: XR THUMB RT CLINICAL HISTORY: fall, pain. TECHNIQUE: 2D digital imaging was performed. COMPARISON: No exams were available for comparison FINDINGS: 3 views No evidence of acute fracture or dislocation in the hand. There is some edema around the thumb. Sma ll bony excrescence is seen off the lateral aspect of the base of the proximal phalanx of the thumb. No obvious fracture. IMPRESSION: No obvious acute fractures. No dislocation DATA REPOSITORY: RADIATION DOSE DELIVERED:
--- NOTE | 2024-04-22 02:44 | DI.VRAD_ITS ---
Addendum created by Mikayla Malone MD on 04/22/2024 4:32:41 AM EST: ADDENDUM: For purposes of clarification: Given the above intracranial and soft tissue gas, the possibility of skull base and/or facial bone fracture should be considered. This was discussed via telephone conference with CARMELA RAE at 4:31 AM EST on 04/22/2024. The findings were acknowledged and understood. Initial report created on 04/22/2024 2:42:42 AM EST: PROCEDURE INFORMATION: Exam: CT Head Without Contrast Exam date and time: 04/22/2024 2:01 AM Age: 63 years old Clinical indication: Injury or trauma; Blunt trauma (contusions or hematomas); Injury date: 04/21/29; Fall, head strike, blood thinners TECHNIQUE: Imaging protocol: Computed tomography of the head without contrast. Radiation optimization: All CT scans at this facility use at least one of these dose optimization techniques: automated exposure control; mA and/or kV adjustment per patient size (includes targeted exams where dose is matched to clinical indication); or iterative reconstruction. COMPARISON: CT BRAIN NECK CTA 04/12/2022 5:36 PM FINDINGS: Brain: No intracranial hemorrhage appreciated. No significant focal mass effect or significant midline shift. Generalized parenchymal volume loss. Chronic ischemic changes are noted. Cerebral ventricles: No disproportionate ventriculomegaly. Paranasal sinuses: No air-fluid levels seen. Mastoid air cells: No mastoid effusion. Bones: No acute cranial vault fracture seen. Soft tissues: Abnormal soft tissue gas in the visualized face and neck [id number]-brxi-left. Correlate clinically for penetrating trauma. Vasculature: Arterial calcifications. Gas in the cavernous sinuses bilaterally, likely intravascular. Clinical correlation advised. IMPRESSION: 1. No intracranial sequelae of trauma appreciated. 2. Soft tissue gas as described above. Follow-up as clinically warranted. Dictated and Authenticated by: Mikayla Malone MD. Orderin Dominique Giang MD
--- NOTE | 2024-04-22 03:07 | DI.VRAD_ITS ---
PROCEDURE INFORMATION: Exam: XR Left Ankle Exam date and time: 04/22/2024 2:18 AM Age: 63 years old Clinical indication: Injury or trauma; Blunt trauma; Left; Injury date: 04/21/29; Fall, ankle pain TECHNIQUE: Imaging protocol: Radiologic exam of the left ankle. Views: 1 or 2 views. COMPARISON: No relevant prior studies available. FINDINGS: Bones/joints: No acute fracture seen. Chronic osseous fragment at the lateral malleolus. Calcaneal spurring. Soft tissues: Soft tissue swelling about the ankle. Vasculature: Arterial calcifications. IMPRESSION: 1. No acute fracture seen. 2. Findings as above. Dictated and Authenticated by: Mikayla Malone MD. Orderin Dominique Giang MD
--- NOTE | 2024-04-22 03:17 | DI.VRAD_ITS ---
PROCEDURE INFORMATION: Exam: XR Right Finger(s) Exam date and time: 04/22/2024 2:23 AM Age: 63 years old Clinical indication: Injury or trauma; Blunt trauma (contusions or hematomas); Finger; Right; Thumb; Injury date: 04/21/24; Fall, pain TECHNIQUE: Imaging protocol: Radiologic exam of the right fingers. Views: Minimum 2 views. COMPARISON: No relevant prior studies available. FINDINGS: Bones/joints: No discrete or displaced fracture. No joint dislocation. Soft tissues: Right thumb soft tissue edema. IMPRESSION: No acute fracture or dislocation. Dictated and Authenticated by: Sharif Avalos MD. Orderin Dominique Giang MD
--- NOTE | 2024-04-22 03:20 | DI.VRAD_ITS ---
PROCEDURE INFORMATION: Exam: XR Left Hip Exam date and time: 04/22/2024 2:12 AM Age: 63 years old Clinical indication: Injury or trauma; Blunt trauma (contusions or hematomas); Injury date: 04/21/29; Fall, left hip pain TECHNIQUE: Imaging protocol: Radiologic exam of the left hip. Views: 2 or 3 views hip with pelvis when performed. COMPARISON: CT ABDOMEN PELVIS W 05/12/2023 1:10 AM FINDINGS: Bones/joints: No discrete or displaced fracture. No joint dislocation. Symmetric degenerative changes of the hips with mild eyse-mbveiez-obsk-right superior joint space narrowing. Soft tissues: Unremarkable. IMPRESSION: No discrete or displaced fracture. Dictated and Authenticated by: Sharif Avalos MD. Orderin Dominique Giang MD
[2024-04-22] MEDS: cefTRIAXone 2 GM/50 ML BAG IVPB (04:45)
--- NOTE | 2024-04-22 04:59 | DI.VRAD_ITS ---
PROCEDURE INFORMATION: Exam: CT Cervical Spine Without Contrast Exam date and time: 04/22/2024 4:21 AM Age: 63 years old Clinical indication: Injury or trauma; Blunt trauma; Injury date: 04/22/24; Fall, intracranial air TECHNIQUE: Imaging protocol: Computed tomography of the cervical spine without contrast. Radiation optimization: All CT scans at this facility use at least one of these dose optimization techniques: automated exposure control; mA and/or kV adjustment per patient size (includes targeted exams where dose is matched to clinical indication); or iterative reconstruction. COMPARISON: CT BRAIN NECK CTA 04/12/2022 5:36 PM FINDINGS: Limitations: Mild motion artifact. Bones: No cervical spine fracture identified. Reversal of the normal cervical lordosis may reflect positioning or muscle spasm; correlate clinically. Multilevel degenerative changes. At C2-C3 there is moderate left foraminal narrowing. At C3-C4 there is marked left C4-C5 there is mild right foraminal narrowing. At C5-C6 there is mild canal narrowing. At C6-C7 there is mild canal narrowing. Lungs: No acute findings. Vasculature: Again noted is gas in the cavernous sinuses. Soft tissues: Soft tissue gas in the face and neck has decreased since recent CT scan of the brain. IMPRESSION: 1. No cervical spine fracture seen. 2. Findings as above. Dictated and Authenticated by: Mikayla Malone MD. Orderin Dominique Giang MD
--- NOTE | 2024-04-22 05:23 | DI.CT_ITS ---
Exam(s) CT CERVICAL SPINE WO EXAM: CT CERVICAL SPINE WO CLINICAL HISTORY: fall, trauma, intracranial air. TECHNIQUE: Imaging Protocol: Axial computed tomography images with coronal and sagittal reformatted images were created and reviewed COMPARISON: CT CT FACIAL WO/W from 04/22/2024 FINDINGS: The examination is limited due to patient motion artifact. Bones: No acute fracture or subluxation. There is straightening of the normal cervical lordosis. Thi s can be seen with muscle spasm or patient positioning. Moderate degenerative changes are present th roughout the cervical spine. Soft Tissues: Air is seen within the cavernous sinus. Lung Apices: Clear. IMPRESSION: 1. No acute fracture or subluxation in the cervical spine. 2. Air is seen within the cavernous sinuses. RADIATION DOSE DELIVERED: 1,601.58mGy.cm Total DLP 1,601.58mGy.cm Total DLP DATA REPOSITORY: All CT scans at this facility are submitted to the National Radiology Data Registry (NRDR) Dose Index Registry (DIR) with the [employer] ([employer]). RADIATION OPTIMIZATION: All CT scans at this facility use at least one of these dose optimization te chniques: automated exposure control; mA and/or kV adjustment per patient size (includes targeted exa ms where dose is matched to clinical indication); or iterative reconstruction.
--- NOTE | 2024-04-22 05:23 | DI.CT_ITS ---
Exam(s) CT FACIAL WO/W EXAM: CT FACIAL WO/W CLINICAL HISTORY: intracranial air. TECHNIQUE: Imaging Protocol: Axial computed tomography images with coronal and sagittal reformatted images were created and reviewed CONTRAST MATERIAL: Intravenous: Omnipaque 350 Contrast volume:100 mL COMPARISON: CT CT HEAD WO from 04/22/2024 FINDINGS: Visualized intracranial structures: There is air again seen in the cavernous sinuses. Facial Bones: No definite fracture is noted in facial bones. Sinuses and Mastoids: Unremarkable. Globes, extraocular muscles, optic nerves and retrobulbar fat: Normal. Upper aerodigestive tract: Normal. Mandible and bilateral temporomandibular joints: Normal. Soft tissues: There is subcutaneous air seen in the soft tissues which appears decreased compared to the examination from earlier in the day. No focal fluid collection is seen to suggest an abscess. Enhancement: No abnormal enhancement. IMPRESSION: 1. There is again seen air in the cavernous sinuses. 2. The amount of subcutaneous air has decreased since earlier in the day. 3. No acute fracture. RADIATION DOSE DELIVERED: 1,601.58mGy.cm Total DLP DATA REPOSITORY: All CT scans at this facility are submitted to the National Radiology Data Registry (NRDR) Dose Index Registry (DIR) with the [employer] ([employer]). RADIATION OPTIMIZATION: All CT scans at this facility use at least one of these dose optimization te chniques: automated exposure control; mA and/or kV adjustment per patient size (includes targeted exa ms where dose is matched to clinical indication); or iterative reconstruction.
[2024-04-22] MEDS: Omnipaque 350 MG/ML 100 ML BTL IJ (05:25)
[2024-04-22] MEDS: Normal Saline - Diluent 50 ML VIAL IJ (05:25)
--- NOTE | 2024-04-22 06:06 | DI.VRAD_ITS ---
PROCEDURE INFORMATION: Exam: CT Maxillofacial Without and With Contrast Exam date and time: 04/22/2024 4:21 AM Age: 63 years old Clinical indication: Other: Intracranial air TECHNIQUE: Imaging protocol: Computed tomography of the face without and with contrast. Radiation optimization: All CT scans at this facility use at least one of these dose optimization techniques: automated exposure control; mA and/or kV adjustment per patient size (includes targeted exams where dose is matched to clinical indication); or iterative reconstruction. Contrast material: [id number]; Contrast volume: 100 ml; Contrast route: INTRAVENOUS (IV); COMPARISON: CT HEAD WO 04/22/2024 2:01 AM FINDINGS: Paranasal sinuses: No air-fluid levels. Orbital cavities: Orbits are normal. Globes are unremarkable. Bones: No acute fracture. Soft tissues: Unremarkable. Other findings: No abnormal enhancement. IMPRESSION: No acute facial bone fracture is visualized. Dictated and Authenticated by: Nacho Salazar MD. Orderin Dominique Giang MD
--- NOTE | 2024-04-22 23:46 | DI.RAD_ITS ---
Exam(s) XR HIP LT COMPLETE AP PELVIS EXAM: XR HIP LT COMPLETE AP PELVIS CLINICAL HISTORY: fall, left hip pain. TECHNIQUE: 2D digital imaging was performed. COMPARISON: No exams were available for comparison FINDINGS: 3 views No evidence of pelvic nor hip fracture. There is some degenerative changes in the hips, more so on the left side. Mild hip joint space narro wing and marginal femoral head osteophytes noted on the left side. Bone density normal. No osseous lesions. IMPRESSION: No pelvic nor hip fractures evident. Degenerative changes left more than right hip. DATA REPOSITORY: RADIATION DOSE DELIVERED:
== END 2024-04-22 06:53 | disposition home or self-care (01) ==
PROVIDERS: Emergency Provider Emergency Medicine Emergency Medical Services; PCP Family Medicine
DX: S06.0X0A Concussion without loss of consciousness, initial encounter (principal); S00.03XA Contusion of scalp, initial encounter; S30.0XXA Contusion of lower back and pelvis, initial encounter; E11.65 Type 2 diabetes mellitus with hyperglycemia; S66.011A Strain of long flexor muscle, fascia and tendon of right thumb at wrist and hand level, initial encounter; I48.91 Unspecified atrial fibrillation; I10 Essential (primary) hypertension; E78.5 Hyperlipidemia, unspecified; Z79.01 Long term (current) use of anticoagulants; Z79.84 Long term (current) use of oral hypoglycemic drugs; T38.3X5A Adverse effect of insulin and oral hypoglycemic [antidiabetic] drugs, initial encounter; R42 Dizziness and giddiness; W01.190A Fall on same level from slipping, tripping and stumbling with subsequent striking against furniture, initial encounter; Y93.89 Activity, other specified; Y92.013 Bedroom of single-family (private) house as the place of occurrence of the external cause
CPT/HCPCS: 36415; 80048; 82962; 93005; 96361; 96365; 96367; 99285; 70450; 70488; 72125; 73140; 73502; 73600; 83735; 84484; 85025; 85610; 85730; 93010; J0131; J0696; J3490